=== PATIENT | male | born 1975 | race Caucasian/White ===

== ENCOUNTER 2016-12-28 21:12 | Emergency (ER) | payer MEDICAID ==
[2016-12-28 21:13] VITALS: BMI 25.8
--- NOTE | 2016-12-29 00:30 | C.PDOC ---
History Of Present Illness 41 y/o male presents to ED who states he was unable to stay [facility] the [facility] tonight after having several drinks. Patient denies any medical complaints on arrival. Time Seen by Provider: 12/29/16 00:16 Chief Complaint (Nursing): Substance Abuse History Per: Patient History/Exam Limitations: no limitations Onset/Duration Of Symptoms: Hrs Current Symptoms Are (Timing): Still Present Suicide/Self Injury Attempted (Context): None Modifying Factor(s): Alcohol Associated Symptoms: denies: Suicidal Thoughts, Suicidal Plan Recent travel outside of the [place]: No Past Medical History Reviewed: Historical Data, Nursing Documentation, Vital Signs Vital Signs: Last Vital Signs Temp 97.9 F 12/28/16 21:27 Pulse 87 12/29/16 04:37 Resp 20 12/29/16 04:37 BP 141/70 12/29/16 04:37 Pulse Ox 96 12/29/16 05:42 - Medical History PMH: Asthma, Hepatitis (C) - [facility] Procedures ALCOHOL DETOXIFICATION (04/27/15) CONTINUOUS INVASIVE MECHANICAL VENTILATION =/>96 CONSEC HRS (04/27/15) DETOXIFICATION SERVICES FOR SUBSTANCE ABUSE TREATMENT (04/25/16) GROUP PIPE FITTER SUPERVISOR MAINTENANCE FOR SUBSTANCE ABUSE TREATMENT, PSYCHOEDUCATION (12/23/16) INDIV PSYCHOTHERAPY FOR SUBSTANCE ABUSE TREATMENT, SUPPORT (12/23/16) INSERT ENDOTRACHEAL TUBE (04/27/15) MEDS MGMT FOR SUBSTANCE ABUSE TREATMENT, OTH REPL MED (12/23/16) Family History: States: Unknown Family Hx - Social History Hx Tobacco Use: Yes Hx Alcohol Use: Yes Hx Substance Use: No - Immunization History Hx Tetanus Toxoid Vaccination: No Hx Influenza Vaccination: No Hx Pneumococcal Vaccination: No Review Of Systems Except As Marked, All Systems Reviewed And Found Negative. Constitutional: Negative for: Fever, Chills Cardiovascular: Negative for: Chest Pain, Palpitations Respiratory: Negative for: Cough, Shortness of Breath Gastrointestinal: Negative for: Vomiting, Abdominal Pain Skin: Negative for: Rash Physical Exam - Physical Exam Appears: Non-toxic, No Acute Distress Skin: Warm, Dry Head: Atraumatic, Normacephalic Oral Mucosa: Moist Chest: Symmetrical Cardiovascular: Rhythm Regular, No Murmur Respiratory: No Rales, No Rhonchi, No Wheezing Gastrointestinal/Abdominal: Normal Exam, Soft, No Tenderness, No Guarding, No Rebound Back: Normal Inspection Extremity: Normal ROM, Capillary Refill (< 2 sec) Neurological/Psych: Oriented x3, Normal Speech, Normal Cognition Gait: Steady ED Course And Treatment O2 Sat by Pulse Oximetry: 96 (RA) Pulse Ox Interpretation: Normal Progress Note: 6 AM- Pt is awake, AAOx3 , fully ambulatory in ED. will d/c home Reevaluation Time: 06:03 Reassessment Condition: Improved Disposition - Disposition Disposition: HOME/ ROUTINE Disposition Time: 06:00 Condition: STABLE Instructions: Abuse of Alcohol (ED) - Clinical Impression Clinical Impression: Alcohol abuse - PA / FURNITURE DECALS INSPECTOR / Resident Statement MD/DO has reviewed & agrees with the documentation as recorded. - Scribe Statement The provider has reviewed the documentation as recorded by the Jennifer Singh Provider Scribe Attestation: All medical record entries made by the Bishopibvida were at my direction and personally dictated by me. I have reviewed the chart and agree that the record accurately reflects my personal performance of the history, physical exam, medical decision making, and the department course for this patient. I have also personally directed, reviewed, and agree with the discharge instructions and disposition.
[2016-12-29 04:38] VITALS: RESP 20
[2016-12-29 06:06] VITALS: BP 140/78; PULSE 92; TEMP 97.3; O2SAT 100
== END 2016-12-29 06:06 | disposition home or self-care (01) ==
LOC: C.ER 21:12
DX: F10.10 Alcohol abuse, uncomplicated (principal); Y90.9 Presence of alcohol in blood, level not specified

== ENCOUNTER 2017-01-10 22:24 | Emergency (ER) | payer MEDICAID ==
[2017-01-10 22:24] VITALS: BMI 25.8
[2017-01-10 22:39] VITALS: O2SAT 96
[2017-01-10] MEDS ORDERED: Sodium Chloride 0.9% 1,000 ML IV ONE (23:21)
[2017-01-10 23:53] LABS: BASO # 0.2 K/uL (0.0-0.2); BASO % 2.1 % (0.0-2.0); EOS # 0.1 K/uL (0.0-0.7); EOS % 1.7 % (0.0-4.0); HEMATOCRIT 36.4 % (35.0-51.0); LYMPH # 2.4 K/uL (1.0-4.3); LYMPH % 32.4 % (20.0-40.0); MEAN CELL VOLUME 77.9 fL (80.0-94.0); MEAN CORPUSCULAR HEMOGLOBIN 24.8 pg (27.0-31.0); MEAN CORPUSCULAR HGB CONC 31.8 g/dL (33.0-37.0); MONO # 0.8 K/uL (0.0-0.8); MONO % 10.8 % (0.0-10.0); RED CELL DISTRIBUTION WIDTH 20.6 % (11.5-14.5); WHITE BLOOD COUNT 7.5 K/uL (4.8-10.8)
[2017-01-10 23:58] LABS: CHLORIDE 103 mmol/L (98-107)
[2017-01-10 23:59] LABS: POTASSIUM 3.5 mmol/L (3.6-5.2); SODIUM 149 mmol/L (132-148)
[2017-01-11 00:01] LABS: ALB/GLOB RATIO 1.1 (1.0-2.1); BILIRUBIN,TOTAL 0.7 mg/dL (0.2-1.3); CARBON DIOXIDE 26 mmol/L (22-30); GFR AFRICAN-AMERICAN > 60; TOTAL PROTEIN 7.4 g/dL (6.3-8.3)
[2017-01-11 00:02] LABS: ALKALINE PHOSPHATASE 115 U/L (38-126); ALT/SGPT 97 U/L (21-72); AST/SGOT 253 U/L (17-59); BLOOD UREA NITROGEN 8 mg/dL (9-20); CALCIUM 7.8 mg/dl (8.6-10.4); GLUCOSE,RANDOM 97 mg/dL (75-110)
[2017-01-11] MEDS ORDERED: Albuterol-Ipratrop 3 mg / 0.5 (3 ml) UD IH STA (00:29)
[2017-01-11] MEDS ORDERED: Albuterol-Ipratrop 3 mg / 0.5 (3 ml) UD ONE (00:32)
--- NOTE | 2017-01-11 00:54 | C.PDOC ---
Time Seen by Provider: 01/10/17 23:09 Chief Complaint (Nursing): Abdominal Pain History Per: Patient History/Exam Limitations: intoxication Onset/Duration Of Symptoms: Hrs Current Symptoms Are (Timing): Still Present Context: Other (Alcohol abuse) Severity: Moderate Location Of Pain/Discomfort: Epigastric Associated Symptoms: Nausea Alleviating Factors: None Additional History Per: Prior Records Past Medical History Reviewed: Historical Data, Nursing Documentation, Vital Signs Vital Signs: Last Vital Signs Temp 97.9 F 01/10/17 22:35 Pulse 72 01/10/17 22:35 Resp 20 01/10/17 22:35 BP 130/84 01/10/17 22:35 Pulse Ox 96 01/11/17 00:55 - Medical History PMH: Asthma, Hepatitis (C) Surgical History: No Surg Hx - [facility] Procedures ALCOHOL DETOXIFICATION (04/27/15) CONTINUOUS INVASIVE MECHANICAL VENTILATION =/>96 CONSEC HRS (04/27/15) DETOXIFICATION SERVICES FOR SUBSTANCE ABUSE TREATMENT (04/25/16) GROUP TRAFFIC RATE COMPUTER FOR SUBSTANCE ABUSE TREATMENT, PSYCHOEDUCATION (12/23/16) INDIV PSYCHOTHERAPY FOR SUBSTANCE ABUSE TREATMENT, SUPPORT (12/23/16) INSERT ENDOTRACHEAL TUBE (04/27/15) MEDS MGMT FOR SUBSTANCE ABUSE TREATMENT, OTH REPL MED (12/23/16) Family History: States: Unknown Family Hx - Social History Hx Tobacco Use: Yes Hx Alcohol Use: Yes (daily) Hx Substance Use: No - Immunization History Hx Tetanus Toxoid Vaccination: No Hx Influenza Vaccination: No Hx Pneumococcal Vaccination: No Review Of Systems Except As Marked, All Systems Reviewed And Found Negative. Constitutional: Negative for: Fever Cardiovascular: Negative for: Chest Pain Respiratory: Negative for: Hemoptysis Gastrointestinal: Positive for: Abdominal Pain. Negative for: Vomiting Musculoskeletal: Negative for: Neck Pain Skin: Negative for: Rash Neurological: Negative for: Weakness, Numbness, Seizures Physical Exam - Physical Exam Appears: No Acute Distress, Other (AOB) Skin: Warm, Dry Head: Atraumatic Eye(s): bilateral: PERRL, EOMI Neck: Normal ROM, Supple Cardiovascular: Rhythm Regular Respiratory: Wheezing (scattered, intermittent) Gastrointestinal/Abdominal: Soft, Tenderness (upper abdomen), No Guarding, No Rebound Back: No CVA Tenderness Extremity: Normal ROM Neurological/Psych: Oriented x3, Normal Motor, Normal Sensation ED Course And Treatment - Laboratory Results Result Diagrams: 01/10/17 23:50 01/10/17 23:50 Lab Interpretation: Abnormal Interpretation Of Abnormal: Elevated Lipase. O2 Sat by Pulse Oximetry: 96 Pulse Ox Interpretation: Normal Progress Note: I told pt that I want to admit him because he had pancreatitis and that it is a dangerous and sometimes life threatening condition. Pt then walked out during evaluation. He did not want to wait for any discharge papers or to sign AMA papers. Disposition - Disposition Disposition: ELOPEMENT - ER ONLY Disposition Time: 01:05 Condition: GUARDED - Clinical Impression Clinical Impression: Acute alcoholic pancreatitis, Patient left before treatment completed
[2017-01-11 01:19] VITALS: BP 134/80; PULSE 84; RESP 16; TEMP 98.9
== END 2017-01-11 01:00 | disposition left against medical advice (07) ==
LOC: C.ER 22:24
DX: K85.20 Alcohol induced acute pancreatitis without necrosis or infection (principal)
CPT/HCPCS: 80053; 83690; 85025; 96361; 96374; 96375; 99283; J2765; J7040

== ENCOUNTER 2017-01-30 21:50 | Emergency (ER) | payer MEDICAID ==
[2017-01-30 21:50] VITALS: BMI 25.8
[2017-01-30 22:53] VITALS: BP 141/83; PULSE 76; RESP 18; TEMP 97.7; O2SAT 96
--- NOTE | 2017-01-31 00:16 | C.PDOC ---
History Of Present Illness 41 year old patient is brought to the ED by ambulance for public intoxication. He has a history of alcoholism. Patient was with his girlfriend. Patient requests to be discharged. Patient denies all other complaints at this time. Time Seen by Provider: 01/31/17 00:14 Chief Complaint (Nursing): Substance Abuse History Per: Patient History/Exam Limitations: intoxication Onset/Duration Of Symptoms: Other Current Symptoms Are (Timing): Still Present Suicide/Self Injury Attempted (Context): None Modifying Factor(s): Alcohol Severity: None Pain Scale Rating Of: 0 Associated Symptoms: Other Recent travel outside of the [place]: No Additional History Per: EMS, Girlfriend Past Medical History Reviewed: Historical Data, Nursing Documentation, Vital Signs Vital Signs: Last Vital Signs Temp 97.7 F 01/30/17 22:48 Pulse 76 01/30/17 22:48 Resp 18 01/30/17 22:48 BP 141/83 01/30/17 22:48 Pulse Ox 96 01/31/17 00:16 - Medical History PMH: Asthma, Hepatitis (C) - [facility] Procedures ALCOHOL DETOXIFICATION (04/27/15) CONTINUOUS INVASIVE MECHANICAL VENTILATION =/>96 CONSEC HRS (04/27/15) DETOXIFICATION SERVICES FOR SUBSTANCE ABUSE TREATMENT (04/25/16) GROUP COMMUNITY SUPPORT WORKER FOR SUBSTANCE ABUSE TREATMENT, PSYCHOEDUCATION (12/23/16) INDIV PSYCHOTHERAPY FOR SUBSTANCE ABUSE TREATMENT, SUPPORT (12/23/16) INSERT ENDOTRACHEAL TUBE (04/27/15) MEDS MGMT FOR SUBSTANCE ABUSE TREATMENT, OTH REPL MED (12/23/16) Family History: States: Unknown Family Hx - Social History Hx Tobacco Use: Yes Hx Alcohol Use: Yes (daily) Hx Substance Use: No - Immunization History Hx Tetanus Toxoid Vaccination: Yes Hx Influenza Vaccination: Yes Hx Pneumococcal Vaccination: No Review Of Systems Except As Marked, All Systems Reviewed And Found Negative. Constitutional: Negative for: Fever Gastrointestinal: Negative for: Nausea, Vomiting Psych: Negative for: Suicidal ideation Physical Exam - Physical Exam Appears: Non-toxic, No Acute Distress, Other (intoxicated, easily arousable) Skin: Warm, Dry Head: Atraumatic, Normacephalic Neck: Normal ROM, Supple Chest: Symmetrical Cardiovascular: Rhythm Regular Respiratory: No Accessory Muscle Use Gastrointestinal/Abdominal: Soft, No Tenderness Back: Normal Inspection, No CVA Tenderness Extremity: Normal ROM Neurological/Psych: Oriented x3 Gait: Other (stable) ED Course And Treatment O2 Sat by Pulse Oximetry: 96 (RA) Pulse Ox Interpretation: Normal Medical Decision Making Medical Decision Making: biba for public intox, homeless sitting in waiting room, wide awake, argumentative wants d/c to street Disposition Doctor Will See Patient In The: Office Counseled Patient/Family Regarding: Studies Performed, Diagnosis - Disposition Referrals: Alcoholics Anonymous [Outside] [facility] [Outside] [facility] [Outside] Disposition: HOME/ ROUTINE Disposition Time: 00:15 Condition: GOOD Instructions: Abuse of Alcohol (ED) - Clinical Impression Clinical Impression: Alcohol abuse - Scribe Statement The provider has reviewed the documentation as recorded by the Scribe Loraine Raza Provider Attestation: All medical record entries made by the Scribe were at my direction and personally dictated by me. I have reviewed the chart and agree that the record accurately reflects my personal performance of the history, physical exam, medical decision making, and the department course for this patient. I have also personally directed, reviewed, and agree with the discharge instructions and disposition.
== END 2017-01-31 00:29 | disposition home or self-care (01) ==
LOC: C.ER 21:50
DX: F10.220 Alcohol dependence with intoxication, uncomplicated (principal); Y90.9 Presence of alcohol in blood, level not specified

== ENCOUNTER 2017-02-10 19:35 | Emergency (ER) | payer MEDICAID ==
[2017-02-10 20:15] VITALS: BMI 31.0
[2017-02-10 20:21] VITALS: BP 135/88; RESP 18; TEMP 98.5
--- NOTE | 2017-02-10 20:36 | C.PDOC ---
History Of Present Illness 41 year old patient presents to the ED complaining of pain to right forearm for the past 3 days after tripping and falling. Patient denies loss of consciousness , other injuries, numbness, weakness, or fever. Patient denies any IV drug abuse but admits to alcohol daily. Time Seen by Provider: 02/10/17 20:25 Chief Complaint (Nursing): Abnormal Skin Integrity History Per: Patient History/Exam Limitations: no limitations Onset/Duration Of Symptoms: Days (3) Current Symptoms Are (Timing): Still Present Location Of Injury: Right: Arm Quality Of Symptoms: Painful Severity: Mild Pain Scale Rating Of: 3 Recent travel outside of the [place]: No Additional History Per: Patient Past Medical History Reviewed: Historical Data, Nursing Documentation, Vital Signs Vital Signs: Last Vital Signs Temp 98.5 F 02/10/17 20:16 Pulse 87 02/10/17 21:46 Resp 18 02/10/17 21:46 BP 135/88 02/10/17 20:16 Pulse Ox 99 02/10/17 21:54 - Medical History PMH: Asthma, Hepatitis (C) - [facility] Procedures ALCOHOL DETOXIFICATION (04/27/15) CONTINUOUS INVASIVE MECHANICAL VENTILATION =/>96 CONSEC HRS (04/27/15) DETOXIFICATION SERVICES FOR SUBSTANCE ABUSE TREATMENT (04/25/16) GROUP MANAGER CONCRETE FOR SUBSTANCE ABUSE TREATMENT, PSYCHOEDUCATION (12/23/16) INDIV PSYCHOTHERAPY FOR SUBSTANCE ABUSE TREATMENT, SUPPORT (12/23/16) INSERT ENDOTRACHEAL TUBE (04/27/15) MEDS MGMT FOR SUBSTANCE ABUSE TREATMENT, OTH REPL MED (12/23/16) Family History: States: Unknown Family Hx - Social History Hx Tobacco Use: Yes Hx Alcohol Use: Yes (daily) Hx Substance Use: No - Immunization History Hx Tetanus Toxoid Vaccination: Yes Hx Influenza Vaccination: Yes Hx Pneumococcal Vaccination: No Review Of Systems Except As Marked, All Systems Reviewed And Found Negative. Constitutional: Negative for: Fever Musculoskeletal: Positive for: Arm Pain (right forearm) Skin: Positive for: Bruising Neurological: Negative for: Weakness, Numbness Physical Exam - Physical Exam Appears: Non-toxic, No Acute Distress Skin: Warm, Dry Head: Atraumatic, Normacephalic Eye(s): bilateral: Normal Inspection Oral Mucosa: Moist, Other (alcohol on breath) Neck: Normal ROM, Supple Chest: Symmetrical Cardiovascular: Rhythm Regular Respiratory: Normal Breath Sounds, No Rales, No Rhonchi, No Wheezing Back: Normal Inspection Extremity: Normal ROM, Capillary Refill (<2 seconds), No Deformity, Other ( Right arm: induration to proximal forearm 2x3cm and surrounding swelling and ecchymosis, no tactile warmth. Normal ROM, normal radial pulse. No signs of track adame. tattoos present to bilateral forearms ) Pulses: Left Radial: Normal, Right Radial: Normal Neurological/Psych: Oriented x3, Normal Speech, Normal Sensation Gait: Steady ED Course And Treatment O2 Sat by Pulse Oximetry: 99 (room air) Pulse Ox Interpretation: Normal Medical Decision Making Medical Decision Makin y.o male with right forearm ecchymosis, swelling and induration Prior records reviewed patient has been seen in the past for alcohol intoxication/abuse. No history of IVDA Clinical suspicion for drug use will order UDS. XRay ordered and reviewed by me showing soft tissue swelling, no fracture UDS positive for opiates Will treat with antibiotics and instruct to follow with clinic in 2-3 days for re-evaluation Disposition Counseled Patient/Family Regarding: Diagnosis, Need For Followup - Disposition Referrals: Angella Dave MD [Primary Care Provider] - Disposition: HOME/ ROUTINE Disposition Time: 21:09 Condition: STABLE Additional Instructions: Follow up with your primary medical doctor or clinic in 2-5 days for further evaluation. Take medications as prescribed. Return to the emergency department at any time if symptoms persist or worsen. Prescriptions: Doxycycline Hyclate 100 mg PO BID #14 cap Instructions: Cellulitis (DC) - POA Present On Arrival: None - Clinical Impression Clinical Impression: Right arm cellulitis, Alcohol abuse - PA / CONTINUOUS IMPROVEMENT MANAGER / Resident Statement MD/DO has reviewed & agrees with the documentation as recorded. - Scribe Statement The provider has reviewed the documentation as recorded by the Scribe Loraine Raza All medical record entries made by the Scribe were at my direction and personally dictated by me. I have reviewed the chart and agree that the record accurately reflects my personal performance of the history, physical exam, medical decision making, and the department course for this patient. I have also personally directed, reviewed, and agree with the discharge instructions and disposition.
[2017-02-10 21:49] VITALS: PULSE 87
[2017-02-10 21:52] VITALS: O2SAT 99
--- NOTE | 2017-02-11 08:24 | RAD ---
PROCEDURE: Radiographs of the right forearm. HISTORY: pain and swelling COMPARISON: None available. TECHNIQUE: Frontal and lateral views obtained. FINDINGS: BONES: No acute displaced fracture. JOINT SPACES: No dislocation. OTHER FINDINGS: Diffuse soft tissue swelling with more focal prominence involving the lateral proximal soft tissues of the forearm. No evidence of radiopaque foreign body. IMPRESSION: Diffuse soft tissue swelling with more focal prominence involving the lateral proximal soft tissues of the forearm. No acute displaced fracture, dislocation, or significant joint effusion identified. If symptoms persist, or if there is continued clinical concern, x-ray follow-up in 7-10 days should be considered.
== END 2017-02-10 21:46 | disposition home or self-care (01) ==
LOC: C.ER 19:35 → SUPCPDRO 19:35 → C.ER 21:46
DX: L03.113 Cellulitis of right upper limb (principal); F10.10 Alcohol abuse, uncomplicated; Y90.9 Presence of alcohol in blood, level not specified

== ENCOUNTER 2017-03-18 23:02 | Emergency (ER) | payer SELFPAY ==
[2017-03-18 23:03] VITALS: BMI 31.0
[2017-03-18 23:12] VITALS: BP 121/81
[2017-03-18] MEDS ORDERED: Albuterol-Ipratrop 3 mg / 0.5 (3 ml) UD INH STA (23:18)
[2017-03-18] MEDS ORDERED: Albuterol 0.083% Inhal Sol (2.5 mg/3 mL) UD INH STA (23:18)
--- NOTE | 2017-03-18 23:51 | C.PDOC ---
History Of Present Illness 41 year old male presents to the ED with complaints of shortness of breath and productive cough with green sputum for several days. Patient notes a history of asthma and has run out of inhaler medication. He also notes a history arthritis with current left hip pain. Patient denies any fever, chills, nausea, or vomiting. Time Seen by Provider: 03/18/17 23:09 Chief Complaint (Nursing): Shortness Of Breath History Per: Patient History/Exam Limitations: no limitations Onset/Duration Of Symptoms: Days Current Symptoms Are (Timing): Still Present Associated Symptoms: Productive Cough. denies: Fever, Chills Recent travel outside of the [place]: No Past Medical History Reviewed: Historical Data, Nursing Documentation, Vital Signs Vital Signs: Last Vital Signs Temp Pulse 86 03/18/17 23:06 Resp 15 03/18/17 23:12 BP 121/81 03/18/17 23:06 Pulse Ox 100 03/19/17 00:45 - Medical History PMH: Asthma, Hepatitis (C) - [facility] Procedures ALCOHOL DETOXIFICATION (04/27/15) CONTINUOUS INVASIVE MECHANICAL VENTILATION =/>96 CONSEC HRS (04/27/15) DETOXIFICATION SERVICES FOR SUBSTANCE ABUSE TREATMENT (04/25/16) GROUP CHOCOLATE PACKER FOR SUBSTANCE ABUSE TREATMENT, PSYCHOEDUCATION (12/23/16) INDIV PSYCHOTHERAPY FOR SUBSTANCE ABUSE TREATMENT, SUPPORT (12/23/16) INSERT ENDOTRACHEAL TUBE (04/27/15) MEDS MGMT FOR SUBSTANCE ABUSE TREATMENT, OTH REPL MED (12/23/16) Family History: States: Unknown Family Hx - Social History Hx Tobacco Use: Yes Hx Alcohol Use: Yes (daily) Hx Substance Use: No - Immunization History Hx Tetanus Toxoid Vaccination: No Hx Influenza Vaccination: Yes Hx Pneumococcal Vaccination: No Review Of Systems Constitutional: Negative for: Fever, Chills, Sweats Cardiovascular: Negative for: Chest Pain, Palpitations Respiratory: Positive for: Cough, Shortness of Breath, Sputum (green sputum) Physical Exam - Physical Exam Appears: Non-toxic, No Acute Distress Skin: Warm, Dry Head: Atraumatic Oral Mucosa: Moist Neck: Supple Chest: Symmetrical, No Deformity Cardiovascular: Rhythm Regular Respiratory: No Rales, No Rhonchi, No Stridor, Wheezing (diffuse wheezing in all paredes ) Gastrointestinal/Abdominal: Soft, No Tenderness, No Distention, No Guarding, No Rebound Extremity: Normal ROM, Other (pain with flexion of the left hip ) Neurological/Psych: Oriented x3, Other (speaking in full sentences ) ED Course And Treatment - Laboratory Results Result Diagrams: 03/18/17 11:50 03/18/17 11:50 Lab Interpretation: Abnormal (slightly elevated WBC. Mild anemia with thrombocytopenia. Elevated AST 150, K+ 3.2 corrected with Kdur) ECG: Interpreted By Me ECG Rhythm: Sinus Rhythm ( with right axis deviation), ST/T Changes (T wave inversions III, AVF) ECG Interpretation: Abnormal O2 Sat by Pulse Oximetry: 100 (room air ) - Radiology CXR: Interpreted by Me CXR Interpretation: Yes: No Acute Disease Reevaluation Time: 00:48 Reassessment Condition: Improved (after several albuterol nebulized treatments) Disposition - Disposition Referrals: [facility] [Outside] Disposition: HOME/ ROUTINE Disposition Time: 00:48 Condition: IMPROVED Prescriptions: Albuterol HFA [Ventolin HFA 90 mcg/actuation (8 g)] 1 puff IH Q4H PRN #1 inhaler PRN Reason: Wheezing Amoxicillin/Potassium Clav [Amox-Clav 875-125 mg Tablet] 1 each PO BID #20 tablet Instructions: Acute Bronchitis (ED), Wheezing (ED) - Clinical Impression Clinical Impression: Acute asthmatic bronchitis - Scribe Statement The provider has reviewed the documentation as recorded by the Scribvida Vasquez All medical record entries made by the Scribe were at my direction and personally dictated by me. I have reviewed the chart and agree that the record accurately reflects my personal performance of the history, physical exam, medical decision making, and the department course for this patient. I have also personally directed, reviewed, and agree with the discharge instructions and disposition.
[2017-03-18] MEDS ORDERED: Albuterol 0.083% Inhal Sol (2.5 mg/3 mL) UD ONE (23:59)
[2017-03-19] LABS: MEAN CORPUSCULAR HEMOGLOBIN 25.6 pg (27.0-31.0)
[2017-03-19 00:04] LABS: HEMATOCRIT 32.1 % (35.0-51.0); MEAN CELL VOLUME 80.9 fL (80.0-94.0); MEAN CORPUSCULAR HGB CONC 31.7 g/dL (33.0-37.0); MEAN PLATELET VOLUME 9.9 fL (7.2-11.7); RED CELL DISTRIBUTION WIDTH 18.1 % (11.5-14.5); WHITE BLOOD COUNT 11.3 K/uL (4.8-10.8)
[2017-03-19 00:06] LABS: PLATELET COUNT 80 K/uL (130-400)
[2017-03-19] MEDS ORDERED: Albuterol 0.083% Inhal Sol (2.5 mg/3 mL) UD ONE (00:07)
[2017-03-19 00:17] LABS: CHLORIDE 104 mmol/L (98-107); POTASSIUM 3.2 mmol/L (3.6-5.2); SODIUM 144 mmol/L (132-148)
[2017-03-19 00:19] LABS: GFR AFRICAN-AMERICAN > 60
[2017-03-19 00:20] LABS: ALB/GLOB RATIO 1.1 (1.0-2.1); ALKALINE PHOSPHATASE 112 U/L (38-126); ALT/SGPT 56 U/L (21-72); AST/SGOT 150 U/L (17-59); BILIRUBIN,TOTAL 1.2 mg/dL (0.2-1.3); BLOOD UREA NITROGEN 6 mg/dL (9-20); CARBON DIOXIDE 27 mmol/L (22-30); GLUCOSE,RANDOM 121 mg/dL (75-110); TOTAL PROTEIN 7.1 g/dL (6.3-8.3)
[2017-03-19 00:21] LABS: CALCIUM 7.4 mg/dl (8.6-10.4)
[2017-03-19] MEDS ORDERED: Potassium Chloride 20 mEq ER Tab PO STA (00:34)
[2017-03-19] MEDS ORDERED: Amoxicillin-Clav 500-125 mg Tab PO STA (00:40)
[2017-03-19 00:59] VITALS: PULSE 70; RESP 16; O2SAT 99
[2017-03-19 01:22] LABS: EOSINOPHIL 1 % (0-4); NEUTROPHIL 61 % (50-75); NUCLEATED RED BLOOD CELL 1 % (0-0); REACTIVE LYMPHOCYTES 7 % (0-0); TOTAL CELLS COUNTED 100
--- NOTE | 2017-03-19 09:11 | RAD ---
HISTORY: SOB COMPARISON: Comparison chest 11/11/2016 TECHNIQUE: Chest PA and lateral FINDINGS: LUNGS: Mild elevation right hemidiaphragm with suspected mild right basilar atelectasis. PLEURA: No significant pleural effusion identified. No pneumothorax apparent. CARDIOVASCULAR: Normal. OSSEOUS STRUCTURES: No significant abnormalities. VISUALIZED UPPER ABDOMEN: Normal. OTHER FINDINGS: None. IMPRESSION: Mild elevation right hemidiaphragm with suspected mild right basilar atelectasis
--- NOTE | 2017-03-24 16:58 | CARD ---
APPROVED REPORT EKG Measurement Heart [id number] DC [id number] <Conclusion> Normal sinus rhythm Right axis deviation Nonspecific ST/T changes. Baseline artifact. Abnormal ECG
== END 2017-03-19 00:58 | disposition home or self-care (01) ==
LOC: C.ER 23:02
DX: J45.909 Unspecified asthma, uncomplicated (principal)

== ENCOUNTER 2017-11-29 16:45 | Emergency (ER) | payer MEDICAID ==
[2017-11-29 16:46] VITALS: BMI 31.0
[2017-11-29 17:00] VITALS: RESP 20; O2SAT 98
--- NOTE | 2017-11-29 18:04 | C.PDOC ---
History Of Present Illness 42 y/o male with history of ETOH abuse and Hemorrhoids brought to ED by EMS for etoh intoxication and rectal bleeding for 5 days. Patient reports rectal pain for 1 year and states 5 days ago he noticed blood in toilet. Patient admits to drinking ETOH 2.5 hours ago and is requesting detox. No other complaints at this time. Time Seen by Provider: 11/29/17 17:05 Chief Complaint (Nursing): Substance Abuse History Per: Patient History/Exam Limitations: no limitations Onset/Duration Of Symptoms: Days Current Symptoms Are (Timing): Still Present Suicide/Self Injury Attempted (Context): None Modifying Factor(s): Alcohol Past Medical History Reviewed: Historical Data, Nursing Documentation, Vital Signs Vital Signs: Last Vital Signs Temp 97.6 F 11/29/17 16:56 Pulse 90 11/29/17 16:56 Resp 20 11/29/17 16:56 BP 125/85 11/29/17 16:56 Pulse Ox 98 11/29/17 18:58 - Medical History PMH: Asthma, Hepatitis (C) Surgical History: No Surg Hx - [facility] Procedures ALCOHOL DETOXIFICATION (04/27/15) CONTINUOUS INVASIVE MECHANICAL VENTILATION =/>96 CONSEC HRS (04/27/15) DETOXIFICATION SERVICES FOR SUBSTANCE ABUSE TREATMENT (04/25/16) GROUP ASSAYER FOR SUBSTANCE ABUSE TREATMENT, PSYCHOEDUCATION (12/23/16) INDIV PSYCHOTHERAPY FOR SUBSTANCE ABUSE TREATMENT, SUPPORT (12/23/16) INSERT ENDOTRACHEAL TUBE (04/27/15) MEDS MGMT FOR SUBSTANCE ABUSE TREATMENT, OTH REPL MED (12/23/16) Family History: States: No Known Family Hx - Social History Hx Tobacco Use: Yes Hx Alcohol Use: Yes (daily) Hx Substance Use: No - Immunization History Hx Tetanus Toxoid Vaccination: No Hx Influenza Vaccination: Yes Hx Pneumococcal Vaccination: No Review Of Systems Constitutional: Negative for: Fever, Chills Cardiovascular: Negative for: Chest Pain Respiratory: Negative for: Shortness of Breath Gastrointestinal: Positive for: Abdominal Pain, Hematochezia, Rectal Pain. Negative for: Nausea, Vomiting Skin: Negative for: Rash Psych: Negative for: Suicidal ideation, Withdrawal Physical Exam - Physical Exam Appears: Non-toxic, No Acute Distress, Other (ETOH on breath) Skin: Warm, Dry, No Rash Head: Atraumatic, Normacephalic Oral Mucosa: Moist Neck: Normal ROM, Supple Cardiovascular: Rhythm Regular Respiratory: Normal Breath Sounds, No Rales, No Rhonchi, No Wheezing Gastrointestinal/Abdominal: Soft, No Tenderness, No Guarding, No Rebound Rectal: Hemorrhoids Extremity: Normal ROM, Capillary Refill (<2 seconds) Neurological/Psych: Oriented x3 ED Course And Treatment O2 Sat by Pulse Oximetry: 98 (RA) Pulse Ox Interpretation: Normal Medical Decision Making Medical Decision Making: alcohol abuse external hemrrhoid case s/o to Dr. Randolph pending labs, reevaluation and disposition. Disposition Counseled Patient/Family Regarding: Studies Performed, Diagnosis - Disposition Disposition Time: 19:00 Condition: STABLE Forms: [employer] (Romanian) - Clinical Impression Clinical Impression: Hemorrhoids, Alcohol abuse - Scribe Statement The provider has reviewed the documentation as recorded by the Scribvida Rosado All medical record entries made by the Scribe were at my direction and personally dictated by me. I have reviewed the chart and agree that the record accurately reflects my personal performance of the history, physical exam, medical decision making, and the department course for this patient. I have also personally directed, reviewed, and agree with the discharge instructions and disposition. Physician Patient Turnover Patient Signed Over To: Joni Randolph Handoff Comments: pending labs, reevaluation and disposition.
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
[2017-11-29 18:43] LABS: HEMOGLOBIN 9.3 g/dL (12.0-18.0)
[2017-11-29 18:47] LABS: MEAN CORPUSCULAR HEMOGLOBIN 23.9 pg (27.0-31.0); MEAN CORPUSCULAR HGB CONC 32.3 g/dL (33.0-37.0); MEAN PLATELET VOLUME 9.3 fL (7.2-11.7); RBC 3.87 Mil/uL (4.40-5.90); RED CELL DISTRIBUTION WIDTH 19.8 % (11.5-14.5); WHITE BLOOD COUNT 8.3 K/uL (4.8-10.8)
[2017-11-29 18:50] LABS: INR 1.5; PROTHROMBIN TIME 17.2 SECONDS (9.7-12.2)
[2017-11-29 18:56] LABS: MEAN CELL VOLUME 74.1 fL (80.0-94.0)
[2017-11-29 19:03] LABS: ALB/GLOB RATIO 0.7 (1.0-2.1); ALBUMIN 3.2 g/dL (3.5-5.0); ALT/SGPT 61 U/L (21-72); AST/SGOT 167 U/L (17-59); BLOOD UREA NITROGEN 5 mg/dL (9-20); CALCIUM 7.3 mg/dl (8.6-10.4); GFR AFRICAN-AMERICAN > 60; GFR NON-AFRICAN AMERICAN > 60; LIPASE 650 U/L (23-300)
[2017-11-29 19:27] LABS: EOS # 0.2 K/uL (0.0-0.7); LYMPH # 2.9 K/uL (1.0-4.3); MONO # 0.7 K/uL (0.0-0.8); NEUT # 4.5 K/uL (1.8-7.0)
[2017-11-29 20:21] VITALS: BP 120/80; PULSE 78; TEMP 98
== END 2017-11-29 20:19 | disposition home or self-care (01) ==
LOC: C.ER 16:45
DX: F10.129 Alcohol abuse with intoxication, unspecified (principal); K64.8 Other hemorrhoids; F17.210 Nicotine dependence, cigarettes, uncomplicated

== ENCOUNTER → 2017-12-06 22:59 | Emergency (ER) | payer MEDICAID ==
[2017-12-06 22:59] VITALS: BMI 31.0
== END | disposition left against medical advice (07) ==
LOC: C.ER 22:59
DX: Z02.89 Encounter for other administrative examinations (principal); F19.10 Other psychoactive substance abuse, uncomplicated

== ENCOUNTER 2017-12-07 18:07 | Emergency (ER) | payer MEDICAID ==
[2017-12-07 18:08] VITALS: BMI 31.0
[2017-12-07 18:15] VITALS: BP 134/82; PULSE 116; RESP 20; TEMP 98.3; O2SAT 95
--- NOTE | 2017-12-07 20:44 | C.PDOC ---
History Of Present Illness Patient presents to the ER requesting detox from ETOH, however, no ETOH detox beds are available. Crisis spoke with patient and provided information on outpatient detox facilities as well as how to be placed on a waiting list. Patient declined to be examine and left. Time Seen by Provider: 12/07/17 20:17 Chief Complaint (Nursing): Substance Abuse History Per: Patient History/Exam Limitations: no limitations Onset/Duration Of Symptoms: Days Suicide/Self Injury Attempted (Context): None Modifying Factor(s): Alcohol Severity: None Pain Scale Rating Of: 0 Associated Symptoms: denies: Depression, Suicidal Thoughts Involuntary Hold By: None Recent travel outside of the [place]: No Past Medical History Reviewed: Historical Data, Nursing Documentation, Vital Signs Vital Signs: Last Vital Signs Temp 98.3 F 12/07/17 18:11 Pulse 116 H 12/07/17 18:11 Resp 20 12/07/17 18:11 BP 134/82 12/07/17 18:11 Pulse Ox 95 12/07/17 20:44 - Medical History PMH: Asthma, Hepatitis (C) - [facility] Procedures ALCOHOL DETOXIFICATION (04/27/15) CONTINUOUS INVASIVE MECHANICAL VENTILATION =/>96 CONSEC HRS (04/27/15) DETOXIFICATION SERVICES FOR SUBSTANCE ABUSE TREATMENT (04/25/16) GROUP PROCUREMENT DIRECTOR FOR SUBSTANCE ABUSE TREATMENT, PSYCHOEDUCATION (12/23/16) INDIV PSYCHOTHERAPY FOR SUBSTANCE ABUSE TREATMENT, SUPPORT (12/23/16) INSERT ENDOTRACHEAL TUBE (04/27/15) MEDS MGMT FOR SUBSTANCE ABUSE TREATMENT, OTH REPL MED (12/23/16) Family History: States: No Known Family Hx - Social History Hx Tobacco Use: Yes Hx Alcohol Use: Yes (daily) Hx Substance Use: No - Immunization History Hx Tetanus Toxoid Vaccination: No Hx Influenza Vaccination: Yes Hx Pneumococcal Vaccination: No ED Course And Treatment O2 Sat by Pulse Oximetry: 95 Disposition - Disposition Disposition: ELOPEMENT - ER ONLY Disposition Time: 20:44 Condition: FAIR Instructions: Alcohol Abuse and Alcoholism (DC) Forms: [facility] (Mal[place]ian) - Clinical Impression Clinical Impression: Alcohol abuse - Scribe Statement The provider has reviewed the documentation as recorded by the Scribe Amaury Alford All medical record entries made by the Scribe were at my direction and personally dictated by me. I have reviewed the chart and agree that the record accurately reflects my personal performance of the history, physical exam, medical decision making, and the department course for this patient. I have also personally directed, reviewed, and agree with the discharge instructions and disposition.
== END 2017-12-07 20:44 | disposition left against medical advice (07) ==
LOC: C.ER 18:07
DX: F10.10 Alcohol abuse, uncomplicated (principal); Z72.0 Tobacco use

== ENCOUNTER 2017-12-08 06:43 | Inpatient (IN) | payer MEDICAID ==
[2017-12-08 06:45] VITALS: BMI 31.0
[2017-12-08] MEDS ORDERED: Multivitamin (MVI) 10 ML, Thiamine 100 MG, Folic Acid 1 MG in Sodium Chloride 0.9% 1,00... IV ONE (07:52)
--- NOTE | 2017-12-08 08:00 | C.PDOC ---
History Of Present Illness 42 y/o M c PMHx Hep C, alcohol abuse p/w L sided thoracic pain x 4 days. Patient states was drinking and fell, now has pain of the L sided thorax with any movement, palpation, or deep breaths. Patient also complains of cough productive of clear sputum, blood tinged. Patient states last drink yesterday morning and now feeling tremulous. Denies fever, chills, chest pain, dyspnea, abdominal pain, vomiting, diarrhea. Time Seen by Provider: 12/08/17 07:46 Chief Complaint (Nursing): Shortness Of Breath Past Medical History Vital Signs: Last Vital Signs Temp 99.9 F H 12/08/17 12:05 Pulse 98 H 12/08/17 11:51 Resp 20 12/08/17 11:51 BP 169/93 H 12/08/17 11:51 Pulse Ox 98 12/08/17 11:51 - Medical History PMH: Asthma, Hepatitis (C) Denies: HIV, HTN, Chronic Kidney Disease, Seizures, Sexually Transmitted Disease - [facility] Procedures ALCOHOL DETOXIFICATION (04/27/15) CONTINUOUS INVASIVE MECHANICAL VENTILATION =/>96 CONSEC HRS (04/27/15) DETOXIFICATION SERVICES FOR SUBSTANCE ABUSE TREATMENT (04/25/16) GROUP PRINTED CIRCUIT BOARD ASSEMBLER FOR SUBSTANCE ABUSE TREATMENT, PSYCHOEDUCATION (12/23/16) INDIV PSYCHOTHERAPY FOR SUBSTANCE ABUSE TREATMENT, SUPPORT (12/23/16) INSERT ENDOTRACHEAL TUBE (04/27/15) MEDS MGMT FOR SUBSTANCE ABUSE TREATMENT, OTH REPL MED (12/23/16) Family History: States: No Known Family Hx - Social History Hx Tobacco Use: Yes Hx Alcohol Use: Yes (daily) Hx Substance Use: No - Immunization History Hx Tetanus Toxoid Vaccination: No Hx Influenza Vaccination: Yes Hx Pneumococcal Vaccination: No Review Of Systems Except As Marked, All Systems Reviewed And Found Negative. Constitutional: Negative for: Fever Cardiovascular: Negative for: Chest Pain Physical Exam - Physical Exam Additional Physical Exam Comments: Gen: NAD Head: NC Eyes: PERRL ENT: MMM. Tongue fasciculations Neck: No midline tenderness Chest: L sided thoracic tenderness with overlying ecchymosis CV: Tachycardic Lungs: No accessory muscle use Abd: Distended, no tenderness Back: No midline tenderness Skin: As above Extremities: FROM, no tenderness Neuro: Alert, moves all extremities. Bilateral hand tremor. ED Course And Treatment - Laboratory Results Result Diagrams: 12/08/17 08:03 12/08/17 08:03 O2 Sat by Pulse Oximetry: 87 Medical Decision Making Medical Decision Making: CT - Head PROCEDURE: CT HEAD WITHOUT CONTRAST. HISTORY: fall COMPARISON: None available. TECHNIQUE: Axial computed tomography images were obtained through the head/brain without intravenous contrast. Radiation dose: Total exam DLP = 972.04 mGy-cm. This CT exam was performed using one or more of the following dose reduction techniques: Automated exposure control, adjustment of the mA and/or kV according to patient size, and/or use of iterative reconstruction technique. FINDINGS: HEMORRHAGE: No intracranial hemorrhage. BRAIN: No mass effect or edema. The caputo-white matter differentiation appears intact. Please note that MRI with diffusion imaging is more sensitive in the detection of acute ischemic event. VENTRICLES: No hydrocephalus. CALVARIUM: Unremarkable. PARANASAL SINUSES: Mucosal thickening of the bilateral maxillary sinuses and ethmoid air cells. MASTOID AIR CELLS: Minimal opacification of the right mastoid air cells. The left mastoid air cells appear clear. OTHER FINDINGS: None. IMPRESSION: No acute intracranial pathology identified. Mucosal thickening of the bilateral maxillary sinuses and ethmoid air cells. Minimal opacification of the right mastoid air cells. Correlate clinically for possibility of mastoiditis. CT - Chest/Abd/Pelvis PROCEDURE: CT Chest, Abdomen and Pelvis with intravenous contrast HISTORY: fall, L sided thoracic tenderness COMPARISON: None. TECHNIQUE: IV dose administered: 100 mL Visipaque 320 Radiation dose: Total exam DLP = 1553.95 mGy-cm. This CT exam was performed using one or more of the following dose reduction techniques: Automated exposure control, adjustment of the mA and/or kV according to patient size, and/or use of iterative reconstruction technique. FINDINGS: CT CHEST WITH CONTRAST: LUNGS: Multifocal infiltrate with areas of yudy consolidation in the right upper lobe and right middle lobe. Infiltrate versus atelectasis in the right lower lobe. There is extensive segmental/ subsegmental atelectasis in the left lower lobe, likely compressive atelectasis secondary to small left pleural effusion. Trace right pleural effusion. No pulmonary mass identified. Very small left apical pneumothorax noted. No generalized pneumothorax elsewhere. MEDIASTINUM: Unremarkable. Normal caliber aorta and pulmonary arterial trunk. No aortic dissection. Normal size heart. There is a small rounded fluid collection along the right lateral aspect of what is either the distal esophagus or small hiatal hernia. This measures approximately 2 cm in diameter. Uncertain significance. This is unlikely to reflect a diverticulum. Possible developmental duplication anomaly. LYMPH NODES: Unremarkable. PLEURA: Unremarkable. No pneumothorax. No pleural fluid. BONES: Fracture left 7th through 10th ribs. Two-part fracture of left 10th rib. There is displacement of the 7th 8th and 9th rib fractures. Old healed fracture right 10th rib. OTHER FINDINGS: None. CT ABDOMEN AND PELVIS: LIVER: Nodular contour consistent with hepatic cirrhosis. Hepatomegaly. No mass. No biliary dilatation. GALLBLADDER AND BILE DUCTS: Mild diffuse mural thickening common nonspecific. PANCREAS: Trace fluid around the pancreatic head which may reflect pancreatitis. Please correlate clinically. Mild enlargement of the pancreatic head is noted as well. No pancreatic mass identified. SPLEEN: Mild splenomegaly. The spleen measures approximately 14 cm in greatest dimension. No evidence of splenic laceration/hematoma. ADRENALS: Unremarkable. No mass. KIDNEYS AND URETERS: Unremarkable. No hydronephrosis. No solid mass. VASCULATURE: Unremarkable. No aortic aneurysm. BOWEL: Circumferential mural thickening of the cecum and ascending colon to the level of the hepatic flexure. Nonspecific colitis. The remainder of the colon is unremarkable. There is circumferential mural thickening of the duodenum and multiple loops of jejunum consistent with nonspecific enteritis. No evidence of bowel obstruction. Sigmoid diverticulosis without evidence of diverticulitis. APPENDIX: Unremarkable PERITONEUM: Mild generalized ascites LYMPH NODES: Unremarkable. No enlarged lymph nodes. BLADDER: Unremarkable. REPRODUCTIVE: Unremarkable prostate BONES: No acute fracture. OTHER FINDINGS: None. IMPRESSION: Multiple left rib fractures as described. Multifocal infiltrate in the right upper and middle lobes. Small left pleural effusion. Tiny left apical pneumothorax. Left lower lobe segmental/subsegmental atelectasis. Hepatic cirrhosis. Possible pancreatitis. Please correlate clinically. Nonspecific colitis involving the cecum and ascending colon. Nonspecific enteritis involving duodenum and multiple loops of jejunum. Ascites. Mild splenomegaly. No evidence of splenic laceration/hematoma. Discussed case with [employer] Dr. Smith who recommends continued hydration , antibiotics currently. Hemodynamically stable, vital signs improved since arrival, will admit to Telemetry. Dr. Bernabe accepts to his service. Disposition Discussed With : Brendon Bernabe - Disposition Disposition: HOSPITALIZED Disposition Time: 12:20 Condition: GUARDED - POA Core Measure Indicators: Code Sepsis, Pneumonia - Clinical Impression Clinical Impression: Alcohol withdrawal, Pneumonia, Pneumothorax, Rib fractures, Sepsis
[2017-12-08 08:22] LABS: INR 1.6; PROTHROMBIN TIME 18.4 SECONDS (9.7-12.2)
[2017-12-08 08:23] LABS: MEAN CELL VOLUME 74.6 fL (80.0-94.0); MEAN CORPUSCULAR HEMOGLOBIN 23.7 pg (27.0-31.0); MEAN CORPUSCULAR HGB CONC 31.7 g/dL (33.0-37.0); MEAN PLATELET VOLUME 10.8 fL (7.2-11.7); RBC 3.05 Mil/uL (4.40-5.90); RED CELL DISTRIBUTION WIDTH 19.5 % (11.5-14.5)
[2017-12-08 08:26] LABS: HEMOGLOBIN 7.2 g/dL (12.0-18.0); WHITE BLOOD COUNT 26.9 K/uL (4.8-10.8)
[2017-12-08 08:27] LABS: PLATELET COUNT 53 K/uL (130-400)
[2017-12-08 08:28] LABS: ALB/GLOB RATIO 0.8 (1.0-2.1); ALT/SGPT 58 U/L (21-72); AST/SGOT 180 U/L (17-59); BLOOD UREA NITROGEN 12 mg/dL (9-20); CALCIUM 7.5 mg/dl (8.6-10.4); GFR AFRICAN-AMERICAN > 60; GFR NON-AFRICAN AMERICAN > 60; LIPASE 373 U/L (23-300)
[2017-12-08 08:34] LABS: B-TYPE NATRIURETIC PEPTIDE 80.9 pg/mL (0-450)
[2017-12-08 08:53] LABS: VENOUS BLOOD GAS PCO2 39 mmHg (40-60); VENOUS BLOOD GAS PO2 28 mm/Hg (30-55); VENOUS BLOOD PH 7.45 (7.32-7.43)
[2017-12-08] MEDS ORDERED: Vancomycin 1 gm/NS 200 ml 1 GM/200 ML BAG IVPB STA (08:55)
[2017-12-08] MEDS ORDERED: Piperacill/Tazo 4.5gm in Dex 4.5 GM/100 ML BAG IVPB STA (08:55)
[2017-12-08] MEDS ORDERED: Sodium Chloride 0.9% 1,000 ML IV STA ×3 (08:55→08:56)
[2017-12-08 08:56] LABS: LYMPH # 0.8 K/uL (1.0-4.3); MONO # 0.8 K/uL (0.0-0.8)
[2017-12-08 09:02] LABS: ANISOCYTOSIS SLIGHT; BANDS 24 % (0-2); HYPOCHROMIC MODERATE; LYMPHOCYTE 2 % (20-40); MONOCYTE 1 % (0-10); NEUTROPHIL 73 % (50-75); PLATELET ESTIMATE DECREASED (NORMAL); POLYCHROMIC SLIGHT; TOTAL CELLS COUNTED 100
[2017-12-08 09:03] LABS: MICROCYTOSIS SLIGHT; OVALOCYTES SLIGHT; TARGET CELLS SLIGHT
[2017-12-08 10:05] LABS: URINE BACTERIA RARE (<OCC); URINE BILIRUBIN NEGATIVE (NEGATIVE); URINE BLOOD NEGATIVE (NEGATIVE); URINE CLARITY Clear (Clear); URINE COLOR Amber (YELLOW); URINE GLUCOSE (UA) NORMAL (Normal); URINE LEUKOCYTE ESTERASE NEG Leu/uL (Negative); URINE PROTEIN 1+ mg/dL (NEGATIVE)
[2017-12-08 10:17] LABS: BARBITURATES, UR NEGATIVE (NEGATIVE); BENZODIAZEPINES, UR NEGATIVE (NEGATIVE); OPIATES, UR NEGATIVE (NEGATIVE); PHENCYCLIDINE, UR NEGATIVE (NEGATIVE)
[2017-12-08] MEDS ORDERED: Iodixanol 320 MG/ML 100 ML BOTTLE IV ONE (10:25)
--- NOTE | 2017-12-08 10:35 | CT ---
PROCEDURE: CT HEAD WITHOUT CONTRAST. HISTORY: fall COMPARISON: None available. TECHNIQUE: Axial computed tomography images were obtained through the head/brain without intravenous contrast. Radiation dose: Total exam DLP = 972.04 mGy-cm. This CT exam was performed using one or more of the following dose reduction techniques: Automated exposure control, adjustment of the mA and/or kV according to patient size, and/or use of iterative reconstruction technique. FINDINGS: HEMORRHAGE: No intracranial hemorrhage. BRAIN: No mass effect or edema. The caputo-white matter differentiation appears intact. Please note that MRI with diffusion imaging is more sensitive in the detection of acute ischemic event. VENTRICLES: No hydrocephalus. CALVARIUM: Unremarkable. PARANASAL SINUSES: Mucosal thickening of the bilateral maxillary sinuses and ethmoid air cells. MASTOID AIR CELLS: Minimal opacification of the right mastoid air cells. The left mastoid air cells appear clear. OTHER FINDINGS: None. IMPRESSION: No acute intracranial pathology identified. Mucosal thickening of the bilateral maxillary sinuses and ethmoid air cells. Minimal opacification of the right mastoid air cells. Correlate clinically for possibility of mastoiditis.
--- NOTE | 2017-12-08 11:39 | CT ---
PROCEDURE: CT Chest, Abdomen and Pelvis with intravenous contrast HISTORY: fall, L sided thoracic tenderness COMPARISON: None. TECHNIQUE: IV dose administered: 100 mL Visipaque 320 Radiation dose: Total exam DLP = 1553.95 mGy-cm. This CT exam was performed using one or more of the following dose reduction techniques: Automated exposure control, adjustment of the mA and/or kV according to patient size, and/or use of iterative reconstruction technique. FINDINGS: CT CHEST WITH CONTRAST: LUNGS: Multifocal infiltrate with areas of yudy consolidation in the right upper lobe and right middle lobe. Infiltrate versus atelectasis in the right lower lobe. There is extensive segmental/ subsegmental atelectasis in the left lower lobe, likely compressive atelectasis secondary to small left pleural effusion. Trace right pleural effusion. No pulmonary mass identified. Very small left apical pneumothorax noted. No generalized pneumothorax elsewhere. MEDIASTINUM: Unremarkable. Normal caliber aorta and pulmonary arterial trunk. No aortic dissection. Normal size heart. There is a small rounded fluid collection along the right lateral aspect of what is either the distal esophagus or small hiatal hernia. This measures approximately 2 cm in diameter. Uncertain significance. This is unlikely to reflect a diverticulum. Possible developmental duplication anomaly. LYMPH NODES: Unremarkable. PLEURA: Unremarkable. No pneumothorax. No pleural fluid. BONES: Fracture left 7th through 10th ribs. Two-part fracture of left 10th rib. There is displacement of the 7th 8th and 9th rib fractures. Old healed fracture right 10th rib. OTHER FINDINGS: None. CT ABDOMEN AND PELVIS: LIVER: Nodular contour consistent with hepatic cirrhosis. Hepatomegaly. No mass. No biliary dilatation. GALLBLADDER AND BILE DUCTS: Mild diffuse mural thickening common nonspecific. PANCREAS: Trace fluid around the pancreatic head which may reflect pancreatitis. Please correlate clinically. Mild enlargement of the pancreatic head is noted as well. No pancreatic mass identified. SPLEEN: Mild splenomegaly. The spleen measures approximately 14 cm in greatest dimension. No evidence of splenic laceration/hematoma. ADRENALS: Unremarkable. No mass. KIDNEYS AND URETERS: Unremarkable. No hydronephrosis. No solid mass. VASCULATURE: Unremarkable. No aortic aneurysm. BOWEL: Circumferential mural thickening of the cecum and ascending colon to the level of the hepatic flexure. Nonspecific colitis. The remainder of the colon is unremarkable. There is circumferential mural thickening of the duodenum and multiple loops of jejunum consistent with nonspecific enteritis. No evidence of bowel obstruction. Sigmoid diverticulosis without evidence of diverticulitis. APPENDIX: Unremarkable PERITONEUM: Mild generalized ascites LYMPH NODES: Unremarkable. No enlarged lymph nodes. BLADDER: Unremarkable. REPRODUCTIVE: Unremarkable prostate BONES: No acute fracture. OTHER FINDINGS: None. IMPRESSION: Multiple left rib fractures as described. Multifocal infiltrate in the right upper and middle lobes. Small left pleural effusion. Tiny left apical pneumothorax. Left lower lobe segmental/subsegmental atelectasis. Hepatic cirrhosis. Possible pancreatitis. Please correlate clinically. Nonspecific colitis involving the cecum and ascending colon. Nonspecific enteritis involving duodenum and multiple loops of jejunum. Ascites. Mild splenomegaly. No evidence of splenic laceration/hematoma.
[2017-12-08 12:06] LABS: VENOUS BLOOD GAS BASE EXCESS 1.3 mmol/L (0.0-2.0); VENOUS BLOOD GAS PCO2 36 mmHg (40-60); VENOUS BLOOD GAS PO2 41 mm/Hg (30-55); VENOUS BLOOD PH 7.45 (7.32-7.43)
[2017-12-08] MEDS ORDERED: Thiamine 100 mg/ml Inj IV SCH (12:45)
[2017-12-08] MEDS: Lidocaine 5% Patch TD SCH (13:17)
--- NOTE | 2017-12-08 13:38 | CP.PCM.PN ---
Subjective - Date & Time of Evaluation Date of Evaluation: 12/08/17 Time of Evaluation: 13:36 - Subjective Subjective: CC: "I am withdrawing from alcohol" This is a patient well known to the institution who is coming in stating he is in alcohol withdrawal; the patient has a known history of HepC and EtOH abuse, and has been admitted for EToh detox and withdrawal many times in the past. Most recently the patient states he fell, hit his ribs/stomach, and is now in pain. States it is hard to take a deep breath and "needs something for withdrawal". He states he feels "funny" and off from his normal self. He is denying any fevers/chills, GONG, CP, dysuria/freq/urg or lower extremity pain/ swelling. He admits to abdominal distention/pain, which has been getting progressively bigger over the past few weeks. He was unable to quantify the amount of EtOH he drinks; states "it is as much as I can get my hands on". PMhx: EtOH dependence/abuse, HepC Meds: patient does not take any medications as outpatient FamHx: Patient denies Surgeries: patient denies Social: patient is homeless, independent in ADL, states walks without walker, denies current drug abuse, drinks "as much etoh as i can get my hands on". denies cigarette smoking. Objective - Vital Signs/Intake and Output Vital Signs (last 24 hours): Temp Pulse Resp BP Pulse Ox 99.9 F H 98 H 20 169/93 H 87 L 12/08/17 12:05 12/08/17 11:51 12/08/17 11:51 12/08/17 11:51 12/08/17 13:08 - Medications Medications: Current Medications Acetaminophen (Tylenol 325mg Tab) 650 mg PO Q6 PRN PRN Reason: Fever >100.4 F Multivitamins/Vitamin C 10 ml/Thiamine HCl 100 mg/ Folic Acid 1 mg/ Sodium Chloride 1,011.2 mls @ 100 mls/hr IV .Q10H7M ONE Stop: 12/08/17 17:58 Last Admin: 12/08/17 08:48 Dose: 100 mls/hr Folic Acid 1 mg/ Sodium (Chloride) 100.2 mls @ 60 mls/hr IV DAILY ELIJAH Last Admin: 02/23/18 13:09 Dose: Not Given Piperacillin Sod/Tazobactam (Sod 3.375 gm/ Sodium Chloride) 100 mls @ 200 mls/ hr IVPB Q6H [facility] Ceftriaxone Sodium 1 gm/ (Sodium Chloride) 100 mls @ 100 mls/hr IVPB Q12H [facility] Ketorolac Tromethamine (Toradol) 30 mg IV Q6 PRN PRN Reason: Pain, severe (8-10) Lidocaine (Lidoderm) 1 ea TD DAILY [facility] Last Admin: 12/08/17 13:17 Dose: 1 ea Lorazepam (Ativan) 2 mg IVP Q4H PRN PRN Reason: EtOH withdrawal Lorazepam (Ativan) 0 mg IVP Q4H [facility]AH PRN Reason: Taper Stop: 12/13/17 12:59 Ondansetron HCl (Zofran Inj) 4 mg IVP Q6 PRN PRN Reason: Nausea/Vomiting Pantoprazole Sodium (Protonix Ec Tab) 40 mg PO DAILY [facility] Thiamine HCl (Vitamin B1 Inj) 100 mg IV DAILY [facility] Last Admin: 12/08/17 13:09 Dose: Not Given - Labs Labs: 12/08/17 08:03 12/08/17 08:03 PT 18.4 SECONDS (9.7-12.2) H 12/08/17 08:03 INR 1.6 12/08/17 08:03 APTT 33 SECONDS (21-34) 12/08/17 08:03 - Constitutional Appears: Toxic, Chronically Ill - Head Exam Head Exam: ATRAUMATIC - Eye Exam Eye Exam: EOMI, PERRL, Scleral icterus - ENT Exam ENT Exam: Mucous Membranes Moist - Neck Exam Neck Exam: Full ROM. absent: Lymphadenopathy - Respiratory Exam Respiratory Exam: Rales, Rhonchi, NORMAL BREATHING PATTERN. absent: Clear to Ausculation Bilateral, Wheezes, Respiratory Distress, Stridor (patient has marked tenderness over the left ribs ) - Cardiovascular Exam Cardiovascular Exam: Tachycardia, +S1, +S2. absent: REGULAR RHYTHM - GI/Abdominal Exam GI & Abdominal Exam: Soft, Organomegaly (distended fluid wave abodmen no caput meduase no gynecomastia ) - Extremities Exam Extremities Exam: Full ROM. absent: Calf Tenderness - Back Exam Back Exam: NORMAL INSPECTION. absent: CVA tenderness (L), CVA tenderness (R), paraspinal tenderness - Neurological Exam Neurological Exam: Alert, Awake, Oriented x3 - Skin Skin Exam: Warm Assessment and Plan - Assessment and Plan (Free Text) Assessment: 42yo M admitted for possible SBP, Sepsis, Hepatic Failure, Pancreatitis, and EtOH withdrawal. Possible SBP; patient was code sepsis -f/u fluid analysis from paracentsis -patient received vanco in ER and Zosyn; will continue Zosyn and add ceftriaxone which is better coverage for SBP; patient also likely aspirated when he fell and zosyn will be good coverage for aspiration PNA -lactate was downtrending -IR Consult; was told that there is not enough fluid at this time to drain -patient clinically has SBP; will continue with empiric abx tx Hepatic Failure -Meld Score 13; 6% 3 month mortality -GI on board; appreciate recs; thank you for your help -patient with long standing Hep C -AFP f/u -f/u ammonia; if elevated give lactulose Anemia; chronic most likely 2/2 to EtOH abuse -hgb currently 7.2 -type and screen ordered -if patient drops below 7.0 will transfuse; do not transfuse if below 7.0 -f/u iron studies Possible aspiration PNA 2/2 to fall/intoxication -c/w zosyn -incentive spriometry Rib Fractures -incentive spirometry -lidocaine patch -please avoid narcotics in this patient as they will worsen delirium and withdrawal Pancreatitis; acute on chronic -patient without necrotic pancreas on CT -BUN/Creatinine WNL -patient received 3L in ER -will fluid rehydrate gently 2/2 to ascites/hepatic failure EtOH Abuse/Dependence/Withdrawl -CIWA, Thiamine/Folate daily -Ativan Q4H PRN and ELIJAH for withdrawal -Psychiatry on board; thank you for your help Proph -chemical anticoagulation not recommended with elevated INR -SCD -Protonix -NPO right now -f/u hemoglobin A1C, Lipid, Iron studies Case discussed with Dr. Cyr
[2017-12-08 14:08] LABS: CK-MB 9.38 ng/mL (0.0-3.38); TROPONIN I 0.024 ng/mL (0.00-0.120)
[2017-12-08] MEDS ORDERED: Potassium Chloride 20 mEq ER Tab PO ONE (14:47)
[2017-12-08] MEDS ORDERED: Magnesium Sulfate 1 gm in D5W 1 GM/100 ML BAG IVPB ONE (14:47)
[2017-12-08] MEDS: Magnesium Sulfate 1 gm in D5W 1 GM/100 ML BAG IVPB ONE ×2 (14:56→15:00)
[2017-12-08] MEDS: Potassium Chloride 20 mEq ER Tab PO ONE ×2 (14:57→15:00)
[2017-12-08] MEDS: Piperacillin/Tazobact 3.375 GM in Sodium Chloride 100 ML IVPB SCH ×2 (16:15→23:39)
[2017-12-08] MEDS: Vancomycin 125 MG/5 ML SOLN (ORAL/RECTAL) PO SCH ×2 (20:22→23:10)
[2017-12-08] MEDS ORDERED: Piperacillin/Tazobact 3.375 gm 100 ML IVPB ONE (23:25)
[2017-12-09 01:01] LABS: CK-MB 4.53 ng/mL (0.0-3.38); TROPONIN I 0.018 ng/mL (0.00-0.120)
[2017-12-09] MEDS: Piperacillin/Tazobact 3.375 GM in Sodium Chloride 100 ML IVPB SCH ×4 (06:10→18:55)
[2017-12-09 07:21] LABS: MEAN CELL VOLUME 74.8 fL (80.0-94.0); MEAN CORPUSCULAR HEMOGLOBIN 23.8 pg (27.0-31.0); MEAN CORPUSCULAR HGB CONC 31.8 g/dL (33.0-37.0); MEAN PLATELET VOLUME 9.6 fL (7.2-11.7); RBC 2.71 Mil/uL (4.40-5.90); RED CELL DISTRIBUTION WIDTH 19.8 % (11.5-14.5); WHITE BLOOD COUNT 16.4 K/uL (4.8-10.8)
[2017-12-09 07:23] LABS: HEMOGLOBIN 6.5 g/dL (12.0-18.0); PLATELET COUNT 45 K/uL (130-400)
[2017-12-09 07:28] LABS: IRON 19 ug/dL (49-181)
[2017-12-09 07:29] LABS: ALB/GLOB RATIO 0.7 (1.0-2.1); ALBUMIN 2.6 g/dL (3.5-5.0); ALT/SGPT 50 U/L (21-72); AST/SGOT 140 U/L (17-59); BLOOD UREA NITROGEN 13 mg/dL (9-20); CALCIUM 7.4 mg/dl (8.6-10.4); GFR AFRICAN-AMERICAN > 60; GFR NON-AFRICAN AMERICAN > 60; HDL CHOLESTEROL 24 mg/dL (30-70)
[2017-12-09 07:37] LABS: % IRON SATURATION 7 (20-55); TOTAL IRON BINDING CAPACITY 295 ug/dL (250-450)
[2017-12-09 07:38] LABS: LDL CHOLESTEROL 42 mg/dL (0-129)
[2017-12-09 08:03] LABS: FERRITIN 30.1 ng/mL
[2017-12-09 08:09] LABS: ALPHA FETO PROTEIN 3.5 ng/mL (0.0-7.5)
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
[2017-12-09] MEDS: Thiamine 100 mg/ml Inj IV SCH (11:02)
[2017-12-09] MEDS: Vancomycin 125 MG/5 ML SOLN (ORAL/RECTAL) PO SCH ×3 (11:03→18:55)
[2017-12-09 11:25] LABS: EOS # 0.4 K/uL (0.0-0.7); LYMPH # 0.4 K/uL (1.0-4.3); MONO # 0.6 K/uL (0.0-0.8)
[2017-12-09 11:28] LABS: ANISOCYTOSIS MODERATE; BANDS 6 % (0-2); BASOPHIL 1 % (0-2); LYMPHOCYTE 8 % (20-40); MONOCYTE 4 % (0-10); NEUTROPHIL 81 % (50-75); PLATELET ESTIMATE DECREASED (NORMAL); TOTAL CELLS COUNTED 100
[2017-12-09 11:29] LABS: HYPOCHROMIC MODERATE; POIKILOCYTOSIS SLIGHT; TARGET CELLS MODERATE
[2017-12-09] MEDS ORDERED: Iohexol 240 (50 ml) PO ONE (11:40)
[2017-12-09] MEDS ORDERED: Iohexol 240 (50 ml) ONE (11:41)
[2017-12-09] MEDS: Pantoprazole 40 mg EC Tab PO SCH (11:56)
[2017-12-09] MEDS ORDERED: Pantoprazole 40 mg EC Tab PO ONE (11:57)
[2017-12-09] MEDS ORDERED: Lidocaine 5% Patch TD ONE (14:23)
[2017-12-09] MEDS: Lidocaine 5% Patch TD SCH (14:43)
[2017-12-09] MEDS ORDERED: cefTRIAXone IV 1 gm in Dextros 50 ML IVPB ONE (15:23)
--- NOTE | 2017-12-09 15:31 | CT ---
EXAM: CT Abdomen and Pelvis Without Intravenous Contrast CLINICAL HISTORY: 42 years old, male; Pain; Abdominal pain; Acute; Chest pressure; Patient HX: Unable to follow breathing instructions; Additional info: Abdominal distension, esophageal lesion TECHNIQUE: Axial computed tomography images of the abdomen and pelvis without intravenous contrast. All CT scans at this facility use one or more dose reduction techniques, viz.: automated exposure control; ma/kV adjustment per patient size (including targeted exams where dose is matched to indication; i.e. head); or iterative reconstruction technique. Coronal and sagittal reformatted images were created and reviewed. COMPARISON: CT of chest abdomen and pelvis on 12/08/2017. FINDINGS: Lower thorax: There is a small hiatal hernia. A 1.5 cm rounded area of low density is noted adjacent to the distal esophagus. This could represent fluid or adenopathy. ABDOMEN: Liver: The liver surface is nodular.. Gallbladder and bile ducts: Unremarkable. No calcified stones. No ductal dilation. Pancreas: Pancreatic head appears enlarged. This is unchanged. Spleen: The spleen measures 11.2 cm in craniocaudal span. Adrenals: Unremarkable. No mass. Kidneys and ureters: There is asymmetric stranding of the right perinephric fat. No obstructing stones. No hydronephrosis. Stomach and bowel: There is a mild generalized enlargement of the first, second and third portions of the duodenum. There are scattered colonic diverticula. The bowel is not opacified. No mucosal thickening. Appendix: Not seen as a separate structure.. PELVIS: Bladder: Contrast is noted within the bladder from a previous intravenous contrast injection. . No stones. Reproductive: Unremarkable as visualized. ABDOMEN and PELVIS: Intraperitoneal space: Small ascites in the pelvis. Small amount perihepatic ascites. No free air. Bones/joints: No acute fracture. No dislocation. Soft tissues: Unremarkable. Vasculature: Unremarkable. No abdominal aortic aneurysm. Lymph nodes: See above. IMPRESSION: 1. Small perihepatic and intra-abdominal ascites with evidence of cirrhosis. 2. Asymmetric stranding of the right perinephric fat which extends to the adjacent first, second , and third portions of the duodenum . This is not significantly changed from previous. Enteritis versus pancreatitis with secondary inflammatory changes of the adjacent duodenum might be considered. The appearance of the duodenum does not appear significantly changed and there are no focal abnormalities which might be expected with duodenal hematoma. 3. Scattered sigmoid colonic diverticula. 4. Small hiatal hernia. EXAM: CT Chest Without Intravenous Contrast EXAM DATE/TIME: Exam ordered 12/09/2017 10:20 AM CLINICAL HISTORY: 42 years old, male; Pain; Abdominal pain; Acute; Chest pressure; Patient HX: Unable to follow breathing instructions; Additional info: Abdominal distension, esophageal lesion TECHNIQUE: Axial computed tomography images of the chest without intravenous contrast. All CT scans at this facility use one or more dose reduction techniques, viz.: automated exposure control; ma/kV adjustment per patient size (including targeted exams where dose is matched to indication; i.e. head); or iterative reconstruction technique. Coronal and sagittal reformatted images were created and reviewed. COMPARISON: No relevant prior studies available. FINDINGS: Lungs: Patchy subpleural consolidation is noted in the lingula. Segmental atelectasis is noted in the medial basal posterior basal segment of the right lower lobe.. Patchy areas of consolidation are noted in the right lung with a confluent area of consolidation noted in the anterior segment of the right upper lobe. Consolidation extends into the right middle lobe. Atelectasis/consolidation is noted in the lateral basal segment of the right lower lobe. Pleural space: There is a small left anterior pneumothorax. Small left pleural effusion. Heart: Unremarkable. No cardiomegaly. No significant pericardial effusion. Bones/joints: There are fractures of the left 10th, ninth, eighth and seventh ribs laterally. There is a healed fracture of the right 10th rib Soft tissues: THERE is subcutaneous emphysema noted within the soft tissues of the left lateral and posterior chest wall. Soft tissue stranding is noted along the left lateral chest wall reflecting an contusion/hemorrhage. The edema/soft tissue stranding extends inferiorly along the left lateral chest wall. Vasculature: Unremarkable. No thoracic aortic aneurysm. Lymph nodes: Unremarkable. No enlarged lymph nodes. IMPRESSION: 1. Multiple left-sided rib fractures. 2. Small left pneumothorax. Subcutaneous emphysema and hematoma/contusion and left lateral chest wall. 3. Patchy consolidation noted bilaterally, right side greater than left , with small left pleural effusion.
--- NOTE | 2017-12-09 19:08 | CP.CCUPN ---
CCU Subjective - Physician Review Events Since Last Encounter (Free Text): 12/09/17 19:15 liver cirrhotic going through alcohol withdrawal. CCU Objective - Vital Signs / Intake & Output Vital Signs (Last 4 hours): Vital Signs Temp Pulse Resp BP Pulse Ox 12/09/17 17:38 100.5 F H 113 H 21 132/90 95 12/09/17 17:37 100.5 F H Intake and Output (Last 8hrs): Intake & Output 12/09/17 12/09/17 12/09/17 06:59 14:59 22:59 Intake Total 400 Balance 400 Intake: IV 200 Oral 200 - Physical Exam Head: Positive for: Atraumatic, Normocephalic Pupils: Positive for: PERRL Extroacular Muscles: Positive for: EOMI Conjunctiva: Positive for: Icteric Mouth: Positive for: Moist Mucous Membranes Respiratory/Chest: Positive for: Clear to Auscultation, Good Air Exchange Abdomen: Positive for: Distention. Negative for: Tenderness, Normal Bowel Sounds Psychiatric: Positive for: Alert - Medications Active Medications: Active Medications Generic Name Dose Route Start Last Admin Trade Name Freq PRN Reason Stop Dose Admin Albumin Human 12.5 gm 12/09/17 19:00 Albumin Human 5% (12.5 Gm/250 Ml) IV 12/10/17 05:01 Q10H ELIJAH Piperacillin Sod/Tazobactam 100 mls @ 200 mls/hr 12/08/17 16:00 12/09/17 18: 55 Sod 3.375 gm/ Sodium Chloride IVPB 200 mls/hr Q6H ELIJAH Administration Ceftriaxone Sodium 1 gm/ 100 mls @ 100 mls/hr 12/08/17 14:00 12/09/17 15:38 Sodium Chloride IVPB 100 mls/hr Q12H ELIJAH Administration Folic Acid 1 mg/ Sodium 100.2 mls @ 60 mls/hr 12/09/17 10:00 12/09/17 11:03 Chloride IV 60 mls/hr DAILY ELIJAH Administration Ketorolac Tromethamine 30 mg 12/08/17 13:54 12/09/17 01:36 Toradol IV 30 mg Q6 PRN Administration Pain, severe (8-10) Lactulose 20 gm 12/08/17 15:19 12/08/17 16:54 Enulose PO 20 gm BID PRN Administration elevated ammonia Lidocaine 1 ea 12/08/17 12:45 12/09/17 14:43 Lidoderm TD 1 ea DAILY ELIJAH Administration Lorazepam 2 mg 12/08/17 12:46 12/09/17 06:37 Ativan IVP 2 mg Q4H PRN Administration EtOH withdrawal Lorazepam 2 mg 12/08/17 13:00 12/09/17 18:55 Ativan IVP 12/13/17 12:59 2 mg Q4 ELIJAH Administration Taper Ondansetron HCl 4 mg 12/08/17 12:40 Zofran Inj IVP Q6 PRN Nausea/Vomiting Pantoprazole Sodium 40 mg 12/09/17 10:00 12/09/17 11:56 Protonix Ec Tab PO Not Given DAILY ELIJAH Thiamine HCl 100 mg 12/09/17 10:00 12/09/17 11:02 Vitamin B1 Inj IV 100 mg DAILY ELIJAH Administration Vancomycin HCl 125 mg 12/08/17 18:00 12/09/17 18:55 Vancocin (Oral Or Rectal Use) PO 125 mg QID ELIJAH Administration - Patient Studies Lab Studies: Microbiology Studies 12/08/17 Unknown Urine Culture - Final Urine,Clean Catch No Growth (<1,000 CFU/ML) Lab Studies 12/09/17 12/09/17 12/09/17 Range/Units 16:20 16:20 07:08 WBC (4.8-10.8) K/uL RBC (4.40-5.90) Mil/uL Hgb (12.0-18.0) g/dL Hct (35.0-51.0) % MCV (80.0-94.0) fL MCH (27.0-31.0) pg MCHC (33.0-37.0) g/dL RDW (11.5-14.5) % Plt Count (130-400) K/uL MPV (7.2-11.7) fL Neut % (Auto) (50.0-75.0) % Lymph % (Auto) (20.0-40.0) % Meeker % (Auto) (0.0-10.0) % Eos % (Auto) (0.0-4.0) % Baso % (Auto) (0.0-2.0) % Neut # (Auto) (1.8-7.0) K/uL Lymph # (Auto) (1.0-4.3) K/uL Meeker # (Auto) (0.0-0.8) K/uL Eos # (Auto) (0.0-0.7) K/uL Baso # (Auto) (0.0-0.2) K/uL Neutrophils % (Manual) (50-75) % Band Neutrophils % (0-2) % Lymphocytes % (Manual) (20-40) % Monocytes % (Manual) (0-10) % Basophils % (Manual) (0-2) % Platelet Estimate (NORMAL) Hypochromasia (manual) Poikilocytosis (manual Anisocytosis (manual) Target Cells Sodium (132-148) mmol/L Potassium (3.6-5.2) mmol/L Chloride (98-107) mmol/L Carbon Dioxide (22-30) mmol/L Anion Gap (10-20) BUN (9-20) mg/dL Creatinine (0.8-1.5) mg/dL Est GFR ( Amer) Est GFR (Non-Af Amer) POC Glucose (mg/dL) (65-110) mg/dL Random Glucose (75-110) mg/dL Hemoglobin A1c (4.2-6.5) % Lactic Acid 1.4 (0.7-2.1) mmol/L Calcium (8.6-10.4) mg/dl Phosphorus (2.5-4.5) mg/dL Magnesium (1.6-2.3) mg/dL Iron 19 L (49-181) ug/dL TIBC 295 (250-450) ug/dL % Saturation 7 L (20-55) Ferritin ng/mL Total Bilirubin (0.2-1.3) mg/dL AST (17-59) U/L ALT (21-72) U/L Alkaline Phosphatase (38-126) U/L Ammonia 58 H D (9-33) umol/L Total Creatine Kinase (55-170) U/L CK-MB (Mass) (0.0-3.38) ng/mL Troponin I (0.00-0.120) ng/mL Total Protein (6.3-8.3) g/dL Albumin (3.5-5.0) g/dL Globulin (2.2-3.9) gm/dL Albumin/Globulin Ratio (1.0-2.1) Triglycerides (0-149) mg/dL Cholesterol (0-199) mg/dL LDL Cholesterol Direct (0-129) mg/dL HDL Cholesterol (30-70) mg/dL Alpha Fetoprotein (0.0-7.5) ng/mL TSH 3rd Generation (0.46-4.68) mIU/L Blood Type Antibody Screen 12/09/17 12/09/17 12/09/17 Range/Units 07:08 07:08 07:08 WBC (4.8-10.8) K/uL RBC (4.40-5.90) Mil/uL Hgb (12.0-18.0) g/dL Hct (35.0-51.0) % MCV (80.0-94.0) fL MCH (27.0-31.0) pg MCHC (33.0-37.0) g/dL RDW (11.5-14.5) % Plt Count (130-400) K/uL MPV (7.2-11.7) fL Neut % (Auto) (50.0-75.0) % Lymph % (Auto) (20.0-40.0) % Meeker % (Auto) (0.0-10.0) % Eos % (Auto) (0.0-4.0) % Baso % (Auto) (0.0-2.0) % Neut # (Auto) (1.8-7.0) K/uL Lymph # (Auto) (1.0-4.3) K/uL Meeker # (Auto) (0.0-0.8) K/uL Eos # (Auto) (0.0-0.7) K/uL Baso # (Auto) (0.0-0.2) K/uL Neutrophils % (Manual) (50-75) % Band Neutrophils % (0-2) % Lymphocytes % (Manual) (20-40) % Monocytes % (Manual) (0-10) % Basophils % (Manual) (0-2) % Platelet Estimate (NORMAL) Hypochromasia (manual) Poikilocytosis (manual Anisocytosis (manual) Target Cells Sodium 137 (132-148) mmol/L Potassium 3.4 L (3.6-5.2) mmol/L Chloride 105 (98-107) mmol/L Carbon Dioxide 27 (22-30) mmol/L Anion Gap 9 L (10-20) BUN 13 (9-20) mg/dL Creatinine 0.8 (0.8-1.5) mg/dL Est GFR ( Amer) > 60 Est GFR (Non-Af Amer) > 60 POC Glucose (mg/dL) (65-110) mg/dL Random Glucose 105 (75-110) mg/dL Hemoglobin A1c 5.1 (4.2-6.5) % Lactic Acid (0.7-2.1) mmol/L Calcium 7.4 L (8.6-10.4) mg/dl Phosphorus 2.2 L (2.5-4.5) mg/dL Magnesium 1.6 (1.6-2.3) mg/dL Iron 12 L (49-181) ug/dL TIBC 311 (250-450) ug/dL % Saturation 4 L (20-55) Ferritin 30.1 ng/mL Total Bilirubin 3.2 H (0.2-1.3) mg/dL AST 140 H D (17-59) U/L ALT 50 (21-72) U/L Alkaline Phosphatase 81 (38-126) U/L Ammonia (9-33) umol/L Total Creatine Kinase (55-170) U/L CK-MB (Mass) (0.0-3.38) ng/mL Troponin I (0.00-0.120) ng/mL Total Protein 6.3 (6.3-8.3) g/dL Albumin 2.6 L (3.5-5.0) g/dL Globulin 3.7 (2.2-3.9) gm/dL Albumin/Globulin Ratio 0.7 L (1.0-2.1) Triglycerides 122 (0-149) mg/dL Cholesterol 107 (0-199) mg/dL LDL Cholesterol Direct 42 (0-129) mg/dL HDL Cholesterol 24 L (30-70) mg/dL Alpha Fetoprotein 3.5 (0.0-7.5) ng/mL TSH 3rd Generation 1.45 (0.46-4.68) mIU/L Blood Type Antibody Screen 12/09/17 12/09/17 12/08/17 Range/Units 07:08 00:33 22:39 WBC 16.4 H (4.8-10.8) K/uL RBC 2.71 L (4.40-5.90) Mil/uL Hgb 6.5 L* (12.0-18.0) g/dL Hct 20.3 L (35.0-51.0) % MCV 74.8 L (80.0-94.0) fL MCH 23.8 L (27.0-31.0) pg MCHC 31.8 L (33.0-37.0) g/dL RDW 19.8 H (11.5-14.5) % Plt Count 45 L (130-400) K/uL MPV 9.6 (7.2-11.7) fL Neut % (Auto) 93.0 H (50.0-75.0) % Lymph % (Auto) 4.0 L (20.0-40.0) % Meeker % (Auto) 3.0 (0.0-10.0) % Eos % (Auto) 0.0 (0.0-4.0) % Baso % (Auto) 0.0 (0.0-2.0) % Neut # (Auto) 15.0 H (1.8-7.0) K/uL Lymph # (Auto) 0.4 L (1.0-4.3) K/uL Meeker # (Auto) 0.6 (0.0-0.8) K/uL Eos # (Auto) 0.4 (0.0-0.7) K/uL Baso # (Auto) 0.0 (0.0-0.2) K/uL Neutrophils % (Manual) 81 H (50-75) % Band Neutrophils % 6 H (0-2) % Lymphocytes % (Manual) 8 L (20-40) % Monocytes % (Manual) 4 (0-10) % Basophils % (Manual) 1 (0-2) % Platelet Estimate Decreased L (NORMAL) Hypochromasia (manual) Moderate Poikilocytosis (manual Slight Anisocytosis (manual) Moderate Target Cells Moderate Sodium (132-148) mmol/L Potassium (3.6-5.2) mmol/L Chloride (98-107) mmol/L Carbon Dioxide (22-30) mmol/L Anion Gap (10-20) BUN (9-20) mg/dL Creatinine (0.8-1.5) mg/dL Est GFR ( Amer) Est GFR (Non-Af Amer) POC Glucose (mg/dL) 90 (65-110) mg/dL Random Glucose (75-110) mg/dL Hemoglobin A1c (4.2-6.5) % Lactic Acid (0.7-2.1) mmol/L Calcium (8.6-10.4) mg/dl Phosphorus (2.5-4.5) mg/dL Magnesium (1.6-2.3) mg/dL Iron (49-181) ug/dL TIBC (250-450) ug/dL % Saturation (20-55) Ferritin ng/mL Total Bilirubin (0.2-1.3) mg/dL AST (17-59) U/L ALT (21-72) U/L Alkaline Phosphatase (38-126) U/L Ammonia (9-33) umol/L Total Creatine Kinase 1186 H (55-170) U/L CK-MB (Mass) 4.53 H (0.0-3.38) ng/mL Troponin I 0.0180 (0.00-0.120) ng/mL Total Protein (6.3-8.3) g/dL Albumin (3.5-5.0) g/dL Globulin (2.2-3.9) gm/dL Albumin/Globulin Ratio (1.0-2.1) Triglycerides (0-149) mg/dL Cholesterol (0-199) mg/dL LDL Cholesterol Direct (0-129) mg/dL HDL Cholesterol (30-70) mg/dL Alpha Fetoprotein (0.0-7.5) ng/mL TSH 3rd Generation (0.46-4.68) mIU/L Blood Type Antibody Screen 12/08/17 12/08/17 Range/Units 20:32 11:54 WBC (4.8-10.8) K/uL RBC (4.40-5.90) Mil/uL Hgb (12.0-18.0) g/dL Hct (35.0-51.0) % MCV (80.0-94.0) fL MCH (27.0-31.0) pg MCHC (33.0-37.0) g/dL RDW (11.5-14.5) % Plt Count (130-400) K/uL MPV (7.2-11.7) fL Neut % (Auto) (50.0-75.0) % Lymph % (Auto) (20.0-40.0) % Meeker % (Auto) (0.0-10.0) % Eos % (Auto) (0.0-4.0) % Baso % (Auto) (0.0-2.0) % Neut # (Auto) (1.8-7.0) K/uL Lymph # (Auto) (1.0-4.3) K/uL Meeker # (Auto) (0.0-0.8) K/uL Eos # (Auto) (0.0-0.7) K/uL Baso # (Auto) (0.0-0.2) K/uL Neutrophils % (Manual) (50-75) % Band Neutrophils % (0-2) % Lymphocytes % (Manual) (20-40) % Monocytes % (Manual) (0-10) % Basophils % (Manual) (0-2) % Platelet Estimate (NORMAL) Hypochromasia (manual) Poikilocytosis (manual Anisocytosis (manual) Target Cells Sodium (132-148) mmol/L Potassium (3.6-5.2) mmol/L Chloride (98-107) mmol/L Carbon Dioxide (22-30) mmol/L Anion Gap (10-20) BUN (9-20) mg/dL Creatinine (0.8-1.5) mg/dL Est GFR ( Amer) Est GFR (Non-Af Amer) POC Glucose (mg/dL) 105 (65-110) mg/dL Random Glucose (75-110) mg/dL Hemoglobin A1c (4.2-6.5) % Lactic Acid (0.7-2.1) mmol/L Calcium (8.6-10.4) mg/dl Phosphorus (2.5-4.5) mg/dL Magnesium (1.6-2.3) mg/dL Iron (49-181) ug/dL TIBC (250-450) ug/dL % Saturation (20-55) Ferritin ng/mL Total Bilirubin (0.2-1.3) mg/dL AST (17-59) U/L ALT (21-72) U/L Alkaline Phosphatase (38-126) U/L Ammonia (9-33) umol/L Total Creatine Kinase (55-170) U/L CK-MB (Mass) (0.0-3.38) ng/mL Troponin I (0.00-0.120) ng/mL Total Protein (6.3-8.3) g/dL Albumin (3.5-5.0) g/dL Globulin (2.2-3.9) gm/dL Albumin/Globulin Ratio (1.0-2.1) Triglycerides (0-149) mg/dL Cholesterol (0-199) mg/dL LDL Cholesterol Direct (0-129) mg/dL HDL Cholesterol (30-70) mg/dL Alpha Fetoprotein (0.0-7.5) ng/mL TSH 3rd Generation (0.46-4.68) mIU/L Blood Type O POSITIVE Antibody Screen Negative Laboratory Results - last 24 hr 12/08/17 12/08/17 12/08/17 11:54 20:32 22:39 WBC RBC Hgb Hct MCV MCH MCHC RDW Plt Count MPV Neut % (Auto) Lymph % (Auto) Meeker % (Auto) Eos % (Auto) Baso % (Auto) Neut # (Auto) Lymph # (Auto) Meeker # (Auto) Eos # (Auto) Baso # (Auto) Neutrophils % (Manual) Band Neutrophils % Lymphocytes % (Manual) Monocytes % (Manual) Basophils % (Manual) Platelet Estimate Hypochromasia (manual) Poikilocytosis (manual Anisocytosis (manual) Target Cells Sodium Potassium Chloride Carbon Dioxide Anion Gap BUN Creatinine Est GFR ( Amer) Est GFR (Non-Af Amer) POC Glucose (mg/dL) 105 90 Random Glucose Hemoglobin A1c Lactic Acid Calcium Phosphorus Magnesium Iron TIBC % Saturation Ferritin Total Bilirubin AST ALT Alkaline Phosphatase Ammonia Total Creatine Kinase CK-MB (Mass) Troponin I Total Protein Albumin Globulin Albumin/Globulin Ratio Triglycerides Cholesterol LDL Cholesterol Direct HDL Cholesterol Alpha Fetoprotein TSH 3rd Generation Blood Type O POSITIVE Antibody Screen Negative 12/09/17 12/09/17 12/09/17 00:33 07:08 07:08 WBC 16.4 H RBC 2.71 L Hgb 6.5 L* Hct 20.3 L MCV 74.8 L MCH 23.8 L MCHC 31.8 L RDW 19.8 H Plt Count 45 L MPV 9.6 Neut % (Auto) 93.0 H Lymph % (Auto) 4.0 L Meeker % (Auto) 3.0 Eos % (Auto) 0.0 Baso % (Auto) 0.0 Neut # (Auto) 15.0 H Lymph # (Auto) 0.4 L Meeker # (Auto) 0.6 Eos # (Auto) 0.4 Baso # (Auto) 0.0 Neutrophils % (Manual) 81 H Band Neutrophils % 6 H Lymphocytes % (Manual) 8 L Monocytes % (Manual) 4 Basophils % (Manual) 1 Platelet Estimate Decreased L Hypochromasia (manual) Moderate Poikilocytosis (manual Slight Anisocytosis (manual) Moderate Target Cells Moderate Sodium 137 Potassium 3.4 L Chloride 105 Carbon Dioxide 27 Anion Gap 9 L BUN 13 Creatinine 0.8 Est GFR ( Amer) > 60 Est GFR (Non-Af Amer) > 60 POC Glucose (mg/dL) Random Glucose 105 Hemoglobin A1c Lactic Acid Calcium 7.4 L Phosphorus 2.2 L Magnesium 1.6 Iron TIBC % Saturation Ferritin 30.1 Total Bilirubin 3.2 H AST 140 H D ALT 50 Alkaline Phosphatase 81 Ammonia Total Creatine Kinase 1186 H CK-MB (Mass) 4.53 H Troponin I 0.0180 Total Protein 6.3 Albumin 2.6 L Globulin 3.7 Albumin/Globulin Ratio 0.7 L Triglycerides 122 Cholesterol 107 LDL Cholesterol Direct 42 HDL Cholesterol 24 L Alpha Fetoprotein TSH 3rd Generation 1.45 Blood Type Antibody Screen 12/09/17 12/09/17 12/09/17 07:08 07:08 07:08 WBC RBC Hgb Hct MCV MCH MCHC RDW Plt Count MPV Neut % (Auto) Lymph % (Auto) Meeker % (Auto) Eos % (Auto) Baso % (Auto) Neut # (Auto) Lymph # (Auto) Meeker # (Auto) Eos # (Auto) Baso # (Auto) Neutrophils % (Manual) Band Neutrophils % Lymphocytes % (Manual) Monocytes % (Manual) Basophils % (Manual) Platelet Estimate Hypochromasia (manual) Poikilocytosis (manual Anisocytosis (manual) Target Cells Sodium Potassium Chloride Carbon Dioxide Anion Gap BUN Creatinine Est GFR ( Amer) Est GFR (Non-Af Amer) POC Glucose (mg/dL) Random Glucose Hemoglobin A1c 5.1 Lactic Acid Calcium Phosphorus Magnesium Iron 12 L 19 L TIBC 311 295 % Saturation 4 L 7 L Ferritin Total Bilirubin AST ALT Alkaline Phosphatase Ammonia Total Creatine Kinase CK-MB (Mass) Troponin I Total Protein Albumin Globulin Albumin/Globulin Ratio Triglycerides Cholesterol LDL Cholesterol Direct HDL Cholesterol Alpha Fetoprotein 3.5 TSH 3rd Generation Blood Type Antibody Screen 12/09/17 12/09/17 16:20 16:20 WBC RBC Hgb Hct MCV MCH MCHC RDW Plt Count MPV Neut % (Auto) Lymph % (Auto) Meeker % (Auto) Eos % (Auto) Baso % (Auto) Neut # (Auto) Lymph # (Auto) Meeker # (Auto) Eos # (Auto) Baso # (Auto) Neutrophils % (Manual) Band Neutrophils % Lymphocytes % (Manual) Monocytes % (Manual) Basophils % (Manual) Platelet Estimate Hypochromasia (manual) Poikilocytosis (manual Anisocytosis (manual) Target Cells Sodium Potassium Chloride Carbon Dioxide Anion Gap BUN Creatinine Est GFR ( Amer) Est GFR (Non-Af Amer) POC Glucose (mg/dL) Random Glucose Hemoglobin A1c Lactic Acid 1.4 Calcium Phosphorus Magnesium Iron TIBC % Saturation Ferritin Total Bilirubin AST ALT Alkaline Phosphatase Ammonia 58 H D Total Creatine Kinase CK-MB (Mass) Troponin I Total Protein Albumin Globulin Albumin/Globulin Ratio Triglycerides Cholesterol LDL Cholesterol Direct HDL Cholesterol Alpha Fetoprotein TSH 3rd Generation Blood Type Antibody Screen Fingerstick Blood Sugar Results: 105 Review of Systems - Review of Systems Systems not reviewed;Unavailable: Altered Mental Status Critical Care Progress Note - Nutrition Nutrition: Nutrition Category Date Time Status Heart Healthy Diet [DIET] Diets 12/09/17 Dinner Active Assessment/Plan (1) Alcohol withdrawal Assessment and plan: 42yo M admitted for possible SBP, Sepsis, liver cirrhosis with hepatitis c, Pancreatitis, and EtOH withdrawal. Neuro: CIWA for withdrawal, also contributing to AMS. continue lactulose and rifaximin for hepatic encephalopathy. Pulm: no acute issues, breathing spontaneously on room air. CV: hemodynamically stable. Hem: hemoptysis with coughing, most likely has esophageal varices. will start on propranolol. If worsens must consider EGD, currently stable. Renal: started on albumin drip@25, reduced mortality for SBP. continue NS@50 Endo: no acute issues GI: NPO except for meds. ID: Possible SBP, but no significant ascites, empiric coverage with Zosyn. DVT proph - heparin sq GI proph - protonix Code status - full code Critical Care Time spent 35 minutes Multi-disciplinary rounds were performed with house staff, nursing, speech therapy, respiratory therapy, pharmacy and nutrition with integrated input from the primary team/attending and other consulting services. The documented time is cumulative and includes review of patient data/exams/labs/chart review and examination of the patient on rounds and throughout the day; time is exclusive of any procedures or teaching time. Current Visit: Yes Status: Acute Comment: [facility] protocol
[2017-12-09] MEDS ORDERED: Sodium Chloride 0.9% 1,000 ML IV ONE (19:58)
--- NOTE | 2017-12-09 20:13 | CARD ---
APPROVED REPORT EKG Measurement Heart [id number] <Conclusion> Sinus tachycardia Low voltage QRS Borderline ECG
[2017-12-10] MEDS: Albumin Human 5% (12.5 gm/250 ml) IV SCH ×2 (02:12→07:00)
[2017-12-10] MEDS: Piperacillin/Tazobact 3.375 GM in Sodium Chloride 100 ML IVPB SCH ×4 (04:57→21:29)
[2017-12-10 06:58] LABS: HEMOGLOBIN 6.7 g/dL (12.0-18.0); MEAN CELL VOLUME 75.4 fL (80.0-94.0); MEAN CORPUSCULAR HEMOGLOBIN 23.9 pg (27.0-31.0); MEAN CORPUSCULAR HGB CONC 31.6 g/dL (33.0-37.0); MEAN PLATELET VOLUME 9.8 fL (7.2-11.7); RBC 2.82 Mil/uL (4.40-5.90); RED CELL DISTRIBUTION WIDTH 20.3 % (11.5-14.5); WHITE BLOOD COUNT 17.4 K/uL (4.8-10.8)
[2017-12-10 07:03] LABS: ALB/GLOB RATIO 0.7 (1.0-2.1); ALBUMIN 2.6 g/dL (3.5-5.0); ALT/SGPT 43 U/L (21-72); AST/SGOT 127 U/L (17-59); BLOOD UREA NITROGEN 13 mg/dL (9-20); CALCIUM 7.5 mg/dl (8.6-10.4); GFR AFRICAN-AMERICAN > 60; GFR NON-AFRICAN AMERICAN > 60
[2017-12-10 09:25] LABS: AMYLASE 64 U/L (30-110); LIPASE 664 U/L (23-300)
[2017-12-10] MEDS: Thiamine 100 mg/ml Inj IV SCH (10:18)
[2017-12-10] MEDS: Pantoprazole 40 mg EC Tab PO SCH ×2 (10:19→13:48)
[2017-12-10] MEDS: Lidocaine 5% Patch TD SCH (10:19)
[2017-12-10 10:25] LABS: EOS # 0.5 K/uL (0.0-0.7); MONO # 1.8 K/uL (0.0-0.8); NEUT # 13.1 K/uL (1.8-7.0)
[2017-12-10] MEDS: Vancomycin 125 MG/5 ML SOLN (ORAL/RECTAL) PO SCH ×4 (10:26→21:25)
--- NOTE | 2017-12-10 11:46 | CP.PCM.PN ---
Subjective - Date & Time of Evaluation Date of Evaluation: 12/10/17 Time of Evaluation: 11:42 - Subjective Subjective: Seen in ICU, discussed with Mother via professional electronic sales and service technician + RN at bedside. Remains obtunded. No BMs recorded. Very anemic, PRBC transfusion ordered. CT reviewed with Radiologist- predominant finding: Duodenitis and mildly edematous pancreatic head. Cirrhotic liver, small ascites, rib fractures, no evidence of colitis. probable hematoma in lungs status post rib fractures. Lipase and Amylase mildly elevated, not definitive evidence of pancreatitis. LFTs remain the same. Objective - Vital Signs/Intake and Output Vital Signs (last 24 hours): Temp Pulse Resp BP Pulse Ox 98.6 F 120 H 15 127/86 97 12/10/17 06:00 12/10/17 02:00 12/10/17 02:00 12/10/17 02:00 12/10/17 02:00 Intake and Output: 12/10/17 12/10/17 06:59 18:59 Intake Total 75 Output Total 200 Balance -125 - Medications Medications: Current Medications Piperacillin Sod/Tazobactam (Sod 3.375 gm/ Sodium Chloride) 100 mls @ 200 mls/ hr IVPB Q6H ELIJAH Last Admin: 12/10/17 11:21 Dose: 200 mls/hr Ceftriaxone Sodium 1 gm/ (Sodium Chloride) 100 mls @ 100 mls/hr IVPB Q12H ELIJAH Last Admin: 12/10/17 02:20 Dose: 100 mls/hr Folic Acid 1 mg/ Sodium (Chloride) 100.2 mls @ 60 mls/hr IV DAILY ELIJAH Last Admin: 12/10/17 10:18 Dose: 60 mls/hr Ketorolac Tromethamine (Toradol) 30 mg IV Q6 PRN PRN Reason: Pain, severe (8-10) Last Admin: 12/09/17 01:36 Dose: 30 mg Lactulose (Enulose) 20 gm PO BID PRN PRN Reason: elevated ammonia Last Admin: 12/08/17 16:54 Dose: 20 gm Lidocaine (Lidoderm) 1 ea TD DAILY ELIJAH Last Admin: 12/10/17 10:19 Dose: 1 ea Lorazepam (Ativan) 2 mg IVP Q4H PRN PRN Reason: EtOH withdrawal Last Admin: 12/09/17 06:37 Dose: 2 mg Lorazepam (Ativan) 2 mg IVP Q4 ELIJAH PRN Reason: Taper Stop: 12/13/17 12:59 Last Admin: 12/10/17 08:38 Dose: 2 mg Ondansetron HCl (Zofran Inj) 4 mg IVP Q6 PRN PRN Reason: Nausea/Vomiting Pantoprazole Sodium (Protonix Ec Tab) 40 mg PO DAILY [facility] Last Admin: 12/10/17 10:19 Dose: 40 mg Propranolol HCl (Inderal) 20 mg PO BID [facility] Last Admin: 12/10/17 10:17 Dose: 20 mg Rifaximin (Xifaxan) 200 mg PO Q8 [facility] Stop: 12/11/17 19:06 Last Admin: 12/10/17 05:49 Dose: Not Given Thiamine HCl (Vitamin B1 Inj) 100 mg IV DAILY [facility] Last Admin: 12/10/17 10:18 Dose: 100 mg Vancomycin HCl (Vancocin (Oral Or Rectal Use)) 125 mg PO QID [facility] Last Admin: 12/10/17 10:26 Dose: 125 mg - Labs Labs: 12/10/17 06:49 12/10/17 06:49 PT 18.4 SECONDS (9.7-12.2) H 12/08/17 08:03 INR 1.6 12/08/17 08:03 APTT 33 SECONDS (21-34) 12/08/17 08:03 - Constitutional Appears: Confused, Chronically Ill - Head Exam Head Exam: NORMOCEPHALIC - Eye Exam Eye Exam: Scleral icterus - Respiratory Exam Respiratory Exam: NORMAL BREATHING PATTERN - Cardiovascular Exam Cardiovascular Exam: REGULAR RHYTHM - GI/Abdominal Exam GI & Abdominal Exam: Soft. absent: Guarding, Tenderness, Mass, Rebound - Extremities Exam Extremities Exam: Normal Inspection Assessment and Plan (1) Alcohol withdrawal Assessment & Plan: On Ativan Obtunded Status: Acute (2) Pneumonia Assessment & Plan: Treated by PCP Status: Acute (3) Pneumothorax Status: Acute (4) Rib fractures Status: Acute (5) Alcoholic cirrhosis Assessment & Plan: Stable. Only minimal ascites. Needs to abstain from etoh, discussed with mother who states she has tried many times to get patient to stop drinking alcohol Status: Acute (6) Colitis Assessment & Plan: Insignificant await stool studies Continue Vancomycin PO pending stool tests Status: Acute (7) Iron deficiency anemia Status: Acute
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
[2017-12-10] MEDS ORDERED: Cefepime IV 1 gm in Dextrose 1 GM/50 ML BAG IVPB SCH (16:15)
[2017-12-10] MEDS: Vancomycin 1 gm/NS 200 ml 1 GM/200 ML BAG IVPB SCH (17:26)
[2017-12-11] MEDS: Piperacillin/Tazobact 3.375 GM in Sodium Chloride 100 ML IVPB SCH ×3 (03:11→16:23)
[2017-12-11] MEDS: Sodium Chloride 0.9% 1,000 ML IV SCH ×2 (03:13→21:45)
[2017-12-11] MEDS: Vancomycin 1 gm/NS 200 ml 1 GM/200 ML BAG IVPB SCH ×2 (03:15→15:28)
[2017-12-11 06:34] LABS: BASO # 0.1 K/uL (0.0-0.2); BASO % 0.3 % (0.0-2.0); EOS # 0.1 K/uL (0.0-0.7); EOS % 0.4 % (0.0-4.0); HEMOGLOBIN 8.6 g/dL (12.0-18.0); LYMPH # 2.7 K/uL (1.0-4.3); LYMPH % 16.1 % (20.0-40.0); MEAN CORPUSCULAR HEMOGLOBIN 25.6 pg (27.0-31.0); MEAN CORPUSCULAR HGB CONC 32.3 g/dL (33.0-37.0); MONO # 2.1 K/uL (0.0-0.8); MONO % 12.6 % (0.0-10.0); NEUT # 11.9 K/uL (1.8-7.0); NEUT % 70.6 % (50.0-75.0); NRBC % 0.1 % (0.0-2.0); RBC 3.36 Mil/uL (4.40-5.90); WHITE BLOOD COUNT 16.9 K/uL (4.8-10.8)
[2017-12-11 06:35] LABS: MEAN CELL VOLUME 79.1 fL (80.0-94.0)
[2017-12-11 06:49] LABS: ALB/GLOB RATIO 0.7 (1.0-2.1); ALBUMIN 2.5 g/dL (3.5-5.0); ALT/SGPT 44 U/L (21-72); AST/SGOT 129 U/L (17-59); BLOOD UREA NITROGEN 17 mg/dL (9-20); CALCIUM 7.5 mg/dl (8.6-10.4); GFR AFRICAN-AMERICAN > 60; GFR NON-AFRICAN AMERICAN > 60
[2017-12-11] MEDS: Thiamine 100 mg/ml Inj IV SCH (09:15)
[2017-12-11] MEDS: Lidocaine 5% Patch TD SCH (09:17)
[2017-12-11] MEDS: Vancomycin 125 MG/5 ML SOLN (ORAL/RECTAL) PO SCH ×4 (09:17→21:44)
--- NOTE | 2017-12-11 09:53 | CP.PCM.PN ---
Subjective - Date & Time of Evaluation Date of Evaluation: 12/11/17 Time of Evaluation: 07:50 - Subjective Subjective: PGY2 Medicine Note - Dr. Bernabe Patient seen and examined this am. Patient is heavily sedated and only responds to verbal command by opening his eyes, then closing. Mother was at bedside and we had an extensive discussing regarding his drinking. Currently 12-point ROS unobtainable 2/2 medical condition + medication. Objective - Vital Signs/Intake and Output Vital Signs (last 24 hours): Temp Pulse Resp BP Pulse Ox 98.9 F 80 24 119/71 95 12/11/17 05:57 12/11/17 08:01 12/11/17 02:27 12/11/17 02:27 12/11/17 02:27 Intake and Output: 12/11/17 12/11/17 06:59 18:59 Intake Total 925 0 Balance 925 0 - Medications Medications: Current Medications Piperacillin Sod/Tazobactam (Sod 3.375 gm/ Sodium Chloride) 100 mls @ 200 mls/ hr IVPB Q6H [facility] Last Admin: 12/11/17 09:22 Dose: 200 mls/hr Folic Acid 1 mg/ Sodium (Chloride) 100.2 mls @ 60 mls/hr IV DAILY [facility] Last Admin: 12/10/17 10:18 Dose: 60 mls/hr Vancomycin/Sodium Chloride (Vancomycin 1 Gm/Ns 200 Ml) 1 gm in 200 mls @ 166.6 mls/hr IVPB Q12H [facility] Stop: 12/15/17 16:16 Last Admin: 12/11/17 03:15 Dose: 166.6 mls/hr Cefepime HCl 1 gm/ Dextrose 50 mls @ 100 mls/hr IVPB Q12H [facility] Last Admin: 12/11/17 05:04 Dose: 100 mls/hr Sodium Chloride (Sodium Chloride 0.9%) 1,000 mls @ 75 mls/hr IV .[id number] [facility] Last Admin: 12/11/17 03:13 Dose: 75 mls/hr Lactulose (Enulose) 20 gm PO BID PRN PRN Reason: elevated ammonia Last Admin: 12/08/17 16:54 Dose: 20 gm Lidocaine (Lidoderm) 1 ea TD DAILY [facility] Last Admin: 12/11/17 09:17 Dose: 1 ea Lorazepam (Ativan) 2 mg IVP Q4H PRN PRN Reason: EtOH withdrawal Last Admin: 12/09/17 06:37 Dose: 2 mg Lorazepam (Ativan) 1 mg IVP Q4 [facility] PRN Reason: Taper Stop: 12/13/17 12:59 Last Admin: 12/11/17 08:24 Dose: 1 mg Ondansetron HCl (Zofran Inj) 4 mg IVP Q6 PRN PRN Reason: Nausea/Vomiting Pantoprazole Sodium (Protonix Inj) 40 mg IVP DAILY [facility] Last Admin: 12/11/17 09:15 Dose: 40 mg Propranolol HCl (Inderal) 20 mg PO BID [facility] Last Admin: 12/11/17 09:17 Dose: Not Given Rifaximin (Xifaxan) 200 mg PO Q8 [facility] Stop: 12/11/17 19:06 Last Admin: 12/11/17 05:05 Dose: Not Given Thiamine HCl (Vitamin B1 Inj) 100 mg IV DAILY [facility] Last Admin: 12/11/17 09:15 Dose: 100 mg Vancomycin HCl (Vancocin (Oral Or Rectal Use)) 125 mg PO QID [facility] Last Admin: 12/11/17 09:17 Dose: Not Given - Labs Labs: 12/11/17 06:30 12/11/17 06:31 PT 18.4 SECONDS (9.7-12.2) H 12/08/17 08:03 INR 1.6 12/08/17 08:03 APTT 33 SECONDS (21-34) 12/08/17 08:03 - Additional Findings Additional findings: - Constitutional Appears: Confused, Chronically Ill - Head Exam Head Exam: NORMOCEPHALIC - Eye Exam Eye Exam: PERRL. absent: Scleral icterus - ENT Exam ENT Exam: Mucous Membranes Dry - Neck Exam Neck exam: Negative for: Lymphadenopathy - Respiratory Exam Respiratory Exam: Decreased Breath Sounds note -patient previously had marked tenderness over the left ribs - Cardiovascular Exam Cardiovascular Exam: REGULAR RHYTHM, +S1, +S2 - GI/Abdominal Exam GI & Abdominal Exam: Diminished Bowel Sounds, Distended, Soft, Tenderness. absent: Rebound, Rigid -no caput meduase, no gynecomastia - Rectal Exam Rectal Exam: Deferred - Exam Exam: NORMAL INSPECTION - Extremities Exam Extremities exam: Negative for: pedal edema - Back Exam Back exam: absent: CVA tenderness (L), CVA tenderness (R) - Neurological Exam Neurological exam: Altered - Psychiatric Exam Psychiatric exam: Depressed - Skin Skin Exam: Dry Assessment and Plan - Assessment and Plan (Free Text) Assessment: 42yo M admitted for possible SBP, Sepsis, Hepatic Failure, Pancreatitis, and EtOH withdrawal. Duodenitis 12/10-12/11: CT reviewed - Duodenitis and mildly edematous pancreatic head. Cirrhotic liver, small ascites, rib fractures, no evidence of colitis. probable hematoma in lungs status post rib fractures. not definitive evidence of pancreatitis. see full report. Possible SBP; patient was code sepsis GI Consulted, Dr. Camp, f/u recs. -f/u fluid analysis from [facility] -patient received vanco in ER and Zosyn; will continue Zosyn and add ceftriaxone which is better coverage for SBP; patient also likely aspirated when he fell and zosyn will be good coverage for aspiration PNA -lactate was downtrending -IR Consult; was told that there is not enough fluid at this time to drain -patient clinically has SBP; will continue with empiric abx tx Hepatic Failure 12/11: last ammonia 58 on 12/08; f/u ammonia. Administer Lactulose PRN for ammonia > 30. -Meld Score 13; 6% 3 month mortality -GI on board; appreciate recs; thank you for your help -patient with long standing Hep C -AFP 3.5 -f/u ammonia; if elevated give lactulose Anemia; chronic most likely 2/2 to EtOH abuse 12/11: Hgb 8.6, improving -hgb currently 7.2 -type and screen ordered -if patient drops below 7.0 will transfuse; do not transfuse if below 7.0 -f/u iron studies Possible aspiration PNA 2/2 to fall/intoxication -c/w zosyn -incentive spriometry Rib Fractures -incentive spirometry -lidocaine patch -please avoid narcotics in this patient as they will worsen delirium and withdrawal Pancreatitis; acute on chronic -patient without necrotic pancreas on CT -BUN/Creatinine WNL -patient received 3L in ER -will fluid rehydrate gently 2/2 to ascites/hepatic failure EtOH Abuse/Dependence/Withdrawl hemoptysis with coughing, most likely has esophageal varices. will start on propranolol. If worsens must consider EGD, currently stable. -CIWA, Thiamine/Folate daily -Ativan Q4H PRN and ELIJAH for withdrawal -Psychiatry on board; thank you for your help Proph -chemical anticoagulation not recommended with elevated INR -SCD -Protonix -NPO right now -f/u hemoglobin A1C, Lipid, Iron studies Case discussed with attending. All medical management as per Dr. Kevan Bernabe.
--- NOTE | 2017-12-11 10:03 | PN ---
DATE: The patient admitted for abdominal pain, pneumonia, sepsis, anemia, seen by GI, ___ hemoglobin 6.7, given [address] Smith from ID evaluation. Brendon Bernabe MD
--- NOTE | 2017-12-11 10:05 | HP ---
HISTORY OF PRESENT ILLNESS: Mr. Jeffery admitted to the hospital with a chief complaint of weakness, fatigue, tiredness, shortness of breath and abdominal pain. The patient is found to have pneumonia, pneumothorax, anemia. The patient has liver disease. PHYSICAL EXAMINATION: GENERAL: The patient is awake, alert, and oriented. VITAL SIGNS: Temperature 98 and pulse 90. HEENT: Within normal limits. NECK: Supple. CHEST: Symmetrical. HEART: Regular. ABDOMEN: Soft. EXTREMITIES: No edema. ASSESSMENT AND PLAN: The patient suffers from pneumonia. The patient on bed rest, supportive care, GI consult. Brendon Bernabe MD
--- NOTE | 2017-12-11 11:24 | HP ---
HISTORY OF PRESENT ILLNESS: The patient was admitted to the hospital with complaints of fall, fever, weakness and the patient was found to have pneumonia pneumothorax. The patient has history of alcoholism, multiple admissions before due to alcohol related issues, in detox. PHYSICAL EXAMINATION: GENERAL: The patient is awake, lethargic slightly. VITAL SIGNS: Temperature 98, pulse 90. HEENT: Within normal limits. NECK: Supple. CHEST: Symmetrical. . ABDOMEN: Slightly distended. EXTREMITIES: No edema. ASSESSMENT AND PLAN: The patient suffered from pneumonia, sepsis, pneumothorax, anemia, liver disease. The patient bedrest. IV antibiotics, supportive care. Brendon Bernabe MD
--- NOTE | 2017-12-11 12:04 | CP.PCM.PN ---
Subjective - Date & Time of Evaluation Date of Evaluation: 12/11/17 Time of Evaluation: 07:00 - Subjective Subjective: BLOOD CULTURES NEG THUS FAR Objective - Vital Signs/Intake and Output Vital Signs (last 24 hours): Temp Pulse Resp BP Pulse Ox 98.9 F 80 24 119/71 95 12/11/17 05:57 12/11/17 08:01 12/11/17 02:27 12/11/17 02:27 12/11/17 02:27 Intake and Output: 12/11/17 12/11/17 06:59 18:59 Intake Total 925 0 Balance 925 0 - Medications Medications: Current Medications Piperacillin Sod/Tazobactam (Sod 3.375 gm/ Sodium Chloride) 100 mls @ 200 mls/ hr IVPB Q6H [facility] Last Admin: 12/11/17 09:22 Dose: 200 mls/hr Folic Acid 1 mg/ Sodium (Chloride) 100.2 mls @ 60 mls/hr IV DAILY [facility] Last Admin: 12/11/17 10:02 Dose: 60 mls/hr Vancomycin/Sodium Chloride (Vancomycin 1 Gm/Ns 200 Ml) 1 gm in 200 mls @ 166.6 mls/hr IVPB Q12H [facility] Stop: 12/15/17 16:16 Last Admin: 12/11/17 03:15 Dose: 166.6 mls/hr Cefepime HCl 1 gm/ Dextrose 50 mls @ 100 mls/hr IVPB Q12H [facility] Last Admin: 12/11/17 05:04 Dose: 100 mls/hr Sodium Chloride (Sodium Chloride 0.9%) 1,000 mls @ 75 mls/hr IV .[id number] [facility] Last Admin: 12/11/17 03:13 Dose: 75 mls/hr Lactulose (Enulose) 20 gm PO BID PRN PRN Reason: elevated ammonia Last Admin: 12/08/17 16:54 Dose: 20 gm Lidocaine (Lidoderm) 1 ea TD DAILY [facility] Last Admin: 12/11/17 09:17 Dose: 1 ea Lorazepam (Ativan) 2 mg IVP Q4H PRN PRN Reason: EtOH withdrawal Last Admin: 12/09/17 06:37 Dose: 2 mg Lorazepam (Ativan) 1 mg IVP Q4 [facility] PRN Reason: Taper Stop: 12/13/17 12:59 Last Admin: 12/11/17 08:24 Dose: 1 mg Ondansetron HCl (Zofran Inj) 4 mg IVP Q6 PRN PRN Reason: Nausea/Vomiting Pantoprazole Sodium (Protonix Inj) 40 mg IVP DAILY [facility] Last Admin: 12/11/17 09:15 Dose: 40 mg Propranolol HCl (Inderal) 20 mg PO BID [facility] Last Admin: 12/11/17 09:17 Dose: Not Given Rifaximin (Xifaxan) 200 mg PO Q8 [facility] Stop: 12/11/17 19:06 Last Admin: 12/11/17 05:05 Dose: Not Given Thiamine HCl (Vitamin B1 Inj) 100 mg IV DAILY [facility] Last Admin: 12/11/17 09:15 Dose: 100 mg Vancomycin HCl (Vancocin (Oral Or Rectal Use)) 125 mg PO QID [facility] Last Admin: 12/11/17 09:17 Dose: Not Given - Labs Labs: 12/11/17 06:30 12/11/17 06:31 PT 18.4 SECONDS (9.7-12.2) H 12/08/17 08:03 INR 1.6 12/08/17 08:03 APTT 33 SECONDS (21-34) 12/08/17 08:03 - Constitutional Appears: Confused, Chronically Ill - Head Exam Head Exam: NORMOCEPHALIC - Eye Exam Eye Exam: absent: Scleral icterus - ENT Exam ENT Exam: Mucous Membranes Dry - Neck Exam Neck Exam: absent: Lymphadenopathy - Respiratory Exam Respiratory Exam: Decreased Breath Sounds - Cardiovascular Exam Cardiovascular Exam: REGULAR RHYTHM - GI/Abdominal Exam GI & Abdominal Exam: Distended - Rectal Exam Rectal Exam: Deferred Assessment and Plan (1) Alcohol withdrawal Status: Acute (2) Alcoholic cirrhosis Status: Acute (3) Colitis Status: Acute (4) Iron deficiency anemia Status: Acute (5) Pneumonia Status: Acute (6) Pneumothorax Status: Acute (7) Rib fractures Status: Acute (8) Sepsis Status: Acute
--- NOTE | 2017-12-11 14:38 | CP.PCM.PN ---
Subjective - Date & Time of Evaluation Date of Evaluation: 12/11/17 Time of Evaluation: 14:34 - Subjective Subjective: F/U alcoholic cirrhosis Remains in ICU, obtunded Cultures negative No diarrhea LFTs stable Objective - Vital Signs/Intake and Output Vital Signs (last 24 hours): Temp Pulse Resp BP Pulse Ox 98.9 F 80 24 119/71 95 12/11/17 05:57 12/11/17 08:01 12/11/17 02:27 12/11/17 02:27 12/11/17 02:27 Intake and Output: 12/11/17 12/11/17 06:59 18:59 Intake Total 925 0 Balance 925 0 - Medications Medications: Current Medications Piperacillin Sod/Tazobactam (Sod 3.375 gm/ Sodium Chloride) 100 mls @ 200 mls/ hr IVPB Q6H [facility] Last Admin: 12/11/17 09:22 Dose: 200 mls/hr Folic Acid 1 mg/ Sodium (Chloride) 100.2 mls @ 60 mls/hr IV DAILY [facility] Last Admin: 12/11/17 10:02 Dose: 60 mls/hr Vancomycin/Sodium Chloride (Vancomycin 1 Gm/Ns 200 Ml) 1 gm in 200 mls @ 166.6 mls/hr IVPB Q12H [facility] Stop: 12/15/17 16:16 Last Admin: 12/11/17 03:15 Dose: 166.6 mls/hr Cefepime HCl 1 gm/ Dextrose 50 mls @ 100 mls/hr IVPB Q12H [facility] Last Admin: 12/11/17 05:04 Dose: 100 mls/hr Sodium Chloride (Sodium Chloride 0.9%) 1,000 mls @ 75 mls/hr IV .[id number] [facility] Last Admin: 12/11/17 03:13 Dose: 75 mls/hr Lactulose (Enulose) 20 gm PO BID PRN PRN Reason: elevated ammonia Last Admin: 12/08/17 16:54 Dose: 20 gm Lidocaine (Lidoderm) 1 ea TD DAILY [facility] Last Admin: 12/11/17 09:17 Dose: 1 ea Lorazepam (Ativan) 2 mg IVP Q4H PRN PRN Reason: EtOH withdrawal Last Admin: 12/09/17 06:37 Dose: 2 mg Lorazepam (Ativan) 1 mg IVP Q8 [facility] PRN Reason: Taper Stop: 12/13/17 12:59 Last Admin: 12/11/17 12:04 Dose: 1 mg Ondansetron HCl (Zofran Inj) 4 mg IVP Q6 PRN PRN Reason: Nausea/Vomiting Pantoprazole Sodium (Protonix Inj) 40 mg IVP DAILY [facility] Last Admin: 12/11/17 09:15 Dose: 40 mg Propranolol HCl (Inderal) 20 mg PO BID [facility] Last Admin: 12/11/17 09:17 Dose: Not Given Rifaximin (Xifaxan) 200 mg PO Q8 [facility] Stop: 12/11/17 19:06 Last Admin: 12/11/17 14:00 Dose: Not Given Thiamine HCl (Vitamin B1 Inj) 100 mg IV DAILY [facility] Last Admin: 12/11/17 09:15 Dose: 100 mg Vancomycin HCl (Vancocin (Oral Or Rectal Use)) 125 mg PO QID [facility] Last Admin: 12/11/17 14:00 Dose: Not Given - Labs Labs: 12/11/17 06:30 12/11/17 06:31 PT 18.4 SECONDS (9.7-12.2) H 12/08/17 08:03 INR 1.6 12/08/17 08:03 APTT 33 SECONDS (21-34) 12/08/17 08:03 - Constitutional Appears: Unkempt - Head Exam Head Exam: NORMOCEPHALIC - Eye Exam Eye Exam: Scleral icterus - Respiratory Exam Respiratory Exam: NORMAL BREATHING PATTERN - Cardiovascular Exam Cardiovascular Exam: Tachycardia, REGULAR RHYTHM - GI/Abdominal Exam GI & Abdominal Exam: Soft, Normal Bowel Sounds. absent: Tenderness Assessment and Plan (1) Alcohol withdrawal Assessment & Plan: On Ativan Status: Acute (2) Pneumonia Status: Acute (3) Pneumothorax Status: Acute (4) Rib fractures Status: Acute (5) Alcoholic cirrhosis Assessment & Plan: Stable Status: Acute (6) Colitis Assessment & Plan: Stable No Diarrhea On Vanco empirically Status: Acute (7) Iron deficiency anemia Assessment & Plan: Severe duodenitis on CT, perhaps secondary to local effect of pancreatitis EGD to be considered when patient is stabilized PPI Status: Acute
[2017-12-11] MEDS: Piperacill/Tazo 4.5gm in Dex 4.5 GM/100 ML BAG IVPB SCH (23:59)
[2017-12-12] MEDS: Vancomycin 1 gm/NS 200 ml 1 GM/200 ML BAG IVPB SCH ×2 (04:26→17:22)
[2017-12-12] MEDS: Cefepime 1 GM in Sodium Chloride 0.9% 100 ML IVPB SCH ×2 (04:26→17:21)
[2017-12-12] MEDS: Sodium Chloride 0.9% 1,000 ML IV SCH ×2 (06:16→17:30)
[2017-12-12 06:52] LABS: ALB/GLOB RATIO 0.7 (1.0-2.1); ALBUMIN 2.4 g/dL (3.5-5.0); ALT/SGPT 43 U/L (21-72); AST/SGOT 96 U/L (17-59); BLOOD UREA NITROGEN 15 mg/dL (9-20); CALCIUM 7.7 mg/dl (8.6-10.4); GFR AFRICAN-AMERICAN > 60; GFR NON-AFRICAN AMERICAN > 60
[2017-12-12 07:07] LABS: HEMOGLOBIN 8.2 g/dL (12.0-18.0); MEAN CELL VOLUME 79.5 fL (80.0-94.0); MEAN CORPUSCULAR HGB CONC 32.7 g/dL (33.0-37.0); MEAN PLATELET VOLUME 10.3 fL (7.2-11.7); RBC 3.17 Mil/uL (4.40-5.90); RED CELL DISTRIBUTION WIDTH 21.4 % (11.5-14.5); WHITE BLOOD COUNT 13.8 K/uL (4.8-10.8)
[2017-12-12] MEDS: Piperacill/Tazo 4.5gm in Dex 4.5 GM/100 ML BAG IVPB SCH ×2 (09:23→17:20)
[2017-12-12] MEDS: Thiamine 100 mg/ml Inj IV SCH (09:24)
[2017-12-12] MEDS: Vancomycin 125 MG/5 ML SOLN (ORAL/RECTAL) PO SCH ×5 (09:25→22:15)
[2017-12-12] MEDS: Lidocaine 5% Patch TD SCH (09:26)
[2017-12-12 10:04] LABS: EOS # 1.4 K/uL (0.0-0.7); LYMPH # 0.4 K/uL (1.0-4.3); MONO # 1.4 K/uL (0.0-0.8); NEUT # 10.6 K/uL (1.8-7.0)
--- NOTE | 2017-12-12 10:11 | CP.PCM.PN ---
Subjective - Date & Time of Evaluation Date of Evaluation: 12/12/17 Time of Evaluation: 10:07 - Subjective Subjective: COVERING DR PORTER: More awake, alert and oriented to person and place via radio artist No bowel movements no bleeding noted per staff Hgb no change Objective - Vital Signs/Intake and Output Vital Signs (last 24 hours): Temp Pulse Resp BP Pulse Ox 99.3 F 92 H 22 128/84 95 12/12/17 08:00 12/12/17 08:00 12/12/17 08:00 12/12/17 07:42 12/12/17 08:00 Intake and Output: 12/12/17 12/12/17 06:59 18:59 Intake Total 1300 Output Total 600 Balance 700 - Medications Medications: Current Medications Folic Acid 1 mg/ Sodium (Chloride) 100.2 mls @ 60 mls/hr IV DAILY [facility] Last Admin: 12/12/17 09:25 Dose: 60 mls/hr Vancomycin/Sodium Chloride (Vancomycin 1 Gm/Ns 200 Ml) 1 gm in 200 mls @ 166.6 mls/hr IVPB Q12H [facility] Stop: 12/15/17 16:16 Last Admin: 12/12/17 04:26 Dose: 166.6 mls/hr Sodium Chloride (Sodium Chloride 0.9%) 1,000 mls @ 75 mls/hr IV .[id number] [facility] Last Admin: 12/12/17 06:16 Dose: Not Given Cefepime HCl 1 gm/ Sodium (Chloride) 100 mls @ 100 mls/hr IVPB Q12H [facility] Last Admin: 12/12/17 04:26 Dose: 100 mls/hr Piperacillin Sod/Tazobactam Sod (Zosyn 4.5 Gm Iv Premix) 4.5 gm in 100 mls @ 200 mls/hr IVPB Q8H [facility] Last Admin: 12/12/17 09:23 Dose: 200 mls/hr Lactulose (Enulose) 20 gm PO BID PRN PRN Reason: elevated ammonia Last Admin: 12/08/17 16:54 Dose: 20 gm Lidocaine (Lidoderm) 1 ea TD DAILY [facility] Last Admin: 12/12/17 09:26 Dose: 1 ea Lorazepam (Ativan) 2 mg IVP Q4H PRN PRN Reason: EtOH withdrawal Last Admin: 12/12/17 03:08 Dose: 2 mg Lorazepam (Ativan) 1 mg IVP Q8 [facility] PRN Reason: Taper Stop: 12/13/17 12:59 Last Admin: 12/12/17 06:15 Dose: 1 mg Ondansetron HCl (Zofran Inj) 4 mg IVP Q6 PRN PRN Reason: Nausea/Vomiting Pantoprazole Sodium (Protonix Inj) 40 mg IVP DAILY [facility] Last Admin: 12/12/17 09:24 Dose: 40 mg Propranolol HCl (Inderal) 20 mg PO BID [facility] Last Admin: 12/12/17 09:38 Dose: 20 mg Thiamine HCl (Vitamin B1 Inj) 100 mg IV DAILY [facility] Last Admin: 12/12/17 09:24 Dose: 100 mg Vancomycin HCl (Vancocin (Oral Or Rectal Use)) 125 mg PO QID [facility] Last Admin: 12/12/17 09:25 Dose: 125 mg - Labs Labs: 12/12/17 06:22 12/12/17 06:21 PT 18.4 SECONDS (9.7-12.2) H 12/08/17 08:03 INR 1.6 12/08/17 08:03 APTT 33 SECONDS (21-34) 12/08/17 08:03 - Constitutional Appears: No Acute Distress - Respiratory Exam Respiratory Exam: NORMAL BREATHING PATTERN - Cardiovascular Exam Cardiovascular Exam: REGULAR RHYTHM - GI/Abdominal Exam GI & Abdominal Exam: Distended, Soft, Normal Bowel Sounds, Organomegaly. absent : Tenderness - Neurological Exam Neurological Exam: Alert, Awake Assessment and Plan (1) Alcoholic cirrhosis Assessment & Plan: Patient more alert and awake today. Monitor for bleeding and begin clear liquid diet Status: Acute (2) Iron deficiency anemia Assessment & Plan: No overt bleeding. Anemia may be due to hematoma from rib fracture Observe for GI bleeding. May need EGD to assess duodenal thickening when clinically stable Status: Acute (3) Alcohol dependence with withdrawal Status: Acute
--- NOTE | 2017-12-12 11:36 | CP.PCM.PN ---
Subjective - Date & Time of Evaluation Date of Evaluation: 12/12/17 Time of Evaluation: 07:20 - Subjective Subjective: PGY2 Medicine Note - Dr. Bernabe Patient seen and examined at bedside this am. Patient was more responsive today , however he is very difficult to understand. I explained his current medical status, with mother at bedside. Denies pain, SOB, f/c, or chest pain. Reports lethargy, continued tremors, and pain at the L ribs. No additional acute complaints. Objective - Vital Signs/Intake and Output Vital Signs (last 24 hours): Temp Pulse Resp BP Pulse Ox 99.3 F 92 H 22 128/84 95 12/12/17 08:00 12/12/17 08:00 12/12/17 08:00 12/12/17 07:42 12/12/17 08:00 Intake and Output: 12/12/17 12/12/17 06:59 18:59 Intake Total 1300 Output Total 600 Balance 700 - Medications Medications: Current Medications Folic Acid 1 mg/ Sodium (Chloride) 100.2 mls @ 60 mls/hr IV DAILY [facility] Last Admin: 12/12/17 09:25 Dose: 60 mls/hr Vancomycin/Sodium Chloride (Vancomycin 1 Gm/Ns 200 Ml) 1 gm in 200 mls @ 166.6 mls/hr IVPB Q12H [facility] Stop: 12/15/17 16:16 Last Admin: 12/12/17 04:26 Dose: 166.6 mls/hr Sodium Chloride (Sodium Chloride 0.9%) 1,000 mls @ 75 mls/hr IV .[id number] [facility] Last Admin: 12/12/17 06:16 Dose: Not Given Cefepime HCl 1 gm/ Sodium (Chloride) 100 mls @ 100 mls/hr IVPB Q12H [facility] Last Admin: 12/12/17 04:26 Dose: 100 mls/hr Piperacillin Sod/Tazobactam Sod (Zosyn 4.5 Gm Iv Premix) 4.5 gm in 100 mls @ 200 mls/hr IVPB Q8H [facility] Last Admin: 12/12/17 09:23 Dose: 200 mls/hr Lactulose (Enulose) 20 gm PO BID PRN PRN Reason: elevated ammonia Last Admin: 12/08/17 16:54 Dose: 20 gm Lidocaine (Lidoderm) 1 ea TD DAILY [facility] Last Admin: 12/12/17 09:26 Dose: 1 ea Lorazepam (Ativan) 2 mg IVP Q4H PRN PRN Reason: EtOH withdrawal Last Admin: 12/12/17 03:08 Dose: 2 mg Lorazepam (Ativan) 1 mg IVP Q8 [facility] PRN Reason: Taper Stop: 12/13/17 12:59 Last Admin: 12/12/17 06:15 Dose: 1 mg Ondansetron HCl (Zofran Inj) 4 mg IVP Q6 PRN PRN Reason: Nausea/Vomiting Pantoprazole Sodium (Protonix Inj) 40 mg IVP DAILY [facility] Last Admin: 12/12/17 09:24 Dose: 40 mg Propranolol HCl (Inderal) 20 mg PO BID [facility] Last Admin: 12/12/17 09:38 Dose: 20 mg Thiamine HCl (Vitamin B1 Inj) 100 mg IV DAILY [facility] Last Admin: 12/12/17 09:24 Dose: 100 mg Vancomycin HCl (Vancocin (Oral Or Rectal Use)) 125 mg PO QID [facility] Last Admin: 12/12/17 09:25 Dose: 125 mg - Labs Labs: 12/12/17 06:22 12/12/17 06:21 PT 18.4 SECONDS (9.7-12.2) H 12/08/17 08:03 INR 1.6 12/08/17 08:03 APTT 33 SECONDS (21-34) 12/08/17 08:03 - Additional Findings Additional findings: - Constitutional Appears: Confused, Chronically Ill - Head Exam Head Exam: NORMOCEPHALIC - Eye Exam Eye Exam: PERRL. absent: Scleral icterus - ENT Exam ENT Exam: Mucous Membranes Dry - Neck Exam Neck exam: Negative for: Lymphadenopathy - Respiratory Exam Respiratory Exam: Decreased Breath Sounds note - tenderness over the left ribs - Cardiovascular Exam Cardiovascular Exam: REGULAR RHYTHM, +S1, +S2 - GI/Abdominal Exam GI & Abdominal Exam: Diminished Bowel Sounds, Distended, Soft, Tenderness. absent: Rebound, Rigid -no caput meduase, no gynecomastia - Rectal Exam Rectal Exam: Deferred - Exam Exam: NORMAL INSPECTION - Extremities Exam Extremities exam: Negative for: pedal edema - Back Exam Back exam: absent: CVA tenderness (L), CVA tenderness (R) - Neurological Exam Neurological exam: Alert (improving, however still lethargic and mildly confused ) - continued DT's - Psychiatric Exam Psychiatric exam: Depressed - Skin Skin Exam: Dry Assessment and Plan - Assessment and Plan (Free Text) Assessment: 42yo M admitted for possible SBP, Sepsis, Hepatic Failure, Pancreatitis, and EtOH withdrawal. Alcoholic Cirrhosis 12/12: Monitor for bleeding and begin clear liquid diet 12/10-12/11: CT reviewed - Duodenitis and mildly edematous pancreatic head. Cirrhotic liver, small ascites, rib fractures, no evidence of colitis. probable hematoma in lungs status post rib fractures. not definitive evidence of pancreatitis. see full report. Possible SBP; patient was code sepsis GI Consulted, Dr. Camp, f/u recs. -f/u fluid analysis from [facility] -patient received vanco in ER and Zosyn; will continue Zosyn and add ceftriaxone which is better coverage for SBP; patient also likely aspirated when he fell and zosyn will be good coverage for aspiration PNA -lactate was downtrending -IR Consult; was told that there is not enough fluid at this time to drain -patient clinically has SBP; will continue with empiric abx tx Hepatic Failure 12/12: ammonia 33 WNL, monitor. 12/11: last ammonia 58 on 12/08; f/u ammonia. Administer Lactulose PRN for ammonia > 30. -Meld Score 13; 6% 3 month mortality -GI on board; appreciate recs; thank you for your help -patient with long standing Hep C -AFP 3.5 -f/u ammonia; if elevated give lactulose Iron Deficiency Anemia 12/12: % Sat 7. Also possible anemia due to hematoma from rib fracture? No overt bleeding. Observe for GI bleed. Per GI, may need EGD to assess duodenal thickening when clinically stable 12/11: Hgb 8.6, improving -hgb currently 7.2 -type and screen ordered -if patient drops below 7.0 will transfuse; do not transfuse if below 7.0 -f/u iron studies Possible aspiration PNA 11/17 to fall/intoxication -c/w zosyn -incentive spriometry Rib Fractures -incentive spirometry -lidocaine patch -please avoid narcotics in this patient as they will worsen delirium and withdrawal Pancreatitis; acute on chronic -patient without necrotic pancreas on CT -BUN/Creatinine WNL -patient received 3L in ER -will fluid rehydrate gently 2/2 to ascites/hepatic failure EtOH Abuse/Dependence/Withdrawl hemoptysis with coughing, most likely has esophageal varices. will start on propranolol. If worsens must consider EGD, currently stable. -CIWA, Thiamine/Folate daily -Ativan Q4H PRN and [facility] for withdrawal -Psychiatry on board; thank you for your help Electrolyte Imbalance Hypokalemia, K 3.0 - KCl 20 x4 (q4H) Hypophosphatemia, P 2.2 neutraphos x3 (BID) Proph -chemical anticoagulation not recommended with elevated INR -SCD -Protonix -Diet advanced to [facility] Case discussed with attending. All medical management as per Dr. Kevan Bernabe.
--- NOTE | 2017-12-12 11:44 | CP.PCM.PN ---
Subjective - Date & Time of Evaluation Date of Evaluation: 12/12/17 Time of Evaluation: 09:00 - Subjective Subjective: weak lethargic afebrile Objective - Vital Signs/Intake and Output Vital Signs (last 24 hours): Temp Pulse Resp BP Pulse Ox 99.3 F 94 H 22 128/84 95 12/12/17 08:00 12/12/17 10:00 12/12/17 08:00 12/12/17 07:42 12/12/17 08:00 Intake and Output: 12/12/17 12/12/17 06:59 18:59 Intake Total 1300 Output Total 600 Balance 700 - Medications Medications: Current Medications Folic Acid 1 mg/ Sodium (Chloride) 100.2 mls @ 60 mls/hr IV DAILY [facility] Last Admin: 12/12/17 09:25 Dose: 60 mls/hr Vancomycin/Sodium Chloride (Vancomycin 1 Gm/Ns 200 Ml) 1 gm in 200 mls @ 166.6 mls/hr IVPB Q12H [facility] Stop: 12/15/17 16:16 Last Admin: 12/12/17 04:26 Dose: 166.6 mls/hr Sodium Chloride (Sodium Chloride 0.9%) 1,000 mls @ 75 mls/hr IV .[id number] [facility] Last Admin: 12/12/17 06:16 Dose: Not Given Cefepime HCl 1 gm/ Sodium (Chloride) 100 mls @ 100 mls/hr IVPB Q12H [facility] Last Admin: 12/12/17 04:26 Dose: 100 mls/hr Piperacillin Sod/Tazobactam Sod (Zosyn 4.5 Gm Iv Premix) 4.5 gm in 100 mls @ 200 mls/hr IVPB Q8H [facility] Last Admin: 12/12/17 09:23 Dose: 200 mls/hr Lactulose (Enulose) 20 gm PO BID PRN PRN Reason: elevated ammonia Last Admin: 12/08/17 16:54 Dose: 20 gm Lidocaine (Lidoderm) 1 ea TD DAILY [facility] Last Admin: 12/12/17 09:26 Dose: 1 ea Lorazepam (Ativan) 2 mg IVP Q4H PRN PRN Reason: EtOH withdrawal Last Admin: 12/12/17 03:08 Dose: 2 mg Lorazepam (Ativan) 1 mg IVP Q8 [facility] PRN Reason: Taper Stop: 12/13/17 12:59 Last Admin: 12/12/17 06:15 Dose: 1 mg Ondansetron HCl (Zofran Inj) 4 mg IVP Q6 PRN PRN Reason: Nausea/Vomiting Pantoprazole Sodium (Protonix Inj) 40 mg IVP DAILY [facility] Last Admin: 12/12/17 09:24 Dose: 40 mg Propranolol HCl (Inderal) 20 mg PO BID [facility] Last Admin: 12/12/17 09:38 Dose: 20 mg Thiamine HCl (Vitamin B1 Inj) 100 mg IV DAILY [facility] Last Admin: 12/12/17 09:24 Dose: 100 mg Vancomycin HCl (Vancocin (Oral Or Rectal Use)) 125 mg PO QID [facility] Last Admin: 12/12/17 09:25 Dose: 125 mg - Labs Labs: 12/12/17 06:22 12/12/17 06:21 PT 18.4 SECONDS (9.7-12.2) H 12/08/17 08:03 INR 1.6 12/08/17 08:03 APTT 33 SECONDS (21-34) 12/08/17 08:03 - Constitutional Appears: Non-toxic, Chronically Ill - Head Exam Head Exam: NORMOCEPHALIC - Eye Exam Eye Exam: PERRL - ENT Exam ENT Exam: Mucous Membranes Dry - Neck Exam Neck Exam: absent: Lymphadenopathy - Respiratory Exam Respiratory Exam: Decreased Breath Sounds - Cardiovascular Exam Cardiovascular Exam: REGULAR RHYTHM - GI/Abdominal Exam GI & Abdominal Exam: Distended, Soft - Rectal Exam Rectal Exam: Deferred Assessment and Plan (1) Alcohol withdrawal Status: Acute (2) Alcoholic cirrhosis Status: Acute (3) Colitis Status: Acute (4) Iron deficiency anemia Status: Acute (5) Pneumonia Status: Acute (6) Pneumothorax Status: Acute (7) Rib fractures Status: Acute (8) Sepsis Status: Acute
[2017-12-12] MEDS: Potassium Chloride 20 mEq/15 ml LIQ UD PO SCH ×3 (14:12→22:00)
[2017-12-12 17:10] LABS: TB ANTIGEN MINUS NIL 0.04 IU/mL
[2017-12-12] MEDS ORDERED: Albuterol-Ipratrop 3 mg / 0.5 (3 ml) UD INH PRN (18:32)
[2017-12-12] MEDS: Potassium & Sodium Phosphate PO SCH (18:39)
[2017-12-13] MEDS: Potassium Chloride 20 mEq/15 ml LIQ UD PO SCH (02:00)
[2017-12-13] MEDS: Vancomycin 1 gm/NS 200 ml 1 GM/200 ML BAG IVPB SCH (04:10)
[2017-12-13] MEDS: Cefepime 1 GM in Sodium Chloride 0.9% 100 ML IVPB SCH (05:00)
[2017-12-13 06:58] LABS: ALB/GLOB RATIO 0.7 (1.0-2.1); ALBUMIN 2.4 g/dL (3.5-5.0); ALT/SGPT 46 U/L (21-72); AST/SGOT 80 U/L (17-59); BLOOD UREA NITROGEN 14 mg/dL (9-20); CALCIUM 7.5 mg/dl (8.6-10.4); GFR AFRICAN-AMERICAN > 60; GFR NON-AFRICAN AMERICAN > 60
[2017-12-13 07:31] LABS: BASO # 0.1 K/uL (0.0-0.2); BASO % 0.7 % (0.0-2.0); EOS # 0.1 K/uL (0.0-0.7); HEMOGLOBIN 8.4 g/dL (12.0-18.0); LYMPH # 2.2 K/uL (1.0-4.3); LYMPH % 16.8 % (20.0-40.0); MEAN CELL VOLUME 80.6 fL (80.0-94.0); MEAN CORPUSCULAR HEMOGLOBIN 26.4 pg (27.0-31.0); MEAN CORPUSCULAR HGB CONC 32.7 g/dL (33.0-37.0); MEAN PLATELET VOLUME 10.2 fL (7.2-11.7); MONO # 2.8 K/uL (0.0-0.8); MONO % 21.8 % (0.0-10.0); NEUT # 7.7 K/uL (1.8-7.0); NEUT % 59.7 % (50.0-75.0); NRBC % 0.1 % (0.0-2.0); PLATELET COUNT 131 K/uL (130-400); RBC 3.19 Mil/uL (4.40-5.90); RED CELL DISTRIBUTION WIDTH 21.9 % (11.5-14.5)
[2017-12-13 08:39] LABS: EOSINOPHIL 1 % (0-4); LYMPHOCYTE 15 % (20-40); TOTAL CELLS COUNTED 100
[2017-12-13 08:40] LABS: ANISOCYTOSIS SLIGHT; MONOCYTE 20 % (0-10); NEUTROPHIL 64 % (50-75); PLATELET ESTIMATE NORMAL (NORMAL); POIKILOCYTOSIS SLIGHT
[2017-12-13 08:41] LABS: BURR CELLS SLIGHT; HYPOCHROMIC MODERATE; MICROCYTOSIS SLIGHT; OVALOCYTES SLIGHT; TARGET CELLS MODERATE; TEARDROP CELLS SLIGHT
--- NOTE | 2017-12-13 08:50 | CP.PCM.PN ---
Subjective - Date & Time of Evaluation Date of Evaluation: 12/13/17 Time of Evaluation: 08:47 - Subjective Subjective: CC: alcohol withdrawal In ICU, appears tachypneic and confused. Tremulous Discussed with RN. Not stable to undergo elective EGD ETOH withdrawal Not eating Objective - Vital Signs/Intake and Output Vital Signs (last 24 hours): Temp Pulse Resp BP Pulse Ox 98.5 F 83 33 H 122/77 89 L 12/13/17 06:00 12/13/17 08:01 12/13/17 08:01 12/13/17 08:01 12/13/17 08:01 Intake and Output: 12/13/17 12/13/17 06:59 18:59 Intake Total 520 Output Total 0 Balance 520 - Medications Medications: Current Medications Albuterol/Ipratropium (Duoneb 3 Mg/0.5 Mg (3 Ml) Ud) 3 ml INH RQ6 PRN PRN Reason: Shortness of Breath Folic Acid 1 mg/ Sodium (Chloride) 100.2 mls @ 60 mls/hr IV DAILY [facility] Last Admin: 12/12/17 09:25 Dose: 60 mls/hr Vancomycin/Sodium Chloride (Vancomycin 1 Gm/Ns 200 Ml) 1 gm in 200 mls @ 166.6 mls/hr IVPB Q12H [facility] Stop: 12/15/17 16:16 Last Admin: 12/13/17 04:10 Dose: 166.6 mls/hr Sodium Chloride (Sodium Chloride 0.9%) 1,000 mls @ 75 mls/hr IV .[id number] [facility] Last Admin: 12/12/17 17:30 Dose: 75 mls/hr Cefepime HCl 1 gm/ Sodium (Chloride) 100 mls @ 100 mls/hr IVPB Q12H [facility] Last Admin: 12/13/17 05:00 Dose: 100 mls/hr Piperacillin Sod/Tazobactam Sod (Zosyn 4.5 Gm Iv Premix) 4.5 gm in 100 mls @ 200 mls/hr IVPB Q8H [facility] Last Admin: 12/13/17 00:00 Dose: 200 mls/hr Lactulose (Enulose) 20 gm PO BID PRN PRN Reason: elevated ammonia Last Admin: 12/08/17 16:54 Dose: 20 gm Lidocaine (Lidoderm) 1 ea TD DAILY [facility] Last Admin: 12/12/17 09:26 Dose: 1 ea Lorazepam (Ativan) 2 mg IVP Q4H PRN PRN Reason: EtOH withdrawal Last Admin: 12/12/17 20:35 Dose: 2 mg Lorazepam (Ativan) 1 mg IVP Q24H [facility] PRN Reason: Taper Stop: 12/13/17 12:59 Last Admin: 12/12/17 20:35 Dose: 2 mg Ondansetron HCl (Zofran Inj) 4 mg IVP Q6 PRN PRN Reason: Nausea/Vomiting Pantoprazole Sodium (Protonix Inj) 40 mg IVP DAILY [facility] Last Admin: 12/12/17 09:24 Dose: 40 mg Potassium Phos/Sodium [facility]os ([facility]) [facility] Stop: 12/13/17 17:01 Last Admin: 12/12/17 18:39 Dose: 1 pkt Propranolol HCl (Inderal) 20 mg PO BID [facility] Last Admin: 12/12/17 17:21 Dose: 20 mg Thiamine HCl (Vitamin B1 Inj) 100 mg IV DAILY [facility] Last Admin: 12/12/17 09:24 Dose: 100 mg - Labs Labs: 12/13/17 06:30 12/13/17 06:30 PT 18.4 SECONDS (9.7-12.2) H 12/08/17 08:03 INR 1.6 12/08/17 08:03 APTT 33 SECONDS (21-34) 12/08/17 08:03 - Constitutional Appears: In Acute Distress - Eye Exam Eye Exam: Scleral icterus - Respiratory Exam Respiratory Exam: Accessory Muscle Use, Respiratory Distress - Cardiovascular Exam Cardiovascular Exam: Tachycardia - GI/Abdominal Exam GI & Abdominal Exam: absent: Tenderness Assessment and Plan (1) Alcohol withdrawal Assessment & Plan: Active issue Per medicine team Status: Acute (2) Pneumonia Status: Acute (3) Pneumothorax Status: Acute (4) Rib fractures Status: Acute (5) Alcoholic cirrhosis Assessment & Plan: Active issue Withdrawing Needs counseling Status: Acute (6) Colitis Assessment & Plan: No clinical evidence of colitis Will stop Vancomycin Has not had BMs, on Lactulose Status: Acute (7) Iron deficiency anemia Assessment & Plan: Multifactorial, chronic anemia, exacerbated by rib fractures EGD (to evaluate anemia, assess for varices and duodenitis on CT scan) needs to be deferred due to active alcohol withdrawal, tachypnea. Discussed with RN Status: Acute
[2017-12-13] MEDS: Thiamine 100 mg/ml Inj IV SCH (09:25)
[2017-12-13] MEDS: Piperacill/Tazo 4.5gm in Dex 4.5 GM/100 ML BAG IVPB SCH ×2 (09:26)
[2017-12-13] MEDS: Lidocaine 5% Patch TD SCH (09:26)
[2017-12-13] MEDS: Potassium & Sodium Phosphate PO SCH ×2 (09:26→18:08)
[2017-12-13 10:26] LABS: BASO # 0.1 K/uL (0.0-0.2); EOS # 0.1 K/uL (0.0-0.7); MONO # 2.3 K/uL (0.0-0.8); MONO % 17.7 % (0.0-10.0)
[2017-12-13 10:30] LABS: EOS % 1.1 % (0.0-4.0); HEMOGLOBIN 8.3 g/dL (12.0-18.0); LYMPH # 3.3 K/uL (1.0-4.3); LYMPH % 25.1 % (20.0-40.0); MEAN CELL VOLUME 81.2 fL (80.0-94.0); MEAN CORPUSCULAR HEMOGLOBIN 26.6 pg (27.0-31.0); MEAN CORPUSCULAR HGB CONC 32.7 g/dL (33.0-37.0); NEUT # 7.2 K/uL (1.8-7.0); NEUT % 55.1 % (50.0-75.0); NRBC % 0.1 % (0.0-2.0); RBC 3.11 Mil/uL (4.40-5.90); RED CELL DISTRIBUTION WIDTH 22.7 % (11.5-14.5)
[2017-12-13 10:35] LABS: PROTHROMBIN TIME 23.3 SECONDS (9.7-12.2)
[2017-12-13] MEDS ORDERED: Albumin Human 5% (12.5 gm/250 ml) IV SCH (10:45)
--- NOTE | 2017-12-13 10:45 | RAD ---
HISTORY: SOB COMPARISON: CT chest from 12/09/2017 FINDINGS: LUNGS: Again seen is multifocal consolidation in the right lung. There is diffuse haziness in the left lung and left retrocardiac opacity. PLEURA: Layering left pleural effusion, no pneumothorax apparent. CARDIOVASCULAR: Normal. OSSEOUS STRUCTURES: Again seen are multiple displaced left-sided rib fractures. VISUALIZED UPPER ABDOMEN: Normal. OTHER FINDINGS: None. IMPRESSION: Persistent multifocal consolidation in the right lung, left retrocardiac opacity may represent atelectasis or pneumonia. Also noted is layering left pleural effusion.
[2017-12-13 10:47] LABS: ALB/GLOB RATIO 0.7 (1.0-2.1); ALBUMIN 2.4 g/dL (3.5-5.0); ALT/SGPT 48 U/L (21-72); AST/SGOT 85 U/L (17-59); BLOOD UREA NITROGEN 14 mg/dL (9-20); CALCIUM 7.7 mg/dl (8.6-10.4); GFR AFRICAN-AMERICAN > 60; GFR NON-AFRICAN AMERICAN > 60
[2017-12-13 11:18] LABS: ABG ALLEN TEST POS; ARTERIAL BLOOD GAS HCO3 26.2 mmol/L (21-28); ARTERIAL BLOOD GAS O2 SAT 98.5 % (95-98); ARTERIAL BLOOD GAS PCO2 32 mm/Hg (35-45); ARTERIAL BLOOD GAS PH 7.49 (7.35-7.45); ARTERIAL BLOOD GAS PO2 70 mm/Hg (80-100); ARTERIAL BLOOD GAS TCO2 25.4 mmol/L (22-28)
[2017-12-13 14:37] LABS: BASO # 0.2 K/uL (0.0-0.2); BASO % 1.2 % (0.0-2.0); EOS # 0.1 K/uL (0.0-0.7); EOS % 0.7 % (0.0-4.0); LYMPH # 2.7 K/uL (1.0-4.3); LYMPH % 20.6 % (20.0-40.0); MEAN CELL VOLUME 81.5 fL (80.0-94.0); MEAN CORPUSCULAR HEMOGLOBIN 26.3 pg (27.0-31.0); MEAN CORPUSCULAR HGB CONC 32.3 g/dL (33.0-37.0); MEAN PLATELET VOLUME 9.9 fL (7.2-11.7); MONO # 2.5 K/uL (0.0-0.8); MONO % 19.1 % (0.0-10.0); NEUT # 7.7 K/uL (1.8-7.0); NEUT % 58.4 % (50.0-75.0); NRBC % 0.2 % (0.0-2.0); RBC 3.05 Mil/uL (4.40-5.90); RED CELL DISTRIBUTION WIDTH 22.1 % (11.5-14.5); WHITE BLOOD COUNT 13.1 K/uL (4.8-10.8)
--- NOTE | 2017-12-13 15:27 | PCM.PSYCH ---
Initial Psychiatric Evaluation - Initial Psychiatric Evaluation Type of Admission: Voluntary Legal Status: Capacity Chief Complaint (in patient's own words): okay History of Present Illness and Precipitating Events: This is a 42 y/o HM, with PMHx Hep C, alcohol abuse came to the ED with L sided thoracic pain x 4 days. Patient stated he was drinking and fell. Patient presented to the ED almost 5 days ago. He was drunk and his BAL was 154. Soon he started developing withdrawal symptoms and became delirious. Today patient is still delirious, confused and internally preoccupied. He is not oriented to time place and person. As per the staff, he gets irritable and agitated at times and starts taking out his IVs. However he has soft gloves on his hands. As per the hospital record, patient has a long history of heavy drinking, up to 5 pints of alcohol a day since age 12. He had been to detox 3-4 times and had 1 DT in the past but no seizures. His longest sobriety was 9 years when he was incarcerated and also a little after that. He has no past psychiatric history and has no past history of suicidal ideation or suicide attempt. Current Medications: Active Medications Generic Name Dose Route Start Last Admin Trade Name Freq PRN Reason Stop Dose Admin Albuterol/Ipratropium 3 ml 12/12/17 18:32 Duoneb 3 Mg/0.5 Mg (3 Ml) Ud INH RQ6 PRN Shortness of Breath Famotidine 20 mg 12/13/17 10:30 12/13/17 11:07 Pepcid IVP Not Given Q12 ELIJAH Furosemide 40 mg 12/13/17 22:00 Lasix IVP Q12 [facility]IJAH Folic Acid 1 mg/ Sodium 100.2 mls @ 60 mls/hr 12/09/17 10:00 12/13/17 09:26 Chloride IV 60 mls/hr DAILY ELIJAH Administration Cefepime HCl 1 gm/ Dextrose 50 mls @ 100 mls/hr 12/13/17 17:00 IVPB Q12H ELIJAH Albumin Human 500 mls @ 50 mls/hr 12/13/17 12:30 12/13/17 12:24 Albutein 5% 500 Ml IVPB 12/14/17 18:29 50 mls/hr Q10H ELIJAH Administration Lactulose 20 gm 12/13/17 18:00 Enulose PO BID ELIJAH Lorazepam 2 mg 12/13/17 11:45 12/13/17 12:19 Ativan PO 12/18/17 11:44 2 mg Q4 ELIJAH Administration Taper Potassium Phos/Sodium Phos 1 pkt 12/12/17 17:00 12/13/17 09:26 Neutra-Phos PO 12/13/17 17:01 1 pkt BIDCC ELIJAH Administration Propranolol HCl 20 mg 12/09/17 19:30 12/13/17 09:25 Inderal PO 20 mg BID ELIJAH Administration Rifaximin 200 mg 12/13/17 14:00 Xifaxan PO 12/15/17 10:47 Q8 ELIJAH Spironolactone 50 mg 12/13/17 11:00 12/13/17 12:19 Aldactone PO 50 mg DAILY ELIJAH Administration Thiamine HCl 100 mg 12/09/17 10:00 12/13/17 09:25 Vitamin B1 Inj IV 100 mg DAILY ELIJAH Administration Past Psychiatric History - Past Psychiatric History Previous Treatment History: Inpatient Pertinent Medical Hx (Current Medical&Sleep Prob, Allergies): Allergies Allergy/AdvReac Type Severity Reaction Status Date / Time acetaminophen [From Tylenol] Allergy SHORTNESS Verified 03/18/17 23:12 OF BREATH ibuprofen [From Motrin] AdvReac SHORTNESS Verified 03/18/17 23:12 OF BREATH Hydrocortisone 2.5% (Rectal) [Anusol-HC] 30 applic MT BID #1 tube 11/29/17 Review of Systems - Review of Systems All systems: reviewed and no additional remarkable complaints except - Psychiatric Psychiatric: Anxiety, Irritability Mental Status Examination - Personal Presentation Personal Presentation: Looks stated age - Affect Affect: Other (confused) - Motor Activity Motor Activity: Psychomotor Agitation - Reliability in Providing Information Reliability in Providing Information: Poor, due to alteration in thoughts - Speech Speech: Disorganized - Formal Thought Process Formal Thought Process: Loosening of associations - Obsessions/Compulsions Obsessions: No Compulsions: No - Cognitive Functions Sensorium: Stuporous Attention/Concentration: Easily distracted - Risk Risk: Diminished functioning - Limitations Limitations: Living alone DSM 5 DX - DSM 5 DSM 5 Diagnosis: Alcohol use disorder severe Alcohol induced psychosis, and delirium during withdrawal - Recommended/Plan of Treatment Treatment Recommendations and Plan of Treatment: Alcohol use disorder severe Alcohol induced psychosis, and delirium during withdrawal please continue same treatment patient will be followed up. - Smoking Cessation Smoking Cessation Initiated: No
--- NOTE | 2017-12-13 18:02 | CP.PCM.PN ---
Subjective - Date & Time of Evaluation Date of Evaluation: 12/13/17 Time of Evaluation: 09:00 - Subjective Subjective: remains lethargic/ confused NAD afebrile Objective - Vital Signs/Intake and Output Vital Signs (last 24 hours): Temp Pulse Resp BP Pulse Ox 97.9 F 80 30 H 113/64 92 L 12/13/17 16:00 12/13/17 14:00 12/13/17 14:00 12/13/17 13:47 12/13/17 14:00 Intake and Output: 12/13/17 12/13/17 06:59 18:59 Intake Total 520 450 Output Total 0 Balance 520 450 - Medications Medications: Current Medications Albuterol/Ipratropium (Duoneb 3 Mg/0.5 Mg (3 Ml) Ud) 3 ml INH RQ6 PRN PRN Reason: Shortness of Breath Famotidine (Pepcid) 20 mg IVP Q12 [facility] Last Admin: 12/13/17 11:07 Dose: Not Given Furosemide (Lasix) 40 mg IVP Q12 [facility] Folic Acid 1 mg/ Sodium (Chloride) 100.2 mls @ 60 mls/hr IV DAILY [facility] Last Admin: 12/13/17 09:26 Dose: 60 mls/hr Cefepime HCl 1 gm/ Dextrose 50 mls @ 100 mls/hr IVPB Q12H [facility] Last Admin: 12/13/17 16:48 Dose: 100 mls/hr Albumin Human (Albutein 5% 500 Ml) 500 mls @ 50 mls/hr IVPB Q10H [facility] Stop: 12/14/17 18:29 Last Admin: 12/13/17 12:24 Dose: 50 mls/hr Lactulose (Enulose) 20 gm PO BID [facility] Lorazepam (Ativan) 2 mg PO Q4 ELIJAH PRN Reason: Taper Stop: 12/18/17 11:44 Last Admin: 12/13/17 16:43 Dose: 2 mg Propranolol HCl (Inderal) 20 mg PO BID [facility] Last Admin: 12/13/17 09:25 Dose: 20 mg Rifaximin (Xifaxan) 200 mg PO Q8 [facility] Stop: 12/15/17 10:47 Last Admin: 12/13/17 16:43 Dose: 200 mg Spironolactone (Aldactone) 50 mg PO DAILY [facility] Last Admin: 12/13/17 12:19 Dose: 50 mg Thiamine HCl (Vitamin B1 Inj) 100 mg IV DAILY [facility] Last Admin: 12/13/17 09:25 Dose: 100 mg - Labs Labs: 12/13/17 14:13 12/13/17 10:18 PT 23.3 SECONDS (9.7-12.2) H 12/13/17 10:18 INR 2.0 12/13/17 10:18 APTT 31 SECONDS (21-34) 12/13/17 10:18 - Constitutional Appears: Non-toxic, Chronically Ill - Head Exam Head Exam: NORMOCEPHALIC - Eye Exam Eye Exam: PERRL - ENT Exam ENT Exam: Mucous Membranes Dry - Neck Exam Neck Exam: absent: Lymphadenopathy - Respiratory Exam Respiratory Exam: Decreased Breath Sounds - Cardiovascular Exam Cardiovascular Exam: REGULAR RHYTHM - GI/Abdominal Exam GI & Abdominal Exam: Distended, Soft - Rectal Exam Rectal Exam: Deferred - Exam Exam: NORMAL INSPECTION Assessment and Plan (1) Alcohol withdrawal Status: Acute (2) Alcoholic cirrhosis Status: Acute (3) Colitis Status: Acute (4) Iron deficiency anemia Status: Acute (5) Pneumonia Status: Acute (6) Pneumothorax Status: Acute (7) Rib fractures Status: Acute (8) Sepsis Status: Acute - Assessment and Plan (Free Text) Assessment: cont iv antibiotics
--- NOTE | 2017-12-13 19:10 | CP.CCUPN ---
CCU Subjective - Physician Review Subjective (Free Text): 12/13/17 19:04 Patient seen and examined at bedside Patient was very lethargic, diaphoretic Had a large hematoma on his R. Flank Given history of liver disease and coagulopathy, decision was made to transfer the patient back to ICU CCU Objective - Vital Signs / Intake & Output Vital Signs (Last 4 hours): Vital Signs Temp Pulse Resp BP Pulse Ox 12/13/17 18:00 83 30 H 92 L 12/13/17 17:48 81 26 H 115/85 91 L 12/13/17 16:47 79 31 H 121/82 93 L 12/13/17 16:00 97.9 F 80 15 93 L 12/13/17 15:47 77 24 114/72 91 L Intake and Output (Last 8hrs): Intake & Output 12/13/17 12/13/17 12/13/17 06:59 14:59 22:59 Intake Total 520 300 200 Output Total 0 50 Balance 520 300 150 Weight 213 lb Intake: Intake, IV Amount 520 300 200 Left Antecubital 520 300 200 Output: Urine 50 Urethral ([place]yson) 50 Stool 0 - Physical Exam Head: Positive for: Atraumatic, Normocephalic Pupils: Positive for: PERRL Extroacular Muscles: Positive for: EOMI Conjunctiva: Positive for: Icteric Mouth: Positive for: Moist Mucous Membranes Respiratory/Chest: Positive for: Clear to Auscultation, Good Air Exchange Abdomen: Positive for: Distention. Negative for: Tenderness, Normal Bowel Sounds Psychiatric: Positive for: Alert - Medications Active Medications: Active Medications Generic Name Dose Route Start Last Admin Trade Name Freq PRN Reason Stop Dose Admin Albuterol/Ipratropium 3 ml 12/12/17 18:32 Duoneb 3 Mg/0.5 Mg (3 Ml) Ud INH RQ6 PRN Shortness of Breath Famotidine 20 mg 12/13/17 10:30 12/13/17 11:07 Pepcid IVP Not Given Q12 ELIJAH Furosemide 40 mg 12/13/17 22:00 Lasix IVP Q12 ELIJAH Folic Acid 1 mg/ Sodium 100.2 mls @ 60 mls/hr 12/09/17 10:00 12/13/17 09:26 Chloride IV 60 mls/hr DAILY ELIJAH Administration Cefepime HCl 1 gm/ Dextrose 50 mls @ 100 mls/hr 12/13/17 17:00 12/13/17 16:48 IVPB 100 mls/hr Q12H ELIJAH Administration Albumin Human 500 mls @ 50 mls/hr 12/13/17 12:30 12/13/17 12:24 Albutein 5% 500 Ml IVPB 12/14/17 18:29 50 mls/hr Q10H ELIJAH Administration Clindamycin Phosphate 600 mg in 50 mls @ 102 mls/hr 12/13/17 18:15 Cleocin In Normal Saline IVPB Q8H ELIJAH Lactulose 20 gm 12/13/17 18:00 12/13/17 18:08 Enulose PO 20 gm BID ELJIAH Administration Lorazepam 2 mg 12/13/17 11:45 12/13/17 16:43 Ativan PO 12/18/17 11:44 2 mg Q4 ELIJAH Administration Taper Propranolol HCl 20 mg 12/09/17 19:30 12/13/17 18:08 Inderal PO 20 mg BID ELIJAH Administration Rifaximin 200 mg 12/13/17 14:00 12/13/17 16:43 Xifaxan PO 12/15/17 10:47 200 mg Q8 ELIJAH Administration Spironolactone 50 mg 12/13/17 11:00 12/13/17 12:19 Aldactone PO 50 mg DAILY ELIJAH Administration Thiamine HCl 100 mg 12/09/17 10:00 12/13/17 09:25 Vitamin B1 Inj IV 100 mg DAILY ELIJAH Administration - Patient Studies Lab Studies: Microbiology Studies 12/08/17 08:35 Blood Culture - Preliminary Blood-Venous NO GROWTH AFTER 4 DAYS 12/08/17 08:15 Blood Culture - Preliminary Blood-Venous NO GROWTH AFTER 4 DAYS Lab Studies 12/13/17 12/13/17 12/13/17 Range/Units 16:37 14:13 11:15 WBC 13.1 H (4.8-10.8) K/uL RBC 3.05 L (4.40-5.90) Mil/uL Hgb 8.0 L (12.0-18.0) g/dL Hct 24.8 L (35.0-51.0) % MCV 81.5 (80.0-94.0) fL MCH 26.3 L (27.0-31.0) pg MCHC 32.3 L (33.0-37.0) g/dL RDW 22.1 H (11.5-14.5) % Plt Count 139 (130-400) K/uL MPV 9.9 (7.2-11.7) fL Neut % (Auto) 58.4 (50.0-75.0) % Lymph % (Auto) 20.6 (20.0-40.0) % [place] % (Auto) 19.1 H (0.0-10.0) % Eos % (Auto) 0.7 (0.0-4.0) % Baso % (Auto) 1.2 (0.0-2.0) % Neut # (Auto) 7.7 H (1.8-7.0) K/uL Lymph # (Auto) 2.7 (1.0-4.3) K/uL [place] # (Auto) 2.5 H (0.0-0.8) K/uL Eos # (Auto) 0.1 (0.0-0.7) K/uL Baso # (Auto) 0.2 (0.0-0.2) K/uL Neutrophils % (Manual) (50-75) % Lymphocytes % (Manual) (20-40) % Monocytes % (Manual) (0-10) % Eosinophils % (Manual) (0-4) % Platelet Estimate (NORMAL) Hypochromasia (manual) Poikilocytosis (manual Anisocytosis (manual) Microcytosis (manual) Target Cells Tear Drop Cells Ovalocytes Mary Cells PT (9.7-12.2) SECONDS INR APTT (21-34) SECONDS Puncture Site Rra pCO2 32 L (35-45) mm/Hg pO2 70 L (80-100) mm/Hg HCO3 26.2 (21-28) mmol/L ABG pH 7.49 H (7.35-7.45) ABG Total CO2 25.4 (22-28) mmol/L ABG O2 Saturation 98.5 H (95-98) % ABG Base Excess 1.7 (-2.0-3.0) mmol/L Olegario Test Pos ABG Potassium 3.1 L (3.6-5.2) mmol/L Glucose 99 (75-110) mg/dl Lactate 1.1 (0.7-2.1) mmol/L Liter Flow 4.0 Sodium 149.0 H (132-148) mmol/L Potassium (3.6-5.2) mmol/L Chloride 120.0 H (98-107) mmol/L Carbon Dioxide (22-30) mmol/L Anion Gap (10-20) BUN (9-20) mg/dL Creatinine (0.8-1.5) mg/dL Est GFR ( Amer) Est GFR (Non-Af Amer) POC Glucose (mg/dL) 88 (65-110) mg/dL Random Glucose (75-110) mg/dL Calcium (8.6-10.4) mg/dl Phosphorus (2.5-4.5) mg/dL Magnesium (1.6-2.3) mg/dL Total Bilirubin (0.2-1.3) mg/dL AST (17-59) U/L ALT (21-72) U/L Alkaline Phosphatase (38-126) U/L Ammonia (9-33) umol/L Total Protein (6.3-8.3) g/dL Albumin (3.5-5.0) g/dL Globulin (2.2-3.9) gm/dL Albumin/Globulin Ratio (1.0-2.1) Arterial Blood Potassium 3.1 L (3.6-5.2) mmol/L Blood Type Antibody Screen 12/13/17 12/13/17 12/13/17 Range/Units 11:04 10:29 10:18 WBC (4.8-10.8) K/uL RBC (4.40-5.90) Mil/uL Hgb (12.0-18.0) g/dL Hct (35.0-51.0) % MCV (80.0-94.0) fL MCH (27.0-31.0) pg MCHC (33.0-37.0) g/dL RDW (11.5-14.5) % Plt Count (130-400) K/uL MPV (7.2-11.7) fL Neut % (Auto) (50.0-75.0) % Lymph % (Auto) (20.0-40.0) % [place] % (Auto) (0.0-10.0) % Eos % (Auto) (0.0-4.0) % Baso % (Auto) (0.0-2.0) % Neut # (Auto) (1.8-7.0) K/uL Lymph # (Auto) (1.0-4.3) K/uL [place] # (Auto) (0.0-0.8) K/uL Eos # (Auto) (0.0-0.7) K/uL Baso # (Auto) (0.0-0.2) K/uL Neutrophils % (Manual) (50-75) % Lymphocytes % (Manual) (20-40) % Monocytes % (Manual) (0-10) % Eosinophils % (Manual) (0-4) % Platelet Estimate (NORMAL) Hypochromasia (manual) Poikilocytosis (manual Anisocytosis (manual) Microcytosis (manual) Target Cells Tear Drop Cells Ovalocytes [place] Cells PT (9.7-12.2) SECONDS INR APTT (21-34) SECONDS Puncture Site pCO2 (35-45) mm/Hg pO2 (80-100) mm/Hg HCO3 (21-28) mmol/L ABG pH (7.35-7.45) ABG Total CO2 (22-28) mmol/L ABG O2 Saturation (95-98) % ABG Base Excess (-2.0-3.0) mmol/L Olegario Test ABG Potassium (3.6-5.2) mmol/L Glucose (75-110) mg/dl Lactate (0.7-2.1) mmol/L Liter Flow Sodium 149 H (132-148) mmol/L Potassium 3.5 L (3.6-5.2) mmol/L Chloride 115 H (98-107) mmol/L Carbon Dioxide 26 (22-30) mmol/L Anion Gap 12 (10-20) BUN 14 (9-20) mg/dL Creatinine 0.8 (0.8-1.5) mg/dL Est GFR ( Amer) > 60 Est GFR (Non-Af Amer) > 60 POC Glucose (mg/dL) 102 (65-110) mg/dL Random Glucose 97 (75-110) mg/dL Calcium 7.7 L (8.6-10.4) mg/dl Phosphorus 2.8 (2.5-4.5) mg/dL Magnesium 2.3 (1.6-2.3) mg/dL Total Bilirubin 4.6 H (0.2-1.3) mg/dL AST 85 H (17-59) U/L ALT 48 (21-72) U/L Alkaline Phosphatase 90 (38-126) U/L Ammonia (9-33) umol/L Total Protein 6.0 L (6.3-8.3) g/dL Albumin 2.4 L (3.5-5.0) g/dL Globulin 3.6 (2.2-3.9) gm/dL Albumin/Globulin Ratio 0.7 L (1.0-2.1) Arterial Blood Potassium (3.6-5.2) mmol/L Blood Type O POSITIVE Antibody Screen Negative 12/13/17 12/13/17 12/13/17 Range/Units 10:18 10:18 07:24 WBC 13.0 H (4.8-10.8) K/uL RBC 3.11 L (4.40-5.90) Mil/uL Hgb 8.3 L (12.0-18.0) g/dL Hct 25.3 L (35.0-51.0) % MCV 81.2 (80.0-94.0) fL MCH 26.6 L (27.0-31.0) pg MCHC 32.7 L (33.0-37.0) g/dL RDW 22.7 H (11.5-14.5) % Plt Count 133 (130-400) K/uL MPV 10.0 (7.2-11.7) fL Neut % (Auto) 55.1 (50.0-75.0) % Lymph % (Auto) 25.1 (20.0-40.0) % [place] % (Auto) 17.7 H (0.0-10.0) % Eos % (Auto) 1.1 (0.0-4.0) % Baso % (Auto) 1.0 (0.0-2.0) % Neut # (Auto) 7.2 H (1.8-7.0) K/uL Lymph # (Auto) 3.3 (1.0-4.3) K/uL [place] # (Auto) 2.3 H (0.0-0.8) K/uL Eos # (Auto) 0.1 (0.0-0.7) K/uL Baso # (Auto) 0.1 (0.0-0.2) K/uL Neutrophils % (Manual) (50-75) % Lymphocytes % (Manual) (20-40) % Monocytes % (Manual) (0-10) % Eosinophils % (Manual) (0-4) % Platelet Estimate (NORMAL) Hypochromasia (manual) Poikilocytosis (manual Anisocytosis (manual) Microcytosis (manual) Target Cells Tear Drop Cells Ovalocytes Mary Cells PT 23.3 H (9.7-12.2) SECONDS INR 2.0 APTT 31 (21-34) SECONDS Puncture Site pCO2 (35-45) mm/Hg pO2 (80-100) mm/Hg HCO3 (21-28) mmol/L ABG pH (7.35-7.45) ABG Total CO2 (22-28) mmol/L ABG O2 Saturation (95-98) % ABG Base Excess (-2.0-3.0) mmol/L Olegario Test ABG Potassium (3.6-5.2) mmol/L Glucose (75-110) mg/dl Lactate (0.7-2.1) mmol/L Liter Flow Sodium (132-148) mmol/L Potassium (3.6-5.2) mmol/L Chloride (98-107) mmol/L Carbon Dioxide (22-30) mmol/L Anion Gap (10-20) BUN (9-20) mg/dL Creatinine (0.8-1.5) mg/dL Est GFR ( Amer) Est GFR (Non-Af Amer) POC Glucose (mg/dL) 87 (65-110) mg/dL Random Glucose (75-110) mg/dL Calcium (8.6-10.4) mg/dl Phosphorus (2.5-4.5) mg/dL Magnesium (1.6-2.3) mg/dL Total Bilirubin (0.2-1.3) mg/dL AST (17-59) U/L ALT (21-72) U/L Alkaline Phosphatase (38-126) U/L Ammonia (9-33) umol/L Total Protein (6.3-8.3) g/dL Albumin (3.5-5.0) g/dL Globulin (2.2-3.9) gm/dL Albumin/Globulin Ratio (1.0-2.1) Arterial Blood Potassium (3.6-5.2) mmol/L Blood Type Antibody Screen 12/13/17 12/13/17 12/13/17 Range/Units 06:33 06:30 06:30 WBC 13.0 H (4.8-10.8) K/uL RBC 3.19 L (4.40-5.90) Mil/uL Hgb 8.4 L (12.0-18.0) g/dL Hct 25.7 L (35.0-51.0) % MCV 80.6 (80.0-94.0) fL MCH 26.4 L (27.0-31.0) pg MCHC 32.7 L (33.0-37.0) g/dL RDW 21.9 H (11.5-14.5) % Plt Count 131 (130-400) K/uL MPV 10.2 (7.2-11.7) fL Neut % (Auto) 59.7 (50.0-75.0) % Lymph % (Auto) 16.8 L (20.0-40.0) % [place] % (Auto) 21.8 H (0.0-10.0) % Eos % (Auto) 1.0 (0.0-4.0) % Baso % (Auto) 0.7 (0.0-2.0) % Neut # (Auto) 7.7 H (1.8-7.0) K/uL Lymph # (Auto) 2.2 (1.0-4.3) K/uL [place] # (Auto) 2.8 H (0.0-0.8) K/uL Eos # (Auto) 0.1 (0.0-0.7) K/uL Baso # (Auto) 0.1 (0.0-0.2) K/uL Neutrophils % (Manual) 64 (50-75) % Lymphocytes % (Manual) 15 L (20-40) % Monocytes % (Manual) 20 H (0-10) % Eosinophils % (Manual) 1 (0-4) % Platelet Estimate Normal (NORMAL) Hypochromasia (manual) Moderate Poikilocytosis (manual Slight Anisocytosis (manual) Slight Microcytosis (manual) Slight Target Cells Moderate Tear Drop Cells Slight Ovalocytes Slight Mary Cells Slight PT (9.7-12.2) SECONDS INR APTT (21-34) SECONDS Puncture Site pCO2 (35-45) mm/Hg pO2 (80-100) mm/Hg HCO3 (21-28) mmol/L ABG pH (7.35-7.45) ABG Total CO2 (22-28) mmol/L ABG O2 Saturation (95-98) % ABG Base Excess (-2.0-3.0) mmol/L Olegario Test ABG Potassium (3.6-5.2) mmol/L Glucose (75-110) mg/dl Lactate (0.7-2.1) mmol/L Liter Flow Sodium 148 (132-148) mmol/L Potassium 3.5 L (3.6-5.2) mmol/L Chloride 115 H (98-107) mmol/L Carbon Dioxide 24 (22-30) mmol/L Anion Gap 12 (10-20) BUN 14 (9-20) mg/dL Creatinine 0.7 L (0.8-1.5) mg/dL Est GFR ( Amer) > 60 Est GFR (Non-Af Amer) > 60 POC Glucose (mg/dL) (65-110) mg/dL Random Glucose 87 (75-110) mg/dL Calcium 7.5 L (8.6-10.4) mg/dl Phosphorus 2.7 (2.5-4.5) mg/dL Magnesium 2.4 H (1.6-2.3) mg/dL Total Bilirubin 4.2 H (0.2-1.3) mg/dL AST 80 H (17-59) U/L ALT 46 (21-72) U/L Alkaline Phosphatase 88 (38-126) U/L Ammonia 52 H D (9-33) umol/L Total Protein 5.9 L (6.3-8.3) g/dL Albumin 2.4 L (3.5-5.0) g/dL Globulin 3.5 (2.2-3.9) gm/dL Albumin/Globulin Ratio 0.7 L (1.0-2.1) Arterial Blood Potassium (3.6-5.2) mmol/L Blood Type Antibody Screen 12/13/17 12/12/17 Range/Units 05:13 21:46 WBC (4.8-10.8) K/uL RBC (4.40-5.90) Mil/uL Hgb (12.0-18.0) g/dL Hct (35.0-51.0) % MCV (80.0-94.0) fL MCH (27.0-31.0) pg MCHC (33.0-37.0) g/dL RDW (11.5-14.5) % Plt Count (130-400) K/uL MPV (7.2-11.7) fL Neut % (Auto) (50.0-75.0) % Lymph % (Auto) (20.0-40.0) % [place] % (Auto) (0.0-10.0) % Eos % (Auto) (0.0-4.0) % Baso % (Auto) (0.0-2.0) % Neut # (Auto) (1.8-7.0) K/uL Lymph # (Auto) (1.0-4.3) K/uL [place] # (Auto) (0.0-0.8) K/uL Eos # (Auto) (0.0-0.7) K/uL Baso # (Auto) (0.0-0.2) K/uL Neutrophils % (Manual) (50-75) % Lymphocytes % (Manual) (20-40) % Monocytes % (Manual) (0-10) % Eosinophils % (Manual) (0-4) % Platelet Estimate (NORMAL) Hypochromasia (manual) Poikilocytosis (manual Anisocytosis (manual) Microcytosis (manual) Target Cells Tear Drop Cells Ovalocytes Mary Cells PT (9.7-12.2) SECONDS INR APTT (21-34) SECONDS Puncture Site pCO2 (35-45) mm/Hg pO2 (80-100) mm/Hg HCO3 (21-28) mmol/L ABG pH (7.35-7.45) ABG Total CO2 (22-28) mmol/L ABG O2 Saturation (95-98) % ABG Base Excess (-2.0-3.0) mmol/L Olegario Test ABG Potassium (3.6-5.2) mmol/L Glucose (75-110) mg/dl Lactate (0.7-2.1) mmol/L Liter Flow Sodium (132-148) mmol/L Potassium (3.6-5.2) mmol/L Chloride (98-107) mmol/L Carbon Dioxide (22-30) mmol/L Anion Gap (10-20) BUN (9-20) mg/dL Creatinine (0.8-1.5) mg/dL Est GFR ( Amer) Est GFR (Non-Af Amer) POC Glucose (mg/dL) 152 H 88 (65-110) mg/dL Random Glucose (75-110) mg/dL Calcium (8.6-10.4) mg/dl Phosphorus (2.5-4.5) mg/dL Magnesium (1.6-2.3) mg/dL Total Bilirubin (0.2-1.3) mg/dL AST (17-59) U/L ALT (21-72) U/L Alkaline Phosphatase (38-126) U/L Ammonia (9-33) umol/L Total Protein (6.3-8.3) g/dL Albumin (3.5-5.0) g/dL Globulin (2.2-3.9) gm/dL Albumin/Globulin Ratio (1.0-2.1) Arterial Blood Potassium (3.6-5.2) mmol/L Blood Type Antibody Screen Laboratory Results - last 24 hr 12/12/17 12/13/17 12/13/17 21:46 05:13 06:30 WBC 13.0 H RBC 3.19 L Hgb 8.4 L Hct 25.7 L MCV 80.6 MCH 26.4 L MCHC 32.7 L RDW 21.9 H Plt Count 131 MPV 10.2 Neut % (Auto) 59.7 Lymph % (Auto) 16.8 L [place] % (Auto) 21.8 H Eos % (Auto) 1.0 Baso % (Auto) 0.7 Neut # (Auto) 7.7 H Lymph # (Auto) 2.2 [place] # (Auto) 2.8 H Eos # (Auto) 0.1 Baso # (Auto) 0.1 Neutrophils % (Manual) 64 Lymphocytes % (Manual) 15 L Monocytes % (Manual) 20 H Eosinophils % (Manual) 1 Platelet Estimate Normal Hypochromasia (manual) Moderate Poikilocytosis (manual Slight Anisocytosis (manual) Slight Microcytosis (manual) Slight Target Cells Moderate Tear Drop Cells Slight Ovalocytes Slight Mary Cells Slight PT INR APTT Puncture Site pCO2 pO2 HCO3 ABG pH ABG Total CO2 ABG O2 Saturation ABG Base Excess Olegario Test ABG Potassium Glucose Lactate Liter Flow Sodium Potassium Chloride Carbon Dioxide Anion Gap BUN Creatinine Est GFR ( Amer) Est GFR (Non-Af Amer) POC Glucose (mg/dL) 88 152 H Random Glucose Calcium Phosphorus Magnesium Total Bilirubin AST ALT Alkaline Phosphatase Ammonia Total Protein Albumin Globulin Albumin/Globulin Ratio Arterial Blood Potassium Blood Type Antibody Screen 12/13/17 12/13/17 12/13/17 06:30 06:33 07:24 WBC RBC Hgb Hct MCV MCH MCHC RDW Plt Count MPV Neut % (Auto) Lymph % (Auto) [place] % (Auto) Eos % (Auto) Baso % (Auto) Neut # (Auto) Lymph # (Auto) [place] # (Auto) Eos # (Auto) Baso # (Auto) Neutrophils % (Manual) Lymphocytes % (Manual) Monocytes % (Manual) Eosinophils % (Manual) Platelet Estimate Hypochromasia (manual) Poikilocytosis (manual Anisocytosis (manual) Microcytosis (manual) Target Cells Tear Drop Cells Ovalocytes [place] Cells PT INR APTT Puncture Site pCO2 pO2 HCO3 ABG pH ABG Total CO2 ABG O2 Saturation ABG Base Excess Olegario Test ABG Potassium Glucose Lactate Liter Flow Sodium 148 Potassium 3.5 L Chloride 115 H Carbon Dioxide 24 Anion Gap 12 BUN 14 Creatinine 0.7 L Est GFR ( Amer) > 60 Est GFR (Non-Af Amer) > 60 POC Glucose (mg/dL) 87 Random Glucose 87 Calcium 7.5 L Phosphorus 2.7 Magnesium 2.4 H Total Bilirubin 4.2 H AST 80 H ALT 46 Alkaline Phosphatase 88 Ammonia 52 H D Total Protein 5.9 L Albumin 2.4 L Globulin 3.5 Albumin/Globulin Ratio 0.7 L Arterial Blood Potassium Blood Type Antibody Screen 12/13/17 12/13/17 12/13/17 10:18 10:18 10:18 WBC 13.0 H RBC 3.11 L Hgb 8.3 L Hct 25.3 L MCV 81.2 MCH 26.6 L MCHC 32.7 L RDW 22.7 H Plt Count 133 MPV 10.0 Neut % (Auto) 55.1 Lymph % (Auto) 25.1 [place] % (Auto) 17.7 H Eos % (Auto) 1.1 Baso % (Auto) 1.0 Neut # (Auto) 7.2 H Lymph # (Auto) 3.3 [place] # (Auto) 2.3 H Eos # (Auto) 0.1 Baso # (Auto) 0.1 Neutrophils % (Manual) Lymphocytes % (Manual) Monocytes % (Manual) Eosinophils % (Manual) Platelet Estimate Hypochromasia (manual) Poikilocytosis (manual Anisocytosis (manual) Microcytosis (manual) Target Cells Tear Drop Cells Ovalocytes Mary Cells PT 23.3 H INR 2.0 APTT 31 Puncture Site pCO2 pO2 HCO3 ABG pH ABG Total CO2 ABG O2 Saturation ABG Base Excess Olegario Test ABG Potassium Glucose Lactate Liter Flow Sodium 149 H Potassium 3.5 L Chloride 115 H Carbon Dioxide 26 Anion Gap 12 BUN 14 Creatinine 0.8 Est GFR ( Amer) > 60 Est GFR (Non-Af Amer) > 60 POC Glucose (mg/dL) Random Glucose 97 Calcium 7.7 L Phosphorus 2.8 Magnesium 2.3 Total Bilirubin 4.6 H AST 85 H ALT 48 Alkaline Phosphatase 90 Ammonia Total Protein 6.0 L Albumin 2.4 L Globulin 3.6 Albumin/Globulin Ratio 0.7 L Arterial Blood Potassium Blood Type Antibody Screen 12/13/17 12/13/17 12/13/17 10:29 11:04 11:15 WBC RBC Hgb Hct MCV MCH MCHC RDW Plt Count MPV Neut % (Auto) Lymph % (Auto) [place] % (Auto) Eos % (Auto) Baso % (Auto) Neut # (Auto) Lymph # (Auto) [place] # (Auto) Eos # (Auto) Baso # (Auto) Neutrophils % (Manual) Lymphocytes % (Manual) Monocytes % (Manual) Eosinophils % (Manual) Platelet Estimate Hypochromasia (manual) Poikilocytosis (manual Anisocytosis (manual) Microcytosis (manual) Target Cells Tear Drop Cells Ovalocytes Mary Cells PT INR APTT Puncture Site Rra pCO2 32 L pO2 70 L HCO3 26.2 ABG pH 7.49 H ABG Total CO2 25.4 ABG O2 Saturation 98.5 H ABG Base Excess 1.7 Olegario Test Pos ABG Potassium 3.1 L Glucose 99 Lactate 1.1 Liter Flow 4.0 Sodium 149.0 H Potassium Chloride 120.0 H Carbon Dioxide Anion Gap BUN Creatinine Est GFR ( Amer) Est GFR (Non-Af Amer) POC Glucose (mg/dL) 102 Random Glucose Calcium Phosphorus Magnesium Total Bilirubin AST ALT Alkaline Phosphatase Ammonia Total Protein Albumin Globulin Albumin/Globulin Ratio Arterial Blood Potassium 3.1 L Blood Type O POSITIVE Antibody Screen Negative 12/13/17 12/13/17 14:13 16:37 WBC 13.1 H RBC 3.05 L Hgb 8.0 L Hct 24.8 L MCV 81.5 MCH 26.3 L MCHC 32.3 L RDW 22.1 H Plt Count 139 MPV 9.9 Neut % (Auto) 58.4 Lymph % (Auto) 20.6 [place] % (Auto) 19.1 H Eos % (Auto) 0.7 Baso % (Auto) 1.2 Neut # (Auto) 7.7 H Lymph # (Auto) 2.7 [place] # (Auto) 2.5 H Eos # (Auto) 0.1 Baso # (Auto) 0.2 Neutrophils % (Manual) Lymphocytes % (Manual) Monocytes % (Manual) Eosinophils % (Manual) Platelet Estimate Hypochromasia (manual) Poikilocytosis (manual Anisocytosis (manual) Microcytosis (manual) Target Cells Tear Drop Cells Ovalocytes Mary Cells PT INR APTT Puncture Site pCO2 pO2 HCO3 ABG pH ABG Total CO2 ABG O2 Saturation ABG Base Excess Olegario Test ABG Potassium Glucose Lactate Liter Flow Sodium Potassium Chloride Carbon Dioxide Anion Gap BUN Creatinine Est GFR ( Amer) Est GFR (Non-Af Amer) POC Glucose (mg/dL) 88 Random Glucose Calcium Phosphorus Magnesium Total Bilirubin AST ALT Alkaline Phosphatase Ammonia Total Protein Albumin Globulin Albumin/Globulin Ratio Arterial Blood Potassium Blood Type Antibody Screen Fingerstick Blood Sugar Results: 88 Critical Care Progress Note - Nutrition Nutrition: Nutrition Category Date Time Status NPO Diet [DIET] Diets 12/13/17 Lunch Active Assessment/Plan - Assessment and Plan (Free Text) Assessment: 42M Alcoholic cirrhosis, likely DTs Plan: Neuro: Ativan Taper, CIWA protocol, likely DTs Cards: No acute issues Pulm: Fluid overload, gave lasix GI: Patient has alcoholic cirrhosis and large hematoma on R. Flank, Initally thought he would be severely coagulopathic but his H/H was stable and INR was 2. Repeat H/H was normal. Given aldosterone, rifamixin, lactulose Renal: no acute issues PPX: lovenox, pepcid
[2017-12-13] MEDS: Clindamycin 600mg/50ml NS 600 MG/50 ML BAG IVPB SCH (19:32)
[2017-12-14] MEDS: Clindamycin 600mg/50ml NS 600 MG/50 ML BAG IVPB SCH ×3 (02:30→17:25)
[2017-12-14 06:54] LABS: BASO # 0.1 K/uL (0.0-0.2); BASO % 0.5 % (0.0-2.0); EOS # 0.1 K/uL (0.0-0.7); HEMOGLOBIN 7.8 g/dL (12.0-18.0); LYMPH # 2.4 K/uL (1.0-4.3); NRBC % 0.1 % (0.0-2.0)
[2017-12-14 07:15] LABS: LYMPH % 16.6 % (20.0-40.0); MEAN CELL VOLUME 82.2 fL (80.0-94.0); MEAN CORPUSCULAR HEMOGLOBIN 26.4 pg (27.0-31.0); MEAN CORPUSCULAR HGB CONC 32.1 g/dL (33.0-37.0); MONO # 2.8 K/uL (0.0-0.8); MONO % 19.5 % (0.0-10.0); NEUT # 8.9 K/uL (1.8-7.0); NEUT % 62.4 % (50.0-75.0); RBC 2.96 Mil/uL (4.40-5.90); RED CELL DISTRIBUTION WIDTH 22.8 % (11.5-14.5); WHITE BLOOD COUNT 14.3 K/uL (4.8-10.8)
[2017-12-14 08:22] LABS: BLOOD UREA NITROGEN 15 mg/dL (9-20); GFR AFRICAN-AMERICAN > 60; GFR NON-AFRICAN AMERICAN > 60
[2017-12-14 08:23] LABS: ALB/GLOB RATIO 0.8 (1.0-2.1); ALBUMIN 2.7 g/dL (3.5-5.0)
[2017-12-14 08:24] LABS: ALT/SGPT 43 U/L (21-72); AST/SGOT 130 U/L (17-59)
[2017-12-14] MEDS: Thiamine 100 mg/ml Inj IV SCH (10:59)
--- NOTE | 2017-12-14 11:32 | CP.PCM.PN ---
Subjective - Date & Time of Evaluation Date of Evaluation: 12/14/17 Time of Evaluation: 11:29 - Subjective Subjective: F/U anemia In ICU. Family is present Confused No report of RB, melena, abdom pain, hematuria, hemoptysis, SZ Objective - Vital Signs/Intake and Output Vital Signs (last 24 hours): Temp Pulse Resp BP Pulse Ox 100.3 F H 84 14 130/72 92 L 12/14/17 08:00 12/14/17 08:21 12/14/17 08:21 12/14/17 10:59 12/14/17 08:21 Intake and Output: 12/14/17 12/14/17 06:59 18:59 Intake Total 1052 300 Output Total 1265 180 Balance -213 120 - Medications Medications: Current Medications Albuterol/Ipratropium (Duoneb 3 Mg/0.5 Mg (3 Ml) Ud) 3 ml INH RQ6 PRN PRN Reason: Shortness of Breath Famotidine (Pepcid) 20 mg IVP Q12 [facility] Last Admin: 12/14/17 10:59 Dose: 20 mg Furosemide (Lasix) 40 mg IVP Q12 [facility] Last Admin: 12/14/17 10:59 Dose: 40 mg Folic Acid 1 mg/ Sodium (Chloride) 100.2 mls @ 60 mls/hr IV DAILY [facility] Last Admin: 12/14/17 10:58 Dose: 60 mls/hr Cefepime HCl 1 gm/ Dextrose 50 mls @ 100 mls/hr IVPB Q12H [facility] Last Admin: 12/14/17 04:38 Dose: 100 mls/hr Albumin Human (Albutein 5% 500 Ml) 500 mls @ 50 mls/hr IVPB Q10H [facility] Stop: 12/14/17 18:29 Last Admin: 12/14/17 08:23 Dose: 50 mls/hr Clindamycin Phosphate (Cleocin In Normal Saline) 600 mg in 50 mls @ 102 mls/hr IVPB Q8H [facility] Last Admin: 12/14/17 10:58 Dose: 102 mls/hr Lactulose (Enulose) 20 gm PO BID [facility] Last Admin: 12/13/17 18:08 Dose: 20 gm Lorazepam (Ativan) 2 mg PO Q4 [facility] PRN Reason: Taper Stop: 12/18/17 11:44 Last Admin: 12/14/17 08:46 Dose: Not Given Propranolol HCl (Inderal) 20 mg PO BID [facility] Last Admin: 12/13/17 18:08 Dose: 20 mg Rifaximin (Xifaxan) 200 mg PO Q8 [facility] Stop: 12/15/17 10:47 Last Admin: 12/14/17 06:55 Dose: 200 mg Spironolactone (Aldactone) 50 mg PO DAILY [facility] Last Admin: 12/13/17 12:19 Dose: 50 mg Thiamine HCl (Vitamin B1 Inj) 100 mg IV DAILY [facility] Last Admin: 12/14/17 10:59 Dose: 100 mg - Labs Labs: 12/14/17 06:48 12/14/17 06:48 PT 23.3 SECONDS (9.7-12.2) H 12/13/17 10:18 INR 2.0 12/13/17 10:18 APTT 31 SECONDS (21-34) 12/13/17 10:18 - Constitutional Appears: Confused - Respiratory Exam Respiratory Exam: Clear to Ausculation Bilateral - Cardiovascular Exam Cardiovascular Exam: RRR - GI/Abdominal Exam GI & Abdominal Exam: Soft, Normal Bowel Sounds. absent: Guarding, Tenderness, Rebound - Neurological Exam Neurological Exam: absent: Oriented x3 Additional comments: responds Assessment and Plan (1) Alcoholic cirrhosis Status: Acute (2) Colitis Assessment & Plan: No clinical colitis Status: Acute (3) Iron deficiency anemia Assessment & Plan: No overt bleeding. Not stable for EGD. Status: Acute (4) Pneumonia Status: Acute (5) Pneumothorax Status: Acute (6) Rib fractures Status: Acute (7) Alcohol abuse Status: Acute (8) Fever Status: Acute
--- NOTE | 2017-12-14 13:32 | CP.CCUPN ---
<Ray Trevino - Last Filed: 12/14/17 13:21> CCU Subjective - Physician Review Subjective (Free Text): 12/13/17 19:04 Patient seen and examined at bedside Patient was very lethargic, diaphoretic Had a large hematoma on his R. Flank Given history of liver disease and coagulopathy, decision was made to transfer the patient back to ICU 12/14/17 13:21 Patient seen and examined at bedside patient sedated will back off sedation to evaluate mental status CCU Objective - Vital Signs / Intake & Output Vital Signs (Last 4 hours): Vital Signs Pulse Resp BP Pulse Ox 12/14/17 12:21 82 25 H 108/70 94 L 12/14/17 12:00 83 18 94 L 12/14/17 11:22 85 26 H 135/79 91 L 12/14/17 10:59 130/72 12/14/17 10:21 82 28 H 130/78 91 L Intake and Output (Last 8hrs): Intake & Output 12/13/17 12/14/17 12/14/17 22:59 06:59 14:59 Intake Total 852 400 500 Output Total 290 1025 1030 Balance 562 -625 -530 Weight 215 lb Intake: Intake, IV Amount 852 400 500 Left Antecubital 852 400 50 Right Upper arm 300 Right upper arm 2 150 Output: Urine 290 1025 1030 Urethral (Ydson) 290 1025 1030 - Physical Exam Head: Positive for: Atraumatic, Normocephalic Pupils: Positive for: PERRL Extroacular Muscles: Positive for: EOMI Conjunctiva: Positive for: Icteric Mouth: Positive for: Moist Mucous Membranes Respiratory/Chest: Positive for: Clear to Auscultation, Good Air Exchange Abdomen: Positive for: Distention. Negative for: Tenderness, Normal Bowel Sounds Psychiatric: Positive for: Alert - Medications Active Medications: Active Medications Generic Name Dose Route Start Last Admin Trade Name Freq PRN Reason Stop Dose Admin Albuterol/Ipratropium 3 ml 12/12/17 18:32 Duoneb 3 Mg/0.5 Mg (3 Ml) Ud INH RQ6 PRN Shortness of Breath Famotidine 20 mg 12/13/17 10:30 12/14/17 10:59 Pepcid IVP 20 mg Q12 ELIJAH Administration Furosemide 40 mg 12/13/17 22:00 12/14/17 10:59 Lasix IVP 40 mg Q12 ELIJAH Administration Folic Acid 1 mg/ Sodium 100.2 mls @ 60 mls/hr 12/09/17 10:00 12/14/17 10:58 Chloride IV 60 mls/hr DAILY ELIJAH Administration Cefepime HCl 1 gm/ Dextrose 50 mls @ 100 mls/hr 12/13/17 17:00 12/14/17 04:38 IVPB 100 mls/hr Q12H ELIJAH Administration Albumin Human 500 mls @ 50 mls/hr 12/13/17 12:30 12/14/17 08:23 Albutein 5% 500 Ml IVPB 12/14/17 18:29 50 mls/hr Q10H ELIJAH Administration Clindamycin Phosphate 600 mg in 50 mls @ 102 mls/hr 12/13/17 18:15 12/14/17 10:58 Cleocin In Normal Saline IVPB 102 mls/hr Q8H ELIJAH Administration Lactulose 20 gm 12/13/17 18:00 12/14/17 11:39 Enulose PO Not Given BID ELIJAH Lorazepam 2 mg 12/13/17 11:45 12/14/17 08:46 Ativan PO 12/18/17 11:44 Not Given Q4 ELIJAH Taper Propranolol HCl 20 mg 12/09/17 19:30 12/14/17 11:39 Inderal PO Not Given BID ELIJAH Rifaximin 200 mg 12/13/17 14:00 12/14/17 06:55 Xifaxan PO 12/15/17 10:47 200 mg Q8 ELIJAH Administration Spironolactone 50 mg 12/13/17 11:00 12/13/17 12:19 Aldactone PO 50 mg DAILY ELIJAH Administration Thiamine HCl 100 mg 12/09/17 10:00 12/14/17 10:59 Vitamin B1 Inj IV 100 mg DAILY ELIJAH Administration - Patient Studies Lab Studies: Microbiology Studies 12/08/17 08:35 Blood Culture - Final Blood-Venous NO GROWTH AFTER 5 DAYS Gram Stain - Final TEST NOT PERFORMED 12/08/17 08:15 Blood Culture - Final Blood-Venous NO GROWTH AFTER 5 DAYS Gram Stain - Final TEST NOT PERFORMED Lab Studies 12/14/17 12/14/17 12/14/17 Range/Units 11:23 07:19 06:48 WBC (4.8-10.8) K/uL RBC (4.40-5.90) Mil/uL Hgb (12.0-18.0) g/dL Hct (35.0-51.0) % MCV (80.0-94.0) fL MCH (27.0-31.0) pg MCHC (33.0-37.0) g/dL RDW (11.5-14.5) % Plt Count (130-400) K/uL MPV (7.2-11.7) fL Neut % (Auto) (50.0-75.0) % Lymph % (Auto) (20.0-40.0) % Harnett % (Auto) (0.0-10.0) % Eos % (Auto) (0.0-4.0) % Baso % (Auto) (0.0-2.0) % Neut # (Auto) (1.8-7.0) K/uL Lymph # (Auto) (1.0-4.3) K/uL [place]ett # (Auto) (0.0-0.8) K/uL Eos # (Auto) (0.0-0.7) K/uL Baso # (Auto) (0.0-0.2) K/uL Sodium (132-148) mmol/L Potassium (3.6-5.2) mmol/L Chloride (98-107) mmol/L Carbon Dioxide (22-30) mmol/L Anion Gap (10-20) BUN (9-20) mg/dL Creatinine (0.8-1.5) mg/dL Est GFR ( Amer) Est GFR (Non-Af Amer) POC Glucose (mg/dL) 96 105 (65-110) mg/dL Random Glucose (75-110) mg/dL Calcium (8.6-10.4) mg/dl Phosphorus (2.5-4.5) mg/dL Magnesium (1.6-2.3) mg/dL Total Bilirubin (0.2-1.3) mg/dL AST (17-59) U/L ALT (21-72) U/L Alkaline Phosphatase (38-126) U/L Ammonia 29 D (9-33) umol/L Total Protein (6.3-8.3) g/dL Albumin (3.5-5.0) g/dL Globulin (2.2-3.9) gm/dL Albumin/Globulin Ratio (1.0-2.1) 12/14/17 12/14/17 12/13/17 Range/Units 06:48 06:48 21:01 WBC 14.3 H (4.8-10.8) K/uL RBC 2.96 L (4.40-5.90) Mil/uL Hgb 7.8 L (12.0-18.0) g/dL Hct 24.3 L (35.0-51.0) % MCV 82.2 (80.0-94.0) fL MCH 26.4 L (27.0-31.0) pg MCHC 32.1 L (33.0-37.0) g/dL RDW 22.8 H (11.5-14.5) % Plt Count 152 (130-400) K/uL MPV 10.0 (7.2-11.7) fL Neut % (Auto) 62.4 (50.0-75.0) % Lymph % (Auto) 16.6 L (20.0-40.0) % Harnett % (Auto) 19.5 H (0.0-10.0) % Eos % (Auto) 1.0 (0.0-4.0) % Baso % (Auto) 0.5 (0.0-2.0) % Neut # (Auto) 8.9 H (1.8-7.0) K/uL Lymph # (Auto) 2.4 (1.0-4.3) K/uL Harnett # (Auto) 2.8 H (0.0-0.8) K/uL Eos # (Auto) 0.1 (0.0-0.7) K/uL Baso # (Auto) 0.1 (0.0-0.2) K/uL Sodium 151 H (132-148) mmol/L Potassium 3.7 (3.6-5.2) mmol/L Chloride 115 H (98-107) mmol/L Carbon Dioxide 27 (22-30) mmol/L Anion Gap 13 (10-20) BUN 15 (9-20) mg/dL Creatinine 0.8 (0.8-1.5) mg/dL Est GFR ( Amer) > 60 Est GFR (Non-Af Amer) > 60 POC Glucose (mg/dL) 101 (65-110) mg/dL Random Glucose 92 (75-110) mg/dL Calcium 8.0 L (8.6-10.4) mg/dl Phosphorus 3.4 (2.5-4.5) mg/dL Magnesium 2.4 H (1.6-2.3) mg/dL Total Bilirubin 4.6 H (0.2-1.3) mg/dL AST 130 H D (17-59) U/L ALT 43 (21-72) U/L Alkaline Phosphatase 89 (38-126) U/L Ammonia (9-33) umol/L Total Protein 6.1 L (6.3-8.3) g/dL Albumin 2.7 L (3.5-5.0) g/dL Globulin 3.4 (2.2-3.9) gm/dL Albumin/Globulin Ratio 0.8 L (1.0-2.1) 12/13/17 12/13/17 Range/Units 16:37 14:13 WBC 13.1 H (4.8-10.8) K/uL RBC 3.05 L (4.40-5.90) Mil/uL Hgb 8.0 L (12.0-18.0) g/dL Hct 24.8 L (35.0-51.0) % MCV 81.5 (80.0-94.0) fL MCH 26.3 L (27.0-31.0) pg MCHC 32.3 L (33.0-37.0) g/dL RDW 22.1 H (11.5-14.5) % Plt Count 139 (130-400) K/uL MPV 9.9 (7.2-11.7) fL Neut % (Auto) 58.4 (50.0-75.0) % Lymph % (Auto) 20.6 (20.0-40.0) % Harnett % (Auto) 19.1 H (0.0-10.0) % Eos % (Auto) 0.7 (0.0-4.0) % Baso % (Auto) 1.2 (0.0-2.0) % Neut # (Auto) 7.7 H (1.8-7.0) K/uL Lymph # (Auto) 2.7 (1.0-4.3) K/uL Harnett # (Auto) 2.5 H (0.0-0.8) K/uL Eos # (Auto) 0.1 (0.0-0.7) K/uL Baso # (Auto) 0.2 (0.0-0.2) K/uL Sodium (132-148) mmol/L Potassium (3.6-5.2) mmol/L Chloride (98-107) mmol/L Carbon Dioxide (22-30) mmol/L Anion Gap (10-20) BUN (9-20) mg/dL Creatinine (0.8-1.5) mg/dL Est GFR ( Amer) Est GFR (Non-Af Amer) POC Glucose (mg/dL) 88 (65-110) mg/dL Random Glucose (75-110) mg/dL Calcium (8.6-10.4) mg/dl Phosphorus (2.5-4.5) mg/dL Magnesium (1.6-2.3) mg/dL Total Bilirubin (0.2-1.3) mg/dL AST (17-59) U/L ALT (21-72) U/L Alkaline Phosphatase (38-126) U/L Ammonia (9-33) umol/L Total Protein (6.3-8.3) g/dL Albumin (3.5-5.0) g/dL Globulin (2.2-3.9) gm/dL Albumin/Globulin Ratio (1.0-2.1) Laboratory Results - last 24 hr 12/13/17 12/13/17 12/13/17 14:13 16:37 21:01 WBC 13.1 H RBC 3.05 L Hgb 8.0 L Hct 24.8 L MCV 81.5 MCH 26.3 L MCHC 32.3 L RDW 22.1 H Plt Count 139 MPV 9.9 Neut % (Auto) 58.4 Lymph % (Auto) 20.6 Harnett % (Auto) 19.1 H Eos % (Auto) 0.7 Baso % (Auto) 1.2 Neut # (Auto) 7.7 H Lymph # (Auto) 2.7 Harnett # (Auto) 2.5 H Eos # (Auto) 0.1 Baso # (Auto) 0.2 Sodium Potassium Chloride Carbon Dioxide Anion Gap BUN Creatinine Est GFR ( Amer) Est GFR (Non-Af Amer) POC Glucose (mg/dL) 88 101 Random Glucose Calcium Phosphorus Magnesium Total Bilirubin AST ALT Alkaline Phosphatase Ammonia Total Protein Albumin Globulin Albumin/Globulin Ratio 12/14/17 12/14/17 12/14/17 06:48 06:48 06:48 WBC 14.3 H RBC 2.96 L Hgb 7.8 L Hct 24.3 L MCV 82.2 MCH 26.4 L MCHC 32.1 L RDW 22.8 H Plt Count 152 MPV 10.0 Neut % (Auto) 62.4 Lymph % (Auto) 16.6 L Harnett % (Auto) 19.5 H Eos % (Auto) 1.0 Baso % (Auto) 0.5 Neut # (Auto) 8.9 H Lymph # (Auto) 2.4 Harnett # (Auto) 2.8 H Eos # (Auto) 0.1 Baso # (Auto) 0.1 Sodium 151 H Potassium 3.7 Chloride 115 H Carbon Dioxide 27 Anion Gap 13 BUN 15 Creatinine 0.8 Est GFR ( Amer) > 60 Est GFR (Non-Af Amer) > 60 POC Glucose (mg/dL) Random Glucose 92 Calcium 8.0 L Phosphorus 3.4 Magnesium 2.4 H Total Bilirubin 4.6 H AST 130 H D ALT 43 Alkaline Phosphatase 89 Ammonia 29 D Total Protein 6.1 L Albumin 2.7 L Globulin 3.4 Albumin/Globulin Ratio 0.8 L 12/14/17 12/14/17 07:19 11:23 WBC RBC Hgb Hct MCV MCH MCHC RDW Plt Count MPV Neut % (Auto) Lymph % (Auto) Harnett % (Auto) Eos % (Auto) Baso % (Auto) Neut # (Auto) Lymph # (Auto) Harnett # (Auto) Eos # (Auto) Baso # (Auto) Sodium Potassium Chloride Carbon Dioxide Anion Gap BUN Creatinine Est GFR ( Amer) Est GFR (Non-Af Amer) POC Glucose (mg/dL) 105 96 Random Glucose Calcium Phosphorus Magnesium Total Bilirubin AST ALT Alkaline Phosphatase Ammonia Total Protein Albumin Globulin Albumin/Globulin Ratio Fingerstick Blood Sugar Results: 105 Critical Care Progress Note - Nutrition Nutrition: Nutrition Category Date Time Status NPO Diet [DIET] Diets 12/13/17 Lunch Active Assessment/Plan - Assessment and Plan (Free Text) Assessment: 42M Alcoholic cirrhosis, likely DTs Plan: Neuro: Ativan Taper, CIWA protocol, likely DTs Cards: No acute issues Pulm: Fluid overload, gave lasix pneumonia, Maxipime/clinda/vanco GI: NPO. Patient has alcoholic cirrhosis and large hematoma on R. Flank, Initially thought he would be severely coagulopathic but his H/H was stable and INR was 2. Repeat H/H was normal. Given aldosterone, rifamixin, lactulose colace daily Renal: no acute issues Heme: Folic Acid PPX: lovenox, pepcid <Clemente Raza M - Last Filed: 12/15/17 17:12> CCU Objective - Vital Signs / Intake & Output Intake and Output (Last 8hrs): Intake & Output 12/15/17 12/15/17 12/15/17 06:59 14:59 22:59 Intake Total 256.8 Output Total 1200 Balance -943.2 Weight 214 lb 2 oz Intake: Intake, IV Amount 256.8 Right Upper arm 200 Right upper arm 2 56.8 Output: Urine 1200 Urethral (Dyson) 1200 - Medications Active Medications: Active Medications Generic Name Dose Route Start Last Admin Trade Name Freq PRN Reason Stop Dose Admin Albuterol/Ipratropium 3 ml 12/15/17 14:00 Duoneb 3 Mg/0.5 Mg (3 Ml) Ud INH RQ6 ELIJAH Ascorbic Acid 250 mg 12/14/17 14:00 12/14/17 17:42 Vitamin C 250 Mg Tab PO Not Given DAILY ELIJAH Famotidine 20 mg 12/13/17 10:30 12/15/17 10:55 Pepcid IVP 20 mg Q12 ELIJAH Administration Furosemide 40 mg 12/13/17 22:00 12/14/17 22:22 Lasix IVP 40 mg Q12 ELIJAH Administration Folic Acid 1 mg/ Sodium 100.2 mls @ 60 mls/hr 12/09/17 10:00 12/15/17 10:55 Chloride IV 60 mls/hr DAILY ELIJAH Administration Cefepime HCl 1 gm/ Dextrose 50 mls @ 100 mls/hr 12/13/17 17:00 12/15/17 04:00 IVPB 100 mls/hr Q12H ELIJAH Administration Clindamycin Phosphate 600 mg in 50 mls @ 102 mls/hr 12/13/17 18:15 12/15/17 10:55 Cleocin In Normal Saline IVPB 102 mls/hr Q8H ELIJAH Administration Lactulose 20 gm 12/13/17 18:00 12/14/17 17:41 Enulose PO Not Given BID ELIJAH Multivitamins/Vitamin C 5 ml 12/14/17 14:00 12/14/17 17:42 Multi-Delyn Liquid PO Not Given DAILY ELIJAH Phytonadione 10 mg 12/15/17 10:00 Vitamin K Tab PO 12/17/17 10:00 DAILY ELIJAH Propranolol HCl 20 mg 12/09/17 19:30 12/14/17 17:42 Inderal PO Not Given BID ELIJAH Spironolactone 50 mg 12/13/17 11:00 12/14/17 15:17 Aldactone PO Not Given DAILY ELIJAH Thiamine HCl 100 mg 12/09/17 10:00 12/15/17 10:55 Vitamin B1 Inj IV 100 mg DAILY ELIJAH Administration Zinc Sulfate 220 mg 12/14/17 13:30 12/14/17 17:42 Zinc Sulfate 220 Mg Cap PO Not Given DAILY ELIJAH - Patient Studies Lab Studies: Lab Studies 12/15/17 12/15/17 12/15/17 Range/Units 16:49 15:48 11:51 WBC (4.8-10.8) K/uL RBC (4.40-5.90) Mil/uL Hgb (12.0-18.0) g/dL Hct (35.0-51.0) % MCV (80.0-94.0) fL MCH (27.0-31.0) pg MCHC (33.0-37.0) g/dL RDW (11.5-14.5) % Plt Count (130-400) K/uL MPV (7.2-11.7) fL Neut % (Auto) (50.0-75.0) % Lymph % (Auto) (20.0-40.0) % Harnett % (Auto) (0.0-10.0) % Eos % (Auto) (0.0-4.0) % Baso % (Auto) (0.0-2.0) % Neut # (Auto) (1.8-7.0) K/uL Lymph # (Auto) (1.0-4.3) K/uL H[place]ett # (Auto) (0.0-0.8) K/uL Eos # (Auto) (0.0-0.7) K/uL Baso # (Auto) (0.0-0.2) K/uL PT 24.0 H (9.7-12.2) SECONDS INR 2.1 APTT 34 (21-34) SECONDS Puncture Site pCO2 (35-45) mm/Hg pO2 (80-100) mm/Hg HCO3 (21-28) mmol/L ABG pH (7.35-7.45) ABG Total CO2 (22-28) mmol/L ABG O2 Saturation (95-98) % ABG Base Excess (-2.0-3.0) mmol/L Olegario Test ABG Potassium (3.6-5.2) mmol/L Sodium (132-148) mmol/l Chloride (98-107) mmol/L Glucose (75-110) mg/dl Lactate (0.7-2.1) mmol/L Liter Flow Potassium (3.6-5.2) mmol/L Carbon Dioxide (22-30) mmol/L Anion Gap (10-20) BUN (9-20) mg/dL Creatinine (0.8-1.5) mg/dL Est GFR ( Amer) Est GFR (Non-Af Amer) POC Glucose (mg/dL) 97 90 (65-110) mg/dL Random Glucose (75-110) mg/dL Calcium (8.6-10.4) mg/dl Phosphorus (2.5-4.5) mg/dL Magnesium (1.6-2.3) mg/dL Total Bilirubin (0.2-1.3) mg/dL AST (17-59) U/L ALT (21-72) U/L Alkaline Phosphatase (38-126) U/L Ammonia (9-33) umol/L Total Protein (6.3-8.3) g/dL Albumin (3.5-5.0) g/dL Globulin (2.2-3.9) gm/dL Albumin/Globulin Ratio (1.0-2.1) Arterial Blood Potassium (3.6-5.2) mmol/L 0312/15/17 12/15/17 Range/Units 07:42 06:24 06:24 WBC (4.8-10.8) K/uL RBC (4.40-5.90) Mil/uL Hgb (12.0-18.0) g/dL Hct (35.0-51.0) % MCV (80.0-94.0) fL MCH (27.0-31.0) pg MCHC (33.0-37.0) g/dL RDW (11.5-14.5) % Plt Count (130-400) K/uL MPV (7.2-11.7) fL Neut % (Auto) (50.0-75.0) % Lymph % (Auto) (20.0-40.0) % [place]ett % (Auto) (0.0-10.0) % Eos % (Auto) (0.0-4.0) % Baso % (Auto) (0.0-2.0) % Neut # (Auto) (1.8-7.0) K/uL Lymph # (Auto) (1.0-4.3) K/uL H[place]ett # (Auto) (0.0-0.8) K/uL Eos # (Auto) (0.0-0.7) K/uL Baso # (Auto) (0.0-0.2) K/uL PT (9.7-12.2) SECONDS INR APTT (21-34) SECONDS Puncture Site pCO2 (35-45) mm/Hg pO2 (80-100) mm/Hg HCO3 (21-28) mmol/L ABG pH (7.35-7.45) ABG Total CO2 (22-28) mmol/L ABG O2 Saturation (95-98) % ABG Base Excess (-2.0-3.0) mmol/L Olegario Test ABG Potassium (3.6-5.2) mmol/L Sodium 154 H (132-148) mmol/l Chloride 116 H (98-107) mmol/L Glucose (75-110) mg/dl Lactate (0.7-2.1) mmol/L Liter Flow Potassium 3.7 (3.6-5.2) mmol/L Carbon Dioxide 28 (22-30) mmol/L Anion Gap 13 (10-20) BUN 18 (9-20) mg/dL Creatinine 1.0 (0.8-1.5) mg/dL Est GFR ( Amer) > 60 Est GFR (Non-Af Amer) > 60 POC Glucose (mg/dL) 111 H (65-110) mg/dL Random Glucose 99 (75-110) mg/dL Calcium 7.9 L (8.6-10.4) mg/dl Phosphorus (2.5-4.5) mg/dL Magnesium (1.6-2.3) mg/dL Total Bilirubin 3.5 H (0.2-1.3) mg/dL AST 74 H D (17-59) U/L ALT 46 (21-72) U/L Alkaline Phosphatase 76 (38-126) U/L Ammonia 31 (9-33) umol/L Total Protein 6.0 L (6.3-8.3) g/dL Albumin 2.6 L (3.5-5.0) g/dL Globulin 3.5 (2.2-3.9) gm/dL Albumin/Globulin Ratio 0.7 L (1.0-2.1) Arterial Blood Potassium (3.6-5.2) mmol/L 12/15/17 12/15/17 12/15/17 Range/Units 06:24 06:24 06:06 WBC 14.4 H (4.8-10.8) K/uL RBC 2.90 L (4.40-5.90) Mil/uL Hgb 7.7 L (12.0-18.0) g/dL Hct 24.0 L (35.0-51.0) % MCV 82.7 (80.0-94.0) fL MCH 26.6 L (27.0-31.0) pg MCHC 32.1 L (33.0-37.0) g/dL RDW 24.0 H (11.5-14.5) % Plt Count 164 (130-400) K/uL MPV 10.1 (7.2-11.7) fL Neut % (Auto) 67.6 (50.0-75.0) % Lymph % (Auto) 17.7 L (20.0-40.0) % [place] % (Auto) 13.2 H (0.0-10.0) % Eos % (Auto) 0.9 (0.0-4.0) % Baso % (Auto) 0.6 (0.0-2.0) % Neut # (Auto) 9.8 H (1.8-7.0) K/uL Lymph # (Auto) 2.6 (1.0-4.3) K/uL H[place]ett # (Auto) 1.9 H (0.0-0.8) K/uL Eos # (Auto) 0.1 (0.0-0.7) K/uL Baso # (Auto) 0.1 (0.0-0.2) K/uL PT (9.7-12.2) SECONDS INR APTT (21-34) SECONDS Puncture Site pCO2 (35-45) mm/Hg pO2 (80-100) mm/Hg HCO3 (21-28) mmol/L ABG pH (7.35-7.45) ABG Total CO2 (22-28) mmol/L ABG O2 Saturation (95-98) % ABG Base Excess (-2.0-3.0) mmol/L Olegario Test ABG Potassium (3.6-5.2) mmol/L Sodium (132-148) mmol/l Chloride (98-107) mmol/L Glucose (75-110) mg/dl Lactate (0.7-2.1) mmol/L Liter Flow Potassium (3.6-5.2) mmol/L Carbon Dioxide (22-30) mmol/L Anion Gap (10-20) BUN (9-20) mg/dL Creatinine (0.8-1.5) mg/dL Est GFR ( Amer) Est GFR (Non-Af Amer) POC Glucose (mg/dL) 112 H (65-110) mg/dL Random Glucose (75-110) mg/dL Calcium (8.6-10.4) mg/dl Phosphorus 3.7 (2.5-4.5) mg/dL Magnesium 2.2 (1.6-2.3) mg/dL Total Bilirubin (0.2-1.3) mg/dL AST (17-59) U/L ALT (21-72) U/L Alkaline Phosphatase (38-126) U/L Ammonia (9-33) umol/L Total Protein (6.3-8.3) g/dL Albumin (3.5-5.0) g/dL Globulin (2.2-3.9) gm/dL Albumin/Globulin Ratio (1.0-2.1) Arterial Blood Potassium (3.6-5.2) mmol/L 12/15/17 12/14/17 Range/Units 05:10 21:05 WBC (4.8-10.8) K/uL RBC (4.40-5.90) Mil/uL Hgb (12.0-18.0) g/dL Hct (35.0-51.0) % MCV (80.0-94.0) fL MCH (27.0-31.0) pg MCHC (33.0-37.0) g/dL RDW (11.5-14.5) % Plt Count (130-400) K/uL MPV (7.2-11.7) fL Neut % (Auto) (50.0-75.0) % Lymph % (Auto) (20.0-40.0) % [place] % (Auto) (0.0-10.0) % Eos % (Auto) (0.0-4.0) % Baso % (Auto) (0.0-2.0) % Neut # (Auto) (1.8-7.0) K/uL Lymph # (Auto) (1.0-4.3) K/uL [place]ett # (Auto) (0.0-0.8) K/uL Eos # (Auto) (0.0-0.7) K/uL Baso # (Auto) (0.0-0.2) K/uL PT (9.7-12.2) SECONDS INR APTT (21-34) SECONDS Puncture Site Rr pCO2 29 L (35-45) mm/Hg pO2 114 H (80-100) mm/Hg HCO3 26.8 (21-28) mmol/L ABG pH 7.53 H (7.35-7.45) ABG Total CO2 25.1 (22-28) mmol/L ABG O2 Saturation 99.0 H (95-98) % ABG Base Excess 2.4 (-2.0-3.0) mmol/L Olegario Test Pos ABG Potassium 3.6 (3.6-5.2) mmol/L Sodium 152.0 H (132-148) mmol/l Chloride 121.0 H (98-107) mmol/L Glucose 87 (75-110) mg/dl Lactate 1.3 (0.7-2.1) mmol/L Liter Flow 6.0 Potassium (3.6-5.2) mmol/L Carbon Dioxide (22-30) mmol/L Anion Gap (10-20) BUN (9-20) mg/dL Creatinine (0.8-1.5) mg/dL Est GFR ( Amer) Est GFR (Non-Af Amer) POC Glucose (mg/dL) 93 (65-110) mg/dL Random Glucose (75-110) mg/dL Calcium (8.6-10.4) mg/dl Phosphorus (2.5-4.5) mg/dL Magnesium (1.6-2.3) mg/dL Total Bilirubin (0.2-1.3) mg/dL AST (17-59) U/L ALT (21-72) U/L Alkaline Phosphatase (38-126) U/L Ammonia (9-33) umol/L Total Protein (6.3-8.3) g/dL Albumin (3.5-5.0) g/dL Globulin (2.2-3.9) gm/dL Albumin/Globulin Ratio (1.0-2.1) Arterial Blood Potassium 3.6 (3.6-5.2) mmol/L Laboratory Results - last 24 hr 12/14/17 12/15/17 12/15/17 21:05 05:10 06:06 WBC RBC Hgb Hct MCV MCH MCHC RDW Plt Count MPV Neut % (Auto) Lymph % (Auto) Harnett % (Auto) Eos % (Auto) Baso % (Auto) Neut # (Auto) Lymph # (Auto) Harnett # (Auto) Eos # (Auto) Baso # (Auto) PT INR APTT Puncture Site Rr pCO2 29 L pO2 114 H HCO3 26.8 ABG pH 7.53 H ABG Total CO2 25.1 ABG O2 Saturation 99.0 H ABG Base Excess 2.4 Olegario Test Pos ABG Potassium 3.6 Sodium 152.0 H Chloride 121.0 H Glucose 87 Lactate 1.3 Liter Flow 6.0 Potassium Carbon Dioxide Anion Gap BUN Creatinine Est GFR ( Amer) Est GFR (Non-Af Amer) POC Glucose (mg/dL) 93 112 H Random Glucose Calcium Phosphorus Magnesium Total Bilirubin AST ALT Alkaline Phosphatase Ammonia Total Protein Albumin Globulin Albumin/Globulin Ratio Arterial Blood Potassium 3.6 12/15/17 12/15/17 12/15/17 06:24 06:24 06:24 WBC 14.4 H RBC 2.90 L Hgb 7.7 L Hct 24.0 L MCV 82.7 MCH 26.6 L MCHC 32.1 L RDW 24.0 H Plt Count 164 MPV 10.1 Neut % (Auto) 67.6 Lymph % (Auto) 17.7 L Harnett % (Auto) 13.2 H Eos % (Auto) 0.9 Baso % (Auto) 0.6 Neut # (Auto) 9.8 H Lymph # (Auto) 2.6 Harnett # (Auto) 1.9 H Eos # (Auto) 0.1 Baso # (Auto) 0.1 PT INR APTT Puncture Site pCO2 pO2 HCO3 ABG pH ABG Total CO2 ABG O2 Saturation ABG Base Excess Olegario Test ABG Potassium Sodium 154 H Chloride 116 H Glucose Lactate Liter Flow Potassium 3.7 Carbon Dioxide 28 Anion Gap 13 BUN 18 Creatinine 1.0 Est GFR ( Amer) > 60 Est GFR (Non-Af Amer) > 60 POC Glucose (mg/dL) Random Glucose 99 Calcium 7.9 L Phosphorus 3.7 Magnesium 2.2 Total Bilirubin 3.5 H AST 74 H D ALT 46 Alkaline Phosphatase 76 Ammonia Total Protein 6.0 L Albumin 2.6 L Globulin 3.5 Albumin/Globulin Ratio 0.7 L Arterial Blood Potassium 12/15/17 12/15/17 12/15/17 06:24 07:42 11:51 WBC RBC Hgb Hct MCV MCH MCHC RDW Plt Count MPV Neut % (Auto) Lymph % (Auto) Harnett % (Auto) Eos % (Auto) Baso % (Auto) Neut # (Auto) Lymph # (Auto) H[place]ett # (Auto) Eos # (Auto) Baso # (Auto) PT INR APTT Puncture Site pCO2 pO2 HCO3 ABG pH ABG Total CO2 ABG O2 Saturation ABG Base Excess Olegario Test ABG Potassium Sodium Chloride Glucose Lactate Liter Flow Potassium Carbon Dioxide Anion Gap BUN Creatinine Est GFR ( Amer) Est GFR (Non-Af Amer) POC Glucose (mg/dL) 111 H 90 Random Glucose Calcium Phosphorus Magnesium Total Bilirubin AST ALT Alkaline Phosphatase Ammonia 31 Total Protein Albumin Globulin Albumin/Globulin Ratio Arterial Blood Potassium 12/15/17 12/15/17 15:48 16:49 WBC RBC Hgb Hct MCV MCH MCHC RDW Plt Count MPV Neut % (Auto) Lymph % (Auto) Harnett % (Auto) Eos % (Auto) Baso % (Auto) Neut # (Auto) Lymph # (Auto) Harnett # (Auto) Eos # (Auto) Baso # (Auto) PT 24.0 H INR 2.1 APTT 34 Puncture Site pCO2 pO2 HCO3 ABG pH ABG Total CO2 ABG O2 Saturation ABG Base Excess Olegario Test ABG Potassium Sodium Chloride Glucose Lactate Liter Flow Potassium Carbon Dioxide Anion Gap BUN Creatinine Est GFR ( Amer) Est GFR (Non-Af Amer) POC Glucose (mg/dL) 97 Random Glucose Calcium Phosphorus Magnesium Total Bilirubin AST ALT Alkaline Phosphatase Ammonia Total Protein Albumin Globulin Albumin/Globulin Ratio Arterial Blood Potassium Critical Care Progress Note - Nutrition Nutrition: Nutrition Category Date Time Status NPO Diet [DIET] Diets 12/13/17 Lunch Active Assessment/Plan - Assessment and Plan (Free Text) Plan: Patient seen and examined at bedside with above resident and ICU team. -DTs: continue precedex -left rib fracture with left sided thoracic wall hematoma -repeat cxr -avoid sedation (ativan) -avoid fluids (avoid albumin) lasix as CXR reveals congestion -aspiration precautions -continue to monitor - Date & Time Date: 12/14/17 Time: 17:00
[2017-12-14] MEDS ORDERED: Dexmedetomidine Hydrochloride 200 MCG in Sodium Chloride 0.9% 48 ML IV PRN (15:29)
[2017-12-14] MEDS ORDERED: Sodium Chloride 0.9% 1,000 ML IV ONE (17:00)
[2017-12-14] MEDS: Multiple Vitamins Oral Solution PO SCH (17:42)
[2017-12-15] MEDS: Clindamycin 600mg/50ml NS 600 MG/50 ML BAG IVPB SCH ×3 (01:15→17:14)
[2017-12-15 06:19] LABS: ABG ALLEN TEST POS; ARTERIAL BLOOD GAS HCO3 26.8 mmol/L (21-28); ARTERIAL BLOOD GAS PCO2 29 mm/Hg (35-45); ARTERIAL BLOOD GAS PH 7.53 (7.35-7.45); ARTERIAL BLOOD GAS PO2 114 mm/Hg (80-100); ARTERIAL BLOOD GAS TCO2 25.1 mmol/L (22-28)
[2017-12-15 06:28] LABS: BASO # 0.1 K/uL (0.0-0.2); BASO % 0.6 % (0.0-2.0); EOS # 0.1 K/uL (0.0-0.7); EOS % 0.9 % (0.0-4.0); HEMOGLOBIN 7.7 g/dL (12.0-18.0); LYMPH # 2.6 K/uL (1.0-4.3); LYMPH % 17.7 % (20.0-40.0); MEAN CELL VOLUME 82.7 fL (80.0-94.0); MEAN CORPUSCULAR HEMOGLOBIN 26.6 pg (27.0-31.0); MEAN CORPUSCULAR HGB CONC 32.1 g/dL (33.0-37.0); MEAN PLATELET VOLUME 10.1 fL (7.2-11.7); MONO # 1.9 K/uL (0.0-0.8); MONO % 13.2 % (0.0-10.0); NEUT # 9.8 K/uL (1.8-7.0); NEUT % 67.6 % (50.0-75.0); NRBC % 0.3 % (0.0-2.0); RBC 2.9 Mil/uL (4.40-5.90); WHITE BLOOD COUNT 14.4 K/uL (4.8-10.8)
[2017-12-15 06:46] LABS: ALB/GLOB RATIO 0.7 (1.0-2.1); ALBUMIN 2.6 g/dL (3.5-5.0); ALT/SGPT 46 U/L (21-72); AST/SGOT 74 U/L (17-59); BLOOD UREA NITROGEN 18 mg/dL (9-20); CALCIUM 7.9 mg/dl (8.6-10.4); GFR AFRICAN-AMERICAN > 60; GFR NON-AFRICAN AMERICAN > 60
--- NOTE | 2017-12-15 09:49 | RAD ---
HISTORY: PNA COMPARISON: Chest x-ray performed 12/13/17 TECHNIQUE: Chest, one view. FINDINGS: Examination limited by habitus. LUNGS: Diffuse opacification throughout the left asa thorax appears consistent with layering pleural effusion and consolidation. Multifocal infiltrate noted within the right asa thorax. No definite pneumothorax identified. CARDIOVASCULAR: Obscured. OSSEOUS STRUCTURES: No acute osseous abnormality identified. VISUALIZED UPPER ABDOMEN: Unremarkable. OTHER FINDINGS: None. IMPRESSION: Interval development of diffuse opacification throughout the left asa thorax which appears consistent with layering pleural effusion and consolidation. Multifocal infiltrate noted within the right asa thorax.
[2017-12-15] MEDS: Thiamine 100 mg/ml Inj IV SCH (10:55)
--- NOTE | 2017-12-15 13:39 | CT ---
PROCEDURE: CT scan brain dated 12/15/2017. HISTORY: AMS COMPARISON: Comparison made with prior study 12/08/2017. TECHNIQUE: Axial computed tomography images were obtained through the head/brain without intravenous contrast. Radiation dose: Total exam DLP = 972.04 mGy-cm. This CT exam was performed using one or more of the following dose reduction techniques: Automated exposure control, adjustment of the mA and/or kV according to patient size, and/or use of iterative reconstruction technique. FINDINGS: HEMORRHAGE: No acute parenchymal, subarachnoid or extra-axial hemorrhage. BRAIN: Mild moderate diffuse/ confluent chronic white matter ischemic changes seen extending peripherally into the deep and subcortical white matter both cerebral hemispheres. No obvious parenchymal nor extra-axial mass or collection seen on this noncontrast study. Moderate generalized volume loss. VENTRICLES: No obstructive hydrocephalus. CALVARIUM: Unre there are no acute calvarial fracture seen. PARANASAL SINUSES: Minor mucosal thickening seen within both maxillary antra, sphenoid sinus and multiple ethmoid air cells. MASTOID AIR CELLS: Mastoid air complexes well-developed the currently well-aerated. OTHER FINDINGS: None. IMPRESSION: No acute intracranial hemorrhage. Mild moderate chronic white matter ischemic changes.
--- NOTE | 2017-12-15 15:06 | CT ---
PROCEDURE: CT Chest without contrast HISTORY: ?blood COMPARISON: 12/09/2017 TECHNIQUE: Contiguous axial images were obtained through the chest without intravenous contrast enhancement. Sagittal and coronal reconstructions were performed. Radiation dose (DLP): 777.22 mGy-cm. This CT exam was performed using one or more of the following dose reduction techniques: Automated exposure control, adjustment of the mA and/or kV according to patient size, and/or use of iterative reconstruction technique. FINDINGS: LUNGS: Extensive right upper lobe infiltrate. Minimal right middle lobe infiltrate. Almost complete atelectasis of left lung in association with large pleural effusion. There is some residual aeration of the left upper lobe. MEDIASTINUM: Unremarkable thoracic aorta. No aneurysm. Normal sized heart. Main pulmonary artery unremarkable. No vascular congestion. No lymphadenopathy. There is shift of the heart mediastinum towards the right side as a result of a large left pleural effusion. There is no right-sided atelectasis. PLEURA: Very large left pleural effusion. No right pleural effusion. Shift of the heart mediastinum towards the right side. There is a small amount of high attenuation dependent material within the left pleural fluid collection. There is a large left chest wall collection measuring approximately 4.0 x 13.2 by 9.6 cm. It is heterogeneous in attenuation, with some high attenuation areas suggestive of fresh blood. It is not clear whether this communicates with the pleural space. BONES: There are multiple left rib fractures. As noted previously, this involves the left 7th through 10th ribs. Two-part fracture of the left 10th rib. Displaced fractures of the 7th through 9th ribs. UPPER ABDOMEN: Ascites. Hepatic cirrhosis. OTHER FINDINGS: None. IMPRESSION: Very large left pleural effusion with almost complete atelectasis of left lung and shift of the heart and mediastinum towards the right. Extensive right upper lobe infiltrate and mild right middle lobe infiltrate. Left chest wall collection including some acute or subacute blood. This collection measures 13.2 cm in greatest dimension. Communication with the pleural space is not clearly demonstrated. Multiple displaced left rib fractures.
[2017-12-15 16:07] LABS: INR 2.1
[2017-12-15] MEDS ORDERED: HYDROmorphone 1 mg/ml ISec IVP STA (16:24)
--- NOTE | 2017-12-15 17:33 | CP.PCM.PN ---
Subjective - Date & Time of Evaluation Date of Evaluation: 12/15/17 Time of Evaluation: 09:00 - Subjective Subjective: remains confused but follows simple commands \ family at bedside s/p chest tube insertion no fever Objective - Vital Signs/Intake and Output Vital Signs (last 24 hours): Temp Pulse Resp BP Pulse Ox 98.5 F 77 21 95/52 L 94 L 12/15/17 04:00 12/15/17 06:21 12/15/17 06:21 12/15/17 06:21 12/15/17 06:21 Intake and Output: 12/15/17 12/15/17 06:59 18:59 Intake Total 485.2 Output Total 1650 Balance -1164.8 - Medications Medications: Current Medications Albuterol/Ipratropium (Duoneb 3 Mg/0.5 Mg (3 Ml) Ud) 3 ml INH RQ6 [facility] Ascorbic Acid (Vitamin C 250 Mg Tab) 250 mg PO DAILY [facility] Last Admin: 12/14/17 17:42 Dose: Not Given Famotidine (Pepcid) 20 mg IVP Q12 [facility] Last Admin: 12/15/17 10:55 Dose: 20 mg Furosemide (Lasix) 40 mg IVP Q12 [facility] Last Admin: 12/14/17 22:22 Dose: 40 mg Folic Acid 1 mg/ Sodium (Chloride) 100.2 mls @ 60 mls/hr IV DAILY [facility] Last Admin: 12/15/17 10:55 Dose: 60 mls/hr Cefepime HCl 1 gm/ Dextrose 50 mls @ 100 mls/hr IVPB Q12H [facility] Last Admin: 12/15/17 17:14 Dose: 100 mls/hr Clindamycin Phosphate (Cleocin In Normal Saline) 600 mg in 50 mls @ 102 mls/hr IVPB Q8H [facility] Last Admin: 12/15/17 17:14 Dose: 102 mls/hr Lactulose (Enulose) 20 gm PO BID [facility] Last Admin: 12/14/17 17:41 Dose: Not Given Multivitamins/Vitamin C (Multi-Delyn Liquid) 5 ml PO DAILY [facility] Last Admin: 12/14/17 17:42 Dose: Not Given Phytonadione (Vitamin K Tab) 10 mg PO DAILY [facility] Stop: 12/17/17 10:00 Propranolol HCl (Inderal) 20 mg PO BID [facility] Last Admin: 12/14/17 17:42 Dose: Not Given Spironolactone (Aldactone) 50 mg PO DAILY [facility] Last Admin: 12/14/17 15:17 Dose: Not Given Thiamine HCl (Vitamin B1 Inj) 100 mg IV DAILY [facility] Last Admin: 12/15/17 10:55 Dose: 100 mg Zinc Sulfate (Zinc Sulfate 220 Mg Cap) 220 mg PO DAILY [facility] Last Admin: 12/14/17 17:42 Dose: Not Given - Labs Labs: 12/15/17 06:24 12/15/17 06:24 PT 24.0 SECONDS (9.7-12.2) H 12/15/17 15:48 INR 2.1 12/15/17 15:48 APTT 34 SECONDS (21-34) 12/15/17 15:48 - Constitutional Appears: Confused, Chronically Ill - Head Exam Head Exam: NORMOCEPHALIC - Eye Exam Eye Exam: Scleral icterus - ENT Exam ENT Exam: Mucous Membranes Dry, Normal External Ear Exam - Neck Exam Neck Exam: absent: Lymphadenopathy - Respiratory Exam Respiratory Exam: Decreased Breath Sounds, Prolonged Expiratory Phase, Rales, Rhonchi - Cardiovascular Exam Cardiovascular Exam: REGULAR RHYTHM, +S1, +S2 - GI/Abdominal Exam GI & Abdominal Exam: Distended, Soft. absent: Tenderness - Rectal Exam Rectal Exam: Deferred - Exam Exam: NORMAL INSPECTION - Extremities Exam Extremities Exam: Pedal Edema - Back Exam Back Exam: absent: CVA tenderness (L), CVA tenderness (R) - Neurological Exam Neurological Exam: Altered, CN II-XII Intact Neuro motor strength exam: Left Upper Extremity: 3, Right Upper Extremity: 3, Left Lower Extremity: 3, Right Lower Extremity: 3 - Psychiatric Exam Psychiatric exam: Depressed - Skin Skin Exam: Dry Assessment and Plan (1) Alcohol withdrawal Status: Acute (2) Alcoholic cirrhosis Status: Acute (3) Colitis Status: Acute (4) Iron deficiency anemia Status: Acute (5) Pneumonia Status: Acute (6) Pneumothorax Status: Acute (7) Rib fractures Status: Acute (8) Sepsis Status: Acute - Assessment and Plan (Free Text) Assessment: so far cultures neg on appropriate IV rx s/p chest tube await cultures prognosis poor
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
--- NOTE | 2017-12-15 18:30 | RAD ---
HISTORY: s/p left thoracostomy tube COMPARISON: Portable chest 12/15/2017 FINDINGS: Left chest tube now placed terminating the left apex. LUNGS: Obscure improved aeration is appreciated bilaterally with residual underlying atelectasis or infiltrate not excluded at the left base. Trace patchy density seen the right perihilar/infrahilar space. PLEURA: Mild residual left pleural effusion with trace left pneumothorax not excluded. No right pleural effusion or pneumothorax. CARDIOVASCULAR: Prominent cardiac silhouette noted. Borderline pulmonary venous congestion. OSSEOUS STRUCTURES: Left rib fractures again evident at the inferior left hemithorax VISUALIZED UPPER ABDOMEN: Normal. OTHER FINDINGS: None. IMPRESSION: Status post left chest tube placement with marked reduction of left pleural effusion and mild residual noted at the left base. Trace left pneumothorax not excluded. Left rib fractures again evident. Underlying atelectasis or infiltrate at the left base not excluded. Trace right perihilar patchy density questioned.
[2017-12-15] MEDS: Cefepime IV 1 gm in Dextrose 1 GM/50 ML BAG IVPB SCH (19:32)
[2017-12-15] MEDS: Multiple Vitamins Oral Solution PO SCH (19:32)
[2017-12-16] MEDS: Cefepime IV 1 gm in Dextrose 1 GM/50 ML BAG IVPB SCH ×3 (01:23→17:34)
[2017-12-16] MEDS: Clindamycin 600mg/50ml NS 600 MG/50 ML BAG IVPB SCH ×3 (01:23→17:34)
[2017-12-16] MEDS: Albuterol-Ipratrop 3 mg / 0.5 (3 ml) UD INH SCH ×4 (02:29→21:00)
[2017-12-16 06:17] LABS: BASO # 0.1 K/uL (0.0-0.2); BASO % 0.5 % (0.0-2.0); EOS # 0.1 K/uL (0.0-0.7); EOS % 0.6 % (0.0-4.0); HEMOGLOBIN 7.8 g/dL (12.0-18.0); LYMPH # 2.4 K/uL (1.0-4.3); LYMPH % 12.3 % (20.0-40.0); MEAN CELL VOLUME 84.9 fL (80.0-94.0); MEAN CORPUSCULAR HGB CONC 31.8 g/dL (33.0-37.0); MEAN PLATELET VOLUME 10.9 fL (7.2-11.7); MONO # 2.3 K/uL (0.0-0.8); MONO % 11.7 % (0.0-10.0); NEUT # 14.6 K/uL (1.8-7.0); NEUT % 74.9 % (50.0-75.0); NRBC % 0.1 % (0.0-2.0); RBC 2.89 Mil/uL (4.40-5.90); RED CELL DISTRIBUTION WIDTH 24.9 % (11.5-14.5); WHITE BLOOD COUNT 19.4 K/uL (4.8-10.8)
[2017-12-16 06:36] LABS: ALB/GLOB RATIO 0.7 (1.0-2.1); ALBUMIN 2.5 g/dL (3.5-5.0); ALT/SGPT 44 U/L (21-72); AST/SGOT 78 U/L (17-59); BLOOD UREA NITROGEN 27 mg/dL (9-20); GFR AFRICAN-AMERICAN > 60; GFR NON-AFRICAN AMERICAN > 60
--- NOTE | 2017-12-16 08:45 | RAD ---
HISTORY: chest tube COMPARISON: Chest radiograph dated 12/15/2017. AllNo prior. FINDINGS: LUNGS: Similar aeration with grossly stable bilateral patchy infiltrates. PLEURA: Trace left apical pneumothorax. Loculated pleural fluid along the left lateral convexity versus pleural thickening. CARDIOVASCULAR: Normal. OSSEOUS STRUCTURES: Displaced left-sided rib fractures redemonstrated. VISUALIZED UPPER ABDOMEN: Normal. OTHER FINDINGS: Left-sided large-bore chest tube, unchanged. IMPRESSION: No significant interval change.
--- NOTE | 2017-12-16 08:50 | CP.PCM.PN ---
Subjective - Date & Time of Evaluation Date of Evaluation: 12/15/17 Time of Evaluation: 09:00 - Subjective Subjective: Patient's breathing labored, CXR reveals left pleural fluid Objective - Vital Signs/Intake and Output Vital Signs (last 24 hours): Temp Pulse Resp BP Pulse Ox 98.6 F 90 18 110/78 98 12/16/17 04:00 12/16/17 07:40 12/16/17 07:40 12/16/17 07:40 12/16/17 07:40 Intake and Output: 12/16/17 12/16/17 06:59 18:59 Intake Total 475 50 Output Total 1335 90 Balance -860 -40 - Medications Medications: Current Medications Albuterol/Ipratropium (Duoneb 3 Mg/0.5 Mg (3 Ml) Ud) 3 ml INH RQ6 [facility] Last Admin: 12/16/17 02:29 Dose: Not Given Ascorbic Acid (Vitamin C 250 Mg Tab) 250 mg PO DAILY [facility] Last Admin: 12/15/17 19:32 Dose: Not Given Famotidine (Pepcid) 20 mg IVP Q12 [facility] Last Admin: 12/15/17 21:12 Dose: 20 mg Folic Acid 1 mg/ Sodium (Chloride) 100.2 mls @ 60 mls/hr IV DAILY [facility] Last Admin: 12/15/17 10:55 Dose: 60 mls/hr Clindamycin Phosphate (Cleocin In Normal Saline) 600 mg in 50 mls @ 102 mls/hr IVPB Q8H [facility] Last Admin: 12/16/17 01:23 Dose: 102 mls/hr Cefepime HCl (Maxipime Iv 1 Gm Premix) 1 gm in 50 mls @ 100 mls/hr IVPB Q8H [facility] Last Admin: 12/16/17 01:23 Dose: 100 mls/hr Lactulose (Enulose) 20 gm PO BID [facility] Last Admin: 12/15/17 19:31 Dose: Not Given Multivitamins/Vitamin C (Multi-Delyn Liquid) 5 ml PO DAILY [facility] Last Admin: 12/15/17 19:32 Dose: Not Given Phytonadione (Vitamin K Tab) 10 mg PO DAILY [facility] Stop: 12/17/17 10:00 Last Admin: 12/15/17 19:33 Dose: Not Given Potassium Chloride (Potassium Chloride Oral Soln) 40 meq PO Q6H [facility] Stop: 12/16/17 14:46 Propranolol HCl (Inderal) 20 mg PO BID [facility] Last Admin: 12/15/17 19:32 Dose: Not Given Spironolactone (Aldactone) 50 mg PO DAILY [facility] Last Admin: 12/15/17 19:29 Dose: Not Given Thiamine HCl (Vitamin B1 Inj) 100 mg IV DAILY [facility] Last Admin: 12/15/17 10:55 Dose: 100 mg Zinc Sulfate (Zinc Sulfate 220 Mg Cap) 220 mg PO DAILY [facility] Last Admin: 12/15/17 19:33 Dose: Not Given - Labs Labs: 12/16/17 06:08 12/16/17 06:07 PT 24.0 SECONDS (9.7-12.2) H 12/15/17 15:48 INR 2.1 12/15/17 15:48 APTT 34 SECONDS (21-34) 12/15/17 15:48 - Head Exam Head Exam: ATRAUMATIC, NORMAL INSPECTION - ENT Exam ENT Exam: Mucous Membranes Dry - Respiratory Exam Respiratory Exam: Decreased Breath Sounds, Respiratory Distress - Cardiovascular Exam Cardiovascular Exam: REGULAR RHYTHM, +S1, +S2 - GI/Abdominal Exam GI & Abdominal Exam: Normal Bowel Sounds Assessment and Plan - Assessment and Plan (Free Text) Assessment: 42M Alcoholic cirrhosis with left sided fall and left rib fracture -left sided plerual effusion: obtain throacic eval for chest tube placement -Neuro: Ativan Taper, CIWA protocol, likely DTs--use precedex -Cards: No acute issues, at times tachy 2nd respiratory failure Pulm: Fluid overload, gave lasix pneumonia, Maxipime/clinda/vanco as per ID (Mangia) GI: NPO except meds for procedure -hepatic encaphelopathy: continue lactulose to keep 3 BMs/day -left flank ecchymosis: continue to monitor -coagulopathy: ffp x1 and vitamin K 10 mg Renal: no acute issues Heme: Folic Acid PPX: INR >= 2.0 pepcid/SCDs
--- NOTE | 2017-12-16 09:02 | CP.PCM.PN ---
Subjective - Date & Time of Evaluation Date of Evaluation: 12/16/17 Time of Evaluation: 08:59 - Subjective Subjective: Ct Surgery: Dr Lyn Pt S&E. RILEY. CT drained another 200cc serosanguinous since original insertion. No respiratory distress. Pt is not oriented, in restraints. Objective - Vital Signs/Intake and Output Vital Signs (last 24 hours): Temp Pulse Resp BP Pulse Ox 98.6 F 90 18 110/78 98 12/16/17 04:00 12/16/17 07:40 12/16/17 07:40 12/16/17 07:40 12/16/17 07:40 Intake and Output: 12/16/17 12/16/17 06:59 18:59 Intake Total 475 50 Output Total 1335 90 Balance -860 -40 - Medications Medications: Current Medications Albuterol/Ipratropium (Duoneb 3 Mg/0.5 Mg (3 Ml) Ud) 3 ml INH RQ6 [facility] Last Admin: 12/16/17 02:29 Dose: Not Given Ascorbic Acid (Vitamin C 250 Mg Tab) 250 mg PO DAILY [facility] Last Admin: 12/15/17 19:32 Dose: Not Given Famotidine (Pepcid) 20 mg IVP Q12 [facility] Last Admin: 12/15/17 21:12 Dose: 20 mg Folic Acid 1 mg/ Sodium (Chloride) 100.2 mls @ 60 mls/hr IV DAILY [facility] Last Admin: 12/15/17 10:55 Dose: 60 mls/hr Clindamycin Phosphate (Cleocin In Normal Saline) 600 mg in 50 mls @ 102 mls/hr IVPB Q8H [facility] Last Admin: 12/16/17 01:23 Dose: 102 mls/hr Cefepime HCl (Maxipime Iv 1 Gm Premix) 1 gm in 50 mls @ 100 mls/hr IVPB Q8H [facility] Last Admin: 12/16/17 01:23 Dose: 100 mls/hr Lactulose (Enulose) 20 gm PO BID [facility] Last Admin: 12/15/17 19:31 Dose: Not Given Multivitamins/Vitamin C (Multi-Delyn Liquid) 5 ml PO DAILY [facility] Last Admin: 12/15/17 19:32 Dose: Not Given Phytonadione (Vitamin K Tab) 10 mg PO DAILY [facility] Stop: 12/17/17 10:00 Last Admin: 12/15/17 19:33 Dose: Not Given Potassium Chloride (Potassium Chloride Oral Soln) 40 meq PO Q6H [facility] Stop: 12/16/17 14:46 Propranolol HCl (Inderal) 20 mg PO BID [facility] Last Admin: 12/15/17 19:32 Dose: Not Given Spironolactone (Aldactone) 50 mg PO DAILY [facility] Last Admin: 12/15/17 19:29 Dose: Not Given Thiamine HCl (Vitamin B1 Inj) 100 mg IV DAILY [facility] Last Admin: 12/15/17 10:55 Dose: 100 mg Zinc Sulfate (Zinc Sulfate 220 Mg Cap) 220 mg PO DAILY [facility] Last Admin: 12/15/17 19:33 Dose: Not Given - Labs Labs: 12/16/17 06:08 12/16/17 06:07 PT 24.0 SECONDS (9.7-12.2) H 12/15/17 15:48 INR 2.1 12/15/17 15:48 APTT 34 SECONDS (21-34) 12/15/17 15:48 - Constitutional Appears: Non-toxic, No Acute Distress - ENT Exam ENT Exam: Mucous Membranes Dry - Respiratory Exam Respiratory Exam: absent: Accessory Muscle Use, Respiratory Distress Additional comments: CT dressing mild saturation but dry and intact - Cardiovascular Exam Cardiovascular Exam: Tachycardia - Neurological Exam Neurological Exam: Alert, Awake - Psychiatric Exam Psychiatric exam: Agitated - Skin Skin Exam: Normal Color Assessment and Plan - Assessment and Plan (Free Text) Assessment: 42M with left hemothorax s/p left thoracostomy tube Plan: CXR today shows full lung expansion with minimal hemothorax retention in costophrenic angle cont CT to suction Incentive spirometer pain control for rib fx will d/w Dr Eboni Gillespie, PGY3
--- NOTE | 2017-12-16 09:04 | CP.PCM.PN ---
Subjective - Date & Time of Evaluation Date of Evaluation: 12/16/17 Time of Evaluation: 08:59 - Subjective Subjective: Patient tolerated Nasal canula, more awake, no tremors Objective - Vital Signs/Intake and Output Vital Signs (last 24 hours): Temp Pulse Resp BP Pulse Ox 98.6 F 90 18 110/78 98 12/16/17 04:00 12/16/17 07:40 12/16/17 07:40 12/16/17 07:40 12/16/17 07:40 Intake and Output: 12/16/17 12/16/17 06:59 18:59 Intake Total 475 50 Output Total 1335 90 Balance -860 -40 - Medications Medications: Current Medications Albuterol/Ipratropium (Duoneb 3 Mg/0.5 Mg (3 Ml) Ud) 3 ml INH RQ6 [facility] Last Admin: 12/16/17 02:29 Dose: Not Given Ascorbic Acid (Vitamin C 250 Mg Tab) 250 mg PO DAILY [facility] Last Admin: 12/15/17 19:32 Dose: Not Given Famotidine (Pepcid) 20 mg IVP Q12 [facility] Last Admin: 12/15/17 21:12 Dose: 20 mg Folic Acid 1 mg/ Sodium (Chloride) 100.2 mls @ 60 mls/hr IV DAILY [facility] Last Admin: 12/15/17 10:55 Dose: 60 mls/hr Clindamycin Phosphate (Cleocin In Normal Saline) 600 mg in 50 mls @ 102 mls/hr IVPB Q8H [facility] Last Admin: 12/16/17 01:23 Dose: 102 mls/hr Cefepime HCl (Maxipime Iv 1 Gm Premix) 1 gm in 50 mls @ 100 mls/hr IVPB Q8H [facility] Last Admin: 12/16/17 01:23 Dose: 100 mls/hr Lactulose (Enulose) 20 gm PO BID [facility] Last Admin: 12/15/17 19:31 Dose: Not Given Multivitamins/Vitamin C (Multi-Delyn Liquid) 5 ml PO DAILY [facility] Last Admin: 12/15/17 19:32 Dose: Not Given Phytonadione (Vitamin K Tab) 10 mg PO DAILY [facility] Stop: 12/17/17 10:00 Last Admin: 12/15/17 19:33 Dose: Not Given Potassium Chloride (Potassium Chloride Oral Soln) 40 meq PO Q6H [facility] Stop: 12/16/17 14:46 Propranolol HCl (Inderal) 20 mg PO BID [facility] Last Admin: 12/15/17 19:32 Dose: Not Given Spironolactone (Aldactone) 50 mg PO DAILY [facility] Last Admin: 12/15/17 19:29 Dose: Not Given Thiamine HCl (Vitamin B1 Inj) 100 mg IV DAILY [facility] Last Admin: 12/15/17 10:55 Dose: 100 mg Zinc Sulfate (Zinc Sulfate 220 Mg Cap) 220 mg PO DAILY [facility] Last Admin: 12/15/17 19:33 Dose: Not Given - Labs Labs: 12/16/17 06:08 12/16/17 06:07 PT 24.0 SECONDS (9.7-12.2) H 12/15/17 15:48 INR 2.1 12/15/17 15:48 APTT 34 SECONDS (21-34) 12/15/17 15:48 - Constitutional Appears: No Acute Distress - Head Exam Head Exam: ATRAUMATIC, NORMAL INSPECTION - ENT Exam ENT Exam: Mucous Membranes Moist - Respiratory Exam Respiratory Exam: Clear to Ausculation Bilateral, NORMAL BREATHING PATTERN - Cardiovascular Exam Cardiovascular Exam: REGULAR RHYTHM, +S1, +S2 - GI/Abdominal Exam GI & Abdominal Exam: Normal Bowel Sounds - Extremities Exam Extremities Exam: Pedal Edema - Neurological Exam Neurological Exam: Alert, Awake, CN II-XII Intact, Oriented x3 - Skin Skin Exam: Intact Assessment and Plan - Assessment and Plan (Free Text) Assessment: 42 y/o male with alcoholic liver failure, coagulopathy and left sided pleural effusion -Left sided pleural effusion:continue chest tube monitoring -coagulopathy: chronic, vitamin K, FFP PRN, check pt/inr -liver cirrohosis: will benefit from propanolol and lacutlose to keep 3 BMs/day -continue DVt ppx scds -PUd ppx: pepcid -ETOH: continue MVI/folate/thiamine/vitamin C and zinc sulfate -Patient has no signs of DTs -start oral diet with free water. -continue to monitor d/w ICu nurse
[2017-12-16 09:11] LABS: INR 2.1; PROTHROMBIN TIME 24.1 SECONDS (9.7-12.2)
[2017-12-16] MEDS: Potassium Chloride 20 mEq/15 ml LIQ UD PO SCH ×2 (09:42→14:03)
[2017-12-16] MEDS: Thiamine 100 mg/ml Inj IV SCH (09:46)
[2017-12-16] MEDS: Multiple Vitamins Oral Solution PO SCH (09:54)
--- NOTE | 2017-12-16 10:14 | CP.PCM.PN ---
Subjective - Date & Time of Evaluation Date of Evaluation: 12/16/17 Time of Evaluation: 10:00 - Subjective Subjective: F/U anemia , cirrhosis Confused No RB, melena, fever, SZ, hematuria, hemoptysis. Eating breakfast. Objective - Vital Signs/Intake and Output Vital Signs (last 24 hours): Temp Pulse Resp BP Pulse Ox 98.6 F 90 18 110/78 98 12/16/17 04:00 12/16/17 07:40 12/16/17 07:40 12/16/17 07:40 12/16/17 07:40 Intake and Output: 12/16/17 12/16/17 06:59 18:59 Intake Total 475 50 Output Total 1335 90 Balance -860 -40 - Medications Medications: Current Medications Albuterol/Ipratropium (Duoneb 3 Mg/0.5 Mg (3 Ml) Ud) 3 ml INH RQ6 [facility] Last Admin: 12/16/17 09:05 Dose: 3 ml Ascorbic Acid (Vitamin C 250 Mg Tab) 250 mg PO DAILY [facility] Last Admin: 12/16/17 09:56 Dose: 250 mg Famotidine (Pepcid) 20 mg IVP Q12 [facility] Last Admin: 12/16/17 09:59 Dose: 20 mg Folic Acid 1 mg/ Sodium (Chloride) 100.2 mls @ 60 mls/hr IV DAILY [facility] Last Admin: 12/16/17 09:44 Dose: 60 mls/hr Clindamycin Phosphate (Cleocin In Normal Saline) 600 mg in 50 mls @ 102 mls/hr IVPB Q8H [facility] Last Admin: 12/16/17 01:23 Dose: 102 mls/hr Cefepime HCl (Maxipime Iv 1 Gm Premix) 1 gm in 50 mls @ 100 mls/hr IVPB Q8H [facility] Last Admin: 12/16/17 01:23 Dose: 100 mls/hr Lactulose (Enulose) 20 gm PO BID [facility] Last Admin: 12/16/17 09:44 Dose: 20 gm Multivitamins/Vitamin C (Multi-Delyn Liquid) 5 ml PO DAILY [facility] Last Admin: 12/16/17 09:54 Dose: 5 ml Phytonadione (Vitamin K Tab) 10 mg PO DAILY [facility] Stop: 12/17/17 10:00 Last Admin: 03/03/18 09:55 Dose: 10 mg Potassium Chloride (Potassium Chloride Oral Soln) 40 meq PO Q6H [facility] Stop: 12/16/17 14:46 Last Admin: 12/16/17 09:42 Dose: 40 meq Propranolol HCl (Inderal) 20 mg PO BID [facility] Last Admin: 12/16/17 09:56 Dose: 20 mg Spironolactone (Aldactone) 50 mg PO DAILY [facility] Last Admin: 12/16/17 09:56 Dose: 50 mg Thiamine HCl (Vitamin B1 Inj) 100 mg IV DAILY [facility] Last Admin: 12/16/17 09:46 Dose: 100 mg Zinc Sulfate (Zinc Sulfate 220 Mg Cap) 220 mg PO DAILY [facility] Last Admin: 12/16/17 09:59 Dose: 220 mg - Labs Labs: 12/16/17 06:08 12/16/17 06:07 PT 24.1 SECONDS (9.7-12.2) H 12/16/17 09:01 INR 2.1 12/16/17 09:01 APTT 33 SECONDS (21-34) 12/16/17 09:01 - Constitutional Appears: Confused - Respiratory Exam Respiratory Exam: Rhonchi - Cardiovascular Exam Cardiovascular Exam: RRR - GI/Abdominal Exam GI & Abdominal Exam: Distended, Normal Bowel Sounds. absent: Tenderness, Mass, Rebound - Extremities Exam Extremities Exam: Pedal Edema - Neurological Exam Neurological Exam: Alert, Awake. absent: Oriented x3 Assessment and Plan (1) Alcoholic cirrhosis Status: Acute (2) Colitis Assessment & Plan: Doubt significant colitis. Status: Acute (3) Iron deficiency anemia Assessment & Plan: Hematomas. Rib fractures. No GI bleeding. Continue protonix Status: Acute (4) Pneumonia Status: Acute (5) Pneumothorax Status: Acute (6) Rib fractures Status: Acute (7) Alcohol abuse Status: Acute (8) Fever Status: Acute (9) Ascites Assessment & Plan: Consider sono. Check weights Status: Acute
[2017-12-17] MEDS: Albuterol-Ipratrop 3 mg / 0.5 (3 ml) UD INH SCH ×4 (01:39→19:58)
[2017-12-17] MEDS: Cefepime IV 1 gm in Dextrose 1 GM/50 ML BAG IVPB SCH ×3 (02:03→18:04)
--- NOTE | 2017-12-17 02:35 | CP.PCM.PN ---
Subjective - Date & Time of Evaluation Date of Evaluation: 12/17/17 Time of Evaluation: 02:32 - Subjective Subjective: CT Surgery: Dr Lyn Pt S&E in ICU. Progressively improving over past 24 hours. Has been more alert though still confused and disoriented. Sits up in bed and eating now. CT continues with minimal serosanguinous drainage ~200cc/24 hours. Pt has pain at CT insertion site. INR still 2.1. Objective - Vital Signs/Intake and Output Vital Signs (last 24 hours): Temp Pulse Resp BP Pulse Ox 100.4 F H 77 10 L 115/69 99 12/16/17 20:00 12/16/17 21:02 12/16/17 21:02 12/16/17 21:02 12/16/17 21:02 Intake and Output: 12/16/17 12/17/17 18:59 06:59 Intake Total 1730 100 Output Total 800 60 Balance 930 40 - Medications Medications: Current Medications Albuterol/Ipratropium (Duoneb 3 Mg/0.5 Mg (3 Ml) Ud) 3 ml INH RQ6 [facility] Last Admin: 12/17/17 01:39 Dose: Not Given Ascorbic Acid (Vitamin C 250 Mg Tab) 250 mg PO DAILY [facility] Last Admin: 12/16/17 09:56 Dose: 250 mg Famotidine (Pepcid) 20 mg IVP Q12 [facility] Last Admin: 12/16/17 21:15 Dose: 20 mg Folic Acid 1 mg/ Sodium (Chloride) 100.2 mls @ 60 mls/hr IV DAILY [facility] Last Admin: 12/16/17 09:44 Dose: 60 mls/hr Clindamycin Phosphate (Cleocin In Normal Saline) 600 mg in 50 mls @ 102 mls/hr IVPB Q8H [facility] Last Admin: 12/16/17 17:34 Dose: 102 mls/hr Cefepime HCl (Maxipime Iv 1 Gm Premix) 1 gm in 50 mls @ 100 mls/hr IVPB Q8H [facility] Last Admin: 12/17/17 02:03 Dose: 100 mls/hr Lactulose (Enulose) 20 gm PO BID [facility] Last Admin: 12/16/17 17:36 Dose: Not Given Multivitamins/Vitamin C (Multi-Delyn Liquid) 5 ml PO DAILY [facility] Last Admin: 12/16/17 09:54 Dose: 5 ml Phytonadione (Vitamin K Tab) 10 mg PO DAILY [facility] Stop: 12/17/17 10:00 Last Admin: 12/16/17 09:55 Dose: 10 mg Propranolol HCl (Inderal) 20 mg PO BID [facility] Last Admin: 12/16/17 17:33 Dose: 20 mg Spironolactone (Aldactone) 50 mg PO DAILY [facility] Last Admin: 12/16/17 09:56 Dose: 50 mg Thiamine HCl (Vitamin B1 Inj) 100 mg IV DAILY [facility] Last Admin: 12/16/17 09:46 Dose: 100 mg Zinc Sulfate (Zinc Sulfate 220 Mg Cap) 220 mg PO DAILY [facility] Last Admin: 12/16/17 09:59 Dose: 220 mg - Labs Labs: 12/16/17 06:08 12/16/17 06:07 PT 24.1 SECONDS (9.7-12.2) H 12/16/17 09:01 INR 2.1 12/16/17 09:01 APTT 33 SECONDS (21-34) 12/16/17 09:01 - Constitutional Appears: Non-toxic, No Acute Distress - ENT Exam ENT Exam: Normal Exam - Respiratory Exam Respiratory Exam: absent: Respiratory Distress - Cardiovascular Exam Cardiovascular Exam: REGULAR RHYTHM. absent: Tachycardia Additional comments: large area of ecchymosis along left flank no air leak noted in chest tube - Neurological Exam Neurological Exam: Alert, Awake. absent: Oriented x3 - Psychiatric Exam Psychiatric exam: Normal Affect Assessment and Plan - Assessment and Plan (Free Text) Assessment: 42M with left thoracostomy tube placed for HEMOTHORAX Plan: pt INR needs to be corrected will continue CT to suction daily CXRs chest PT will cont to follow d/w Dr Eboni Gillespie, PGY3
[2017-12-17] MEDS: Clindamycin 600mg/50ml NS 600 MG/50 ML BAG IVPB SCH ×2 (02:50→09:00)
[2017-12-17 06:16] LABS: BASO # 0.1 K/uL (0.0-0.2); BASO % 0.6 % (0.0-2.0); EOS # 0.2 K/uL (0.0-0.7); EOS % 0.9 % (0.0-4.0); HEMOGLOBIN 7.5 g/dL (12.0-18.0); LYMPH # 2.7 K/uL (1.0-4.3); LYMPH % 14.3 % (20.0-40.0); MEAN CELL VOLUME 85.6 fL (80.0-94.0); MEAN CORPUSCULAR HEMOGLOBIN 27.2 pg (27.0-31.0); MEAN CORPUSCULAR HGB CONC 31.8 g/dL (33.0-37.0); MEAN PLATELET VOLUME 10.9 fL (7.2-11.7); MONO # 1.7 K/uL (0.0-0.8); MONO % 9.3 % (0.0-10.0); NEUT # 14.1 K/uL (1.8-7.0); NEUT % 74.9 % (50.0-75.0); NRBC % 0.1 % (0.0-2.0); RBC 2.75 Mil/uL (4.40-5.90); RED CELL DISTRIBUTION WIDTH 26.1 % (11.5-14.5); WHITE BLOOD COUNT 18.8 K/uL (4.8-10.8)
[2017-12-17 06:44] LABS: ALB/GLOB RATIO 0.6 (1.0-2.1); ALBUMIN 2.3 g/dL (3.5-5.0); ALT/SGPT 50 U/L (21-72); AST/SGOT 106 U/L (17-59); BLOOD UREA NITROGEN 25 mg/dL (9-20); GFR AFRICAN-AMERICAN > 60; GFR NON-AFRICAN AMERICAN > 60
--- NOTE | 2017-12-17 07:53 | CP.PCM.PN ---
Subjective - Date & Time of Evaluation Date of Evaluation: 12/17/17 Time of Evaluation: 07:40 - Subjective Subjective: F/u anemia No report of abd pain, SZ, cough, hemoptysis, chills. GONG Objective - Vital Signs/Intake and Output Vital Signs (last 24 hours): Temp Pulse Resp BP Pulse Ox 98.8 F 75 14 110/64 93 L 12/17/17 04:00 12/17/17 06:02 12/17/17 06:02 12/17/17 06:02 12/17/17 06:02 Intake and Output: 12/17/17 12/17/17 06:59 18:59 Intake Total 400 Output Total 272 Balance 128 - Medications Medications: Current Medications Albuterol/Ipratropium (Duoneb 3 Mg/0.5 Mg (3 Ml) Ud) 3 ml INH RQ6 [facility] [place] Last Admin: 12/17/17 07:24 Dose: Not Given Ascorbic Acid (Vitamin C 250 Mg Tab) 250 mg PO DAILY [facility] [place] Last Admin: 12/16/17 09:56 Dose: 250 mg Famotidine (Pepcid) 20 mg IVP Q12 [facility] Last Admin: 12/16/17 21:15 Dose: 20 mg Folic Acid 1 mg/ Sodium (Chloride) 100.2 mls @ 60 mls/hr IV DAILY [facility] Last Admin: 12/16/17 09:44 Dose: 60 mls/hr Clindamycin Phosphate (Cleocin In Normal Saline) 600 mg in 50 mls @ 102 mls/hr IVPB Q8H [facility] Last Admin: 12/17/17 02:50 Dose: 102 mls/hr Cefepime HCl (Maxipime Iv 1 Gm Premix) 1 gm in 50 mls @ 100 mls/hr IVPB Q8H [facility] Last Admin: 12/17/17 02:03 Dose: 100 mls/hr Dextrose (Dextrose 5% In Water 1000 Ml) 1,000 mls @ 75 mls/hr IV .[id number] [facility] [place] Lactulose (Enulose) 20 gm PO BID [facility] Last Admin: 12/16/17 17:36 Dose: Not Given Multivitamins/Vitamin C (Multi-Delyn Liquid) 5 ml PO DAILY [facility] [place] Last Admin: 12/16/17 09:54 Dose: 5 ml Phytonadione (Vitamin K Tab) 10 mg PO DAILY [facility] [place] Stop: 12/17/17 10:00 Last Admin: 12/16/17 09:55 Dose: 10 mg Propranolol HCl (Inderal) 20 mg PO BID [facility] [place] Last Admin: 12/16/17 17:33 Dose: 20 mg Spironolactone (Aldactone) 50 mg PO DAILY [facility] Last Admin: 12/16/17 09:56 Dose: 50 mg Thiamine HCl (Vitamin B1 Inj) 100 mg IV DAILY [facility] Last Admin: 12/16/17 09:46 Dose: 100 mg Zinc Sulfate (Zinc Sulfate 220 Mg Cap) 220 mg PO DAILY [facility] Last Admin: 12/16/17 09:59 Dose: 220 mg - Labs Labs: 12/17/17 06:11 12/17/17 06:08 PT 24.1 SECONDS (9.7-12.2) H 12/16/17 09:01 INR 2.1 12/16/17 09:01 APTT 33 SECONDS (21-34) 12/16/17 09:01 - Constitutional Appears: Confused - Respiratory Exam Respiratory Exam: Rhonchi - Cardiovascular Exam Cardiovascular Exam: RRR - GI/Abdominal Exam GI & Abdominal Exam: Distended, Normal Bowel Sounds. absent: Guarding, Rigid, Mass, Rebound - Neurological Exam Neurological Exam: Alert, Awake. absent: Oriented x3 Assessment and Plan (1) Alcoholic cirrhosis Assessment & Plan: Pt is on BB and aldactone. Check weights. Sono abdomen in future. Status: Acute (2) Iron deficiency anemia Assessment & Plan: No signs of GI bleeding. COntinue pepcid/PPI. Check Hbs. Status: Acute (3) Pneumonia Status: Acute (4) Pneumothorax Status: Acute (5) Rib fractures Status: Acute (6) Alcohol abuse Status: Acute (7) Fever Status: Acute (8) Ascites Status: Acute
--- NOTE | 2017-12-17 09:36 | RAD ---
HISTORY: chest tube COMPARISON: Chest radiograph dated 12/16/2017. FINDINGS: LUNGS: Similar aeration with grossly stable bilateral patchy infiltrates. PLEURA: Loculated pleural fluid along the left lateral convexity. No appreciable pneumothorax. CARDIOVASCULAR: Normal. OSSEOUS STRUCTURES: Displaced left-sided rib fractures redemonstrated. VISUALIZED UPPER ABDOMEN: Normal. OTHER FINDINGS: Left-sided large-bore chest tube, unchanged. IMPRESSION: No significant interval change.
[2017-12-17] MEDS: Thiamine 100 mg/ml Inj IV SCH (10:02)
[2017-12-17] MEDS: Multiple Vitamins Oral Solution PO SCH (10:02)
--- NOTE | 2017-12-17 15:07 | CP.CCUPN ---
CCU Subjective - Physician Review Events Since Last Encounter (Free Text): 12/17/17 15:05 patient is more alert today. follows commands, periods of agitation and disorientation. CCU Objective - Vital Signs / Intake & Output Vital Signs (Last 4 hours): Vital Signs Temp Pulse Resp BP Pulse Ox 12/17/17 13:06 73 18 108/53 L 12/17/17 12:59 72 18 109/65 100 12/17/17 12:00 98.5 F 76 20 97 12/17/17 11:06 76 19 106/65 98 Intake and Output (Last 8hrs): Intake & Output 12/17/17 12/17/17 12/17/17 06:59 14:59 22:59 Intake Total 300 740 Output Total 212 Balance 88 740 Weight 178 lb 9.6 oz Intake: Intake, IV Amount 100 Right upper arm 2 100 Oral 200 740 Output: Chest Tube Drainage 160 Left Mid-Axillary Chest 160 Urine 50 Urine, Voided 50 Urine/Stool Mix 2 Other: # Voids Urine, Voided 1 1 # Bowel Movements 1 - Physical Exam Head: Positive for: Atraumatic, Normocephalic Pupils: Positive for: PERRL Extroacular Muscles: Positive for: EOMI Conjunctiva: Positive for: Icteric Mouth: Positive for: Moist Mucous Membranes Respiratory/Chest: Positive for: Clear to Auscultation, Good Air Exchange Abdomen: Positive for: Distention. Negative for: Tenderness, Normal Bowel Sounds Psychiatric: Positive for: Alert - Medications Active Medications: Active Medications Generic Name Dose Route Start Last Admin Trade Name Freq PRN Reason Stop Dose Admin Albuterol/Ipratropium 3 ml 12/15/17 14:00 12/17/17 13:12 Duoneb 3 Mg/0.5 Mg (3 Ml) Ud INH Not Given RQ6 [facility] Ascorbic Acid 250 mg 12/14/17 14:00 12/17/17 10:02 Vitamin C 250 Mg Tab PO 250 mg DAILY [facility] Administration Famotidine 20 mg 12/13/17 10:30 12/17/17 10:02 Pepcid IVP 20 mg Q12 [facility] Administration Folic Acid 1 mg/ Sodium 100.2 mls @ 60 mls/hr 12/09/17 10:00 12/17/17 10:16 Chloride IV 60 mls/hr DAILY [facility] Administration Clindamycin Phosphate 600 mg in 50 mls @ 102 mls/hr 12/13/17 18:15 12/17/17 09:00 Cleocin In Normal Saline IVPB 102 mls/hr Q8H [facility] Administration Cefepime HCl 1 gm in 50 mls @ 100 mls/hr 12/15/17 18:00 12/17/17 09:38 Maxipime Iv 1 Gm Premix IVPB 100 mls/hr Q8H [facility] Administration Dextrose 1,000 mls @ 75 mls/hr 12/17/17 07:15 Dextrose 5% In Water 1000 Ml IV .[id number] [facility] Lactulose 20 gm 12/13/17 18:00 12/17/17 10:01 Enulose PO 20 gm BID [facility] Administration Multivitamins/Vitamin C 5 ml 12/14/17 14:00 12/17/17 10:02 Multi-Delyn Liquid PO 5 ml DAILY [facility] Administration Propranolol HCl 20 mg 12/09/17 19:30 12/17/17 10:07 Inderal PO 20 mg BID [facility] Administration Spironolactone 50 mg 12/13/17 11:00 12/17/17 10:02 Aldactone PO 50 mg DAILY [facility] Administration Thiamine HCl 100 mg 12/09/17 10:00 12/17/17 10:02 Vitamin B1 Inj IV 100 mg DAILY [facility] Administration Zinc Sulfate 220 mg 12/14/17 13:30 12/17/17 10:02 Zinc Sulfate 220 Mg Cap PO 220 mg DAILY [facility] Administration - Patient Studies Lab Studies: Lab Studies 12/17/17 12/17/17 12/17/17 Range/Units 11:43 07:53 06:11 WBC 18.8 H (4.8-10.8) K/uL RBC 2.75 L (4.40-5.90) Mil/uL Hgb 7.5 L (12.0-18.0) g/dL Hct 23.5 L (35.0-51.0) % MCV 85.6 (80.0-94.0) fL MCH 27.2 (27.0-31.0) pg MCHC 31.8 L (33.0-37.0) g/dL RDW 26.1 H (11.5-14.5) % Plt Count 166 (130-400) K/uL MPV 10.9 (7.2-11.7) fL Neut % (Auto) 74.9 (50.0-75.0) % Lymph % (Auto) 14.3 L (20.0-40.0) % Graves % (Auto) 9.3 (0.0-10.0) % Eos % (Auto) 0.9 (0.0-4.0) % Baso % (Auto) 0.6 (0.0-2.0) % Neut # (Auto) 14.1 H (1.8-7.0) K/uL Lymph # (Auto) 2.7 (1.0-4.3) K/uL Graves # (Auto) 1.7 H (0.0-0.8) K/uL Eos # (Auto) 0.2 (0.0-0.7) K/uL Baso # (Auto) 0.1 (0.0-0.2) K/uL Sodium (132-148) mmol/L Potassium (3.6-5.2) mmol/L Chloride (98-107) mmol/L Carbon Dioxide (22-30) mmol/L Anion Gap (10-20) BUN (9-20) mg/dL Creatinine (0.8-1.5) mg/dL Est GFR ( Amer) Est GFR (Non-Af Amer) POC Glucose (mg/dL) 130 H 99 (65-110) mg/dL Random Glucose (75-110) mg/dL Calcium (8.6-10.4) mg/dl Total Bilirubin (0.2-1.3) mg/dL AST (17-59) U/L ALT (21-72) U/L Alkaline Phosphatase (38-126) U/L Ammonia (9-33) umol/L Total Protein (6.3-8.3) g/dL Albumin (3.5-5.0) g/dL Globulin (2.2-3.9) gm/dL Albumin/Globulin Ratio (1.0-2.1) C. difficile Ag & Toxin (NEGATIVE) 12/17/17 12/17/17 12/16/17 Range/Units 06:08 06:08 21:12 WBC (4.8-10.8) K/uL RBC (4.40-5.90) Mil/uL Hgb (12.0-18.0) g/dL Hct (35.0-51.0) % MCV (80.0-94.0) fL MCH (27.0-31.0) pg MCHC (33.0-37.0) g/dL RDW (11.5-14.5) % Plt Count (130-400) K/uL MPV (7.2-11.7) fL Neut % (Auto) (50.0-75.0) % Lymph % (Auto) (20.0-40.0) % Graves % (Auto) (0.0-10.0) % Eos % (Auto) (0.0-4.0) % Baso % (Auto) (0.0-2.0) % Neut # (Auto) (1.8-7.0) K/uL Lymph # (Auto) (1.0-4.3) K/uL Graves # (Auto) (0.0-0.8) K/uL Eos # (Auto) (0.0-0.7) K/uL Baso # (Auto) (0.0-0.2) K/uL Sodium 157 H (132-148) mmol/L Potassium 3.9 (3.6-5.2) mmol/L Chloride 120 H (98-107) mmol/L Carbon Dioxide 27 (22-30) mmol/L Anion Gap 13 (10-20) BUN 25 H (9-20) mg/dL Creatinine 1.0 (0.8-1.5) mg/dL Est GFR ( Amer) > 60 Est GFR (Non-Af Amer) > 60 POC Glucose (mg/dL) 111 H (65-110) mg/dL Random Glucose 103 (75-110) mg/dL Calcium 8.0 L (8.6-10.4) mg/dl Total Bilirubin 3.0 H (0.2-1.3) mg/dL AST 106 H D (17-59) U/L ALT 50 (21-72) U/L Alkaline Phosphatase 98 (38-126) U/L Ammonia 33 (9-33) umol/L Total Protein 6.0 L (6.3-8.3) g/dL Albumin 2.3 L (3.5-5.0) g/dL Globulin 3.7 (2.2-3.9) gm/dL Albumin/Globulin Ratio 0.6 L (1.0-2.1) C. difficile Ag & Toxin (NEGATIVE) 12/16/17 12/16/17 Range/Units 16:23 16:00 WBC (4.8-10.8) K/uL RBC (4.40-5.90) Mil/uL Hgb (12.0-18.0) g/dL Hct (35.0-51.0) % MCV (80.0-94.0) fL MCH (27.0-31.0) pg MCHC (33.0-37.0) g/dL RDW (11.5-14.5) % Plt Count (130-400) K/uL MPV (7.2-11.7) fL Neut % (Auto) (50.0-75.0) % Lymph % (Auto) (20.0-40.0) % Graves % (Auto) (0.0-10.0) % Eos % (Auto) (0.0-4.0) % Baso % (Auto) (0.0-2.0) % Neut # (Auto) (1.8-7.0) K/uL Lymph # (Auto) (1.0-4.3) K/uL Graves # (Auto) (0.0-0.8) K/uL Eos # (Auto) (0.0-0.7) K/uL Baso # (Auto) (0.0-0.2) K/uL Sodium (132-148) mmol/L Potassium (3.6-5.2) mmol/L Chloride (98-107) mmol/L Carbon Dioxide (22-30) mmol/L Anion Gap (10-20) BUN (9-20) mg/dL Creatinine (0.8-1.5) mg/dL Est GFR ( Amer) Est GFR (Non-Af Amer) POC Glucose (mg/dL) 120 H (65-110) mg/dL Random Glucose (75-110) mg/dL Calcium (8.6-10.4) mg/dl Total Bilirubin (0.2-1.3) mg/dL AST (17-59) U/L ALT (21-72) U/L Alkaline Phosphatase (38-126) U/L Ammonia (9-33) umol/L Total Protein (6.3-8.3) g/dL Albumin (3.5-5.0) g/dL Globulin (2.2-3.9) gm/dL Albumin/Globulin Ratio (1.0-2.1) C. difficile Ag & Toxin Negative (NEGATIVE) Laboratory Results - last 24 hr 12/16/17 12/16/17 12/16/17 16:00 16:23 21:12 WBC RBC Hgb Hct MCV MCH MCHC RDW Plt Count MPV Neut % (Auto) Lymph % (Auto) Graves % (Auto) Eos % (Auto) Baso % (Auto) Neut # (Auto) Lymph # (Auto) Graves # (Auto) Eos # (Auto) Baso # (Auto) Sodium Potassium Chloride Carbon Dioxide Anion Gap BUN Creatinine Est GFR ( Amer) Est GFR (Non-Af Amer) POC Glucose (mg/dL) 120 H 111 H Random Glucose Calcium Total Bilirubin AST ALT Alkaline Phosphatase Ammonia Total Protein Albumin Globulin Albumin/Globulin Ratio C. difficile Ag & Toxin Negative 12/17/17 12/17/17 12/17/17 06:08 06:08 06:11 WBC 18.8 H RBC 2.75 L Hgb 7.5 L Hct 23.5 L MCV 85.6 MCH 27.2 MCHC 31.8 L RDW 26.1 H Plt Count 166 MPV 10.9 Neut % (Auto) 74.9 Lymph % (Auto) 14.3 L Graves % (Auto) 9.3 Eos % (Auto) 0.9 Baso % (Auto) 0.6 Neut # (Auto) 14.1 H Lymph # (Auto) 2.7 Graves # (Auto) 1.7 H Eos # (Auto) 0.2 Baso # (Auto) 0.1 Sodium 157 H Potassium 3.9 Chloride 120 H Carbon Dioxide 27 Anion Gap 13 BUN 25 H Creatinine 1.0 Est GFR ( Amer) > 60 Est GFR (Non-Af Amer) > 60 POC Glucose (mg/dL) Random Glucose 103 Calcium 8.0 L Total Bilirubin 3.0 H AST 106 H D ALT 50 Alkaline Phosphatase 98 Ammonia 33 Total Protein 6.0 L Albumin 2.3 L Globulin 3.7 Albumin/Globulin Ratio 0.6 L C. difficile Ag & Toxin 12/17/17 12/17/17 07:53 11:43 WBC RBC Hgb Hct MCV MCH MCHC RDW Plt Count MPV Neut % (Auto) Lymph % (Auto) Graves % (Auto) Eos % (Auto) Baso % (Auto) Neut # (Auto) Lymph # (Auto) Graves # (Auto) Eos # (Auto) Baso # (Auto) Sodium Potassium Chloride Carbon Dioxide Anion Gap BUN Creatinine Est GFR ( Amer) Est GFR (Non-Af Amer) POC Glucose (mg/dL) 99 130 H Random Glucose Calcium Total Bilirubin AST ALT Alkaline Phosphatase Ammonia Total Protein Albumin Globulin Albumin/Globulin Ratio C. difficile Ag & Toxin Fingerstick Blood Sugar Results: 111 Review of Systems - Review of Systems All systems: reviewed and no additional remarkable complaints except (no complaints) Critical Care Progress Note - Nutrition Nutrition: Nutrition Category Date Time Status Altered GI/Hepatic Diet [DIET] Diets 12/16/17 Breakfast Active Assessment/Plan (1) Alcohol withdrawal Assessment and plan: 42yo M admitted for possible SBP, Sepsis, liver cirrhosis with hepatitis c, Pancreatitis, and EtOH withdrawal. Neuro: rifaximin for hepatic encephalopathy. more alert today. Pulm: hemothorax improving radiographically. chest tube output 340 ml/24h, serosanguinous. CV: hemodynamically stable. Hem: hemoptysis resolved. will start on propranolol for portal hypertension with suspected esophageal varices. Renal: hypernatremia, on D5W@75, stopping lactulose. Endo: no acute issues GI: NPO except for meds. Rifaximin for hepatic encephalopathy prophylaxis, equivalent to lactulose, and stopping lactulose for increasing sodium. ID: elevated wbc, uncertain if any source of sepsis, sent off blood cultures, continue clinadmycin and cefepime. ID - Dr. Smith DVT proph - heparin sq GI proph - protonix Code status - full code Critical Care Time spent 35 minutes Multi-disciplinary rounds were performed with house staff, nursing, speech therapy, respiratory therapy, pharmacy and nutrition with integrated input from the primary team/attending and other consulting services. The documented time is cumulative and includes review of patient data/exams/labs/chart review and examination of the patient on rounds and throughout the day; time is exclusive of any procedures or teaching time. Current Visit: Yes Status: Acute Comment: [facility] protocol
--- NOTE | 2017-12-17 15:07 | CP.PCM.PN ---
Subjective - Date & Time of Evaluation Date of Evaluation: 12/17/17 Time of Evaluation: 09:00 - Subjective Subjective: awake alert remains confused and tremulous no fever Objective - Vital Signs/Intake and Output Vital Signs (last 24 hours): Temp Pulse Resp BP Pulse Ox 98.5 F 73 18 108/53 L 100 12/17/17 12:00 12/17/17 13:06 12/17/17 13:06 12/17/17 13:06 12/17/17 12:59 Intake and Output: 12/17/17 12/17/17 06:59 18:59 Intake Total 400 740 Output Total 272 Balance 128 740 - Medications Medications: Current Medications Albuterol/Ipratropium (Duoneb 3 Mg/0.5 Mg (3 Ml) Ud) 3 ml INH RQ6 [facility] Last Admin: 12/17/17 13:12 Dose: Not Given Ascorbic Acid (Vitamin C 250 Mg Tab) 250 mg PO DAILY [facility] Last Admin: 12/17/17 10:02 Dose: 250 mg Famotidine (Pepcid) 20 mg IVP Q12 [facility] Last Admin: 12/17/17 10:02 Dose: 20 mg Folic Acid 1 mg/ Sodium (Chloride) 100.2 mls @ 60 mls/hr IV DAILY [facility] Last Admin: 12/17/17 10:16 Dose: 60 mls/hr Clindamycin Phosphate (Cleocin In Normal Saline) 600 mg in 50 mls @ 102 mls/hr IVPB Q8H [facility] Last Admin: 12/17/17 09:00 Dose: 102 mls/hr Cefepime HCl (Maxipime Iv 1 Gm Premix) 1 gm in 50 mls @ 100 mls/hr IVPB Q8H [facility] Last Admin: 12/17/17 09:38 Dose: 100 mls/hr Dextrose (Dextrose 5% In Water 1000 Ml) 1,000 mls @ 75 mls/hr IV .[id number] [facility] Lactulose (Enulose) 20 gm PO BID [facility] Last Admin: 12/17/17 10:01 Dose: 20 gm Multivitamins/Vitamin C (Multi-Delyn Liquid) 5 ml PO DAILY [facility] Last Admin: 12/17/17 10:02 Dose: 5 ml Propranolol HCl (Inderal) 20 mg PO BID [facility] Last Admin: 12/17/17 10:07 Dose: 20 mg Spironolactone (Aldactone) 50 mg PO DAILY [facility] Last Admin: 12/17/17 10:02 Dose: 50 mg Thiamine HCl (Vitamin B1 Inj) 100 mg IV DAILY [facility] Last Admin: 12/17/17 10:02 Dose: 100 mg Zinc Sulfate (Zinc Sulfate 220 Mg Cap) 220 mg PO DAILY [facility] Last Admin: 12/17/17 10:02 Dose: 220 mg - Labs Labs: 12/17/17 06:11 12/17/17 06:08 PT 24.1 SECONDS (9.7-12.2) H 12/16/17 09:01 INR 2.1 12/16/17 09:01 APTT 33 SECONDS (21-34) 12/16/17 09:01 - Constitutional Appears: Confused, Chronically Ill - Head Exam Head Exam: NORMOCEPHALIC - Eye Exam Eye Exam: Scleral icterus - ENT Exam ENT Exam: Mucous Membranes Dry - Neck Exam Neck Exam: absent: Lymphadenopathy - Respiratory Exam Respiratory Exam: Decreased Breath Sounds - Cardiovascular Exam Cardiovascular Exam: REGULAR RHYTHM - GI/Abdominal Exam GI & Abdominal Exam: Distended, Soft, Diminished Bowel Sounds. absent: Tenderness - Rectal Exam Rectal Exam: Deferred - Exam Exam: NORMAL INSPECTION - Extremities Exam Extremities Exam: absent: Full ROM, Pedal Edema - Back Exam Back Exam: absent: CVA tenderness (L), CVA tenderness (R) - Neurological Exam Neurological Exam: Altered Neuro motor strength exam: Left Upper Extremity: 5, Right Upper Extremity: 5, Left Lower Extremity: 5, Right Lower Extremity: 5 - Psychiatric Exam Psychiatric exam: Depressed - Skin Skin Exam: Dry Assessment and Plan (1) Alcohol withdrawal Status: Acute (2) Alcoholic cirrhosis Status: Acute (3) Colitis Status: Acute (4) Iron deficiency anemia Status: Acute (5) Pneumonia Status: Acute (6) Pneumothorax Status: Acute (7) Rib fractures Status: Acute (8) Sepsis Status: Acute - Assessment and Plan (Free Text) Assessment: no new positive cultures wbc persistently high iv rx reordered pt has been recultures
[2017-12-17] MEDS: Vancomycin 1 gm/NS 200 ml 1 GM/200 ML BAG IVPB SCH (16:37)
[2017-12-18] MEDS: Cefepime IV 1 gm in Dextrose 1 GM/50 ML BAG IVPB SCH ×3 (01:44→18:46)
[2017-12-18] MEDS: Albuterol-Ipratrop 3 mg / 0.5 (3 ml) UD INH SCH ×4 (02:55→20:01)
[2017-12-18] MEDS: Vancomycin 1 gm/NS 200 ml 1 GM/200 ML BAG IVPB SCH ×2 (03:43→16:13)
[2017-12-18 06:09] LABS: BASO # 0.1 K/uL (0.0-0.2); BASO % 0.8 % (0.0-2.0); EOS # 0.2 K/uL (0.0-0.7); HEMOGLOBIN 7.7 g/dL (12.0-18.0); LYMPH # 2.6 K/uL (1.0-4.3); LYMPH % 14.2 % (20.0-40.0); MEAN CELL VOLUME 85.3 fL (80.0-94.0); MEAN CORPUSCULAR HEMOGLOBIN 27.1 pg (27.0-31.0); MEAN CORPUSCULAR HGB CONC 31.8 g/dL (33.0-37.0); MEAN PLATELET VOLUME 11.2 fL (7.2-11.7); MONO # 1.8 K/uL (0.0-0.8); MONO % 10.1 % (0.0-10.0); NEUT # 13.4 K/uL (1.8-7.0); NEUT % 73.9 % (50.0-75.0); NRBC % 0.1 % (0.0-2.0); RBC 2.84 Mil/uL (4.40-5.90); WHITE BLOOD COUNT 18.1 K/uL (4.8-10.8)
[2017-12-18 06:25] LABS: ALB/GLOB RATIO 0.6 (1.0-2.1); ALBUMIN 2.2 g/dL (3.5-5.0); ALT/SGPT 47 U/L (21-72); AST/SGOT 115 U/L (17-59); BLOOD UREA NITROGEN 18 mg/dL (9-20); CALCIUM 7.4 mg/dl (8.6-10.4); GFR AFRICAN-AMERICAN > 60; GFR NON-AFRICAN AMERICAN > 60
--- NOTE | 2017-12-18 07:45 | PN ---
DATE: The patient is in ICU, slightly more alert today. Hemoglobin 7.6. Monitor hemoglobin, supportive care. Brendon Bernabe MD
--- NOTE | 2017-12-18 07:56 | PN ---
DATE: 12/15/2017 The patient is still in ICU, lethargic, supportive care. Continue treatment. Brendon Bernabe MD
--- NOTE | 2017-12-18 08:30 | RAD ---
HISTORY: chest tube COMPARISON: 12/17/2017 FINDINGS: LUNGS: Patchy bilateral opacities common nonspecific. Slightly improved compared to prior. PLEURA: Small left pleural effusion. No evidence of right pleural effusion. No pneumothorax. Left apical chest tube unchanged. CARDIOVASCULAR: Normal. OSSEOUS STRUCTURES: Displaced left rib fractures again noted. VISUALIZED UPPER ABDOMEN: Normal. OTHER FINDINGS: None. IMPRESSION: Small left pleural effusion. Left apical chest tube. No pneumothorax. Multiple displaced left rib fractures.
[2017-12-18] MEDS: Thiamine 100 mg/ml Inj IV SCH (09:31)
[2017-12-18] MEDS: Phytonadione 2.5 MG/0.5 TAB TAB PO SCH (09:31)
[2017-12-18] MEDS: Multiple Vitamins Oral Solution PO SCH (09:31)
--- NOTE | 2017-12-18 10:13 | CP.PCM.PN ---
Subjective - Date & Time of Evaluation Date of Evaluation: 12/18/17 Time of Evaluation: 07:00 - Subjective Subjective: PGY2 Medicine Note - Dr. Bernabe Patient seen and examined at bedside this am. Patient is more responsive today. L chest tube is in place. He does not report discomfort at insertion site. Reports continued lethargy and continues to be tremulous. Denies f/c, overt chest chest pain, SOB, n/v, d/c, or any additional acute complaints. Objective - Vital Signs/Intake and Output Vital Signs (last 24 hours): Temp Pulse Resp BP Pulse Ox 98.5 F 78 15 96/60 L 100 12/18/17 08:00 12/18/17 10:00 12/18/17 10:00 12/18/17 09:06 12/18/17 10:00 Intake and Output: 12/18/17 12/18/17 06:59 18:59 Intake Total 1850 300 Output Total 530 Balance 1320 300 - Medications Medications: Current Medications Albuterol/Ipratropium (Duoneb 3 Mg/0.5 Mg (3 Ml) Ud) 3 ml INH RQ6 [facility] Last Admin: 12/18/17 08:15 Dose: 3 ml Ascorbic Acid (Vitamin C 250 Mg Tab) 250 mg PO DAILY [facility] Last Admin: 12/18/17 09:31 Dose: 250 mg Famotidine (Pepcid) 20 mg IVP Q12 [facility] Last Admin: 12/18/17 09:31 Dose: 20 mg Folic Acid 1 mg/ Sodium (Chloride) 100.2 mls @ 60 mls/hr IV DAILY [facility] Last Admin: 12/17/17 10:16 Dose: 60 mls/hr Cefepime HCl (Maxipime Iv 1 Gm Premix) 1 gm in 50 mls @ 100 mls/hr IVPB Q8H [facility] Last Admin: 12/18/17 01:44 Dose: 100 mls/hr Dextrose (Dextrose 5% In Water 1000 Ml) 1,000 mls @ 75 mls/hr IV .[id number] [facility] Last Admin: 12/17/17 19:41 Dose: 75 mls/hr Vancomycin/Sodium Chloride (Vancomycin 1 Gm/Ns 200 Ml) 1 gm in 200 mls @ 166.6 mls/hr IVPB Q12H [facility] Stop: 12/22/17 16:01 Last Admin: 12/18/17 03:43 Dose: 166.6 mls/hr Potassium Chloride (Potassium Chloride 20 Meq/100 Ml) 20 meq in 100 mls @ 50 mls/hr IVPB Q2H [facility] Stop: 12/18/17 14:14 Last Admin: 12/18/17 08:07 Dose: 50 mls/hr Multivitamins/Vitamin C (Multi-Delyn Liquid) 5 ml PO DAILY [facility] Last Admin: 12/18/17 09:31 Dose: 5 ml Phytonadione (Vitamin K Tab) 5 mg PO DAILY [facility] Stop: 12/22/17 10:01 Potassium Chloride (Potassium Chloride Oral Soln) 20 meq PO Q4H [facility] Stop: 12/18/17 14:16 Propranolol HCl (Inderal) 20 mg PO BID [facility] Last Admin: 12/18/17 09:31 Dose: 20 mg Rifaximin (Xifaxan) 550 mg PO BID [facility] Last Admin: 12/18/17 09:31 Dose: 550 mg Thiamine HCl (Vitamin B1 Inj) 100 mg IV DAILY [facility] Last Admin: 12/18/17 09:31 Dose: 100 mg Zinc Sulfate (Zinc Sulfate 220 Mg Cap) 220 mg PO DAILY [facility] Last Admin: 12/18/17 09:31 Dose: 220 mg - Labs Labs: 12/18/17 06:02 12/18/17 06:02 PT 24.1 SECONDS (9.7-12.2) H 12/16/17 09:01 INR 2.1 12/16/17 09:01 APTT 33 SECONDS (21-34) 12/16/17 09:01 - Additional Findings Additional findings: - Constitutional Appears: Confused, Chronically Ill - Head Exam Head Exam: NORMOCEPHALIC - Eye Exam Eye Exam: PERRL. absent: Scleral icterus - ENT Exam ENT Exam: Mucous Membranes Dry - Neck Exam Neck exam: Negative for: Lymphadenopathy - Respiratory Exam Respiratory Exam: Decreased Breath Sounds note - L chest tube in place - 1900cc serisanguineous output - Cardiovascular Exam Cardiovascular Exam: REGULAR RHYTHM, +S1, +S2 - GI/Abdominal Exam GI & Abdominal Exam: Diminished Bowel Sounds, Distended, Soft, Tenderness. absent: Rebound, Rigid -no caput meduase, no gynecomastia - Rectal Exam Rectal Exam: Deferred - Exam Exam: NORMAL INSPECTION - Extremities Exam Extremities exam: Negative for: pedal edema - Back Exam Back exam: absent: CVA tenderness (L), CVA tenderness (R) - Neurological Exam Neurological exam: Alert (improving, however still lethargic) -Note: tremors with arms outstretched - Psychiatric Exam Psychiatric exam: Depressed - Skin Skin Exam: Dry Assessment and Plan - Assessment and Plan (Free Text) Assessment: 42yo M admitted for possible SBP, Sepsis, Hepatic Failure, Pancreatitis, and EtOH withdrawal. Alcoholic Cirrhosis 12/18: NPO diet per GI. Abd US when stable. 12/12: Monitor for bleeding and begin clear liquid diet 12/10-12/11: CT reviewed - Duodenitis and mildly edematous pancreatic head. Cirrhotic liver, small ascites, rib fractures, no evidence of colitis. probable hematoma in lungs status post rib fractures. not definitive evidence of pancreatitis. see full report. Possible SBP; patient was code sepsis GI Consulted, Dr. Camp, f/u recs. -f/u fluid analysis from [facility] -patient received vanco in ER and Zosyn; will continue Zosyn and add ceftriaxone which is better coverage for SBP; patient also likely aspirated when he fell and zosyn will be good coverage for aspiration PNA -lactate was downtrending -IR Consult; was told that there is not enough fluid at this time to drain -patient clinically has SBP; will continue with empiric abx tx Hepatic Failure 12/18: Amonia WNL for several days. 12/12: ammonia 33 WNL, monitor. 12/11: last ammonia 58 on 12/08; f/u ammonia. Administer Lactulose PRN for ammonia > 30. -Meld Score 13; 6% 3 month mortality -GI on board; appreciate recs; thank you for your help -patient with long standing Hep C -AFP 3.5 -f/u ammonia; if elevated give lactulose Rib Fractures 12/18: L chest tube in place 2/ hematoma. 1900cc serisanguineous output Surgery on case, Dr. Lyn, f/u recs. -incentive spirometry -lidocaine patch -please avoid narcotics in this patient as they will worsen delirium and withdrawal Possible aspiration PNA / to fall/intoxication 12/18: WBC 18.1 - persistently elevated. CXR - small L pleural effusion, L chest tube in place, multiple rib fractures WBC persistently elevated ID Dr. Smith on case, help appreciated, f/u recs -c/w zosyn -incentive spriometry Iron Deficiency Anemia 12/18: Hgb 7.7, stable, will monitor. 12/12: % Sat 7. Also possible anemia due to hematoma from rib fracture? No overt bleeding. Observe for GI bleed. Per GI, may need EGD to assess duodenal thickening when clinically stable 12/11: Hgb 8.6, improving -hgb currently 7.2 -type and screen ordered -if patient drops below 7.0 will transfuse; do not transfuse if below 7.0 -f/u iron studies Pancreatitis; acute on chronic -patient without necrotic pancreas on CT -BUN/Creatinine WNL -patient received 3L in ER -will fluid rehydrate gently 11/17 to ascites/hepatic failure EtOH Abuse/Dependence/Withdrawl hemoptysis with coughing, most likely has esophageal varices. will start on propranolol. If worsens must consider EGD, currently stable. -CIWA, Thiamine/Folate daily -Ativan Q4H PRN and ELIJAH for withdrawal -Psychiatry on board; thank you for your help Electrolyte Imbalance 12/18: monitor and replete Hypokalemia, K 3.0 - KCl 20 x4 (q4H) Hypophosphatemia, P 2.2 neutraphos x3 (BID) Proph -chemical anticoagulation not recommended with elevated INR -SCD -Protonix -Diet advanced to [facility] Case discussed with attending. All medical management as per Dr. Kevan Bernabe.
[2017-12-18] MEDS: Potassium Chloride 20 mEq/15 ml LIQ UD PO SCH ×2 (11:00→16:13)
--- NOTE | 2017-12-18 15:03 | CP.PCM.PN ---
Subjective - Date & Time of Evaluation Date of Evaluation: 12/18/17 Time of Evaluation: 15:00 - Subjective Subjective: CT Surgery: Dr Lyn Pt S&E. NAEChante. Oriented only to self. CT w/ 340/24hours serosanguinous. Dressing c/d/i Objective - Vital Signs/Intake and Output Vital Signs (last 24 hours): Temp Pulse Resp BP Pulse Ox 98.7 F 71 19 95/59 L 100 12/18/17 12:00 12/18/17 13:06 12/18/17 13:06 12/18/17 13:06 12/18/17 13:06 Intake and Output: 12/18/17 12/18/17 06:59 18:59 Intake Total 1850 300 Output Total 530 Balance 1320 300 - Medications Medications: Current Medications Albuterol/Ipratropium (Duoneb 3 Mg/0.5 Mg (3 Ml) Ud) 3 ml INH RQ6 [facility] Last Admin: 12/18/17 14:05 Dose: 3 ml Ascorbic Acid (Vitamin C 250 Mg Tab) 250 mg PO DAILY [facility] Last Admin: 12/18/17 09:31 Dose: 250 mg Famotidine (Pepcid) 20 mg IVP Q12 [facility] Last Admin: 12/18/17 09:31 Dose: 20 mg Folic Acid 1 mg/ Sodium (Chloride) 100.2 mls @ 60 mls/hr IV DAILY [facility] Last Admin: 12/18/17 10:30 Dose: 60 mls/hr Cefepime HCl (Maxipime Iv 1 Gm Premix) 1 gm in 50 mls @ 100 mls/hr IVPB Q8H [facility] Last Admin: 12/18/17 10:35 Dose: 100 mls/hr Dextrose (Dextrose 5% In Water 1000 Ml) 1,000 mls @ 75 mls/hr IV .[id number] [facility] Last Admin: 12/17/17 19:41 Dose: 75 mls/hr Vancomycin/Sodium Chloride (Vancomycin 1 Gm/Ns 200 Ml) 1 gm in 200 mls @ 166.6 mls/hr IVPB Q12H [facility] Stop: 12/22/17 16:01 Last Admin: 12/18/17 03:43 Dose: 166.6 mls/hr Potassium Chloride 20 meq/ (Sodium Chloride) 110 mls @ 50 mls/hr IV ONCE ONE Stop: 12/18/17 16:11 Last Admin: 12/18/17 14:16 Dose: 50 mls/hr Multivitamins/Vitamin C (Multi-Delyn Liquid) 5 ml PO DAILY [facility] Last Admin: 12/18/17 09:31 Dose: 5 ml Phytonadione (Vitamin K Tab) 5 mg PO DAILY [facility] Stop: 12/22/17 10:01 Potassium Chloride (Potassium Chloride Oral Soln) 20 meq PO Q4H [facility] Stop: 12/18/17 15:01 Last Admin: 12/18/17 11:00 Dose: Not Given Propranolol HCl (Inderal) 20 mg PO BID [facility] Last Admin: 12/18/17 09:31 Dose: 20 mg Rifaximin (Xifaxan) 550 mg PO BID [facility] Last Admin: 12/18/17 09:31 Dose: 550 mg Thiamine HCl (Vitamin B1 Inj) 100 mg IV DAILY [facility] Last Admin: 12/18/17 09:31 Dose: 100 mg Zinc Sulfate (Zinc Sulfate 220 Mg Cap) 220 mg PO DAILY [facility] Last Admin: 12/18/17 09:31 Dose: 220 mg - Labs Labs: 12/18/17 06:02 12/18/17 06:02 PT 24.1 SECONDS (9.7-12.2) H 12/16/17 09:01 INR 2.1 12/16/17 09:01 APTT 33 SECONDS (21-34) 12/16/17 09:01 - Constitutional Appears: Non-toxic, No Acute Distress - ENT Exam ENT Exam: Mucous Membranes Moist - Respiratory Exam Respiratory Exam: absent: Accessory Muscle Use, Respiratory Distress - Cardiovascular Exam Cardiovascular Exam: REGULAR RHYTHM. absent: Tachycardia - GI/Abdominal Exam GI & Abdominal Exam: Soft. absent: Distended, Tenderness - Neurological Exam Neurological Exam: Alert, Awake, Oriented x3 - Psychiatric Exam Psychiatric exam: Normal Affect, Normal Mood - Skin Skin Exam: Normal Color, Warm Assessment and Plan - Assessment and Plan (Free Text) Assessment: 42M with left hemothorax Plan: cont CT to suction until output < 200 correct INR to < 1.4 will cont to follow d/w Dr Eboni Gillespie, PGY3
[2017-12-19] MEDS: Albuterol-Ipratrop 3 mg / 0.5 (3 ml) UD INH SCH ×4 (01:09→19:48)
[2017-12-19] MEDS: Cefepime IV 1 gm in Dextrose 1 GM/50 ML BAG IVPB SCH ×3 (01:21→19:41)
[2017-12-19] MEDS: Vancomycin 1 gm/NS 200 ml 1 GM/200 ML BAG IVPB SCH ×2 (03:57→17:00)
[2017-12-19 06:45] LABS: BASO # 0.1 K/uL (0.0-0.2); BASO % 0.7 % (0.0-2.0); EOS # 0.2 K/uL (0.0-0.7); HEMOGLOBIN 7.5 g/dL (12.0-18.0); LYMPH # 2.1 K/uL (1.0-4.3); LYMPH % 13.6 % (20.0-40.0); MEAN CORPUSCULAR HEMOGLOBIN 27.4 pg (27.0-31.0); MEAN CORPUSCULAR HGB CONC 32.2 g/dL (33.0-37.0); MONO # 1.9 K/uL (0.0-0.8); MONO % 12.2 % (0.0-10.0); NEUT # 11.4 K/uL (1.8-7.0); NEUT % 72.5 % (50.0-75.0); NRBC % 0.1 % (0.0-2.0); RBC 2.75 Mil/uL (4.40-5.90); RED CELL DISTRIBUTION WIDTH 25.9 % (11.5-14.5); WHITE BLOOD COUNT 15.7 K/uL (4.8-10.8)
[2017-12-19 06:54] LABS: ALB/GLOB RATIO 0.5 (1.0-2.1); ALT/SGPT 51 U/L (21-72); AST/SGOT 123 U/L (17-59); BLOOD UREA NITROGEN 16 mg/dL (9-20); CALCIUM 7.5 mg/dl (8.6-10.4); GFR AFRICAN-AMERICAN > 60; GFR NON-AFRICAN AMERICAN > 60
[2017-12-19 08:24] LABS: INR 2.1; PROTHROMBIN TIME 23.8 SECONDS (9.7-12.2)
[2017-12-19] MEDS ORDERED: Bisacodyl 5mg EC Tab PO ONE (08:34)
[2017-12-19] MEDS ORDERED: Potassium Chloride 20 mEq/15 ml LIQ UD PO ONE (09:15)
[2017-12-19] MEDS: Thiamine 100 mg/ml Inj IV SCH (09:40)
[2017-12-19] MEDS: Multiple Vitamins Oral Solution PO SCH (09:41)
[2017-12-19] MEDS: Phytonadione 2.5 MG/0.5 TAB TAB PO SCH (09:47)
--- NOTE | 2017-12-19 09:50 | CP.PCM.PN ---
Subjective - Date & Time of Evaluation Date of Evaluation: 12/19/17 Time of Evaluation: 09:47 - Subjective Subjective: Surgery: Dr. Lyn Pt seen and examined. No acute overnight events. Pt continues to have sanguinous output from CT about 400cc/24hrs. He is more awake and alert and responding to questions appropriately. Denies F/C. Objective - Vital Signs/Intake and Output Vital Signs (last 24 hours): Temp Pulse Resp BP Pulse Ox 98.0 F 69 18 100/57 L 88 L 12/19/17 08:00 12/19/17 08:11 12/19/17 08:11 12/19/17 08:11 12/19/17 08:11 Intake and Output: 12/19/17 12/19/17 06:59 18:59 Intake Total 1465 Output Total 208 Balance 1257 - Medications Medications: Current Medications Albuterol/Ipratropium (Duoneb 3 Mg/0.5 Mg (3 Ml) Ud) 3 ml INH RQ6 [facility] Last Admin: 12/19/17 08:04 Dose: 3 ml Ascorbic Acid (Vitamin C 250 Mg Tab) 250 mg PO DAILY [facility] Last Admin: 12/19/17 09:40 Dose: 250 mg Famotidine (Pepcid) 20 mg IVP Q12 [facility] Last Admin: 12/19/17 09:40 Dose: 20 mg Folic Acid 1 mg/ Sodium (Chloride) 100.2 mls @ 60 mls/hr IV DAILY [facility] Last Admin: 12/19/17 09:42 Dose: 60 mls/hr Cefepime HCl (Maxipime Iv 1 Gm Premix) 1 gm in 50 mls @ 100 mls/hr IVPB Q8H [facility] Last Admin: 12/19/17 09:41 Dose: 100 mls/hr Vancomycin/Sodium Chloride (Vancomycin 1 Gm/Ns 200 Ml) 1 gm in 200 mls @ 166.6 mls/hr IVPB Q12H [facility] Stop: 12/22/17 16:01 Last Admin: 12/19/17 03:57 Dose: 166.6 mls/hr Multivitamins/Vitamin C (Multi-Delyn Liquid) 5 ml PO DAILY [facility] Last Admin: 12/19/17 09:41 Dose: 5 ml Phytonadione (Vitamin K Tab) 5 mg PO DAILY [facility] Stop: 12/22/17 10:01 Last Admin: 12/18/17 09:31 Dose: Not Given Propranolol HCl (Inderal) 20 mg PO BID [facility] Last Admin: 12/19/17 09:40 Dose: 20 mg Rifaximin (Xifaxan) 550 mg PO BID [facility] Last Admin: 12/19/17 09:40 Dose: 550 mg Thiamine HCl (Vitamin B1 Inj) 100 mg IV DAILY [facility] Last Admin: 12/19/17 09:40 Dose: 100 mg Zinc Sulfate (Zinc Sulfate 220 Mg Cap) 220 mg PO DAILY [facility] Last Admin: 12/19/17 09:40 Dose: 220 mg - Labs Labs: 12/19/17 06:34 12/19/17 06:34 PT 23.8 SECONDS (9.7-12.2) H 12/19/17 08:09 INR 2.1 12/19/17 08:09 APTT 33 SECONDS (21-34) 12/19/17 08:09 - Constitutional Appears: No Acute Distress - Head Exam Head Exam: ATRAUMATIC, NORMOCEPHALIC - Eye Exam Eye Exam: Normal appearance - ENT Exam ENT Exam: Mucous Membranes Moist - Respiratory Exam Respiratory Exam: NORMAL BREATHING PATTERN Additional comments: L CT in place on suction, no air leak. dressing changed - Cardiovascular Exam Cardiovascular Exam: RRR - GI/Abdominal Exam GI & Abdominal Exam: Distended, Soft - Neurological Exam Neurological Exam: Alert, Awake - Skin Skin Exam: Dry, Warm Assessment and Plan - Assessment and Plan (Free Text) Assessment: 42M with multiple L sided rib fractures & hemothorax s/p CT insertion; POD#4 Plan: - cont chest tube on suction - monitor output - INR still 2.1; rec FFP & Vit K to correct coagulopathy - change dressing PRN - encourage IS - encourage ambulation - d/w Dr. Eboni Edwards, PGY-3 Surgery
--- NOTE | 2017-12-19 12:27 | CP.PCM.PN ---
Subjective - Date & Time of Evaluation Date of Evaluation: 12/19/17 Time of Evaluation: 07:00 - Subjective Subjective: seen on rounds in ICU Objective - Vital Signs/Intake and Output Vital Signs (last 24 hours): Temp Pulse Resp BP Pulse Ox 98.0 F 73 18 120/70 98 12/19/17 08:00 12/19/17 10:00 12/19/17 10:00 12/19/17 12:21 12/19/17 10:00 Intake and Output: 12/19/17 12/19/17 06:59 18:59 Intake Total 1465 400 Output Total 208 100 Balance 1257 300 - Medications Medications: Current Medications Albuterol/Ipratropium (Duoneb 3 Mg/0.5 Mg (3 Ml) Ud) 3 ml INH RQ6 [facility] Last Admin: 12/19/17 08:04 Dose: 3 ml Ascorbic Acid (Vitamin C 250 Mg Tab) 250 mg PO DAILY [facility] Last Admin: 12/19/17 09:40 Dose: 250 mg Famotidine (Pepcid) 20 mg IVP Q12 [facility] Last Admin: 12/19/17 09:40 Dose: 20 mg Folic Acid 1 mg/ Sodium (Chloride) 100.2 mls @ 60 mls/hr IV DAILY [facility] Last Admin: 12/19/17 09:42 Dose: 60 mls/hr Cefepime HCl (Maxipime Iv 1 Gm Premix) 1 gm in 50 mls @ 100 mls/hr IVPB Q8H [facility] Last Admin: 12/19/17 09:41 Dose: 100 mls/hr Vancomycin/Sodium Chloride (Vancomycin 1 Gm/Ns 200 Ml) 1 gm in 200 mls @ 166.6 mls/hr IVPB Q12H [facility] Stop: 12/22/17 16:01 Last Admin: 12/19/17 03:57 Dose: 166.6 mls/hr Multivitamins/Vitamin C (Multi-Delyn Liquid) 5 ml PO DAILY [facility] Last Admin: 12/19/17 09:41 Dose: 5 ml Phytonadione (Vitamin K Tab) 5 mg PO DAILY [facility] Stop: 12/22/17 10:01 Last Admin: 12/19/17 09:47 Dose: 5 mg Propranolol HCl (Inderal) 20 mg PO BID [facility] Last Admin: 12/19/17 09:40 Dose: 20 mg Rifaximin (Xifaxan) 550 mg PO BID [facility] Last Admin: 12/19/17 09:40 Dose: 550 mg Thiamine HCl (Vitamin B1 Inj) 100 mg IV DAILY [facility] Last Admin: 12/19/17 09:40 Dose: 100 mg Zinc Sulfate (Zinc Sulfate 220 Mg Cap) 220 mg PO DAILY [facility] Last Admin: 12/19/17 09:40 Dose: 220 mg - Labs Labs: 12/19/17 06:34 12/19/17 06:34 PT 23.8 SECONDS (9.7-12.2) H 12/19/17 08:09 INR 2.1 12/19/17 08:09 APTT 33 SECONDS (21-34) 12/19/17 08:09 - Constitutional Appears: Non-toxic, Confused, Chronically Ill - Head Exam Head Exam: NORMOCEPHALIC - Eye Exam Eye Exam: PERRL, Scleral icterus Pupil Exam: NORMAL ACCOMODATION - ENT Exam ENT Exam: Mucous Membranes Dry - Neck Exam Neck Exam: absent: Lymphadenopathy, Thyromegaly - Respiratory Exam Respiratory Exam: Decreased Breath Sounds, Rhonchi - Cardiovascular Exam Cardiovascular Exam: REGULAR RHYTHM, +S1, +S2 - GI/Abdominal Exam GI & Abdominal Exam: Distended, Soft - Rectal Exam Rectal Exam: Deferred - Exam Exam: NORMAL INSPECTION. absent: Testicular Tenderness - Extremities Exam Extremities Exam: Pedal Edema - Back Exam Back Exam: absent: CVA tenderness (L), CVA tenderness (R) - Neurological Exam Neurological Exam: Alert, Altered, Awake Assessment and Plan (1) Alcohol withdrawal Status: Acute (2) Alcoholic cirrhosis Status: Acute (3) Colitis Status: Acute (4) Iron deficiency anemia Status: Acute (5) Pneumonia Status: Acute (6) Pneumothorax Status: Acute (7) Rib fractures Status: Acute (8) Sepsis Status: Acute - Assessment and Plan (Free Text) Assessment: orders signed
--- NOTE | 2017-12-19 13:13 | CP.CCUPN ---
<Ray Trevino - Last Filed: 12/19/17 16:16> CCU Subjective - Physician Review Subjective (Free Text): 12/13/17 19:04 Patient seen and examined at bedside Patient was very lethargic, diaphoretic Had a large hematoma on his R. Flank Given history of liver disease and coagulopathy, decision was made to transfer the patient back to ICU 12/14/17 13:21 Patient seen and examined at bedside patient sedated will back off sedation to evaluate mental status 12/19/17 13:11 Patient had 400 output overnight from chest tube Gave 3 FFP and vitamin K. Patient more awake and tolerating diet 12/19/17 16:16 paracentesis 2.5L out CCU Objective - Vital Signs / Intake & Output Vital Signs (Last 4 hours): Vital Signs Temp Pulse Resp BP Pulse Ox 12/19/17 12:32 73 20 120/65 93 L 12/19/17 12:21 120/70 12/19/17 12:17 73 19 120/70 92 L 12/19/17 12:04 74 17 115/63 90 L 12/19/17 12:00 98.0 F 75 19 90 L 12/19/17 11:47 71 20 124/67 90 L 12/19/17 11:32 69 17 119/71 92 L 12/19/17 11:17 69 16 121/70 92 L 12/19/17 11:02 68 17 124/73 97 12/19/17 10:47 69 10 L 122/67 98 12/19/17 10:32 71 20 122/73 12/19/17 10:13 74 18 112/70 90 L 12/19/17 10:00 73 18 98 Intake and Output (Last 8hrs): Intake & Output 12/18/17 12/19/17 12/19/17 22:59 06:59 14:59 Intake Total 75 1390 700 Output Total 208 100 Balance 75 1182 600 Weight 195 lb Intake: Intake, IV Amount 75 1150 Left Antecubital 1150 Right Upper arm 75 Oral 240 700 Output: Chest Tube Drainage 206 Left Mid-Axillary Chest 206 Urine 100 Urine, Voided 100 Urine/Stool Mix 2 Other: # Bowel Movements 1 - Physical Exam Head: Positive for: Atraumatic, Normocephalic Pupils: Positive for: PERRL Extroacular Muscles: Positive for: EOMI Conjunctiva: Positive for: Icteric Mouth: Positive for: Moist Mucous Membranes Respiratory/Chest: Positive for: Clear to Auscultation, Good Air Exchange Abdomen: Positive for: Distention. Negative for: Tenderness, Normal Bowel Sounds Psychiatric: Positive for: Alert - Medications Active Medications: Active Medications Generic Name Dose Route Start Last Admin Trade Name Freq PRN Reason Stop Dose Admin Albuterol/Ipratropium 3 ml 12/15/17 14:00 12/19/17 08:04 Duoneb 3 Mg/0.5 Mg (3 Ml) Ud INH 3 ml RQ6 ELIJAH Administration Ascorbic Acid 250 mg 12/14/17 14:00 12/19/17 09:40 Vitamin C 250 Mg Tab PO 250 mg DAILY ELIJAH Administration Famotidine 20 mg 12/13/17 10:30 12/19/17 09:40 Pepcid IVP 20 mg Q12 ELIJAH Administration Folic Acid 1 mg/ Sodium 100.2 mls @ 60 mls/hr 12/09/17 10:00 12/19/17 09:42 Chloride IV 60 mls/hr DAILY ELIJAH Administration Cefepime HCl 1 gm in 50 mls @ 100 mls/hr 12/15/17 18:00 12/19/17 09:41 Maxipime Iv 1 Gm Premix IVPB 100 mls/hr Q8H ELIJAH Administration Vancomycin/Sodium Chloride 1 gm in 200 mls @ 166.6 mls/hr 12/17/17 16:00 04/02 03:57 Vancomycin 1 Gm/Ns 200 Ml IVPB 12/22/17 16:01 166.6 mls/hr Q12H ELIJAH Administration Multivitamins/Vitamin C 5 ml 12/14/17 14:00 12/19/17 09:41 Multi-Delyn Liquid PO 5 ml DAILY ELIJAH Administration Phytonadione 5 mg 12/18/17 10:00 12/19/17 09:47 Vitamin K Tab PO 12/22/17 10:01 5 mg DAILY ELIJAH Administration Propranolol HCl 20 mg 12/09/17 19:30 12/19/17 09:40 Inderal PO 20 mg BID ELIJAH Administration Rifaximin 550 mg 12/17/17 18:00 12/19/17 09:40 Xifaxan PO 550 mg BID ELIJAH Administration Thiamine HCl 100 mg 12/09/17 10:00 12/19/17 09:40 Vitamin B1 Inj IV 100 mg DAILY ELIJAH Administration Zinc Sulfate 220 mg 12/14/17 13:30 12/19/17 09:40 Zinc Sulfate 220 Mg Cap PO 220 mg DAILY ELIJAH Administration - Patient Studies Lab Studies: Microbiology Studies 12/16/17 18:00 Stool Culture - Final Stool NO SALMONELLA, SHIGELLA OR CAMPYLOBACTER ISOLATED. 12/17/17 Unknown Blood Culture - Preliminary Blood-Venous NO GROWTH AFTER 24 HOURS 12/17/17 Unknown Blood Culture - Preliminary Blood-Venous NO GROWTH AFTER 24 HOURS 12/15/17 16:00 Ova and Parasite Concentrate Exam - Final Stool Lab Studies 12/19/17 12/19/17 12/19/17 Range/Units 11:49 08:09 08:09 WBC (4.8-10.8) K/uL RBC (4.40-5.90) Mil/uL Hgb (12.0-18.0) g/dL Hct (35.0-51.0) % MCV (80.0-94.0) fL MCH (27.0-31.0) pg MCHC (33.0-37.0) g/dL RDW (11.5-14.5) % Plt Count (130-400) K/uL MPV (7.2-11.7) fL Neut % (Auto) (50.0-75.0) % Lymph % (Auto) (20.0-40.0) % [place] % (Auto) (0.0-10.0) % Eos % (Auto) (0.0-4.0) % Baso % (Auto) (0.0-2.0) % Neut # (Auto) (1.8-7.0) K/uL Lymph # (Auto) (1.0-4.3) K/uL [place] # (Auto) (0.0-0.8) K/uL Eos # (Auto) (0.0-0.7) K/uL Baso # (Auto) (0.0-0.2) K/uL PT 23.8 H (9.7-12.2) SECONDS INR 2.1 APTT 33 (21-34) SECONDS Sodium (132-148) mmol/L Potassium (3.6-5.2) mmol/L Chloride (98-107) mmol/L Carbon Dioxide (22-30) mmol/L Anion Gap (10-20) BUN (9-20) mg/dL Creatinine (0.8-1.5) mg/dL Est GFR ( Amer) Est GFR (Non-Af Amer) POC Glucose (mg/dL) 111 H (65-110) mg/dL Random Glucose (75-110) mg/dL Calcium (8.6-10.4) mg/dl Phosphorus (2.5-4.5) mg/dL Magnesium (1.6-2.3) mg/dL Total Bilirubin (0.2-1.3) mg/dL AST (17-59) U/L ALT (21-72) U/L Alkaline Phosphatase (38-126) U/L Total Protein (6.3-8.3) g/dL Albumin (3.5-5.0) g/dL Globulin (2.2-3.9) gm/dL Albumin/Globulin Ratio (1.0-2.1) Vancomycin Trough (5.0-10.0) ug/mL Blood Type O POSITIVE Antibody Screen Negative 12/19/17 12/19/17 12/19/17 Range/Units 07:28 06:34 06:34 WBC 15.7 H (4.8-10.8) K/uL RBC 2.75 L (4.40-5.90) Mil/uL Hgb 7.5 L (12.0-18.0) g/dL Hct 23.4 L (35.0-51.0) % MCV 85.0 (80.0-94.0) fL MCH 27.4 (27.0-31.0) pg MCHC 32.2 L (33.0-37.0) g/dL RDW 25.9 H (11.5-14.5) % Plt Count 173 (130-400) K/uL MPV 12.0 H (7.2-11.7) fL Neut % (Auto) 72.5 (50.0-75.0) % Lymph % (Auto) 13.6 L (20.0-40.0) % [place] % (Auto) 12.2 H (0.0-10.0) % Eos % (Auto) 1.0 (0.0-4.0) % Baso % (Auto) 0.7 (0.0-2.0) % Neut # (Auto) 11.4 H (1.8-7.0) K/uL Lymph # (Auto) 2.1 (1.0-4.3) K/uL [place] # (Auto) 1.9 H (0.0-0.8) K/uL Eos # (Auto) 0.2 (0.0-0.7) K/uL Baso # (Auto) 0.1 (0.0-0.2) K/uL PT (9.7-12.2) SECONDS INR APTT (21-34) SECONDS Sodium 143 (132-148) mmol/L Potassium 3.5 L (3.6-5.2) mmol/L Chloride 110 H (98-107) mmol/L Carbon Dioxide 25 (22-30) mmol/L Anion Gap 11 (10-20) BUN 16 (9-20) mg/dL Creatinine 0.9 (0.8-1.5) mg/dL Est GFR ( Amer) > 60 Est GFR (Non-Af Amer) > 60 POC Glucose (mg/dL) 106 (65-110) mg/dL Random Glucose 91 (75-110) mg/dL Calcium 7.5 L (8.6-10.4) mg/dl Phosphorus 2.7 (2.5-4.5) mg/dL Magnesium 2.0 (1.6-2.3) mg/dL Total Bilirubin 3.0 H (0.2-1.3) mg/dL AST 123 H (17-59) U/L ALT 51 (21-72) U/L Alkaline Phosphatase 111 (38-126) U/L Total Protein 5.8 L (6.3-8.3) g/dL Albumin 2.0 L (3.5-5.0) g/dL Globulin 3.8 (2.2-3.9) gm/dL Albumin/Globulin Ratio 0.5 L (1.0-2.1) Vancomycin Trough (5.0-10.0) ug/mL Blood Type Antibody Screen 12/19/17 12/18/17 12/18/17 Range/Units 06:34 21:35 16:04 WBC (4.8-10.8) K/uL RBC (4.40-5.90) Mil/uL Hgb (12.0-18.0) g/dL Hct (35.0-51.0) % MCV (80.0-94.0) fL MCH (27.0-31.0) pg MCHC (33.0-37.0) g/dL RDW (11.5-14.5) % Plt Count (130-400) K/uL MPV (7.2-11.7) fL Neut % (Auto) (50.0-75.0) % Lymph % (Auto) (20.0-40.0) % [place] % (Auto) (0.0-10.0) % Eos % (Auto) (0.0-4.0) % Baso % (Auto) (0.0-2.0) % Neut # (Auto) (1.8-7.0) K/uL Lymph # (Auto) (1.0-4.3) K/uL [place] # (Auto) (0.0-0.8) K/uL Eos # (Auto) (0.0-0.7) K/uL Baso # (Auto) (0.0-0.2) K/uL PT (9.7-12.2) SECONDS INR APTT (21-34) SECONDS Sodium (132-148) mmol/L Potassium (3.6-5.2) mmol/L Chloride (98-107) mmol/L Carbon Dioxide (22-30) mmol/L Anion Gap (10-20) BUN (9-20) mg/dL Creatinine (0.8-1.5) mg/dL Est GFR ( Amer) Est GFR (Non-Af Amer) POC Glucose (mg/dL) 120 H 132 H (65-110) mg/dL Random Glucose (75-110) mg/dL Calcium (8.6-10.4) mg/dl Phosphorus (2.5-4.5) mg/dL Magnesium (1.6-2.3) mg/dL Total Bilirubin (0.2-1.3) mg/dL AST (17-59) U/L ALT (21-72) U/L Alkaline Phosphatase (38-126) U/L Total Protein (6.3-8.3) g/dL Albumin (3.5-5.0) g/dL Globulin (2.2-3.9) gm/dL Albumin/Globulin Ratio (1.0-2.1) Vancomycin Trough 18.0 H (5.0-10.0) ug/mL Blood Type Antibody Screen Laboratory Results - last 24 hr 12/18/17 12/18/17 12/19/17 16:04 21:35 06:34 WBC RBC Hgb Hct MCV MCH MCHC RDW Plt Count MPV Neut % (Auto) Lymph % (Auto) [place] % (Auto) Eos % (Auto) Baso % (Auto) Neut # (Auto) Lymph # (Auto) [place] # (Auto) Eos # (Auto) Baso # (Auto) PT INR APTT Sodium Potassium Chloride Carbon Dioxide Anion Gap BUN Creatinine Est GFR ( Amer) Est GFR (Non-Af Amer) POC Glucose (mg/dL) 132 H 120 H Random Glucose Calcium Phosphorus Magnesium Total Bilirubin AST ALT Alkaline Phosphatase Total Protein Albumin Globulin Albumin/Globulin Ratio Vancomycin Trough 18.0 H Blood Type Antibody Screen 12/19/17 12/19/17 12/19/17 06:34 06:34 07:28 WBC 15.7 H RBC 2.75 L Hgb 7.5 L Hct 23.4 L MCV 85.0 MCH 27.4 MCHC 32.2 L RDW 25.9 H Plt Count 173 MPV 12.0 H Neut % (Auto) 72.5 Lymph % (Auto) 13.6 L [place] % (Auto) 12.2 H Eos % (Auto) 1.0 Baso % (Auto) 0.7 Neut # (Auto) 11.4 H Lymph # (Auto) 2.1 [place] # (Auto) 1.9 H Eos # (Auto) 0.2 Baso # (Auto) 0.1 PT INR APTT Sodium 143 Potassium 3.5 L Chloride 110 H Carbon Dioxide 25 Anion Gap 11 BUN 16 Creatinine 0.9 Est GFR ( Amer) > 60 Est GFR (Non-Af Amer) > 60 POC Glucose (mg/dL) 106 Random Glucose 91 Calcium 7.5 L Phosphorus 2.7 Magnesium 2.0 Total Bilirubin 3.0 H AST 123 H ALT 51 Alkaline Phosphatase 111 Total Protein 5.8 L Albumin 2.0 L Globulin 3.8 Albumin/Globulin Ratio 0.5 L Vancomycin Trough Blood Type Antibody Screen 12/19/17 12/19/17 12/19/17 08:09 08:09 11:49 WBC RBC Hgb Hct MCV MCH MCHC RDW Plt Count MPV Neut % (Auto) Lymph % (Auto) [place] % (Auto) Eos % (Auto) Baso % (Auto) Neut # (Auto) Lymph # (Auto) [place] # (Auto) Eos # (Auto) Baso # (Auto) PT 23.8 H INR 2.1 APTT 33 Sodium Potassium Chloride Carbon Dioxide Anion Gap BUN Creatinine Est GFR ( Amer) Est GFR (Non-Af Amer) POC Glucose (mg/dL) 111 H Random Glucose Calcium Phosphorus Magnesium Total Bilirubin AST ALT Alkaline Phosphatase Total Protein Albumin Globulin Albumin/Globulin Ratio Vancomycin Trough Blood Type O POSITIVE Antibody Screen Negative Fingerstick Blood Sugar Results: 120 Critical Care Progress Note - Nutrition Nutrition: Nutrition Category Date Time Status Altered GI/Hepatic Diet [DIET] Diets 12/16/17 Breakfast Active Assessment/Plan - Assessment and Plan (Free Text) Assessment: 42yo M admitted for possible SBP, Sepsis, liver cirrhosis with hepatitis c, Pancreatitis, and EtOH withdrawal. Neuro: rifaximin for hepatic encephalopathy. more alert today. Pulm: hemothorax improving radiographically. chest tube output 400 overnight, serosanguinous. Need to improve INR before taking chest tube out. Giving FFP and vit k CV: hemodynamically stable. Hem: hemoptysis resolved. will start on propranolol for portal hypertension with suspected esophageal varices. Renal: hypernatremia, on D5W@75, stopping lactulose. Endo: no acute issues GI: NPO except for meds. Rifaximin for hepatic encephalopathy prophylaxis, equivalent to lactulose, and stopping lactulose for increasing sodium. ID: elevated wbc, uncertain if any source of sepsis, sent off blood cultures, continue clinadmycin and cefepime. ID - Dr. Smith DVT proph - heparin sq GI proph - protonix Code status - full code <Clemente Raza M - Last Filed: 12/21/17 17:41> CCU Objective - Vital Signs / Intake & Output Vital Signs (Last 4 hours): Vital Signs Temp Pulse Resp BP Pulse Ox 12/21/17 17:00 66 12 95 12/21/17 16:45 67 9 L 93/58 L 98 12/21/17 16:00 98.7 F 59 L 17 95 03/08/18 15:44 59 L 12 100/59 L 96 12/21/17 15:00 62 17 98 12/21/17 14:58 62 11 L 108/72 97 12/21/17 14:00 63 13 96 12/21/17 13:45 64 16 94/61 L Intake and Output (Last 8hrs): Intake & Output 12/21/17 12/21/17 12/21/17 06:59 14:59 22:59 Intake Total 730 Output Total 130 Balance 600 Weight 198 lb Intake: Intake, IV Amount 250 Right upper arm 2 250 Oral 480 Output: Chest Tube Drainage 130 Left Mid-Axillary Chest 130 - Medications Active Medications: Active Medications Generic Name Dose Route Start Last Admin Trade Name Freq PRN Reason Stop Dose Admin Albuterol/Ipratropium 3 ml 12/15/17 14:00 12/21/17 13:52 Duoneb 3 Mg/0.5 Mg (3 Ml) Ud INH 3 ml RQ6 ELIJAH Administration Ascorbic Acid 250 mg 12/14/17 14:00 12/21/17 09:28 Vitamin C 250 Mg Tab PO 250 mg DAILY ELIJAH Administration Famotidine 20 mg 12/21/17 18:00 Pepcid PO BID ELIJAH Hydromorphone HCl 0.5 mg 12/21/17 12:03 12/21/17 12:35 Dilaudid IVP 0.5 mg Q6H PRN Administration Pain, severe (8-10) Folic Acid 1 mg/ Sodium 100.2 mls @ 60 mls/hr 12/09/17 10:00 12/21/17 10:43 Chloride IV 60 mls/hr DAILY ELIJAH Administration Cefepime HCl 1 gm in 50 mls @ 100 mls/hr 12/15/17 18:00 12/21/17 09:59 Maxipime Iv 1 Gm Premix IVPB 100 mls/hr Q8H ELIJAH Administration Vancomycin/Sodium Chloride 1 gm in 200 mls @ 166.6 mls/hr 12/17/17 16:00 06/02 16:39 Vancomycin 1 Gm/Ns 200 Ml IVPB 12/22/17 16:01 166.6 mls/hr Q12H ELIJAH Administration Multivitamins/Vitamin C 5 ml 12/14/17 14:00 12/21/17 09:28 Multi-Delyn Liquid PO 5 ml DAILY ELIJAH Administration Phytonadione 5 mg 12/22/17 10:00 Vitamin K Tab PO 12/22/17 10:01 DAILY ELIJAH Propranolol HCl 20 mg 12/09/17 19:30 12/21/17 09:28 Inderal PO 20 mg BID ELIJAH Administration Rifaximin 550 mg 12/17/17 18:00 12/21/17 09:30 Xifaxan PO 550 mg BID ELIJAH Administration Spironolactone 50 mg 12/20/17 11:15 12/21/17 09:59 Aldactone PO 50 mg DAILY ELIJAH Administration Thiamine HCl 100 mg 12/09/17 10:00 12/21/17 09:30 Vitamin B1 Inj IV 100 mg DAILY ELIJAH Administration Zinc Sulfate 220 mg 12/14/17 13:30 12/21/17 09:31 Zinc Sulfate 220 Mg Cap PO 220 mg DAILY ELIJAH Administration - Patient Studies Lab Studies: Microbiology Studies 12/17/17 Unknown Blood Culture - Preliminary Blood-Venous NO GROWTH AFTER 4 DAYS 12/17/17 Unknown Blood Culture - Preliminary Blood-Venous NO GROWTH AFTER 4 DAYS Lab Studies 12/21/17 12/21/17 12/21/17 Range/Units 16:10 11:37 07:26 WBC (4.8-10.8) K/uL RBC (4.40-5.90) Mil/uL Hgb (12.0-18.0) g/dL Hct (35.0-51.0) % MCV (80.0-94.0) fL MCH (27.0-31.0) pg MCHC (33.0-37.0) g/dL RDW (11.5-14.5) % Plt Count (130-400) K/uL MPV (7.2-11.7) fL Neut % (Auto) (50.0-75.0) % Lymph % (Auto) (20.0-40.0) % [place] % (Auto) (0.0-10.0) % Eos % (Auto) (0.0-4.0) % Baso % (Auto) (0.0-2.0) % Neut # (Auto) (1.8-7.0) K/uL Lymph # (Auto) (1.0-4.3) K/uL [place] # (Auto) (0.0-0.8) K/uL Eos # (Auto) (0.0-0.7) K/uL Baso # (Auto) (0.0-0.2) K/uL PT (9.7-12.2) SECONDS INR APTT (21-34) SECONDS Puncture Site pCO2 (35-45) mm/Hg pO2 (80-100) mm/Hg HCO3 (21-28) mmol/L ABG pH (7.35-7.45) ABG Total CO2 (22-28) mmol/L ABG O2 Saturation (95-98) % ABG Base Excess (-2.0-3.0) mmol/L Olegario Test ABG Potassium (3.6-5.2) mmol/L A-a O2 Difference mm/Hg Respiratory Index Sodium (132-148) mmol/l Chloride (98-107) mmol/L Glucose (75-110) mg/dl Lactate (0.7-2.1) mmol/L Liter Flow FiO2 % Potassium (3.6-5.2) mmol/L Carbon Dioxide (22-30) mmol/L Anion Gap (10-20) BUN (9-20) mg/dL Creatinine (0.8-1.5) mg/dL Est GFR ( Amer) Est GFR (Non-Af Amer) POC Glucose (mg/dL) 86 161 H 111 H (65-110) mg/dL Random Glucose (75-110) mg/dL Calcium (8.6-10.4) mg/dl Phosphorus (2.5-4.5) mg/dL Magnesium (1.6-2.3) mg/dL Total Bilirubin (0.2-1.3) mg/dL AST (17-59) U/L ALT (21-72) U/L Alkaline Phosphatase (38-126) U/L Ammonia (9-33) umol/L Total Protein (6.3-8.3) g/dL Albumin (3.5-5.0) g/dL Globulin (2.2-3.9) gm/dL Albumin/Globulin Ratio (1.0-2.1) Arterial Blood Potassium (3.6-5.2) mmol/L Ur L.pneumophila Ag (NEGATIVE) Mycoplasma pneumon IgM (NEGATIVE) 12/21/17 12/21/17 12/21/17 Range/Units 06:32 06:28 06:26 WBC 14.5 H (4.8-10.8) K/uL RBC 3.10 L (4.40-5.90) Mil/uL Hgb 9.0 L (12.0-18.0) g/dL Hct 27.1 L (35.0-51.0) % MCV 87.2 (80.0-94.0) fL MCH 28.9 (27.0-31.0) pg MCHC 33.2 (33.0-37.0) g/dL RDW 24.7 H (11.5-14.5) % Plt Count 150 (130-400) K/uL MPV 12.0 H (7.2-11.7) fL Neut % (Auto) 70.6 (50.0-75.0) % Lymph % (Auto) 12.4 L (20.0-40.0) % [place] % (Auto) 14.9 H (0.0-10.0) % Eos % (Auto) 1.3 (0.0-4.0) % Baso % (Auto) 0.8 (0.0-2.0) % Neut # (Auto) 10.2 H (1.8-7.0) K/uL Lymph # (Auto) 1.8 (1.0-4.3) K/uL [place] # (Auto) 2.2 H (0.0-0.8) K/uL Eos # (Auto) 0.2 (0.0-0.7) K/uL Baso # (Auto) 0.1 (0.0-0.2) K/uL PT 22.9 H (9.7-12.2) SECONDS INR 2.0 APTT 38 H (21-34) SECONDS Puncture Site pCO2 (35-45) mm/Hg pO2 (80-100) mm/Hg HCO3 (21-28) mmol/L ABG pH (7.35-7.45) ABG Total CO2 (22-28) mmol/L ABG O2 Saturation (95-98) % ABG Base Excess (-2.0-3.0) mmol/L Olegario Test ABG Potassium (3.6-5.2) mmol/L A-a O2 Difference mm/Hg Respiratory Index Sodium 139 (132-148) mmol/l Chloride 108 H (98-107) mmol/L Glucose (75-110) mg/dl Lactate (0.7-2.1) mmol/L Liter Flow FiO2 % Potassium 3.8 (3.6-5.2) mmol/L Carbon Dioxide 24 (22-30) mmol/L Anion Gap 11 (10-20) BUN 13 (9-20) mg/dL Creatinine 0.8 (0.8-1.5) mg/dL Est GFR ( Amer) > 60 Est GFR (Non-Af Amer) > 60 POC Glucose (mg/dL) (65-110) mg/dL Random Glucose 96 (75-110) mg/dL Calcium 7.5 L (8.6-10.4) mg/dl Phosphorus 2.6 (2.5-4.5) mg/dL Magnesium 2.1 (1.6-2.3) mg/dL Total Bilirubin 3.5 H (0.2-1.3) mg/dL AST 116 H (17-59) U/L ALT 50 (21-72) U/L Alkaline Phosphatase 138 H (38-126) U/L Ammonia (9-33) umol/L Total Protein 6.3 (6.3-8.3) g/dL Albumin 2.2 L (3.5-5.0) g/dL Globulin 4.1 H (2.2-3.9) gm/dL Albumin/Globulin Ratio 0.5 L (1.0-2.1) Arterial Blood Potassium (3.6-5.2) mmol/L Ur L.pneumophila Ag (NEGATIVE) Mycoplasma pneumon IgM (NEGATIVE) 12/21/17 12/21/17 12/20/17 Range/Units 06:26 04:35 21:14 WBC (4.8-10.8) K/uL RBC (4.40-5.90) Mil/uL Hgb (12.0-18.0) g/dL Hct (35.0-51.0) % MCV (80.0-94.0) fL MCH (27.0-31.0) pg MCHC (33.0-37.0) g/dL RDW (11.5-14.5) % Plt Count (130-400) K/uL MPV (7.2-11.7) fL Neut % (Auto) (50.0-75.0) % Lymph % (Auto) (20.0-40.0) % [place] % (Auto) (0.0-10.0) % Eos % (Auto) (0.0-4.0) % Baso % (Auto) (0.0-2.0) % Neut # (Auto) (1.8-7.0) K/uL Lymph # (Auto) (1.0-4.3) K/uL [place] # (Auto) (0.0-0.8) K/uL Eos # (Auto) (0.0-0.7) K/uL Baso # (Auto) (0.0-0.2) K/uL PT (9.7-12.2) SECONDS INR APTT (21-34) SECONDS Puncture Site Rr pCO2 35 (35-45) mm/Hg pO2 94 (80-100) mm/Hg HCO3 26.0 (21-28) mmol/L ABG pH 7.46 H (7.35-7.45) ABG Total CO2 26.0 (22-28) mmol/L ABG O2 Saturation 99.5 H (95-98) % ABG Base Excess 1.4 (-2.0-3.0) mmol/L Olegario Test Pos ABG Potassium 3.6 (3.6-5.2) mmol/L A-a O2 Difference 90.0 mm/Hg Respiratory Index 1.0 Sodium 139.0 (132-148) mmol/l Chloride 110.0 H (98-107) mmol/L Glucose 108 (75-110) mg/dl Lactate 1.1 (0.7-2.1) mmol/L Liter Flow 3.0 FiO2 32.0 % Potassium (3.6-5.2) mmol/L Carbon Dioxide (22-30) mmol/L Anion Gap (10-20) BUN (9-20) mg/dL Creatinine (0.8-1.5) mg/dL Est GFR ( Amer) Est GFR (Non-Af Amer) POC Glucose (mg/dL) 108 (65-110) mg/dL Random Glucose (75-110) mg/dL Calcium (8.6-10.4) mg/dl Phosphorus (2.5-4.5) mg/dL Magnesium (1.6-2.3) mg/dL Total Bilirubin (0.2-1.3) mg/dL AST (17-59) U/L ALT (21-72) U/L Alkaline Phosphatase (38-126) U/L Ammonia 76 H D (9-33) umol/L Total Protein (6.3-8.3) g/dL Albumin (3.5-5.0) g/dL Globulin (2.2-3.9) gm/dL Albumin/Globulin Ratio (1.0-2.1) Arterial Blood Potassium 3.6 (3.6-5.2) mmol/L Ur L.pneumophila Ag (NEGATIVE) Mycoplasma pneumon IgM (NEGATIVE) 12/18/17 Range/Units 08:30 WBC (4.8-10.8) K/uL RBC (4.40-5.90) Mil/uL Hgb (12.0-18.0) g/dL Hct (35.0-51.0) % MCV (80.0-94.0) fL MCH (27.0-31.0) pg MCHC (33.0-37.0) g/dL RDW (11.5-14.5) % Plt Count (130-400) K/uL MPV (7.2-11.7) fL Neut % (Auto) (50.0-75.0) % Lymph % (Auto) (20.0-40.0) % [place] % (Auto) (0.0-10.0) % Eos % (Auto) (0.0-4.0) % Baso % (Auto) (0.0-2.0) % Neut # (Auto) (1.8-7.0) K/uL Lymph # (Auto) (1.0-4.3) K/uL [place] # (Auto) (0.0-0.8) K/uL Eos # (Auto) (0.0-0.7) K/uL Baso # (Auto) (0.0-0.2) K/uL PT (9.7-12.2) SECONDS INR APTT (21-34) SECONDS Puncture Site pCO2 (35-45) mm/Hg pO2 (80-100) mm/Hg HCO3 (21-28) mmol/L ABG pH (7.35-7.45) ABG Total CO2 (22-28) mmol/L ABG O2 Saturation (95-98) % ABG Base Excess (-2.0-3.0) mmol/L Olegario Test ABG Potassium (3.6-5.2) mmol/L A-a O2 Difference mm/Hg Respiratory Index Sodium (132-148) mmol/l Chloride (98-107) mmol/L Glucose (75-110) mg/dl Lactate (0.7-2.1) mmol/L Liter Flow FiO2 % Potassium (3.6-5.2) mmol/L Carbon Dioxide (22-30) mmol/L Anion Gap (10-20) BUN (9-20) mg/dL Creatinine (0.8-1.5) mg/dL Est GFR ( Amer) Est GFR (Non-Af Amer) POC Glucose (mg/dL) (65-110) mg/dL Random Glucose (75-110) mg/dL Calcium (8.6-10.4) mg/dl Phosphorus (2.5-4.5) mg/dL Magnesium (1.6-2.3) mg/dL Total Bilirubin (0.2-1.3) mg/dL AST (17-59) U/L ALT (21-72) U/L Alkaline Phosphatase (38-126) U/L Ammonia (9-33) umol/L Total Protein (6.3-8.3) g/dL Albumin (3.5-5.0) g/dL Globulin (2.2-3.9) gm/dL Albumin/Globulin Ratio (1.0-2.1) Arterial Blood Potassium (3.6-5.2) mmol/L Ur L.pneumophila Ag Negative (NEGATIVE) Mycoplasma pneumon IgM Negative (NEGATIVE) Laboratory Results - last 24 hr 12/18/17 12/20/17 12/21/17 08:30 21:14 04:35 WBC RBC Hgb Hct MCV MCH MCHC RDW Plt Count MPV Neut % (Auto) Lymph % (Auto) [place] % (Auto) Eos % (Auto) Baso % (Auto) Neut # (Auto) Lymph # (Auto) [place] # (Auto) Eos # (Auto) Baso # (Auto) PT INR APTT Puncture Site Rr pCO2 35 pO2 94 HCO3 26.0 ABG pH 7.46 H ABG Total CO2 26.0 ABG O2 Saturation 99.5 H ABG Base Excess 1.4 Olegario Test Pos ABG Potassium 3.6 A-a O2 Difference 90.0 Respiratory Index 1.0 Sodium 139.0 Chloride 110.0 H Glucose 108 Lactate 1.1 Liter Flow 3.0 FiO2 32.0 Potassium Carbon Dioxide Anion Gap BUN Creatinine Est GFR ( Amer) Est GFR (Non-Af Amer) POC Glucose (mg/dL) 108 Random Glucose Calcium Phosphorus Magnesium Total Bilirubin AST ALT Alkaline Phosphatase Ammonia Total Protein Albumin Globulin Albumin/Globulin Ratio Arterial Blood Potassium 3.6 Ur L.pneumophila Ag Negative Mycoplasma pneumon IgM Negative 12/21/17 12/21/17 12/21/17 06:26 06:26 06:28 WBC 14.5 H RBC 3.10 L Hgb 9.0 L Hct 27.1 L MCV 87.2 MCH 28.9 MCHC 33.2 RDW 24.7 H Plt Count 150 MPV 12.0 H Neut % (Auto) 70.6 Lymph % (Auto) 12.4 L [place] % (Auto) 14.9 H Eos % (Auto) 1.3 Baso % (Auto) 0.8 Neut # (Auto) 10.2 H Lymph # (Auto) 1.8 [place] # (Auto) 2.2 H Eos # (Auto) 0.2 Baso # (Auto) 0.1 PT INR APTT Puncture Site pCO2 pO2 HCO3 ABG pH ABG Total CO2 ABG O2 Saturation ABG Base Excess Olegario Test ABG Potassium A-a O2 Difference Respiratory Index Sodium 139 Chloride 108 H Glucose Lactate Liter Flow FiO2 Potassium 3.8 Carbon Dioxide 24 Anion Gap 11 BUN 13 Creatinine 0.8 Est GFR ( Amer) > 60 Est GFR (Non-Af Amer) > 60 POC Glucose (mg/dL) Random Glucose 96 Calcium 7.5 L Phosphorus 2.6 Magnesium 2.1 Total Bilirubin 3.5 H AST 116 H ALT 50 Alkaline Phosphatase 138 H Ammonia 76 H D Total Protein 6.3 Albumin 2.2 L Globulin 4.1 H Albumin/Globulin Ratio 0.5 L Arterial Blood Potassium Ur L.pneumophila Ag Mycoplasma pneumon IgM 12/21/17 12/21/17 12/21/17 06:32 07:26 11:37 WBC RBC Hgb Hct MCV MCH MCHC RDW Plt Count MPV Neut % (Auto) Lymph % (Auto) [place] % (Auto) Eos % (Auto) Baso % (Auto) Neut # (Auto) Lymph # (Auto) [place] # (Auto) Eos # (Auto) Baso # (Auto) PT 22.9 H INR 2.0 APTT 38 H Puncture Site pCO2 pO2 HCO3 ABG pH ABG Total CO2 ABG O2 Saturation ABG Base Excess Olegario Test ABG Potassium A-a O2 Difference Respiratory Index Sodium Chloride Glucose Lactate Liter Flow FiO2 Potassium Carbon Dioxide Anion Gap BUN Creatinine Est GFR ( Amer) Est GFR (Non-Af Amer) POC Glucose (mg/dL) 111 H 161 H Random Glucose Calcium Phosphorus Magnesium Total Bilirubin AST ALT Alkaline Phosphatase Ammonia Total Protein Albumin Globulin Albumin/Globulin Ratio Arterial Blood Potassium Ur L.pneumophila Ag Mycoplasma pneumon IgM 12/21/17 16:10 WBC RBC Hgb Hct MCV MCH MCHC RDW Plt Count MPV Neut % (Auto) Lymph % (Auto) [place] % (Auto) Eos % (Auto) Baso % (Auto) Neut # (Auto) Lymph # (Auto) [place] # (Auto) Eos # (Auto) Baso # (Auto) PT INR APTT Puncture Site pCO2 pO2 HCO3 ABG pH ABG Total CO2 ABG O2 Saturation ABG Base Excess Olegario Test ABG Potassium A-a O2 Difference Respiratory Index Sodium Chloride Glucose Lactate Liter Flow FiO2 Potassium Carbon Dioxide Anion Gap BUN Creatinine Est GFR ( Amer) Est GFR (Non-Af Amer) POC Glucose (mg/dL) 86 Random Glucose Calcium Phosphorus Magnesium Total Bilirubin AST ALT Alkaline Phosphatase Ammonia Total Protein Albumin Globulin Albumin/Globulin Ratio Arterial Blood Potassium Ur L.pneumophila Ag Mycoplasma pneumon IgM Critical Care Progress Note - Nutrition Nutrition: Nutrition Category Date Time Status Altered GI/Hepatic Diet [DIET] Diets 12/16/17 Breakfast Active Assessment/Plan - Assessment and Plan (Free Text) Plan: Above resident note reviewed and verified. -Patient tolerating chest tube -replace clotting factors when procedure anticipated. -Chronic liver failure -Sepsis -Pleural effusion -Patient remains hemodynamically stable. - Date & Time Date: 12/19/17 Time: 14:00
[2017-12-19] MEDS ORDERED: DiphenhydrAMINE 50 mg/ml Inj IM PRN (14:07)
--- NOTE | 2017-12-19 14:11 | PCM.PYCHPN ---
Psychiatric Progress Note - Psychiatric Progress Note Patient seen today, length of contact: 15 min Patient Chief Complaint: okay Problems Identified/Issues Discussed: Patient seen and evaluated, chart reviewed and discussed with the nurse. Patient remained disorganized and internally preoccupied. Patient still appears paranoid, delirious and delusional. He still has soft gloves on his hands and remained disoriented to time, place and person. Patient is compliant with medications. Medication Change: Yes (start haldol, start benadryl) Medical Record Reviewed: Yes Mental Status Examination - Cognitive Function Memory: Impaired Attention: Poor Concentration: Poor Association: Loose Fund of Knowledge: Poor - Mood Mood: Anxious - Affect Affect: Broad, Other (confused) - Formal Thought Process Formal Thought Process: Delusions, Paranoia, Loosening of associations - Suicidal Ideation Suicidal Ideation: No - Homicidal Ideation Homicidal Ideation: No Goal/Treatment Plan - Goal/Treatment Plan Need for Continued Stay: Discharge may exacerbated symptoms, Severe functional impairment Progress Toward Problem(s) and Goals/Treatment Plan: Alcohol use disorder severe Alcohol induced psychosis, and delirium during withdrawal Haldol 5 mg IM q6hr prn agitation Benadryl 25 mg IM Q6 hr prn Haldol 5 mg PO BID Benadryl 25 mg PO BID - Smoking Cessation Smoking Cessation Initiated: No
[2017-12-19] MEDS ORDERED: Albumin Human 25% (12.5 gm/50 ml) IV ONE (15:32)
--- NOTE | 2017-12-19 16:11 | PCM.PROC ---
Procedures Attestation:: I certify that I have explained the specified Operation(s) or Procedure(s), risks, benefits and reasonable alternatives to the Patient and/or other person responsible. The opportunity was given to ask questions and all questions answered - Paracentesis Consent Obtained: verbal consent, written consent Time Out Performed: Yes Indication: Ascites Procedure: therapeutic paracentesis Location: RLQ Local Anesthetic Used: lidocaine 1%
[2017-12-19 16:32] LABS: BODY FLUID TYPE PERITONEAL
[2017-12-19 17:39] LABS: BF GROSS APPEARANCE CLEAR (CLEAR)
[2017-12-19 18:06] LABS: BASO # 0.1 K/uL (0.0-0.2); BASO % 0.7 % (0.0-2.0); EOS # 0.1 K/uL (0.0-0.7); EOS % 0.7 % (0.0-4.0); HEMOGLOBIN 7.5 g/dL (12.0-18.0); LYMPH % 12.8 % (20.0-40.0); MEAN CELL VOLUME 84.7 fL (80.0-94.0); MEAN CORPUSCULAR HEMOGLOBIN 27.2 pg (27.0-31.0); MEAN CORPUSCULAR HGB CONC 32.1 g/dL (33.0-37.0); MONO # 1.6 K/uL (0.0-0.8); MONO % 10.4 % (0.0-10.0); NEUT # 11.8 K/uL (1.8-7.0); NEUT % 75.4 % (50.0-75.0); RBC 2.77 Mil/uL (4.40-5.90); RED CELL DISTRIBUTION WIDTH 26.6 % (11.5-14.5); WHITE BLOOD COUNT 15.7 K/uL (4.8-10.8)
[2017-12-19 18:13] LABS: INR 1.8; PROTHROMBIN TIME 20.5 SECONDS (9.7-12.2)
[2017-12-19 19:14] LABS: BODY FLUID MONO/MACROPHAGE 6 % (0-0)
[2017-12-20] MEDS: Albuterol-Ipratrop 3 mg / 0.5 (3 ml) UD INH SCH ×4 (01:05→19:47)
[2017-12-20] MEDS: Cefepime IV 1 gm in Dextrose 1 GM/50 ML BAG IVPB SCH ×3 (01:12→17:42)
[2017-12-20] MEDS: Vancomycin 1 gm/NS 200 ml 1 GM/200 ML BAG IVPB SCH ×2 (03:16→17:35)
[2017-12-20 06:25] LABS: BASO # 0.1 K/uL (0.0-0.2); BASO % 0.7 % (0.0-2.0); EOS # 0.1 K/uL (0.0-0.7); EOS % 0.9 % (0.0-4.0); HEMOGLOBIN 7.3 g/dL (12.0-18.0); LYMPH % 13.5 % (20.0-40.0); MEAN CELL VOLUME 85.3 fL (80.0-94.0); MEAN CORPUSCULAR HEMOGLOBIN 27.6 pg (27.0-31.0); MEAN CORPUSCULAR HGB CONC 32.4 g/dL (33.0-37.0); MEAN PLATELET VOLUME 11.3 fL (7.2-11.7); MONO % 13.5 % (0.0-10.0); NEUT # 10.5 K/uL (1.8-7.0); NEUT % 71.4 % (50.0-75.0); NRBC % 0.1 % (0.0-2.0); RBC 2.63 Mil/uL (4.40-5.90); RED CELL DISTRIBUTION WIDTH 27.2 % (11.5-14.5); WHITE BLOOD COUNT 14.7 K/uL (4.8-10.8)
--- NOTE | 2017-12-20 06:26 | PN ---
DATE: 12/19/2017. SUBJECTIVE: Patient back in ICU care, chest tube in place, large amount of serosanguineous fluid is draining. Continue treatment, supportive care. Brendon Bernabe MD
[2017-12-20 06:35] LABS: ALB/GLOB RATIO 0.6 (1.0-2.1); ALBUMIN 2.2 g/dL (3.5-5.0); ALT/SGPT 50 U/L (21-72); AST/SGOT 112 U/L (17-59); BLOOD UREA NITROGEN 14 mg/dL (9-20); CALCIUM 7.3 mg/dl (8.6-10.4); GFR AFRICAN-AMERICAN > 60; GFR NON-AFRICAN AMERICAN > 60
[2017-12-20 06:36] LABS: INR 1.9; PROTHROMBIN TIME 22.2 SECONDS (9.7-12.2)
[2017-12-20] MEDS: Multiple Vitamins Oral Solution PO SCH (09:37)
[2017-12-20] MEDS: Thiamine 100 mg/ml Inj IV SCH (09:38)
[2017-12-20] MEDS: Phytonadione 2.5 MG/0.5 TAB TAB PO SCH (10:02)
--- NOTE | 2017-12-20 11:02 | CP.CCUPN ---
<Ray Trevino - Last Filed: 12/20/17 10:56> CCU Subjective - Physician Review Subjective (Free Text): 12/13/17 19:04 Patient seen and examined at bedside Patient was very lethargic, diaphoretic Had a large hematoma on his R. Flank Given history of liver disease and coagulopathy, decision was made to transfer the patient back to ICU 12/14/17 13:21 Patient seen and examined at bedside patient sedated will back off sedation to evaluate mental status 12/19/17 13:11 Patient had 400 output overnight from chest tube Gave 3 FFP and vitamin K. Patient more awake and tolerating diet 12/19/17 16:16 paracentesis 2.5L out 12/20/17 10:56 INR decreased to 1.9 yesterday with 3u FFP 90 out overnight of chest tube, serosang Transfuse 2 units PRBC today patient more lethargic today, will check abg and ammonia lvl CCU Objective - Vital Signs / Intake & Output Vital Signs (Last 4 hours): Vital Signs Temp Pulse Resp BP Pulse Ox 12/20/17 10:11 61 14 94/53 L 100 12/20/17 10:00 61 12 100 12/20/17 09:53 98.9 F 61 15 88/53 L 12/20/17 09:41 62 12 88/53 L 99 12/20/17 09:38 98.7 F 70 16 88/51 L 12/20/17 09:26 64 17 82/51 L 100 12/20/17 09:23 98.8 F 63 16 90/56 L 12/20/17 09:00 72 19 97 12/20/17 08:55 65 12 90/56 L 12/20/17 08:47 60 14 90/60 L 100 12/20/17 08:00 98.6 F 61 14 99 12/20/17 07:47 62 15 98/60 L 100 12/20/17 07:00 59 L 18 99 Intake and Output (Last 8hrs): Intake & Output 12/19/17 12/20/17 12/20/17 22:59 06:59 14:59 Intake Total 100 490 300 Output Total 91 Balance 100 399 300 Weight 197 lb Intake: Intake, IV Amount 250 Right upper arm 2 250 Oral 100 240 300 Blood Product 0 Apheresis Rbc Cp2d As3 Lr 0 1st Unit [id number] Output: Chest Tube Drainage 90 Left Mid-Axillary Chest 90 Urine/Stool Mix 1 - Physical Exam Head: Positive for: Atraumatic, Normocephalic Pupils: Positive for: PERRL Extroacular Muscles: Positive for: EOMI Conjunctiva: Positive for: Icteric Mouth: Positive for: Moist Mucous Membranes Respiratory/Chest: Positive for: Clear to Auscultation, Good Air Exchange Abdomen: Positive for: Distention. Negative for: Tenderness, Normal Bowel Sounds Psychiatric: Positive for: Alert - Medications Active Medications: Active Medications Generic Name Dose Route Start Last Admin Trade Name Freq PRN Reason Stop Dose Admin Albuterol/Ipratropium 3 ml 12/15/17 14:00 12/20/17 07:50 Duoneb 3 Mg/0.5 Mg (3 Ml) Ud INH 3 ml RQ6 ELIJAH Administration Ascorbic Acid 250 mg 12/14/17 14:00 12/20/17 09:36 Vitamin C 250 Mg Tab PO 250 mg DAILY ELIJAH Administration Diphenhydramine HCl 25 mg 12/19/17 14:07 Benadryl IM Q6 PRN Severe agitation Diphenhydramine HCl 25 mg 12/19/17 14:15 12/20/17 09:35 Benadryl PO Not Given BID ELIJAH Famotidine 20 mg 12/13/17 10:30 12/20/17 09:37 Pepcid IVP 20 mg Q12 ELIJAH Administration Haloperidol 5 mg 12/19/17 14:15 12/20/17 09:36 Haldol PO Not Given BID ELIJAH Haloperidol Lactate 5 mg 12/19/17 14:07 Haldol IM Q6 PRN Agitation Folic Acid 1 mg/ Sodium 100.2 mls @ 60 mls/hr 12/09/17 10:00 12/20/17 10:46 Chloride IV 60 mls/hr DAILY ELIJAH Administration Cefepime HCl 1 gm in 50 mls @ 100 mls/hr 12/15/17 18:00 12/20/17 01:12 Maxipime Iv 1 Gm Premix IVPB 100 mls/hr Q8H ELIJAH Administration Vancomycin/Sodium Chloride 1 gm in 200 mls @ 166.6 mls/hr 12/17/17 16:00 05/02 03:16 Vancomycin 1 Gm/Ns 200 Ml IVPB 12/22/17 16:01 166.6 mls/hr Q12H ELIJAH Administration Multivitamins/Vitamin C 5 ml 12/14/17 14:00 12/20/17 09:37 Multi-Delyn Liquid PO 5 ml DAILY ELIJAH Administration Phytonadione 5 mg 12/18/17 10:00 12/20/17 10:02 Vitamin K Tab PO 12/22/17 10:01 5 mg DAILY ELIJAH Administration Propranolol HCl 20 mg 12/09/17 19:30 12/20/17 09:37 Inderal PO Not Given BID ELIJAH Rifaximin 550 mg 12/17/17 18:00 12/20/17 09:36 Xifaxan PO 550 mg BID ELIJAH Administration Thiamine HCl 100 mg 12/09/17 10:00 12/20/17 09:38 Vitamin B1 Inj IV 100 mg DAILY ELIJAH Administration Zinc Sulfate 220 mg 12/14/17 13:30 12/20/17 09:37 Zinc Sulfate 220 Mg Cap PO 220 mg DAILY ELIJAH Administration - Patient Studies Lab Studies: Microbiology Studies 12/17/17 Unknown Blood Culture - Preliminary Blood-Venous NO GROWTH AFTER 48 HOURS 12/17/17 Unknown Blood Culture - Preliminary Blood-Venous NO GROWTH AFTER 48 HOURS 12/16/17 18:00 Stool Culture - Final Stool NO SALMONELLA, SHIGELLA OR CAMPYLOBACTER ISOLATED. Lab Studies 12/20/17 12/20/17 12/20/17 Range/Units 08:26 06:19 06:19 WBC 14.7 H (4.8-10.8) K/uL RBC 2.63 L (4.40-5.90) Mil/uL Hgb 7.3 L (12.0-18.0) g/dL Hct 22.4 L (35.0-51.0) % MCV 85.3 (80.0-94.0) fL MCH 27.6 (27.0-31.0) pg MCHC 32.4 L (33.0-37.0) g/dL RDW 27.2 H (11.5-14.5) % Plt Count 162 (130-400) K/uL MPV 11.3 (7.2-11.7) fL Neut % (Auto) 71.4 (50.0-75.0) % Lymph % (Auto) 13.5 L (20.0-40.0) % [place] % (Auto) 13.5 H (0.0-10.0) % Eos % (Auto) 0.9 (0.0-4.0) % Baso % (Auto) 0.7 (0.0-2.0) % Neut # (Auto) 10.5 H (1.8-7.0) K/uL Lymph # (Auto) 2.0 (1.0-4.3) K/uL [place] # (Auto) 2.0 H (0.0-0.8) K/uL Eos # (Auto) 0.1 (0.0-0.7) K/uL Baso # (Auto) 0.1 (0.0-0.2) K/uL PT 22.2 H (9.7-12.2) SECONDS INR 1.9 APTT 36 H (21-34) SECONDS Sodium (132-148) mmol/L Potassium (3.6-5.2) mmol/L Chloride (98-107) mmol/L Carbon Dioxide (22-30) mmol/L Anion Gap (10-20) BUN (9-20) mg/dL Creatinine (0.8-1.5) mg/dL Est GFR ( Amer) Est GFR (Non-Af Amer) POC Glucose (mg/dL) 104 (65-110) mg/dL Random Glucose (75-110) mg/dL Calcium (8.6-10.4) mg/dl Phosphorus (2.5-4.5) mg/dL Magnesium (1.6-2.3) mg/dL Total Bilirubin (0.2-1.3) mg/dL AST (17-59) U/L ALT (21-72) U/L Alkaline Phosphatase (38-126) U/L Total Protein (6.3-8.3) g/dL Albumin (3.5-5.0) g/dL Globulin (2.2-3.9) gm/dL Albumin/Globulin Ratio (1.0-2.1) Fluid Source Fluid Appearance (CLEAR) Fluid WBC (0.0-300.0) /mm3 Fluid RBC (0.0-0.0) /mm3 Fluid Tot Cell Count Fluid Neutrophils (0-0) % Fluid Lymphocytes (0-0) % Fld Monocyte/Macrophag (0-0) % Fluid Comment Blood Type Antibody Screen 12/20/17 12/19/17 12/19/17 Range/Units 06:17 21:18 18:01 WBC (4.8-10.8) K/uL RBC (4.40-5.90) Mil/uL Hgb (12.0-18.0) g/dL Hct (35.0-51.0) % MCV (80.0-94.0) fL MCH (27.0-31.0) pg MCHC (33.0-37.0) g/dL RDW (11.5-14.5) % Plt Count (130-400) K/uL MPV (7.2-11.7) fL Neut % (Auto) (50.0-75.0) % Lymph % (Auto) (20.0-40.0) % [place] % (Auto) (0.0-10.0) % Eos % (Auto) (0.0-4.0) % Baso % (Auto) (0.0-2.0) % Neut # (Auto) (1.8-7.0) K/uL Lymph # (Auto) (1.0-4.3) K/uL [place] # (Auto) (0.0-0.8) K/uL Eos # (Auto) (0.0-0.7) K/uL Baso # (Auto) (0.0-0.2) K/uL PT 20.5 H (9.7-12.2) SECONDS INR 1.8 APTT 33 (21-34) SECONDS Sodium 142 (132-148) mmol/L Potassium 3.7 (3.6-5.2) mmol/L Chloride 109 H (98-107) mmol/L Carbon Dioxide 26 (22-30) mmol/L Anion Gap 10 (10-20) BUN 14 (9-20) mg/dL Creatinine 0.9 (0.8-1.5) mg/dL Est GFR ( Amer) > 60 Est GFR (Non-Af Amer) > 60 POC Glucose (mg/dL) 101 (65-110) mg/dL Random Glucose 86 (75-110) mg/dL Calcium 7.3 L (8.6-10.4) mg/dl Phosphorus 2.8 (2.5-4.5) mg/dL Magnesium 2.0 (1.6-2.3) mg/dL Total Bilirubin 3.5 H (0.2-1.3) mg/dL AST 112 H (17-59) U/L ALT 50 (21-72) U/L Alkaline Phosphatase 124 (38-126) U/L Total Protein 6.0 L (6.3-8.3) g/dL Albumin 2.2 L (3.5-5.0) g/dL Globulin 3.8 (2.2-3.9) gm/dL Albumin/Globulin Ratio 0.6 L (1.0-2.1) Fluid Source Fluid Appearance (CLEAR) Fluid WBC (0.0-300.0) /mm3 Fluid RBC (0.0-0.0) /mm3 Fluid Tot Cell Count Fluid Neutrophils (0-0) % Fluid Lymphocytes (0-0) % Fld Monocyte/Macrophag (0-0) % Fluid Comment Blood Type Antibody Screen 12/19/17 12/19/17 12/19/17 Range/Units 18:01 16:30 16:08 WBC 15.7 H (4.8-10.8) K/uL RBC 2.77 L (4.40-5.90) Mil/uL Hgb 7.5 L (12.0-18.0) g/dL Hct 23.5 L (35.0-51.0) % MCV 84.7 (80.0-94.0) fL MCH 27.2 (27.0-31.0) pg MCHC 32.1 L (33.0-37.0) g/dL RDW 26.6 H (11.5-14.5) % Plt Count 185 (130-400) K/uL MPV 11.0 (7.2-11.7) fL Neut % (Auto) 75.4 H (50.0-75.0) % Lymph % (Auto) 12.8 L (20.0-40.0) % [place] % (Auto) 10.4 H (0.0-10.0) % Eos % (Auto) 0.7 (0.0-4.0) % Baso % (Auto) 0.7 (0.0-2.0) % Neut # (Auto) 11.8 H (1.8-7.0) K/uL Lymph # (Auto) 2.0 (1.0-4.3) K/uL [place] # (Auto) 1.6 H (0.0-0.8) K/uL Eos # (Auto) 0.1 (0.0-0.7) K/uL Baso # (Auto) 0.1 (0.0-0.2) K/uL PT (9.7-12.2) SECONDS INR APTT (21-34) SECONDS Sodium (132-148) mmol/L Potassium (3.6-5.2) mmol/L Chloride (98-107) mmol/L Carbon Dioxide (22-30) mmol/L Anion Gap (10-20) BUN (9-20) mg/dL Creatinine (0.8-1.5) mg/dL Est GFR ( Amer) Est GFR (Non-Af Amer) POC Glucose (mg/dL) 126 H (65-110) mg/dL Random Glucose (75-110) mg/dL Calcium (8.6-10.4) mg/dl Phosphorus (2.5-4.5) mg/dL Magnesium (1.6-2.3) mg/dL Total Bilirubin (0.2-1.3) mg/dL AST (17-59) U/L ALT (21-72) U/L Alkaline Phosphatase (38-126) U/L Total Protein (6.3-8.3) g/dL Albumin (3.5-5.0) g/dL Globulin (2.2-3.9) gm/dL Albumin/Globulin Ratio (1.0-2.1) Fluid Source Peritoneal Fluid Appearance Clear (CLEAR) Fluid WBC 42.0 (0.0-300.0) /mm3 Fluid RBC 75.0 H (0.0-0.0) /mm3 Fluid Tot Cell Count TEST NOT PERFORMED Fluid Neutrophils 87.0 H (0-0) % Fluid Lymphocytes 9.0 H (0-0) % Fld Monocyte/Macrophag 6 H (0-0) % Fluid Comment Blood Type Antibody Screen 12/19/17 12/19/17 Range/Units 11:49 08:09 WBC (4.8-10.8) K/uL RBC (4.40-5.90) Mil/uL Hgb (12.0-18.0) g/dL Hct (35.0-51.0) % MCV (80.0-94.0) fL MCH (27.0-31.0) pg MCHC (33.0-37.0) g/dL RDW (11.5-14.5) % Plt Count (130-400) K/uL MPV (7.2-11.7) fL Neut % (Auto) (50.0-75.0) % Lymph % (Auto) (20.0-40.0) % [place] % (Auto) (0.0-10.0) % Eos % (Auto) (0.0-4.0) % Baso % (Auto) (0.0-2.0) % Neut # (Auto) (1.8-7.0) K/uL Lymph # (Auto) (1.0-4.3) K/uL [place] # (Auto) (0.0-0.8) K/uL Eos # (Auto) (0.0-0.7) K/uL Baso # (Auto) (0.0-0.2) K/uL PT (9.7-12.2) SECONDS INR APTT (21-34) SECONDS Sodium (132-148) mmol/L Potassium (3.6-5.2) mmol/L Chloride (98-107) mmol/L Carbon Dioxide (22-30) mmol/L Anion Gap (10-20) BUN (9-20) mg/dL Creatinine (0.8-1.5) mg/dL Est GFR ( Amer) Est GFR (Non-Af Amer) POC Glucose (mg/dL) 111 H (65-110) mg/dL Random Glucose (75-110) mg/dL Calcium (8.6-10.4) mg/dl Phosphorus (2.5-4.5) mg/dL Magnesium (1.6-2.3) mg/dL Total Bilirubin (0.2-1.3) mg/dL AST (17-59) U/L ALT (21-72) U/L Alkaline Phosphatase (38-126) U/L Total Protein (6.3-8.3) g/dL Albumin (3.5-5.0) g/dL Globulin (2.2-3.9) gm/dL Albumin/Globulin Ratio (1.0-2.1) Fluid Source Fluid Appearance (CLEAR) Fluid WBC (0.0-300.0) /mm3 Fluid RBC (0.0-0.0) /mm3 Fluid Tot Cell Count Fluid Neutrophils (0-0) % Fluid Lymphocytes (0-0) % Fld Monocyte/Macrophag (0-0) % Fluid Comment Blood Type O POSITIVE Antibody Screen Negative Laboratory Results - last 24 hr 12/19/17 12/19/17 12/19/17 08:09 11:49 16:08 WBC RBC Hgb Hct MCV MCH MCHC RDW Plt Count MPV Neut % (Auto) Lymph % (Auto) [place] % (Auto) Eos % (Auto) Baso % (Auto) Neut # (Auto) Lymph # (Auto) [place] # (Auto) Eos # (Auto) Baso # (Auto) PT INR APTT Sodium Potassium Chloride Carbon Dioxide Anion Gap BUN Creatinine Est GFR ( Amer) Est GFR (Non-Af Amer) POC Glucose (mg/dL) 111 H 126 H Random Glucose Calcium Phosphorus Magnesium Total Bilirubin AST ALT Alkaline Phosphatase Total Protein Albumin Globulin Albumin/Globulin Ratio Fluid Source Fluid Appearance Fluid WBC Fluid RBC Fluid Tot Cell Count Fluid Neutrophils Fluid Lymphocytes Fld Monocyte/Macrophag Fluid Comment Blood Type O POSITIVE Antibody Screen Negative 12/19/17 12/19/17 12/19/17 16:30 18:01 18:01 WBC 15.7 H RBC 2.77 L Hgb 7.5 L Hct 23.5 L MCV 84.7 MCH 27.2 MCHC 32.1 L RDW 26.6 H Plt Count 185 MPV 11.0 Neut % (Auto) 75.4 H Lymph % (Auto) 12.8 L [place] % (Auto) 10.4 H Eos % (Auto) 0.7 Baso % (Auto) 0.7 Neut # (Auto) 11.8 H Lymph # (Auto) 2.0 [place] # (Auto) 1.6 H Eos # (Auto) 0.1 Baso # (Auto) 0.1 PT 20.5 H INR 1.8 APTT 33 Sodium Potassium Chloride Carbon Dioxide Anion Gap BUN Creatinine Est GFR ( Amer) Est GFR (Non-Af Amer) POC Glucose (mg/dL) Random Glucose Calcium Phosphorus Magnesium Total Bilirubin AST ALT Alkaline Phosphatase Total Protein Albumin Globulin Albumin/Globulin Ratio Fluid Source Peritoneal Fluid Appearance Clear Fluid WBC 42.0 Fluid RBC 75.0 H Fluid Tot Cell Count TEST NOT PERFORMED Fluid Neutrophils 87.0 H Fluid Lymphocytes 9.0 H Fld Monocyte/Macrophag 6 H Fluid Comment Blood Type Antibody Screen 12/19/17 12/20/17 12/20/17 21:18 06:17 06:19 WBC 14.7 H RBC 2.63 L Hgb 7.3 L Hct 22.4 L MCV 85.3 MCH 27.6 MCHC 32.4 L RDW 27.2 H Plt Count 162 MPV 11.3 Neut % (Auto) 71.4 Lymph % (Auto) 13.5 L [place] % (Auto) 13.5 H Eos % (Auto) 0.9 Baso % (Auto) 0.7 Neut # (Auto) 10.5 H Lymph # (Auto) 2.0 [place] # (Auto) 2.0 H Eos # (Auto) 0.1 Baso # (Auto) 0.1 PT INR APTT Sodium 142 Potassium 3.7 Chloride 109 H Carbon Dioxide 26 Anion Gap 10 BUN 14 Creatinine 0.9 Est GFR ( Amer) > 60 Est GFR (Non-Af Amer) > 60 POC Glucose (mg/dL) 101 Random Glucose 86 Calcium 7.3 L Phosphorus 2.8 Magnesium 2.0 Total Bilirubin 3.5 H AST 112 H ALT 50 Alkaline Phosphatase 124 Total Protein 6.0 L Albumin 2.2 L Globulin 3.8 Albumin/Globulin Ratio 0.6 L Fluid Source Fluid Appearance Fluid WBC Fluid RBC Fluid Tot Cell Count Fluid Neutrophils Fluid Lymphocytes Fld Monocyte/Macrophag Fluid Comment Blood Type Antibody Screen 12/20/17 12/20/17 06:19 08:26 WBC RBC Hgb Hct MCV MCH MCHC RDW Plt Count MPV Neut % (Auto) Lymph % (Auto) [place] % (Auto) Eos % (Auto) Baso % (Auto) Neut # (Auto) Lymph # (Auto) [place] # (Auto) Eos # (Auto) Baso # (Auto) PT 22.2 H INR 1.9 APTT 36 H Sodium Potassium Chloride Carbon Dioxide Anion Gap BUN Creatinine Est GFR ( Amer) Est GFR (Non-Af Amer) POC Glucose (mg/dL) 104 Random Glucose Calcium Phosphorus Magnesium Total Bilirubin AST ALT Alkaline Phosphatase Total Protein Albumin Globulin Albumin/Globulin Ratio Fluid Source Fluid Appearance Fluid WBC Fluid RBC Fluid Tot Cell Count Fluid Neutrophils Fluid Lymphocytes Fld Monocyte/Macrophag Fluid Comment Blood Type Antibody Screen Fingerstick Blood Sugar Results: 101 Critical Care Progress Note - Nutrition Nutrition: Nutrition Category Date Time Status Altered GI/Hepatic Diet [DIET] Diets 12/16/17 Breakfast Active Assessment/Plan - Assessment and Plan (Free Text) Assessment: 42M EtOH, hemothorax, Liver cirrhosis Plan: Neuro: more lethargic today, will recheck ammonia and ABG Cardio: No acute issues Pulm: L. Hemothorax 2/2 to rib fracture. Chest tube has drained over 2000 total serosang. 90 over 12 hrs. Surgery (Eloise). Continue to monitor output. Will remove tube when patient ready to transfer out per surgery. Transfuse as needed. 2 Units PRBC today. Intermittent SOB * Duonebs Q6 * f/u repeat ABG GI: Liver disease 2/2 alcohol use. GI (Zoë). Hepatic diet. Paracentesis yesterday drained 250ml yellow Ascitic fluid. F/U studies. No SBP. HCV +. Psych (Jonathan) for EtOH use * f/u Repeat Ammonia * Vitamin C * multivitamin * thiamine * zinc * Propanolol 20 PO BID * Rifaximin 550 PO BID * aldactone 50 PO QD Renal: no acute issues Endo: no acute issues Heme: History of microcytic anemia, INR up 2/2 to liver disease * Folic acid 1mg * vitamin K ID: WBC elevated. Low grade fever yesterday. Unknown source of sepsis. Will cover for SBP until completes fluid studies have resulted. ID (Mangia) * Maxipime 1g Q8 * Vanco 1g Q12 * f/u Procal PPX: SCD, CI for chemical ppx due to hemothorax and elevated INR. Pepcid Q12 <Emmett Velazquez S - Last Filed: 12/20/17 16:26> CCU Objective - Vital Signs / Intake & Output Vital Signs (Last 4 hours): Vital Signs Temp Pulse Resp BP Pulse Ox 12/20/17 15:52 98 F 73 15 103/62 12/20/17 14:43 66 19 98/57 L 12/20/17 14:13 64 17 96/57 L 12/20/17 14:00 62 15 96 12/20/17 13:35 97.8 F 64 16 99/51 L 12/20/17 13:34 65 14 99/51 L 95 12/20/17 13:18 62 13 95/60 L 100 12/20/17 13:05 98 F 70 15 97/59 L 12/20/17 13:03 67 13 97/59 L 99 12/20/17 13:00 70 13 99 12/20/17 12:50 98.2 F 65 16 99/59 L 12/20/17 12:48 65 13 99/59 L 99 12/20/17 12:35 98 F 70 16 99/57 L 12/20/17 12:33 66 12 97/66 L 97 Intake and Output (Last 8hrs): Intake & Output 12/20/17 12/20/17 12/20/17 06:59 14:59 22:59 Intake Total 490 1027 329 Output Total 91 Balance 399 1027 329 Weight 197 lb Intake: Intake, IV Amount 250 150 Right upper arm 2 250 150 Oral 240 550 Blood Product 277 279 Apheresis Rbc Cp2d As3 Lr 277 1st Unit [id number] Apheresis Rbc Cp2d As3 Lr 0 279 1st Unit [id number] Other 50 50 Apheresis Rbc Cp2d As3 Lr 50 1st Unit [id number] Apheresis Rbc Cp2d As3 Lr 50 1st Unit [id number] Output: Chest Tube Drainage 90 Left Mid-Axillary Chest 90 Urine/Stool Mix 1 - Medications Active Medications: Active Medications Generic Name Dose Route Start Last Admin Trade Name Freq PRN Reason Stop Dose Admin Albuterol/Ipratropium 3 ml 12/15/17 14:00 12/20/17 13:15 Duoneb 3 Mg/0.5 Mg (3 Ml) Ud INH 3 ml RQ6 ELIJAH Administration Ascorbic Acid 250 mg 12/14/17 14:00 12/20/17 09:36 Vitamin C 250 Mg Tab PO 250 mg DAILY ELIJAH Administration Famotidine 20 mg 12/13/17 10:30 12/20/17 09:37 Pepcid IVP 20 mg Q12 ELIJAH Administration Folic Acid 1 mg/ Sodium 100.2 mls @ 60 mls/hr 12/09/17 10:00 12/20/17 10:46 Chloride IV 60 mls/hr DAILY ELIJAH Administration Cefepime HCl 1 gm in 50 mls @ 100 mls/hr 12/15/17 18:00 12/20/17 11:54 Maxipime Iv 1 Gm Premix IVPB 100 mls/hr Q8H ELIJAH Administration Vancomycin/Sodium Chloride 1 gm in 200 mls @ 166.6 mls/hr 12/17/17 16:00 05/02 03:16 Vancomycin 1 Gm/Ns 200 Ml IVPB 12/22/17 16:01 166.6 mls/hr Q12H ELIJAH Administration Multivitamins/Vitamin C 5 ml 12/14/17 14:00 12/20/17 09:37 Multi-Delyn Liquid PO 5 ml DAILY ELIJAH Administration Phytonadione 5 mg 12/18/17 10:00 12/20/17 10:02 Vitamin K Tab PO 12/22/17 10:01 5 mg DAILY ELIJAH Administration Propranolol HCl 20 mg 12/09/17 19:30 12/20/17 09:37 Inderal PO Not Given BID ELIJAH Rifaximin 550 mg 12/17/17 18:00 12/20/17 09:36 Xifaxan PO 550 mg BID ELIJAH Administration Spironolactone 50 mg 12/20/17 11:15 12/20/17 12:07 Aldactone PO 50 mg DAILY ELIJAH Administration Thiamine HCl 100 mg 12/09/17 10:00 12/20/17 09:38 Vitamin B1 Inj IV 100 mg DAILY ELIJAH Administration Zinc Sulfate 220 mg 12/14/17 13:30 12/20/17 09:37 Zinc Sulfate 220 Mg Cap PO 220 mg DAILY ELIJAH Administration - Patient Studies Lab Studies: Microbiology Studies 12/17/17 Unknown Blood Culture - Preliminary Blood-Venous NO GROWTH AFTER 3 DAYS 12/17/17 Unknown Blood Culture - Preliminary Blood-Venous NO GROWTH AFTER 3 DAYS Lab Studies 12/20/17 12/20/17 12/20/17 Range/Units 11:32 08:26 06:19 WBC (4.8-10.8) K/uL RBC (4.40-5.90) Mil/uL Hgb (12.0-18.0) g/dL Hct (35.0-51.0) % MCV (80.0-94.0) fL MCH (27.0-31.0) pg MCHC (33.0-37.0) g/dL RDW (11.5-14.5) % Plt Count (130-400) K/uL MPV (7.2-11.7) fL Neut % (Auto) (50.0-75.0) % Lymph % (Auto) (20.0-40.0) % [place] % (Auto) (0.0-10.0) % Eos % (Auto) (0.0-4.0) % Baso % (Auto) (0.0-2.0) % Neut # (Auto) (1.8-7.0) K/uL Lymph # (Auto) (1.0-4.3) K/uL [place] # (Auto) (0.0-0.8) K/uL Eos # (Auto) (0.0-0.7) K/uL Baso # (Auto) (0.0-0.2) K/uL PT 22.2 H (9.7-12.2) SECONDS INR 1.9 APTT 36 H (21-34) SECONDS Sodium (132-148) mmol/L Potassium (3.6-5.2) mmol/L Chloride (98-107) mmol/L Carbon Dioxide (22-30) mmol/L Anion Gap (10-20) BUN (9-20) mg/dL Creatinine (0.8-1.5) mg/dL Est GFR ( Amer) Est GFR (Non-Af Amer) POC Glucose (mg/dL) 107 104 (65-110) mg/dL Random Glucose (75-110) mg/dL Calcium (8.6-10.4) mg/dl Phosphorus (2.5-4.5) mg/dL Magnesium (1.6-2.3) mg/dL Total Bilirubin (0.2-1.3) mg/dL AST (17-59) U/L ALT (21-72) U/L Alkaline Phosphatase (38-126) U/L Total Protein (6.3-8.3) g/dL Albumin (3.5-5.0) g/dL Globulin (2.2-3.9) gm/dL Albumin/Globulin Ratio (1.0-2.1) Fluid Source Fluid Appearance (CLEAR) Fluid WBC (0.0-300.0) /mm3 Fluid RBC (0.0-0.0) /mm3 Fluid Tot Cell Count Fluid Neutrophils (0-0) % Fluid Lymphocytes (0-0) % Fld Monocyte/Macrophag (0-0) % Fluid Comment Blood Type Antibody Screen 12/20/17 12/20/17 12/19/17 Range/Units 06:19 06:17 21:18 WBC 14.7 H (4.8-10.8) K/uL RBC 2.63 L (4.40-5.90) Mil/uL Hgb 7.3 L (12.0-18.0) g/dL Hct 22.4 L (35.0-51.0) % MCV 85.3 (80.0-94.0) fL MCH 27.6 (27.0-31.0) pg MCHC 32.4 L (33.0-37.0) g/dL RDW 27.2 H (11.5-14.5) % Plt Count 162 (130-400) K/uL MPV 11.3 (7.2-11.7) fL Neut % (Auto) 71.4 (50.0-75.0) % Lymph % (Auto) 13.5 L (20.0-40.0) % [place] % (Auto) 13.5 H (0.0-10.0) % Eos % (Auto) 0.9 (0.0-4.0) % Baso % (Auto) 0.7 (0.0-2.0) % Neut # (Auto) 10.5 H (1.8-7.0) K/uL Lymph # (Auto) 2.0 (1.0-4.3) K/uL [place] # (Auto) 2.0 H (0.0-0.8) K/uL Eos # (Auto) 0.1 (0.0-0.7) K/uL Baso # (Auto) 0.1 (0.0-0.2) K/uL PT (9.7-12.2) SECONDS INR APTT (21-34) SECONDS Sodium 142 (132-148) mmol/L Potassium 3.7 (3.6-5.2) mmol/L Chloride 109 H (98-107) mmol/L Carbon Dioxide 26 (22-30) mmol/L Anion Gap 10 (10-20) BUN 14 (9-20) mg/dL Creatinine 0.9 (0.8-1.5) mg/dL Est GFR ( Amer) > 60 Est GFR (Non-Af Amer) > 60 POC Glucose (mg/dL) 101 (65-110) mg/dL Random Glucose 86 (75-110) mg/dL Calcium 7.3 L (8.6-10.4) mg/dl Phosphorus 2.8 (2.5-4.5) mg/dL Magnesium 2.0 (1.6-2.3) mg/dL Total Bilirubin 3.5 H (0.2-1.3) mg/dL AST 112 H (17-59) U/L ALT 50 (21-72) U/L Alkaline Phosphatase 124 (38-126) U/L Total Protein 6.0 L (6.3-8.3) g/dL Albumin 2.2 L (3.5-5.0) g/dL Globulin 3.8 (2.2-3.9) gm/dL Albumin/Globulin Ratio 0.6 L (1.0-2.1) Fluid Source Fluid Appearance (CLEAR) Fluid WBC (0.0-300.0) /mm3 Fluid RBC (0.0-0.0) /mm3 Fluid Tot Cell Count Fluid Neutrophils (0-0) % Fluid Lymphocytes (0-0) % Fld Monocyte/Macrophag (0-0) % Fluid Comment Blood Type Antibody Screen 12/19/17 12/19/17 12/19/17 Range/Units 18:01 18:01 16:30 WBC 15.7 H (4.8-10.8) K/uL RBC 2.77 L (4.40-5.90) Mil/uL Hgb 7.5 L (12.0-18.0) g/dL Hct 23.5 L (35.0-51.0) % MCV 84.7 (80.0-94.0) fL MCH 27.2 (27.0-31.0) pg MCHC 32.1 L (33.0-37.0) g/dL RDW 26.6 H (11.5-14.5) % Plt Count 185 (130-400) K/uL MPV 11.0 (7.2-11.7) fL Neut % (Auto) 75.4 H (50.0-75.0) % Lymph % (Auto) 12.8 L (20.0-40.0) % [place] % (Auto) 10.4 H (0.0-10.0) % Eos % (Auto) 0.7 (0.0-4.0) % Baso % (Auto) 0.7 (0.0-2.0) % Neut # (Auto) 11.8 H (1.8-7.0) K/uL Lymph # (Auto) 2.0 (1.0-4.3) K/uL [place] # (Auto) 1.6 H (0.0-0.8) K/uL Eos # (Auto) 0.1 (0.0-0.7) K/uL Baso # (Auto) 0.1 (0.0-0.2) K/uL PT 20.5 H (9.7-12.2) SECONDS INR 1.8 APTT 33 (21-34) SECONDS Sodium (132-148) mmol/L Potassium (3.6-5.2) mmol/L Chloride (98-107) mmol/L Carbon Dioxide (22-30) mmol/L Anion Gap (10-20) BUN (9-20) mg/dL Creatinine (0.8-1.5) mg/dL Est GFR ( Amer) Est GFR (Non-Af Amer) POC Glucose (mg/dL) (65-110) mg/dL Random Glucose (75-110) mg/dL Calcium (8.6-10.4) mg/dl Phosphorus (2.5-4.5) mg/dL Magnesium (1.6-2.3) mg/dL Total Bilirubin (0.2-1.3) mg/dL AST (17-59) U/L ALT (21-72) U/L Alkaline Phosphatase (38-126) U/L Total Protein (6.3-8.3) g/dL Albumin (3.5-5.0) g/dL Globulin (2.2-3.9) gm/dL Albumin/Globulin Ratio (1.0-2.1) Fluid Source Peritoneal Fluid Appearance Clear (CLEAR) Fluid WBC 42.0 (0.0-300.0) /mm3 Fluid RBC 75.0 H (0.0-0.0) /mm3 Fluid Tot Cell Count TEST NOT PERFORMED Fluid Neutrophils 87.0 H (0-0) % Fluid Lymphocytes 9.0 H (0-0) % Fld Monocyte/Macrophag 6 H (0-0) % Fluid Comment Blood Type Antibody Screen 12/19/17 Range/Units 08:09 WBC (4.8-10.8) K/uL RBC (4.40-5.90) Mil/uL Hgb (12.0-18.0) g/dL Hct (35.0-51.0) % MCV (80.0-94.0) fL MCH (27.0-31.0) pg MCHC (33.0-37.0) g/dL RDW (11.5-14.5) % Plt Count (130-400) K/uL MPV (7.2-11.7) fL Neut % (Auto) (50.0-75.0) % Lymph % (Auto) (20.0-40.0) % [place] % (Auto) (0.0-10.0) % Eos % (Auto) (0.0-4.0) % Baso % (Auto) (0.0-2.0) % Neut # (Auto) (1.8-7.0) K/uL Lymph # (Auto) (1.0-4.3) K/uL [place] # (Auto) (0.0-0.8) K/uL Eos # (Auto) (0.0-0.7) K/uL Baso # (Auto) (0.0-0.2) K/uL PT (9.7-12.2) SECONDS INR APTT (21-34) SECONDS Sodium (132-148) mmol/L Potassium (3.6-5.2) mmol/L Chloride (98-107) mmol/L Carbon Dioxide (22-30) mmol/L Anion Gap (10-20) BUN (9-20) mg/dL Creatinine (0.8-1.5) mg/dL Est GFR ( Amer) Est GFR (Non-Af Amer) POC Glucose (mg/dL) (65-110) mg/dL Random Glucose (75-110) mg/dL Calcium (8.6-10.4) mg/dl Phosphorus (2.5-4.5) mg/dL Magnesium (1.6-2.3) mg/dL Total Bilirubin (0.2-1.3) mg/dL AST (17-59) U/L ALT (21-72) U/L Alkaline Phosphatase (38-126) U/L Total Protein (6.3-8.3) g/dL Albumin (3.5-5.0) g/dL Globulin (2.2-3.9) gm/dL Albumin/Globulin Ratio (1.0-2.1) Fluid Source Fluid Appearance (CLEAR) Fluid WBC (0.0-300.0) /mm3 Fluid RBC (0.0-0.0) /mm3 Fluid Tot Cell Count Fluid Neutrophils (0-0) % Fluid Lymphocytes (0-0) % Fld Monocyte/Macrophag (0-0) % Fluid Comment Blood Type O POSITIVE Antibody Screen Negative Laboratory Results - last 24 hr 12/19/17 12/19/17 12/19/17 08:09 16:30 18:01 WBC 15.7 H RBC 2.77 L Hgb 7.5 L Hct 23.5 L MCV 84.7 MCH 27.2 MCHC 32.1 L RDW 26.6 H Plt Count 185 MPV 11.0 Neut % (Auto) 75.4 H Lymph % (Auto) 12.8 L [place] % (Auto) 10.4 H Eos % (Auto) 0.7 Baso % (Auto) 0.7 Neut # (Auto) 11.8 H Lymph # (Auto) 2.0 [place] # (Auto) 1.6 H Eos # (Auto) 0.1 Baso # (Auto) 0.1 PT INR APTT Sodium Potassium Chloride Carbon Dioxide Anion Gap BUN Creatinine Est GFR ( Amer) Est GFR (Non-Af Amer) POC Glucose (mg/dL) Random Glucose Calcium Phosphorus Magnesium Total Bilirubin AST ALT Alkaline Phosphatase Total Protein Albumin Globulin Albumin/Globulin Ratio Fluid Source Peritoneal Fluid Appearance Clear Fluid WBC 42.0 Fluid RBC 75.0 H Fluid Tot Cell Count TEST NOT PERFORMED Fluid Neutrophils 87.0 H Fluid Lymphocytes 9.0 H Fld Monocyte/Macrophag 6 H Fluid Comment Blood Type O POSITIVE Antibody Screen Negative 12/19/17 12/19/17 12/20/17 18:01 21:18 06:17 WBC RBC Hgb Hct MCV MCH MCHC RDW Plt Count MPV Neut % (Auto) Lymph % (Auto) [place] % (Auto) Eos % (Auto) Baso % (Auto) Neut # (Auto) Lymph # (Auto) [place] # (Auto) Eos # (Auto) Baso # (Auto) PT 20.5 H INR 1.8 APTT 33 Sodium 142 Potassium 3.7 Chloride 109 H Carbon Dioxide 26 Anion Gap 10 BUN 14 Creatinine 0.9 Est GFR ( Amer) > 60 Est GFR (Non-Af Amer) > 60 POC Glucose (mg/dL) 101 Random Glucose 86 Calcium 7.3 L Phosphorus 2.8 Magnesium 2.0 Total Bilirubin 3.5 H AST 112 H ALT 50 Alkaline Phosphatase 124 Total Protein 6.0 L Albumin 2.2 L Globulin 3.8 Albumin/Globulin Ratio 0.6 L Fluid Source Fluid Appearance Fluid WBC Fluid RBC Fluid Tot Cell Count Fluid Neutrophils Fluid Lymphocytes Fld Monocyte/Macrophag Fluid Comment Blood Type Antibody Screen 12/20/17 12/20/17 12/20/17 06:19 06:19 08:26 WBC 14.7 H RBC 2.63 L Hgb 7.3 L Hct 22.4 L MCV 85.3 MCH 27.6 MCHC 32.4 L RDW 27.2 H Plt Count 162 MPV 11.3 Neut % (Auto) 71.4 Lymph % (Auto) 13.5 L [place] % (Auto) 13.5 H Eos % (Auto) 0.9 Baso % (Auto) 0.7 Neut # (Auto) 10.5 H Lymph # (Auto) 2.0 [place] # (Auto) 2.0 H Eos # (Auto) 0.1 Baso # (Auto) 0.1 PT 22.2 H INR 1.9 APTT 36 H Sodium Potassium Chloride Carbon Dioxide Anion Gap BUN Creatinine Est GFR ( Amer) Est GFR (Non-Af Amer) POC Glucose (mg/dL) 104 Random Glucose Calcium Phosphorus Magnesium Total Bilirubin AST ALT Alkaline Phosphatase Total Protein Albumin Globulin Albumin/Globulin Ratio Fluid Source Fluid Appearance Fluid WBC Fluid RBC Fluid Tot Cell Count Fluid Neutrophils Fluid Lymphocytes Fld Monocyte/Macrophag Fluid Comment Blood Type Antibody Screen 12/20/17 11:32 WBC RBC Hgb Hct MCV MCH MCHC RDW Plt Count MPV Neut % (Auto) Lymph % (Auto) [place] % (Auto) Eos % (Auto) Baso % (Auto) Neut # (Auto) Lymph # (Auto) [place] # (Auto) Eos # (Auto) Baso # (Auto) PT INR APTT Sodium Potassium Chloride Carbon Dioxide Anion Gap BUN Creatinine Est GFR ( Amer) Est GFR (Non-Af Amer) POC Glucose (mg/dL) 107 Random Glucose Calcium Phosphorus Magnesium Total Bilirubin AST ALT Alkaline Phosphatase Total Protein Albumin Globulin Albumin/Globulin Ratio Fluid Source Fluid Appearance Fluid WBC Fluid RBC Fluid Tot Cell Count Fluid Neutrophils Fluid Lymphocytes Fld Monocyte/Macrophag Fluid Comment Blood Type Antibody Screen Critical Care Progress Note - Nutrition Nutrition: Nutrition Category Date Time Status Altered GI/Hepatic Diet [DIET] Diets 12/16/17 Breakfast Active Attending/Attestation - Attestation I have personally seen and examined this patient.: Yes I have fully participated in the care of the patient.: Yes I have reviewed all pertinent clinical information: Yes Notes (Text): 12/20/17 16:24 Patient seen and examinedin the intensive care unit. Status post paracentesis yesterday left Hemothorax 2/2 to rib fracture. Chest tube has drained over 2000 total serosang. Transfuse as needed. 2 Units PRBC today.
--- NOTE | 2017-12-20 15:46 | CP.PCM.PN ---
Subjective - Date & Time of Evaluation Date of Evaluation: 12/20/17 Time of Evaluation: 07:00 - Subjective Subjective: Surgery Progress note. Dr. Lyn Pt seen and examined at bedside. No acute events overnight. Left sided chest tube in place, 425cc of serosang output in the past 24hrs. No n/v/d. Does have a slight resting tremor. No new complaints. Objective - Vital Signs/Intake and Output Vital Signs (last 24 hours): Temp Pulse Resp BP Pulse Ox 97.8 F 66 19 98/57 L 96 12/20/17 13:35 12/20/17 14:43 12/20/17 14:43 12/20/17 14:43 12/20/17 14:00 Intake and Output: 12/20/17 12/20/17 06:59 18:59 Intake Total 590 1027 Output Total 91 Balance 499 1027 - Medications Medications: Current Medications Albuterol/Ipratropium (Duoneb 3 Mg/0.5 Mg (3 Ml) Ud) 3 ml INH RQ6 [facility] Last Admin: 12/20/17 13:15 Dose: 3 ml Ascorbic Acid (Vitamin C 250 Mg Tab) 250 mg PO DAILY [facility] Last Admin: 12/20/17 09:36 Dose: 250 mg Famotidine (Pepcid) 20 mg IVP Q12 [facility] Last Admin: 12/20/17 09:37 Dose: 20 mg Folic Acid 1 mg/ Sodium (Chloride) 100.2 mls @ 60 mls/hr IV DAILY [facility] Last Admin: 12/20/17 10:46 Dose: 60 mls/hr Cefepime HCl (Maxipime Iv 1 Gm Premix) 1 gm in 50 mls @ 100 mls/hr IVPB Q8H [facility] Last Admin: 12/20/17 11:54 Dose: 100 mls/hr Vancomycin/Sodium Chloride (Vancomycin 1 Gm/Ns 200 Ml) 1 gm in 200 mls @ 166.6 mls/hr IVPB Q12H [facility] Stop: 12/22/17 16:01 Last Admin: 12/20/17 03:16 Dose: 166.6 mls/hr Multivitamins/Vitamin C (Multi-Delyn Liquid) 5 ml PO DAILY [facility] Last Admin: 12/20/17 09:37 Dose: 5 ml Phytonadione (Vitamin K Tab) 5 mg PO DAILY [facility] Stop: 12/22/17 10:01 Last Admin: 12/20/17 10:02 Dose: 5 mg Propranolol HCl (Inderal) 20 mg PO BID [facility] Last Admin: 12/20/17 09:37 Dose: Not Given Rifaximin (Xifaxan) 550 mg PO BID [facility] Last Admin: 12/20/17 09:36 Dose: 550 mg Spironolactone (Aldactone) 50 mg PO DAILY [facility] Last Admin: 12/20/17 12:07 Dose: 50 mg Thiamine HCl (Vitamin B1 Inj) 100 mg IV DAILY [facility] Last Admin: 12/20/17 09:38 Dose: 100 mg Zinc Sulfate (Zinc Sulfate 220 Mg Cap) 220 mg PO DAILY [facility] Last Admin: 12/20/17 09:37 Dose: 220 mg - Labs Labs: 12/20/17 06:19 12/20/17 06:17 PT 22.2 SECONDS (9.7-12.2) H 12/20/17 06:19 INR 1.9 12/20/17 06:19 APTT 36 SECONDS (21-34) H 12/20/17 06:19 - Constitutional Appears: Non-toxic, No Acute Distress - Head Exam Head Exam: ATRAUMATIC, NORMAL INSPECTION, NORMOCEPHALIC - Eye Exam Eye Exam: EOMI, Normal appearance - ENT Exam ENT Exam: Mucous Membranes Moist - Respiratory Exam Respiratory Exam: NORMAL BREATHING PATTERN. absent: Accessory Muscle Use, Respiratory Distress Additional comments: left sided chest tube in place. Dressing clean dry and intact. 425cc of serosang output in past 24hrs. - Cardiovascular Exam Cardiovascular Exam: absent: JVD - GI/Abdominal Exam GI & Abdominal Exam: Distended. absent: Guarding, Soft, Tenderness, Rebound - Extremities Exam Extremities Exam: Normal Inspection. absent: Calf Tenderness - Neurological Exam Neurological Exam: Alert, Awake - Skin Skin Exam: Dry, Intact, Normal Color, Warm Assessment and Plan - Assessment and Plan (Free Text) Assessment: 42yo M with multiple L sided rib fractures & hemothorax s/p CT insertion; POD#5 Plan: - cont chest tube on suction - monitor output - INR improving. Correct coagulopathy - monitor for ETOH withdrawal - change dressing PRN - encourage IS - encourage ambulation Further recs as per Dr. Eboni Rachel PGY1 Surgery
[2017-12-20 16:30] LABS: BASO # 0.1 K/uL (0.0-0.2); BASO % 0.7 % (0.0-2.0); EOS # 0.2 K/uL (0.0-0.7); EOS % 1.1 % (0.0-4.0); HEMOGLOBIN 9.4 g/dL (12.0-18.0); LYMPH # 1.7 K/uL (1.0-4.3); LYMPH % 10.7 % (20.0-40.0); MEAN CELL VOLUME 86.3 fL (80.0-94.0); MEAN CORPUSCULAR HGB CONC 32.5 g/dL (33.0-37.0); MEAN PLATELET VOLUME 11.2 fL (7.2-11.7); MONO # 1.9 K/uL (0.0-0.8); MONO % 11.9 % (0.0-10.0); NEUT # 12.4 K/uL (1.8-7.0); NEUT % 75.6 % (50.0-75.0); RBC 3.36 Mil/uL (4.40-5.90); RED CELL DISTRIBUTION WIDTH 24.4 % (11.5-14.5); WHITE BLOOD COUNT 16.3 K/uL (4.8-10.8)
[2017-12-21] MEDS: Albuterol-Ipratrop 3 mg / 0.5 (3 ml) UD INH SCH ×4 (01:06→20:01)
[2017-12-21] MEDS: Cefepime IV 1 gm in Dextrose 1 GM/50 ML BAG IVPB SCH ×3 (01:06→17:41)
[2017-12-21] MEDS: Vancomycin 1 gm/NS 200 ml 1 GM/200 ML BAG IVPB SCH ×2 (03:01→16:39)
[2017-12-21 04:43] LABS: ABG ALLEN TEST POS; ARTERIAL BLOOD GAS O2 SAT 99.5 % (95-98); ARTERIAL BLOOD GAS PCO2 35 mm/Hg (35-45); ARTERIAL BLOOD GAS PH 7.46 (7.35-7.45); ARTERIAL BLOOD GAS PO2 94 mm/Hg (80-100)
[2017-12-21 06:36] LABS: BASO # 0.1 K/uL (0.0-0.2); BASO % 0.8 % (0.0-2.0); EOS # 0.2 K/uL (0.0-0.7); EOS % 1.3 % (0.0-4.0); LYMPH # 1.8 K/uL (1.0-4.3); LYMPH % 12.4 % (20.0-40.0); MEAN CELL VOLUME 87.2 fL (80.0-94.0); MEAN CORPUSCULAR HEMOGLOBIN 28.9 pg (27.0-31.0); MEAN CORPUSCULAR HGB CONC 33.2 g/dL (33.0-37.0); MONO # 2.2 K/uL (0.0-0.8); MONO % 14.9 % (0.0-10.0); NEUT # 10.2 K/uL (1.8-7.0); NEUT % 70.6 % (50.0-75.0); RBC 3.1 Mil/uL (4.40-5.90); RED CELL DISTRIBUTION WIDTH 24.7 % (11.5-14.5); WHITE BLOOD COUNT 14.5 K/uL (4.8-10.8)
[2017-12-21 06:43] LABS: ALB/GLOB RATIO 0.5 (1.0-2.1); ALBUMIN 2.2 g/dL (3.5-5.0); ALT/SGPT 50 U/L (21-72); AST/SGOT 116 U/L (17-59); BLOOD UREA NITROGEN 13 mg/dL (9-20); CALCIUM 7.5 mg/dl (8.6-10.4); GFR AFRICAN-AMERICAN > 60; GFR NON-AFRICAN AMERICAN > 60
[2017-12-21 06:52] LABS: PROTHROMBIN TIME 22.9 SECONDS (9.7-12.2)
--- NOTE | 2017-12-21 08:16 | RAD ---
Chest x-ray single frontal view History: Pneumothorax. Chest tube. Comparison: 12/18/2017 Findings: Multiple displaced left rib fractures. Left-sided chest tube. Moderate left pleural effusion. Venous congestion. Patchy increased markings in the right hilar region and left lung base. Stable heart size. Impression: Multiple displaced left rib fractures. Left-sided chest tube. Moderate left pleural effusion. Venous congestion. Patchy increased markings in the right hilar region and left lung base.
--- NOTE | 2017-12-21 08:44 | CP.PCM.PN ---
Subjective - Date & Time of Evaluation Date of Evaluation: 12/21/17 Time of Evaluation: 07:00 - Subjective Subjective: Surgery: Dr. Lyn Pt seen and examined. No acute events overnight. Pt doing well this morning and is more awake and alert and responding to commands. Admits to pain around chest tube insertion site. Denies other complaints. Afebrile overnight. Objective - Vital Signs/Intake and Output Vital Signs (last 24 hours): Temp Pulse Resp BP Pulse Ox 98.5 F 62 14 104/59 L 98 12/21/17 03:58 12/21/17 07:00 12/21/17 07:00 12/21/17 06:44 12/21/17 07:00 Intake and Output: 12/21/17 12/21/17 06:59 18:59 Intake Total 730 Output Total 130 Balance 600 - Medications Medications: Current Medications Albuterol/Ipratropium (Duoneb 3 Mg/0.5 Mg (3 Ml) Ud) 3 ml INH RQ6 [facility] Last Admin: 12/21/17 07:39 Dose: 3 ml Ascorbic Acid (Vitamin C 250 Mg Tab) 250 mg PO DAILY [facility] Last Admin: 12/20/17 09:36 Dose: 250 mg Famotidine (Pepcid) 20 mg IVP Q12 [facility] Last Admin: 12/20/17 21:18 Dose: 20 mg Folic Acid 1 mg/ Sodium (Chloride) 100.2 mls @ 60 mls/hr IV DAILY [facility] Last Admin: 12/20/17 10:46 Dose: 60 mls/hr Cefepime HCl (Maxipime Iv 1 Gm Premix) 1 gm in 50 mls @ 100 mls/hr IVPB Q8H [facility] Last Admin: 12/21/17 01:06 Dose: 100 mls/hr Vancomycin/Sodium Chloride (Vancomycin 1 Gm/Ns 200 Ml) 1 gm in 200 mls @ 166.6 mls/hr IVPB Q12H [facility] Stop: 12/22/17 16:01 Last Admin: 12/21/17 03:01 Dose: 166.6 mls/hr Multivitamins/Vitamin C (Multi-Delyn Liquid) 5 ml PO DAILY [facility] Last Admin: 12/20/17 09:37 Dose: 5 ml Phytonadione (Vitamin K Tab) 5 mg PO DAILY [facility] Stop: 12/22/17 10:01 Last Admin: 12/20/17 10:02 Dose: 5 mg Propranolol HCl (Inderal) 20 mg PO BID [facility] Last Admin: 12/20/17 17:39 Dose: 20 mg Rifaximin (Xifaxan) 550 mg PO BID [facility] Last Admin: 12/20/17 17:39 Dose: 550 mg Spironolactone (Aldactone) 50 mg PO DAILY [facility] Last Admin: 12/20/17 12:07 Dose: 50 mg Thiamine HCl (Vitamin B1 Inj) 100 mg IV DAILY [facility] Last Admin: 12/20/17 09:38 Dose: 100 mg Zinc Sulfate (Zinc Sulfate 220 Mg Cap) 220 mg PO DAILY [facility] Last Admin: 12/20/17 09:37 Dose: 220 mg - Labs Labs: 12/21/17 06:28 12/21/17 06:26 PT 22.9 SECONDS (9.7-12.2) H 12/21/17 06:32 INR 2.0 12/21/17 06:32 APTT 38 SECONDS (21-34) H 12/21/17 06:32 - Constitutional Appears: Well, No Acute Distress - Head Exam Head Exam: ATRAUMATIC, NORMOCEPHALIC - ENT Exam ENT Exam: Mucous Membranes Moist - Respiratory Exam Respiratory Exam: NORMAL BREATHING PATTERN Additional comments: L CT in place on suction; 420cc/24 hrs of serosang output, no air leak. - Cardiovascular Exam Cardiovascular Exam: RRR - GI/Abdominal Exam GI & Abdominal Exam: Soft. absent: Tenderness - Neurological Exam Neurological Exam: Alert, Awake - Skin Skin Exam: Dry Assessment and Plan - Assessment and Plan (Free Text) Assessment: 42M with multiple L rib fx and hemothorax s/p CT insertion; POD 6 Plan: - continue chest tube on suction; still having considerable output - cont to monitor output - d/w Dr. Eboni Edwards, PGY-3
[2017-12-21 09:16] LABS: LEGIONELLA AG URINE NEGATIVE (NEGATIVE)
[2017-12-21] MEDS: Multiple Vitamins Oral Solution PO SCH (09:28)
[2017-12-21] MEDS: Thiamine 100 mg/ml Inj IV SCH (09:30)
[2017-12-21] MEDS: Phytonadione 2.5 MG/0.5 TAB TAB PO SCH (09:30)
--- NOTE | 2017-12-21 12:22 | CP.CCUPN ---
<Ray Trevino - Last Filed: 12/21/17 12:14> CCU Subjective - Physician Review Subjective (Free Text): 12/13/17 19:04 Patient seen and examined at bedside Patient was very lethargic, diaphoretic Had a large hematoma on his R. Flank Given history of liver disease and coagulopathy, decision was made to transfer the patient back to ICU 12/14/17 13:21 Patient seen and examined at bedside patient sedated will back off sedation to evaluate mental status 12/19/17 13:11 Patient had 400 output overnight from chest tube Gave 3 FFP and vitamin K. Patient more awake and tolerating diet 12/19/17 16:16 paracentesis 2.5L out 12/20/17 10:56 INR decreased to 1.9 yesterday with 3u FFP 90 out overnight of chest tube, serosang Transfuse 2 units PRBC today patient more lethargic today, will check abg and ammonia lvl 12/21/17 12:14 Patient seen and examined at bedside Chest tube clamped PT/OT today had patient OOB to chair much less lethargic CCU Objective - Vital Signs / Intake & Output Vital Signs (Last 4 hours): Vital Signs Pulse Resp BP Pulse Ox 12/21/17 11:00 67 18 100 12/21/17 10:46 62 20 93/62 L 95 12/21/17 10:00 61 16 98 12/21/17 09:44 62 14 97/66 L 99 12/21/17 09:33 60 14 97/66 L 12/21/17 09:31 97/66 L 12/21/17 09:00 58 L 12 Intake and Output (Last 8hrs): Intake & Output 12/20/17 12/21/17 12/21/17 22:59 06:59 14:59 Intake Total 879 730 Output Total 461 130 Balance 418 600 Weight 198 lb Intake: Intake, IV Amount 250 250 Right upper arm 2 250 250 Oral 300 480 Blood Product 279 Apheresis Rbc Cp2d As3 Lr 279 1st Unit [id number] Other 50 Apheresis Rbc Cp2d As3 Lr 50 1st Unit [id number] Output: Chest Tube Drainage 310 130 Left Mid-Axillary Chest 310 130 Urine 150 Urine, Voided 150 Urine/Stool Mix 1 - Physical Exam Head: Positive for: Atraumatic, Normocephalic Pupils: Positive for: PERRL Extroacular Muscles: Positive for: EOMI Conjunctiva: Positive for: Icteric Mouth: Positive for: Moist Mucous Membranes Respiratory/Chest: Positive for: Clear to Auscultation, Good Air Exchange Abdomen: Positive for: Distention. Negative for: Tenderness, Normal Bowel Sounds Psychiatric: Positive for: Alert - Medications Active Medications: Active Medications Generic Name Dose Route Start Last Admin Trade Name Freq PRN Reason Stop Dose Admin Albuterol/Ipratropium 3 ml 12/15/17 14:00 12/21/17 07:39 Duoneb 3 Mg/0.5 Mg (3 Ml) Ud INH 3 ml RQ6 ELIJAH Administration Ascorbic Acid 250 mg 12/14/17 14:00 12/21/17 09:28 Vitamin C 250 Mg Tab PO 250 mg DAILY ELIJAH Administration Famotidine 20 mg 12/13/17 10:30 12/21/17 09:28 Pepcid IVP 20 mg Q12 ELIJAH Administration Hydromorphone HCl 0.5 mg 12/21/17 12:03 Dilaudid IVP Q6H PRN Pain, severe (8-10) Folic Acid 1 mg/ Sodium 100.2 mls @ 60 mls/hr 12/09/17 10:00 12/21/17 10:43 Chloride IV 60 mls/hr DAILY ELIJAH Administration Cefepime HCl 1 gm in 50 mls @ 100 mls/hr 12/15/17 18:00 12/21/17 09:59 Maxipime Iv 1 Gm Premix IVPB 100 mls/hr Q8H ELIJAH Administration Vancomycin/Sodium Chloride 1 gm in 200 mls @ 166.6 mls/hr 12/17/17 16:00 06/02 03:01 Vancomycin 1 Gm/Ns 200 Ml IVPB 12/22/17 16:01 166.6 mls/hr Q12H ELIJAH Administration Multivitamins/Vitamin C 5 ml 12/14/17 14:00 12/21/17 09:28 Multi-Delyn Liquid PO 5 ml DAILY ELIJAH Administration Phytonadione 5 mg 12/22/17 10:00 Vitamin K Tab PO 12/22/17 10:01 DAILY ELIJAH Propranolol HCl 20 mg 12/09/17 19:30 12/21/17 09:28 Inderal PO 20 mg BID ELIJAH Administration Rifaximin 550 mg 12/17/17 18:00 12/21/17 09:30 Xifaxan PO 550 mg BID ELIJAH Administration Spironolactone 50 mg 12/20/17 11:15 12/21/17 09:59 Aldactone PO 50 mg DAILY ELIJAH Administration Thiamine HCl 100 mg 12/09/17 10:00 12/21/17 09:30 Vitamin B1 Inj IV 100 mg DAILY ELIJAH Administration Zinc Sulfate 220 mg 12/14/17 13:30 12/21/17 09:31 Zinc Sulfate 220 Mg Cap PO 220 mg DAILY ELIJAH Administration - Patient Studies Lab Studies: Microbiology Studies 12/17/17 Unknown Blood Culture - Preliminary Blood-Venous NO GROWTH AFTER 3 DAYS 12/17/17 Unknown Blood Culture - Preliminary Blood-Venous NO GROWTH AFTER 3 DAYS Lab Studies 12/21/17 12/21/17 12/21/17 Range/Units 11:37 07:26 06:32 WBC (4.8-10.8) K/uL RBC (4.40-5.90) Mil/uL Hgb (12.0-18.0) g/dL Hct (35.0-51.0) % MCV (80.0-94.0) fL MCH (27.0-31.0) pg MCHC (33.0-37.0) g/dL RDW (11.5-14.5) % Plt Count (130-400) K/uL MPV (7.2-11.7) fL Neut % (Auto) (50.0-75.0) % Lymph % (Auto) (20.0-40.0) % [place] % (Auto) (0.0-10.0) % Eos % (Auto) (0.0-4.0) % Baso % (Auto) (0.0-2.0) % Neut # (Auto) (1.8-7.0) K/uL Lymph # (Auto) (1.0-4.3) K/uL [place] # (Auto) (0.0-0.8) K/uL Eos # (Auto) (0.0-0.7) K/uL Baso # (Auto) (0.0-0.2) K/uL PT 22.9 H (9.7-12.2) SECONDS INR 2.0 APTT 38 H (21-34) SECONDS Puncture Site pCO2 (35-45) mm/Hg pO2 (80-100) mm/Hg HCO3 (21-28) mmol/L ABG pH (7.35-7.45) ABG Total CO2 (22-28) mmol/L ABG O2 Saturation (95-98) % ABG Base Excess (-2.0-3.0) mmol/L Olegario Test ABG Potassium (3.6-5.2) mmol/L A-a O2 Difference mm/Hg Respiratory Index Sodium (132-148) mmol/l Chloride (98-107) mmol/L Glucose (75-110) mg/dl Lactate (0.7-2.1) mmol/L Liter Flow FiO2 % Potassium (3.6-5.2) mmol/L Carbon Dioxide (22-30) mmol/L Anion Gap (10-20) BUN (9-20) mg/dL Creatinine (0.8-1.5) mg/dL Est GFR ( Amer) Est GFR (Non-Af Amer) POC Glucose (mg/dL) 161 H 111 H (65-110) mg/dL Random Glucose (75-110) mg/dL Calcium (8.6-10.4) mg/dl Phosphorus (2.5-4.5) mg/dL Magnesium (1.6-2.3) mg/dL Total Bilirubin (0.2-1.3) mg/dL AST (17-59) U/L ALT (21-72) U/L Alkaline Phosphatase (38-126) U/L Ammonia (9-33) umol/L Total Protein (6.3-8.3) g/dL Albumin (3.5-5.0) g/dL Globulin (2.2-3.9) gm/dL Albumin/Globulin Ratio (1.0-2.1) Procalcitonin (0.19-0.49) NG/ML Arterial Blood Potassium (3.6-5.2) mmol/L Ur L.pneumophila Ag (NEGATIVE) Blood Type Antibody Screen 12/21/17 12/21/17 12/21/17 Range/Units 06:28 06:26 06:26 WBC 14.5 H (4.8-10.8) K/uL RBC 3.10 L (4.40-5.90) Mil/uL Hgb 9.0 L (12.0-18.0) g/dL Hct 27.1 L (35.0-51.0) % MCV 87.2 (80.0-94.0) fL MCH 28.9 (27.0-31.0) pg MCHC 33.2 (33.0-37.0) g/dL RDW 24.7 H (11.5-14.5) % Plt Count 150 (130-400) K/uL MPV 12.0 H (7.2-11.7) fL Neut % (Auto) 70.6 (50.0-75.0) % Lymph % (Auto) 12.4 L (20.0-40.0) % [place] % (Auto) 14.9 H (0.0-10.0) % Eos % (Auto) 1.3 (0.0-4.0) % Baso % (Auto) 0.8 (0.0-2.0) % Neut # (Auto) 10.2 H (1.8-7.0) K/uL Lymph # (Auto) 1.8 (1.0-4.3) K/uL [place] # (Auto) 2.2 H (0.0-0.8) K/uL Eos # (Auto) 0.2 (0.0-0.7) K/uL Baso # (Auto) 0.1 (0.0-0.2) K/uL PT (9.7-12.2) SECONDS INR APTT (21-34) SECONDS Puncture Site pCO2 (35-45) mm/Hg pO2 (80-100) mm/Hg HCO3 (21-28) mmol/L ABG pH (7.35-7.45) ABG Total CO2 (22-28) mmol/L ABG O2 Saturation (95-98) % ABG Base Excess (-2.0-3.0) mmol/L Olegario Test ABG Potassium (3.6-5.2) mmol/L A-a O2 Difference mm/Hg Respiratory Index Sodium 139 (132-148) mmol/l Chloride 108 H (98-107) mmol/L Glucose (75-110) mg/dl Lactate (0.7-2.1) mmol/L Liter Flow FiO2 % Potassium 3.8 (3.6-5.2) mmol/L Carbon Dioxide 24 (22-30) mmol/L Anion Gap 11 (10-20) BUN 13 (9-20) mg/dL Creatinine 0.8 (0.8-1.5) mg/dL Est GFR ( Amer) > 60 Est GFR (Non-Af Amer) > 60 POC Glucose (mg/dL) (65-110) mg/dL Random Glucose 96 (75-110) mg/dL Calcium 7.5 L (8.6-10.4) mg/dl Phosphorus 2.6 (2.5-4.5) mg/dL Magnesium 2.1 (1.6-2.3) mg/dL Total Bilirubin 3.5 H (0.2-1.3) mg/dL AST 116 H (17-59) U/L ALT 50 (21-72) U/L Alkaline Phosphatase 138 H (38-126) U/L Ammonia 76 H D (9-33) umol/L Total Protein 6.3 (6.3-8.3) g/dL Albumin 2.2 L (3.5-5.0) g/dL Globulin 4.1 H (2.2-3.9) gm/dL Albumin/Globulin Ratio 0.5 L (1.0-2.1) Procalcitonin (0.19-0.49) NG/ML Arterial Blood Potassium (3.6-5.2) mmol/L Ur L.pneumophila Ag (NEGATIVE) Blood Type Antibody Screen 12/21/17 12/20/17 12/20/17 Range/Units 04:35 21:14 16:26 WBC (4.8-10.8) K/uL RBC (4.40-5.90) Mil/uL Hgb (12.0-18.0) g/dL Hct (35.0-51.0) % MCV (80.0-94.0) fL MCH (27.0-31.0) pg MCHC (33.0-37.0) g/dL RDW (11.5-14.5) % Plt Count (130-400) K/uL MPV (7.2-11.7) fL Neut % (Auto) (50.0-75.0) % Lymph % (Auto) (20.0-40.0) % [place] % (Auto) (0.0-10.0) % Eos % (Auto) (0.0-4.0) % Baso % (Auto) (0.0-2.0) % Neut # (Auto) (1.8-7.0) K/uL Lymph # (Auto) (1.0-4.3) K/uL [place] # (Auto) (0.0-0.8) K/uL Eos # (Auto) (0.0-0.7) K/uL Baso # (Auto) (0.0-0.2) K/uL PT (9.7-12.2) SECONDS INR APTT (21-34) SECONDS Puncture Site Rr pCO2 35 (35-45) mm/Hg pO2 94 (80-100) mm/Hg HCO3 26.0 (21-28) mmol/L ABG pH 7.46 H (7.35-7.45) ABG Total CO2 26.0 (22-28) mmol/L ABG O2 Saturation 99.5 H (95-98) % ABG Base Excess 1.4 (-2.0-3.0) mmol/L Olegario Test Pos ABG Potassium 3.6 (3.6-5.2) mmol/L A-a O2 Difference 90.0 mm/Hg Respiratory Index 1.0 Sodium 139.0 (132-148) mmol/l Chloride 110.0 H (98-107) mmol/L Glucose 108 (75-110) mg/dl Lactate 1.1 (0.7-2.1) mmol/L Liter Flow 3.0 FiO2 32.0 % Potassium (3.6-5.2) mmol/L Carbon Dioxide (22-30) mmol/L Anion Gap (10-20) BUN (9-20) mg/dL Creatinine (0.8-1.5) mg/dL Est GFR ( Amer) Est GFR (Non-Af Amer) POC Glucose (mg/dL) 108 (65-110) mg/dL Random Glucose (75-110) mg/dL Calcium (8.6-10.4) mg/dl Phosphorus (2.5-4.5) mg/dL Magnesium (1.6-2.3) mg/dL Total Bilirubin (0.2-1.3) mg/dL AST (17-59) U/L ALT (21-72) U/L Alkaline Phosphatase (38-126) U/L Ammonia 26 (9-33) umol/L Total Protein (6.3-8.3) g/dL Albumin (3.5-5.0) g/dL Globulin (2.2-3.9) gm/dL Albumin/Globulin Ratio (1.0-2.1) Procalcitonin (0.19-0.49) NG/ML Arterial Blood Potassium 3.6 (3.6-5.2) mmol/L Ur L.pneumophila Ag (NEGATIVE) Blood Type Antibody Screen 12/20/17 12/20/17 12/20/17 Range/Units 16:26 16:26 16:22 WBC 16.3 H (4.8-10.8) K/uL RBC 3.36 L (4.40-5.90) Mil/uL Hgb 9.4 L D (12.0-18.0) g/dL Hct 29.0 L (35.0-51.0) % MCV 86.3 (80.0-94.0) fL MCH 28.0 (27.0-31.0) pg MCHC 32.5 L (33.0-37.0) g/dL RDW 24.4 H (11.5-14.5) % Plt Count 182 (130-400) K/uL MPV 11.2 (7.2-11.7) fL Neut % (Auto) 75.6 H (50.0-75.0) % Lymph % (Auto) 10.7 L (20.0-40.0) % [place] % (Auto) 11.9 H (0.0-10.0) % Eos % (Auto) 1.1 (0.0-4.0) % Baso % (Auto) 0.7 (0.0-2.0) % Neut # (Auto) 12.4 H (1.8-7.0) K/uL Lymph # (Auto) 1.7 (1.0-4.3) K/uL [place] # (Auto) 1.9 H (0.0-0.8) K/uL Eos # (Auto) 0.2 (0.0-0.7) K/uL Baso # (Auto) 0.1 (0.0-0.2) K/uL PT (9.7-12.2) SECONDS INR APTT (21-34) SECONDS Puncture Site pCO2 (35-45) mm/Hg pO2 (80-100) mm/Hg HCO3 (21-28) mmol/L ABG pH (7.35-7.45) ABG Total CO2 (22-28) mmol/L ABG O2 Saturation (95-98) % ABG Base Excess (-2.0-3.0) mmol/L Olegario Test ABG Potassium (3.6-5.2) mmol/L A-a O2 Difference mm/Hg Respiratory Index Sodium (132-148) mmol/l Chloride (98-107) mmol/L Glucose (75-110) mg/dl Lactate (0.7-2.1) mmol/L Liter Flow FiO2 % Potassium (3.6-5.2) mmol/L Carbon Dioxide (22-30) mmol/L Anion Gap (10-20) BUN (9-20) mg/dL Creatinine (0.8-1.5) mg/dL Est GFR ( Amer) Est GFR (Non-Af Amer) POC Glucose (mg/dL) 118 H (65-110) mg/dL Random Glucose (75-110) mg/dL Calcium (8.6-10.4) mg/dl Phosphorus (2.5-4.5) mg/dL Magnesium (1.6-2.3) mg/dL Total Bilirubin (0.2-1.3) mg/dL AST (17-59) U/L ALT (21-72) U/L Alkaline Phosphatase (38-126) U/L Ammonia (9-33) umol/L Total Protein (6.3-8.3) g/dL Albumin (3.5-5.0) g/dL Globulin (2.2-3.9) gm/dL Albumin/Globulin Ratio (1.0-2.1) Procalcitonin 0.31 (0.19-0.49) NG/ML Arterial Blood Potassium (3.6-5.2) mmol/L Ur L.pneumophila Ag (NEGATIVE) Blood Type Antibody Screen 12/19/17 12/18/17 Range/Units 08:09 08:30 WBC (4.8-10.8) K/uL RBC (4.40-5.90) Mil/uL Hgb (12.0-18.0) g/dL Hct (35.0-51.0) % MCV (80.0-94.0) fL MCH (27.0-31.0) pg MCHC (33.0-37.0) g/dL RDW (11.5-14.5) % Plt Count (130-400) K/uL MPV (7.2-11.7) fL Neut % (Auto) (50.0-75.0) % Lymph % (Auto) (20.0-40.0) % [place] % (Auto) (0.0-10.0) % Eos % (Auto) (0.0-4.0) % Baso % (Auto) (0.0-2.0) % Neut # (Auto) (1.8-7.0) K/uL Lymph # (Auto) (1.0-4.3) K/uL [place] # (Auto) (0.0-0.8) K/uL Eos # (Auto) (0.0-0.7) K/uL Baso # (Auto) (0.0-0.2) K/uL PT (9.7-12.2) SECONDS INR APTT (21-34) SECONDS Puncture Site pCO2 (35-45) mm/Hg pO2 (80-100) mm/Hg HCO3 (21-28) mmol/L ABG pH (7.35-7.45) ABG Total CO2 (22-28) mmol/L ABG O2 Saturation (95-98) % ABG Base Excess (-2.0-3.0) mmol/L Olegario Test ABG Potassium (3.6-5.2) mmol/L A-a O2 Difference mm/Hg Respiratory Index Sodium (132-148) mmol/l Chloride (98-107) mmol/L Glucose (75-110) mg/dl Lactate (0.7-2.1) mmol/L Liter Flow FiO2 % Potassium (3.6-5.2) mmol/L Carbon Dioxide (22-30) mmol/L Anion Gap (10-20) BUN (9-20) mg/dL Creatinine (0.8-1.5) mg/dL Est GFR ( Amer) Est GFR (Non-Af Amer) POC Glucose (mg/dL) (65-110) mg/dL Random Glucose (75-110) mg/dL Calcium (8.6-10.4) mg/dl Phosphorus (2.5-4.5) mg/dL Magnesium (1.6-2.3) mg/dL Total Bilirubin (0.2-1.3) mg/dL AST (17-59) U/L ALT (21-72) U/L Alkaline Phosphatase (38-126) U/L Ammonia (9-33) umol/L Total Protein (6.3-8.3) g/dL Albumin (3.5-5.0) g/dL Globulin (2.2-3.9) gm/dL Albumin/Globulin Ratio (1.0-2.1) Procalcitonin (0.19-0.49) NG/ML Arterial Blood Potassium (3.6-5.2) mmol/L Ur L.pneumophila Ag Negative (NEGATIVE) Blood Type O POSITIVE Antibody Screen Negative Laboratory Results - last 24 hr 12/18/17 12/19/17 12/20/17 08:30 08:09 16:22 WBC RBC Hgb Hct MCV MCH MCHC RDW Plt Count MPV Neut % (Auto) Lymph % (Auto) [place] % (Auto) Eos % (Auto) Baso % (Auto) Neut # (Auto) Lymph # (Auto) [place] # (Auto) Eos # (Auto) Baso # (Auto) PT INR APTT Puncture Site pCO2 pO2 HCO3 ABG pH ABG Total CO2 ABG O2 Saturation ABG Base Excess Olegario Test ABG Potassium A-a O2 Difference Respiratory Index Sodium Chloride Glucose Lactate Liter Flow FiO2 Potassium Carbon Dioxide Anion Gap BUN Creatinine Est GFR ( Amer) Est GFR (Non-Af Amer) POC Glucose (mg/dL) 118 H Random Glucose Calcium Phosphorus Magnesium Total Bilirubin AST ALT Alkaline Phosphatase Ammonia Total Protein Albumin Globulin Albumin/Globulin Ratio Procalcitonin Arterial Blood Potassium Ur L.pneumophila Ag Negative Blood Type O POSITIVE Antibody Screen Negative 12/20/17 12/20/17 12/20/17 16:26 16:26 16:26 WBC 16.3 H RBC 3.36 L Hgb 9.4 L D Hct 29.0 L MCV 86.3 MCH 28.0 MCHC 32.5 L RDW 24.4 H Plt Count 182 MPV 11.2 Neut % (Auto) 75.6 H Lymph % (Auto) 10.7 L [place] % (Auto) 11.9 H Eos % (Auto) 1.1 Baso % (Auto) 0.7 Neut # (Auto) 12.4 H Lymph # (Auto) 1.7 [place] # (Auto) 1.9 H Eos # (Auto) 0.2 Baso # (Auto) 0.1 PT INR APTT Puncture Site pCO2 pO2 HCO3 ABG pH ABG Total CO2 ABG O2 Saturation ABG Base Excess Olegario Test ABG Potassium A-a O2 Difference Respiratory Index Sodium Chloride Glucose Lactate Liter Flow FiO2 Potassium Carbon Dioxide Anion Gap BUN Creatinine Est GFR ( Amer) Est GFR (Non-Af Amer) POC Glucose (mg/dL) Random Glucose Calcium Phosphorus Magnesium Total Bilirubin AST ALT Alkaline Phosphatase Ammonia 26 Total Protein Albumin Globulin Albumin/Globulin Ratio Procalcitonin 0.31 Arterial Blood Potassium Ur L.pneumophila Ag Blood Type Antibody Screen 12/20/17 12/21/17 12/21/17 21:14 04:35 06:26 WBC RBC Hgb Hct MCV MCH MCHC RDW Plt Count MPV Neut % (Auto) Lymph % (Auto) [place] % (Auto) Eos % (Auto) Baso % (Auto) Neut # (Auto) Lymph # (Auto) [place] # (Auto) Eos # (Auto) Baso # (Auto) PT INR APTT Puncture Site Rr pCO2 35 pO2 94 HCO3 26.0 ABG pH 7.46 H ABG Total CO2 26.0 ABG O2 Saturation 99.5 H ABG Base Excess 1.4 Olegario Test Pos ABG Potassium 3.6 A-a O2 Difference 90.0 Respiratory Index 1.0 Sodium 139.0 Chloride 110.0 H Glucose 108 Lactate 1.1 Liter Flow 3.0 FiO2 32.0 Potassium Carbon Dioxide Anion Gap BUN Creatinine Est GFR ( Amer) Est GFR (Non-Af Amer) POC Glucose (mg/dL) 108 Random Glucose Calcium Phosphorus Magnesium Total Bilirubin AST ALT Alkaline Phosphatase Ammonia 76 H D Total Protein Albumin Globulin Albumin/Globulin Ratio Procalcitonin Arterial Blood Potassium 3.6 Ur L.pneumophila Ag Blood Type Antibody Screen 12/21/17 12/21/17 12/21/17 06:26 06:28 06:32 WBC 14.5 H RBC 3.10 L Hgb 9.0 L Hct 27.1 L MCV 87.2 MCH 28.9 MCHC 33.2 RDW 24.7 H Plt Count 150 MPV 12.0 H Neut % (Auto) 70.6 Lymph % (Auto) 12.4 L [place] % (Auto) 14.9 H Eos % (Auto) 1.3 Baso % (Auto) 0.8 Neut # (Auto) 10.2 H Lymph # (Auto) 1.8 [place] # (Auto) 2.2 H Eos # (Auto) 0.2 Baso # (Auto) 0.1 PT 22.9 H INR 2.0 APTT 38 H Puncture Site pCO2 pO2 HCO3 ABG pH ABG Total CO2 ABG O2 Saturation ABG Base Excess Olegario Test ABG Potassium A-a O2 Difference Respiratory Index Sodium 139 Chloride 108 H Glucose Lactate Liter Flow FiO2 Potassium 3.8 Carbon Dioxide 24 Anion Gap 11 BUN 13 Creatinine 0.8 Est GFR ( Amer) > 60 Est GFR (Non-Af Amer) > 60 POC Glucose (mg/dL) Random Glucose 96 Calcium 7.5 L Phosphorus 2.6 Magnesium 2.1 Total Bilirubin 3.5 H AST 116 H ALT 50 Alkaline Phosphatase 138 H Ammonia Total Protein 6.3 Albumin 2.2 L Globulin 4.1 H Albumin/Globulin Ratio 0.5 L Procalcitonin Arterial Blood Potassium Ur L.pneumophila Ag Blood Type Antibody Screen 12/21/17 12/21/17 07:26 11:37 WBC RBC Hgb Hct MCV MCH MCHC RDW Plt Count MPV Neut % (Auto) Lymph % (Auto) [place] % (Auto) Eos % (Auto) Baso % (Auto) Neut # (Auto) Lymph # (Auto) [place] # (Auto) Eos # (Auto) Baso # (Auto) PT INR APTT Puncture Site pCO2 pO2 HCO3 ABG pH ABG Total CO2 ABG O2 Saturation ABG Base Excess Olegario Test ABG Potassium A-a O2 Difference Respiratory Index Sodium Chloride Glucose Lactate Liter Flow FiO2 Potassium Carbon Dioxide Anion Gap BUN Creatinine Est GFR ( Amer) Est GFR (Non-Af Amer) POC Glucose (mg/dL) 111 H 161 H Random Glucose Calcium Phosphorus Magnesium Total Bilirubin AST ALT Alkaline Phosphatase Ammonia Total Protein Albumin Globulin Albumin/Globulin Ratio Procalcitonin Arterial Blood Potassium Ur L.pneumophila Ag Blood Type Antibody Screen Fingerstick Blood Sugar Results: 108 Critical Care Progress Note - Nutrition Nutrition: Nutrition Category Date Time Status Altered GI/Hepatic Diet [DIET] Diets 12/16/17 Breakfast Active Assessment/Plan - Assessment and Plan (Free Text) Assessment: 42M alcoholic, hemothorax Plan: Neuro: much more awake and aware today Cardio: No acute issues Pulm: L. Hemothorax 2/2 to rib fracture. Chest tube has drained over 2000 total serosang. ~120 over 12 hrs. Surgery (Eloise). Tube clamped today. Will remove tube when patient ready to transfer out per surgery. 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 GI (Zoë). Hepatic diet. S/p Paracentesis 250ml yellow Ascitic fluid. F/U studies. No evidence of SBP @ this time. HCV +. Psych (Jonathan) for EtOH use * Vitamin C * multivitamin * thiamine * zinc * Propanolol 20 PO BID * Rifaximin 550 PO BID * aldactone 50 PO QD Renal: no acute issues Endo: no acute issues Heme: History of microcytic anemia, INR up 2/2 to liver disease * Folic acid 1mg * vitamin K ID: WBC elevated. Low grade fever yesterday. Unknown source of sepsis. Will cover for SBP until completes fluid studies have resulted. ID (Mangia) * Maxipime 1g Q8 * Vanco 1g Q12 * Procal 0.31 MSK: complaining of back pain and arm pain. * Dilaudid 0.5 Q6 PRN PPX: SCD, CI for chemical ppx due to hemothorax and elevated INR. Pepcid Q12 <Clemente Raza M - Last Filed: 12/21/17 17:38> CCU Objective - Vital Signs / Intake & Output Vital Signs (Last 4 hours): Vital Signs Temp Pulse Resp BP Pulse Ox 12/21/17 17:00 66 12 95 12/21/17 16:45 67 9 L 93/58 L 98 12/21/17 16:00 98.7 F 59 L 17 95 12/21/17 15:44 59 L 12 100/59 L 96 12/21/17 15:00 62 17 98 12/21/17 14:58 62 11 L 108/72 97 12/21/17 14:00 63 13 96 12/21/17 13:45 64 16 94/61 L Intake and Output (Last 8hrs): Intake & Output 12/21/17 12/21/17 12/21/17 06:59 14:59 22:59 Intake Total 730 Output Total 130 Balance 600 Weight 198 lb Intake: Intake, IV Amount 250 Right upper arm 2 250 Oral 480 Output: Chest Tube Drainage 130 Left Mid-Axillary Chest 130 - Medications Active Medications: Active Medications Generic Name Dose Route Start Last Admin Trade Name Freq PRN Reason Stop Dose Admin Albuterol/Ipratropium 3 ml 12/15/17 14:00 12/21/17 13:52 Duoneb 3 Mg/0.5 Mg (3 Ml) Ud INH 3 ml RQ6 ELIJAH Administration Ascorbic Acid 250 mg 12/14/17 14:00 12/21/17 09:28 Vitamin C 250 Mg Tab PO 250 mg DAILY ELIJAH Administration Famotidine 20 mg 12/21/17 18:00 Pepcid PO BID ELIJAH Hydromorphone HCl 0.5 mg 12/21/17 12:03 12/21/17 12:35 Dilaudid IVP 0.5 mg Q6H PRN Administration Pain, severe (8-10) Folic Acid 1 mg/ Sodium 100.2 mls @ 60 mls/hr 12/09/17 10:00 12/21/17 10:43 Chloride IV 60 mls/hr DAILY ELIJAH Administration Cefepime HCl 1 gm in 50 mls @ 100 mls/hr 12/15/17 18:00 12/21/17 09:59 Maxipime Iv 1 Gm Premix IVPB 100 mls/hr Q8H ELIJAH Administration Vancomycin/Sodium Chloride 1 gm in 200 mls @ 166.6 mls/hr 12/17/17 16:00 06/02 16:39 Vancomycin 1 Gm/Ns 200 Ml IVPB 12/22/17 16:01 166.6 mls/hr Q12H ELIJAH Administration Multivitamins/Vitamin C 5 ml 12/14/17 14:00 12/21/17 09:28 Multi-Delyn Liquid PO 5 ml DAILY ELIJAH Administration Phytonadione 5 mg 12/22/17 10:00 Vitamin K Tab PO 12/22/17 10:01 DAILY ELIJAH Propranolol HCl 20 mg 12/09/17 19:30 12/21/17 09:28 Inderal PO 20 mg BID ELIJAH Administration Rifaximin 550 mg 12/17/17 18:00 12/21/17 09:30 Xifaxan PO 550 mg BID ELIJAH Administration Spironolactone 50 mg 12/20/17 11:15 12/21/17 09:59 Aldactone PO 50 mg DAILY ELIJAH Administration Thiamine HCl 100 mg 12/09/17 10:00 12/21/17 09:30 Vitamin B1 Inj IV 100 mg DAILY ELIJAH Administration Zinc Sulfate 220 mg 12/14/17 13:30 12/21/17 09:31 Zinc Sulfate 220 Mg Cap PO 220 mg DAILY ELIJAH Administration - Patient Studies Lab Studies: Microbiology Studies 12/17/17 Unknown Blood Culture - Preliminary Blood-Venous NO GROWTH AFTER 4 DAYS 12/17/17 Unknown Blood Culture - Preliminary Blood-Venous NO GROWTH AFTER 4 DAYS Lab Studies 12/21/17 12/21/17 12/21/17 Range/Units 16:10 11:37 07:26 WBC (4.8-10.8) K/uL RBC (4.40-5.90) Mil/uL Hgb (12.0-18.0) g/dL Hct (35.0-51.0) % MCV (80.0-94.0) fL MCH (27.0-31.0) pg MCHC (33.0-37.0) g/dL RDW (11.5-14.5) % Plt Count (130-400) K/uL MPV (7.2-11.7) fL Neut % (Auto) (50.0-75.0) % Lymph % (Auto) (20.0-40.0) % [place] % (Auto) (0.0-10.0) % Eos % (Auto) (0.0-4.0) % Baso % (Auto) (0.0-2.0) % Neut # (Auto) (1.8-7.0) K/uL Lymph # (Auto) (1.0-4.3) K/uL [place] # (Auto) (0.0-0.8) K/uL Eos # (Auto) (0.0-0.7) K/uL Baso # (Auto) (0.0-0.2) K/uL PT (9.7-12.2) SECONDS INR APTT (21-34) SECONDS Puncture Site pCO2 (35-45) mm/Hg pO2 (80-100) mm/Hg HCO3 (21-28) mmol/L ABG pH (7.35-7.45) ABG Total CO2 (22-28) mmol/L ABG O2 Saturation (95-98) % ABG Base Excess (-2.0-3.0) mmol/L Olegario Test ABG Potassium (3.6-5.2) mmol/L A-a O2 Difference mm/Hg Respiratory Index Sodium (132-148) mmol/l Chloride (98-107) mmol/L Glucose (75-110) mg/dl Lactate (0.7-2.1) mmol/L Liter Flow FiO2 % Potassium (3.6-5.2) mmol/L Carbon Dioxide (22-30) mmol/L Anion Gap (10-20) BUN (9-20) mg/dL Creatinine (0.8-1.5) mg/dL Est GFR ( Amer) Est GFR (Non-Af Amer) POC Glucose (mg/dL) 86 161 H 111 H (65-110) mg/dL Random Glucose (75-110) mg/dL Calcium (8.6-10.4) mg/dl Phosphorus (2.5-4.5) mg/dL Magnesium (1.6-2.3) mg/dL Total Bilirubin (0.2-1.3) mg/dL AST (17-59) U/L ALT (21-72) U/L Alkaline Phosphatase (38-126) U/L Ammonia (9-33) umol/L Total Protein (6.3-8.3) g/dL Albumin (3.5-5.0) g/dL Globulin (2.2-3.9) gm/dL Albumin/Globulin Ratio (1.0-2.1) Arterial Blood Potassium (3.6-5.2) mmol/L Ur L.pneumophila Ag (NEGATIVE) Mycoplasma pneumon IgM (NEGATIVE) 12/21/17 12/21/17 12/21/17 Range/Units 06:32 06:28 06:26 WBC 14.5 H (4.8-10.8) K/uL RBC 3.10 L (4.40-5.90) Mil/uL Hgb 9.0 L (12.0-18.0) g/dL Hct 27.1 L (35.0-51.0) % MCV 87.2 (80.0-94.0) fL MCH 28.9 (27.0-31.0) pg MCHC 33.2 (33.0-37.0) g/dL RDW 24.7 H (11.5-14.5) % Plt Count 150 (130-400) K/uL MPV 12.0 H (7.2-11.7) fL Neut % (Auto) 70.6 (50.0-75.0) % Lymph % (Auto) 12.4 L (20.0-40.0) % [place] % (Auto) 14.9 H (0.0-10.0) % Eos % (Auto) 1.3 (0.0-4.0) % Baso % (Auto) 0.8 (0.0-2.0) % Neut # (Auto) 10.2 H (1.8-7.0) K/uL Lymph # (Auto) 1.8 (1.0-4.3) K/uL [place] # (Auto) 2.2 H (0.0-0.8) K/uL Eos # (Auto) 0.2 (0.0-0.7) K/uL Baso # (Auto) 0.1 (0.0-0.2) K/uL PT 22.9 H (9.7-12.2) SECONDS INR 2.0 APTT 38 H (21-34) SECONDS Puncture Site pCO2 (35-45) mm/Hg pO2 (80-100) mm/Hg HCO3 (21-28) mmol/L ABG pH (7.35-7.45) ABG Total CO2 (22-28) mmol/L ABG O2 Saturation (95-98) % ABG Base Excess (-2.0-3.0) mmol/L Oelgario Test ABG Potassium (3.6-5.2) mmol/L A-a O2 Difference mm/Hg Respiratory Index Sodium 139 (132-148) mmol/l Chloride 108 H (98-107) mmol/L Glucose (75-110) mg/dl Lactate (0.7-2.1) mmol/L Liter Flow FiO2 % Potassium 3.8 (3.6-5.2) mmol/L Carbon Dioxide 24 (22-30) mmol/L Anion Gap 11 (10-20) BUN 13 (9-20) mg/dL Creatinine 0.8 (0.8-1.5) mg/dL Est GFR ( Amer) > 60 Est GFR (Non-Af Amer) > 60 POC Glucose (mg/dL) (65-110) mg/dL Random Glucose 96 (75-110) mg/dL Calcium 7.5 L (8.6-10.4) mg/dl Phosphorus 2.6 (2.5-4.5) mg/dL Magnesium 2.1 (1.6-2.3) mg/dL Total Bilirubin 3.5 H (0.2-1.3) mg/dL AST 116 H (17-59) U/L ALT 50 (21-72) U/L Alkaline Phosphatase 138 H (38-126) U/L Ammonia (9-33) umol/L Total Protein 6.3 (6.3-8.3) g/dL Albumin 2.2 L (3.5-5.0) g/dL Globulin 4.1 H (2.2-3.9) gm/dL Albumin/Globulin Ratio 0.5 L (1.0-2.1) Arterial Blood Potassium (3.6-5.2) mmol/L Ur L.pneumophila Ag (NEGATIVE) Mycoplasma pneumon IgM (NEGATIVE) 12/21/17 12/21/17 12/20/17 Range/Units 06:26 04:35 21:14 WBC (4.8-10.8) K/uL RBC (4.40-5.90) Mil/uL Hgb (12.0-18.0) g/dL Hct (35.0-51.0) % MCV (80.0-94.0) fL MCH (27.0-31.0) pg MCHC (33.0-37.0) g/dL RDW (11.5-14.5) % Plt Count (130-400) K/uL MPV (7.2-11.7) fL Neut % (Auto) (50.0-75.0) % Lymph % (Auto) (20.0-40.0) % [place] % (Auto) (0.0-10.0) % Eos % (Auto) (0.0-4.0) % Baso % (Auto) (0.0-2.0) % Neut # (Auto) (1.8-7.0) K/uL Lymph # (Auto) (1.0-4.3) K/uL [place] # (Auto) (0.0-0.8) K/uL Eos # (Auto) (0.0-0.7) K/uL Baso # (Auto) (0.0-0.2) K/uL PT (9.7-12.2) SECONDS INR APTT (21-34) SECONDS Puncture Site Rr pCO2 35 (35-45) mm/Hg pO2 94 (80-100) mm/Hg HCO3 26.0 (21-28) mmol/L ABG pH 7.46 H (7.35-7.45) ABG Total CO2 26.0 (22-28) mmol/L ABG O2 Saturation 99.5 H (95-98) % ABG Base Excess 1.4 (-2.0-3.0) mmol/L Olegario Test Pos ABG Potassium 3.6 (3.6-5.2) mmol/L A-a O2 Difference 90.0 mm/Hg Respiratory Index 1.0 Sodium 139.0 (132-148) mmol/l Chloride 110.0 H (98-107) mmol/L Glucose 108 (75-110) mg/dl Lactate 1.1 (0.7-2.1) mmol/L Liter Flow 3.0 FiO2 32.0 % Potassium (3.6-5.2) mmol/L Carbon Dioxide (22-30) mmol/L Anion Gap (10-20) BUN (9-20) mg/dL Creatinine (0.8-1.5) mg/dL Est GFR ( Amer) Est GFR (Non-Af Amer) POC Glucose (mg/dL) 108 (65-110) mg/dL Random Glucose (75-110) mg/dL Calcium (8.6-10.4) mg/dl Phosphorus (2.5-4.5) mg/dL Magnesium (1.6-2.3) mg/dL Total Bilirubin (0.2-1.3) mg/dL AST (17-59) U/L ALT (21-72) U/L Alkaline Phosphatase (38-126) U/L Ammonia 76 H D (9-33) umol/L Total Protein (6.3-8.3) g/dL Albumin (3.5-5.0) g/dL Globulin (2.2-3.9) gm/dL Albumin/Globulin Ratio (1.0-2.1) Arterial Blood Potassium 3.6 (3.6-5.2) mmol/L Ur L.pneumophila Ag (NEGATIVE) Mycoplasma pneumon IgM (NEGATIVE) 12/18/17 Range/Units 08:30 WBC (4.8-10.8) K/uL RBC (4.40-5.90) Mil/uL Hgb (12.0-18.0) g/dL Hct (35.0-51.0) % MCV (80.0-94.0) fL MCH (27.0-31.0) pg MCHC (33.0-37.0) g/dL RDW (11.5-14.5) % Plt Count (130-400) K/uL MPV (7.2-11.7) fL Neut % (Auto) (50.0-75.0) % Lymph % (Auto) (20.0-40.0) % [place] % (Auto) (0.0-10.0) % Eos % (Auto) (0.0-4.0) % Baso % (Auto) (0.0-2.0) % Neut # (Auto) (1.8-7.0) K/uL Lymph # (Auto) (1.0-4.3) K/uL [place] # (Auto) (0.0-0.8) K/uL Eos # (Auto) (0.0-0.7) K/uL Baso # (Auto) (0.0-0.2) K/uL PT (9.7-12.2) SECONDS INR APTT (21-34) SECONDS Puncture Site pCO2 (35-45) mm/Hg pO2 (80-100) mm/Hg HCO3 (21-28) mmol/L ABG pH (7.35-7.45) ABG Total CO2 (22-28) mmol/L ABG O2 Saturation (95-98) % ABG Base Excess (-2.0-3.0) mmol/L Olegario Test ABG Potassium (3.6-5.2) mmol/L A-a O2 Difference mm/Hg Respiratory Index Sodium (132-148) mmol/l Chloride (98-107) mmol/L Glucose (75-110) mg/dl Lactate (0.7-2.1) mmol/L Liter Flow FiO2 % Potassium (3.6-5.2) mmol/L Carbon Dioxide (22-30) mmol/L Anion Gap (10-20) BUN (9-20) mg/dL Creatinine (0.8-1.5) mg/dL Est GFR ( Amer) Est GFR (Non-Af Amer) POC Glucose (mg/dL) (65-110) mg/dL Random Glucose (75-110) mg/dL Calcium (8.6-10.4) mg/dl Phosphorus (2.5-4.5) mg/dL Magnesium (1.6-2.3) mg/dL Total Bilirubin (0.2-1.3) mg/dL AST (17-59) U/L ALT (21-72) U/L Alkaline Phosphatase (38-126) U/L Ammonia (9-33) umol/L Total Protein (6.3-8.3) g/dL Albumin (3.5-5.0) g/dL Globulin (2.2-3.9) gm/dL Albumin/Globulin Ratio (1.0-2.1) Arterial Blood Potassium (3.6-5.2) mmol/L Ur L.pneumophila Ag Negative (NEGATIVE) Mycoplasma pneumon IgM Negative (NEGATIVE) Laboratory Results - last 24 hr 12/18/17 12/20/17 12/21/17 08:30 21:14 04:35 WBC RBC Hgb Hct MCV MCH MCHC RDW Plt Count MPV Neut % (Auto) Lymph % (Auto) [place] % (Auto) Eos % (Auto) Baso % (Auto) Neut # (Auto) Lymph # (Auto) [place] # (Auto) Eos # (Auto) Baso # (Auto) PT INR APTT Puncture Site Rr pCO2 35 pO2 94 HCO3 26.0 ABG pH 7.46 H ABG Total CO2 26.0 ABG O2 Saturation 99.5 H ABG Base Excess 1.4 Olegario Test Pos ABG Potassium 3.6 A-a O2 Difference 90.0 Respiratory Index 1.0 Sodium 139.0 Chloride 110.0 H Glucose 108 Lactate 1.1 Liter Flow 3.0 FiO2 32.0 Potassium Carbon Dioxide Anion Gap BUN Creatinine Est GFR ( Amer) Est GFR (Non-Af Amer) POC Glucose (mg/dL) 108 Random Glucose Calcium Phosphorus Magnesium Total Bilirubin AST ALT Alkaline Phosphatase Ammonia Total Protein Albumin Globulin Albumin/Globulin Ratio Arterial Blood Potassium 3.6 Ur L.pneumophila Ag Negative Mycoplasma pneumon IgM Negative 12/21/17 12/21/17 12/21/17 06:26 06:26 06:28 WBC 14.5 H RBC 3.10 L Hgb 9.0 L Hct 27.1 L MCV 87.2 MCH 28.9 MCHC 33.2 RDW 24.7 H Plt Count 150 MPV 12.0 H Neut % (Auto) 70.6 Lymph % (Auto) 12.4 L [place] % (Auto) 14.9 H Eos % (Auto) 1.3 Baso % (Auto) 0.8 Neut # (Auto) 10.2 H Lymph # (Auto) 1.8 [place] # (Auto) 2.2 H Eos # (Auto) 0.2 Baso # (Auto) 0.1 PT INR APTT Puncture Site pCO2 pO2 HCO3 ABG pH ABG Total CO2 ABG O2 Saturation ABG Base Excess Olegario Test ABG Potassium A-a O2 Difference Respiratory Index Sodium 139 Chloride 108 H Glucose Lactate Liter Flow FiO2 Potassium 3.8 Carbon Dioxide 24 Anion Gap 11 BUN 13 Creatinine 0.8 Est GFR ( Amer) > 60 Est GFR (Non-Af Amer) > 60 POC Glucose (mg/dL) Random Glucose 96 Calcium 7.5 L Phosphorus 2.6 Magnesium 2.1 Total Bilirubin 3.5 H AST 116 H ALT 50 Alkaline Phosphatase 138 H Ammonia 76 H D Total Protein 6.3 Albumin 2.2 L Globulin 4.1 H Albumin/Globulin Ratio 0.5 L Arterial Blood Potassium Ur L.pneumophila Ag Mycoplasma pneumon IgM 12/21/17 12/21/17 12/21/17 06:32 07:26 11:37 WBC RBC Hgb Hct MCV MCH MCHC RDW Plt Count MPV Neut % (Auto) Lymph % (Auto) [place] % (Auto) Eos % (Auto) Baso % (Auto) Neut # (Auto) Lymph # (Auto) [place] # (Auto) Eos # (Auto) Baso # (Auto) PT 22.9 H INR 2.0 APTT 38 H Puncture Site pCO2 pO2 HCO3 ABG pH ABG Total CO2 ABG O2 Saturation ABG Base Excess Olegario Test ABG Potassium A-a O2 Difference Respiratory Index Sodium Chloride Glucose Lactate Liter Flow FiO2 Potassium Carbon Dioxide Anion Gap BUN Creatinine Est GFR ( Amer) Est GFR (Non-Af Amer) POC Glucose (mg/dL) 111 H 161 H Random Glucose Calcium Phosphorus Magnesium Total Bilirubin AST ALT Alkaline Phosphatase Ammonia Total Protein Albumin Globulin Albumin/Globulin Ratio Arterial Blood Potassium Ur L.pneumophila Ag Mycoplasma pneumon IgM 12/21/17 16:10 WBC RBC Hgb Hct MCV MCH MCHC RDW Plt Count MPV Neut % (Auto) Lymph % (Auto) [place] % (Auto) Eos % (Auto) Baso % (Auto) Neut # (Auto) Lymph # (Auto) [place] # (Auto) Eos # (Auto) Baso # (Auto) PT INR APTT Puncture Site pCO2 pO2 HCO3 ABG pH ABG Total CO2 ABG O2 Saturation ABG Base Excess Olegario Test ABG Potassium A-a O2 Difference Respiratory Index Sodium Chloride Glucose Lactate Liter Flow FiO2 Potassium Carbon Dioxide Anion Gap BUN Creatinine Est GFR ( Amer) Est GFR (Non-Af Amer) POC Glucose (mg/dL) 86 Random Glucose Calcium Phosphorus Magnesium Total Bilirubin AST ALT Alkaline Phosphatase Ammonia Total Protein Albumin Globulin Albumin/Globulin Ratio Arterial Blood Potassium Ur L.pneumophila Ag Mycoplasma pneumon IgM Critical Care Progress Note - Nutrition Nutrition: Nutrition Category Date Time Status Altered GI/Hepatic Diet [DIET] Diets 12/16/17 Breakfast Active Assessment/Plan - Assessment and Plan (Free Text) Plan: Patient seen and examiend at bedside with ICU team. Above resident documents my findings and management. -Patient tolerating oral diet -breathing much better -chest tube output >100 per 24 hours -continue current management -start lasix 20 mg today -PT/OT -f/u CXR. - Date & Time Date: 12/21/17 Time: 12:00
[2017-12-21] MEDS: HYDROmorphone 0.5 mg/0.5 ml ISec IVP PRN (12:35)
[2017-12-21 16:43] LABS: MYCOPLASMA PNEUMONIAE IGM NEGATIVE (NEGATIVE)
--- NOTE | 2017-12-21 16:51 | CP.PCM.PN ---
Subjective - Date & Time of Evaluation Date of Evaluation: 12/21/17 Time of Evaluation: 08:00 - Subjective Subjective: Patient seen and examined at bedside Chest tube clamped PT/OT today had patient OOB to chair much less lethargic Objective - Vital Signs/Intake and Output Vital Signs (last 24 hours): Temp Pulse Resp BP Pulse Ox 98.7 F 59 L 17 100/59 L 95 12/21/17 16:00 12/21/17 16:00 12/21/17 16:00 12/21/17 15:44 12/21/17 16:00 Intake and Output: 12/21/17 12/21/17 06:59 18:59 Intake Total 730 Output Total 130 Balance 600 - Medications Medications: Current Medications Albuterol/Ipratropium (Duoneb 3 Mg/0.5 Mg (3 Ml) Ud) 3 ml INH RQ6 [facility] Last Admin: 12/21/17 13:52 Dose: 3 ml Ascorbic Acid (Vitamin C 250 Mg Tab) 250 mg PO DAILY [facility] Last Admin: 12/21/17 09:28 Dose: 250 mg Famotidine (Pepcid) 20 mg PO BID [facility] Hydromorphone HCl (Dilaudid) 0.5 mg IVP Q6H PRN PRN Reason: Pain, severe (8-10) Last Admin: 12/21/17 12:35 Dose: 0.5 mg Folic Acid 1 mg/ Sodium (Chloride) 100.2 mls @ 60 mls/hr IV DAILY [facility] Last Admin: 12/21/17 10:43 Dose: 60 mls/hr Cefepime HCl (Maxipime Iv 1 Gm Premix) 1 gm in 50 mls @ 100 mls/hr IVPB Q8H [facility] Last Admin: 12/21/17 09:59 Dose: 100 mls/hr Vancomycin/Sodium Chloride (Vancomycin 1 Gm/Ns 200 Ml) 1 gm in 200 mls @ 166.6 mls/hr IVPB Q12H [facility] Stop: 12/22/17 16:01 Last Admin: 12/21/17 16:39 Dose: 166.6 mls/hr Multivitamins/Vitamin C (Multi-Delyn Liquid) 5 ml PO DAILY [facility] Last Admin: 12/21/17 09:28 Dose: 5 ml Phytonadione (Vitamin K Tab) 5 mg PO DAILY [facility] Stop: 12/22/17 10:01 Propranolol HCl (Inderal) 20 mg PO BID [facility] Last Admin: 12/21/17 09:28 Dose: 20 mg Rifaximin (Xifaxan) 550 mg PO BID [facility] Last Admin: 12/21/17 09:30 Dose: 550 mg Spironolactone (Aldactone) 50 mg PO DAILY [facility] Last Admin: 12/21/17 09:59 Dose: 50 mg Thiamine HCl (Vitamin B1 Inj) 100 mg IV DAILY [facility] Last Admin: 12/21/17 09:30 Dose: 100 mg Zinc Sulfate (Zinc Sulfate 220 Mg Cap) 220 mg PO DAILY [facility] Last Admin: 12/21/17 09:31 Dose: 220 mg - Labs Labs: 12/21/17 06:28 12/21/17 06:26 PT 22.9 SECONDS (9.7-12.2) H 12/21/17 06:32 INR 2.0 12/21/17 06:32 APTT 38 SECONDS (21-34) H 12/21/17 06:32 - Constitutional Appears: Non-toxic, Chronically Ill - Head Exam Head Exam: NORMOCEPHALIC - Eye Exam Eye Exam: PERRL, Scleral icterus - ENT Exam ENT Exam: Mucous Membranes Dry - Neck Exam Neck Exam: absent: Lymphadenopathy - Respiratory Exam Respiratory Exam: Decreased Breath Sounds, Rhonchi - Cardiovascular Exam Cardiovascular Exam: REGULAR RHYTHM, +S1, +S2 - GI/Abdominal Exam GI & Abdominal Exam: Distended, Soft. absent: Tenderness - Rectal Exam Rectal Exam: Deferred Assessment and Plan (1) Alcohol withdrawal Status: Acute (2) Alcoholic cirrhosis Status: Acute (3) Colitis Status: Acute (4) Iron deficiency anemia Status: Acute (5) Pneumonia Status: Acute (6) Pneumothorax Status: Acute (7) Rib fractures Status: Acute (8) Sepsis Status: Acute - Assessment and Plan (Free Text) Assessment: improving pneumonia / sepsis resp failure/ cirrhosis with ascites and pleurisy cont iv rx min 14 days
[2017-12-22] MEDS: Albuterol-Ipratrop 3 mg / 0.5 (3 ml) UD INH SCH ×4 (01:07→19:25)
[2017-12-22] MEDS: Cefepime IV 1 gm in Dextrose 1 GM/50 ML BAG IVPB SCH ×3 (02:28→18:28)
[2017-12-22] MEDS: Vancomycin 1 gm/NS 200 ml 1 GM/200 ML BAG IVPB SCH ×2 (04:09→16:15)
[2017-12-22 06:25] LABS: BASO # 0.1 K/uL (0.0-0.2); BASO % 0.7 % (0.0-2.0); EOS # 0.2 K/uL (0.0-0.7); EOS % 1.4 % (0.0-4.0); HEMOGLOBIN 9.6 g/dL (12.0-18.0); LYMPH # 1.8 K/uL (1.0-4.3); MEAN CELL VOLUME 88.7 fL (80.0-94.0); MEAN CORPUSCULAR HEMOGLOBIN 28.5 pg (27.0-31.0); MEAN CORPUSCULAR HGB CONC 32.2 g/dL (33.0-37.0); MEAN PLATELET VOLUME 11.7 fL (7.2-11.7); MONO # 2.5 K/uL (0.0-0.8); MONO % 16.2 % (0.0-10.0); NEUT # 10.6 K/uL (1.8-7.0); NEUT % 69.7 % (50.0-75.0); NRBC % 0.1 % (0.0-2.0); RBC 3.36 Mil/uL (4.40-5.90); RED CELL DISTRIBUTION WIDTH 25.7 % (11.5-14.5); WHITE BLOOD COUNT 15.3 K/uL (4.8-10.8)
[2017-12-22 06:41] LABS: ALB/GLOB RATIO 0.6 (1.0-2.1); ALBUMIN 2.3 g/dL (3.5-5.0); CALCIUM 7.3 mg/dl (8.6-10.4); GFR AFRICAN-AMERICAN > 60; GFR NON-AFRICAN AMERICAN > 60
[2017-12-22 06:42] LABS: ALT/SGPT 50 U/L (21-72); AST/SGOT 128 U/L (17-59); BLOOD UREA NITROGEN 12 mg/dL (9-20)
--- NOTE | 2017-12-22 08:06 | RAD ---
Chest x-ray single frontal view History: Chest tube. Comparison: 12/21/2017 Findings: Left chest tube in stable position. Small loculated left-sided pleural effusion/questionable hydro pneumothorax. Moderate airspace opacification in the left mid to lower lung zone. Venous congestion. Right infrahilar consolidation. Cardiomegaly. Multiple displaced left rib fractures. Impression: Left chest tube in stable position. Small loculated left-sided pleural effusion/questionable hydro pneumothorax. Moderate airspace opacification in the left mid to lower lung zone. Venous congestion. Right infrahilar consolidation. Cardiomegaly. Multiple displaced left rib fractures.
[2017-12-22] MEDS: Thiamine 100 mg/ml Inj IV SCH (09:21)
[2017-12-22] MEDS: Multiple Vitamins Oral Solution PO SCH (09:22)
[2017-12-22] MEDS: HYDROmorphone 0.5 mg/0.5 ml ISec IVP PRN (10:56)
--- NOTE | 2017-12-22 11:38 | CP.CCUPN ---
<Ray Trevino - Last Filed: 12/22/17 11:38> CCU Subjective - Physician Review Subjective (Free Text): 12/13/17 19:04 Patient seen and examined at bedside Patient was very lethargic, diaphoretic Had a large hematoma on his R. Flank Given history of liver disease and coagulopathy, decision was made to transfer the patient back to ICU 12/14/17 13:21 Patient seen and examined at bedside patient sedated will back off sedation to evaluate mental status 12/19/17 13:11 Patient had 400 output overnight from chest tube Gave 3 FFP and vitamin K. Patient more awake and tolerating diet 12/19/17 16:16 paracentesis 2.5L out 12/20/17 10:56 INR decreased to 1.9 yesterday with 3u FFP 90 out overnight of chest tube, serosang Transfuse 2 units PRBC today patient more lethargic today, will check abg and ammonia lvl 12/21/17 12:14 Patient seen and examined at bedside Chest tube clamped PT/OT today had patient OOB to chair much less lethargic 12/22/17 11:37 patient seen and examined at bedside doing well with no complaints at this time patient is OOB to chair and tolerating PT tolerating diet no need for further ICU care at this time CCU Objective - Vital Signs / Intake & Output Vital Signs (Last 4 hours): Vital Signs Temp Pulse Resp BP Pulse Ox 12/22/17 11:00 67 13 96 12/22/17 10:08 98.4 F 76 20 155/75 H 100 12/22/17 10:00 68 15 96 12/22/17 09:00 86 13 92 L 12/22/17 08:45 74 13 97/71 L 93 L 12/22/17 08:00 52 L 17 99 12/22/17 07:45 52 L 14 107/68 99 Intake and Output (Last 8hrs): Intake & Output 12/21/17 12/22/17 12/22/17 22:59 06:59 14:59 Intake Total 360 250 Output Total 150 240 Balance 210 10 Weight 202 lb 14.4 oz Intake: Intake, IV Amount 250 Right upper arm 2 250 Oral 360 0 Output: Chest Tube Drainage 150 240 Left Mid-Axillary Chest 150 240 Other: # Voids Urine, Voided 0 - Physical Exam Head: Positive for: Atraumatic, Normocephalic Pupils: Positive for: PERRL Extroacular Muscles: Positive for: EOMI Conjunctiva: Positive for: Icteric Mouth: Positive for: Moist Mucous Membranes Respiratory/Chest: Positive for: Clear to Auscultation, Good Air Exchange Abdomen: Positive for: Distention. Negative for: Tenderness, Normal Bowel Sounds Psychiatric: Positive for: Alert - Medications Active Medications: Active Medications Generic Name Dose Route Start Last Admin Trade Name Freq PRN Reason Stop Dose Admin Albuterol/Ipratropium 3 ml 12/15/17 14:00 12/22/17 07:41 Duoneb 3 Mg/0.5 Mg (3 Ml) Ud INH 3 ml RQ6 ELIJAH Administration Ascorbic Acid 250 mg 12/14/17 14:00 12/22/17 09:22 Vitamin C 250 Mg Tab PO 250 mg DAILY ELIJAH Administration Famotidine 20 mg 12/21/17 18:00 12/22/17 09:22 Pepcid PO 20 mg BID ELIJAH Administration Hydromorphone HCl 0.5 mg 12/21/17 12:03 12/22/17 10:56 Dilaudid IVP 0.5 mg Q6H PRN Administration Pain, severe (8-10) Folic Acid 1 mg/ Sodium 100.2 mls @ 60 mls/hr 12/09/17 10:00 12/22/17 10:52 Chloride IV 60 mls/hr DAILY ELIJAH Administration Cefepime HCl 1 gm in 50 mls @ 100 mls/hr 12/15/17 18:00 12/22/17 09:22 Maxipime Iv 1 Gm Premix IVPB 100 mls/hr Q8H ELIJAH Administration Vancomycin/Sodium Chloride 1 gm in 200 mls @ 166.6 mls/hr 12/17/17 16:00 07/03 04:09 Vancomycin 1 Gm/Ns 200 Ml IVPB 12/22/17 16:01 166.6 mls/hr Q12H ELIJAH Administration Multivitamins/Vitamin C 5 ml 12/14/17 14:00 12/22/17 09:22 Multi-Delyn Liquid PO 5 ml DAILY ELIJAH Administration Propranolol HCl 20 mg 12/09/17 19:30 12/22/17 09:38 Inderal PO 20 mg BID ELIJAH Administration Rifaximin 550 mg 12/17/17 18:00 12/22/17 09:22 Xifaxan PO 550 mg BID ELIJAH Administration Spironolactone 50 mg 12/20/17 11:15 12/22/17 09:24 Aldactone PO 50 mg DAILY ELIJAH Administration Thiamine HCl 100 mg 12/09/17 10:00 12/22/17 09:21 Vitamin B1 Inj IV 100 mg DAILY ELIJAH Administration Zinc Sulfate 220 mg 12/14/17 13:30 12/22/17 09:22 Zinc Sulfate 220 Mg Cap PO 220 mg DAILY ELIJAH Administration - Patient Studies Lab Studies: Microbiology Studies 12/17/17 Unknown Blood Culture - Preliminary Blood-Venous NO GROWTH AFTER 4 DAYS 12/17/17 Unknown Blood Culture - Preliminary Blood-Venous NO GROWTH AFTER 4 DAYS Lab Studies 12/22/17 12/22/17 12/22/17 Range/Units 07:41 06:20 06:19 WBC 15.3 H (4.8-10.8) K/uL RBC 3.36 L (4.40-5.90) Mil/uL Hgb 9.6 L (12.0-18.0) g/dL Hct 29.8 L (35.0-51.0) % MCV 88.7 (80.0-94.0) fL MCH 28.5 (27.0-31.0) pg MCHC 32.2 L (33.0-37.0) g/dL RDW 25.7 H (11.5-14.5) % Plt Count 210 (130-400) K/uL MPV 11.7 (7.2-11.7) fL Neut % (Auto) 69.7 (50.0-75.0) % Lymph % (Auto) 12.0 L (20.0-40.0) % Bath % (Auto) 16.2 H (0.0-10.0) % Eos % (Auto) 1.4 (0.0-4.0) % Baso % (Auto) 0.7 (0.0-2.0) % Neut # (Auto) 10.6 H (1.8-7.0) K/uL Lymph # (Auto) 1.8 (1.0-4.3) K/uL Bath # (Auto) 2.5 H (0.0-0.8) K/uL Eos # (Auto) 0.2 (0.0-0.7) K/uL Baso # (Auto) 0.1 (0.0-0.2) K/uL Sodium 135 (132-148) mmol/L Potassium 4.4 (3.6-5.2) mmol/L Chloride 106 (98-107) mmol/L Carbon Dioxide 24 (22-30) mmol/L Anion Gap 10 (10-20) BUN 12 (9-20) mg/dL Creatinine 0.8 (0.8-1.5) mg/dL Est GFR ( Amer) > 60 Est GFR (Non-Af Amer) > 60 POC Glucose (mg/dL) 82 (65-110) mg/dL Random Glucose 81 (75-110) mg/dL Calcium 7.3 L (8.6-10.4) mg/dl Phosphorus 2.6 (2.5-4.5) mg/dL Magnesium 1.9 (1.6-2.3) mg/dL Total Bilirubin 4.2 H (0.2-1.3) mg/dL AST 128 H (17-59) U/L ALT 50 (21-72) U/L Alkaline Phosphatase 156 H (38-126) U/L Total Protein 6.5 (6.3-8.3) g/dL Albumin 2.3 L (3.5-5.0) g/dL Globulin 4.1 H (2.2-3.9) gm/dL Albumin/Globulin Ratio 0.6 L (1.0-2.1) Mycoplasma pneumon IgM (NEGATIVE) 12/21/17 12/21/17 12/21/17 Range/Units 21:28 16:10 11:37 WBC (4.8-10.8) K/uL RBC (4.40-5.90) Mil/uL Hgb (12.0-18.0) g/dL Hct (35.0-51.0) % MCV (80.0-94.0) fL MCH (27.0-31.0) pg MCHC (33.0-37.0) g/dL RDW (11.5-14.5) % Plt Count (130-400) K/uL MPV (7.2-11.7) fL Neut % (Auto) (50.0-75.0) % Lymph % (Auto) (20.0-40.0) % Bath % (Auto) (0.0-10.0) % Eos % (Auto) (0.0-4.0) % Baso % (Auto) (0.0-2.0) % Neut # (Auto) (1.8-7.0) K/uL Lymph # (Auto) (1.0-4.3) K/uL Bath # (Auto) (0.0-0.8) K/uL Eos # (Auto) (0.0-0.7) K/uL Baso # (Auto) (0.0-0.2) K/uL Sodium (132-148) mmol/L Potassium (3.6-5.2) mmol/L Chloride (98-107) mmol/L Carbon Dioxide (22-30) mmol/L Anion Gap (10-20) BUN (9-20) mg/dL Creatinine (0.8-1.5) mg/dL Est GFR ( Amer) Est GFR (Non-Af Amer) POC Glucose (mg/dL) 101 86 161 H (65-110) mg/dL Random Glucose (75-110) mg/dL Calcium (8.6-10.4) mg/dl Phosphorus (2.5-4.5) mg/dL Magnesium (1.6-2.3) mg/dL Total Bilirubin (0.2-1.3) mg/dL AST (17-59) U/L ALT (21-72) U/L Alkaline Phosphatase (38-126) U/L Total Protein (6.3-8.3) g/dL Albumin (3.5-5.0) g/dL Globulin (2.2-3.9) gm/dL Albumin/Globulin Ratio (1.0-2.1) Mycoplasma pneumon IgM (NEGATIVE) 12/18/17 Range/Units 08:30 WBC (4.8-10.8) K/uL RBC (4.40-5.90) Mil/uL Hgb (12.0-18.0) g/dL Hct (35.0-51.0) % MCV (80.0-94.0) fL MCH (27.0-31.0) pg MCHC (33.0-37.0) g/dL RDW (11.5-14.5) % Plt Count (130-400) K/uL MPV (7.2-11.7) fL Neut % (Auto) (50.0-75.0) % Lymph % (Auto) (20.0-40.0) % Bath % (Auto) (0.0-10.0) % Eos % (Auto) (0.0-4.0) % Baso % (Auto) (0.0-2.0) % Neut # (Auto) (1.8-7.0) K/uL Lymph # (Auto) (1.0-4.3) K/uL Bath # (Auto) (0.0-0.8) K/uL Eos # (Auto) (0.0-0.7) K/uL Baso # (Auto) (0.0-0.2) K/uL Sodium (132-148) mmol/L Potassium (3.6-5.2) mmol/L Chloride (98-107) mmol/L Carbon Dioxide (22-30) mmol/L Anion Gap (10-20) BUN (9-20) mg/dL Creatinine (0.8-1.5) mg/dL Est GFR ( Amer) Est GFR (Non-Af Amer) POC Glucose (mg/dL) (65-110) mg/dL Random Glucose (75-110) mg/dL Calcium (8.6-10.4) mg/dl Phosphorus (2.5-4.5) mg/dL Magnesium (1.6-2.3) mg/dL Total Bilirubin (0.2-1.3) mg/dL AST (17-59) U/L ALT (21-72) U/L Alkaline Phosphatase (38-126) U/L Total Protein (6.3-8.3) g/dL Albumin (3.5-5.0) g/dL Globulin (2.2-3.9) gm/dL Albumin/Globulin Ratio (1.0-2.1) Mycoplasma pneumon IgM Negative (NEGATIVE) Laboratory Results - last 24 hr 12/18/17 12/21/17 12/21/17 08:30 11:37 16:10 WBC RBC Hgb Hct MCV MCH MCHC RDW Plt Count MPV Neut % (Auto) Lymph % (Auto) Bath % (Auto) Eos % (Auto) Baso % (Auto) Neut # (Auto) Lymph # (Auto) Bath # (Auto) Eos # (Auto) Baso # (Auto) Sodium Potassium Chloride Carbon Dioxide Anion Gap BUN Creatinine Est GFR ( Amer) Est GFR (Non-Af Amer) POC Glucose (mg/dL) 161 H 86 Random Glucose Calcium Phosphorus Magnesium Total Bilirubin AST ALT Alkaline Phosphatase Total Protein Albumin Globulin Albumin/Globulin Ratio Mycoplasma pneumon IgM Negative 12/21/17 12/22/17 12/22/17 21:28 06:19 06:20 WBC 15.3 H RBC 3.36 L Hgb 9.6 L Hct 29.8 L MCV 88.7 MCH 28.5 MCHC 32.2 L RDW 25.7 H Plt Count 210 MPV 11.7 Neut % (Auto) 69.7 Lymph % (Auto) 12.0 L Bath % (Auto) 16.2 H Eos % (Auto) 1.4 Baso % (Auto) 0.7 Neut # (Auto) 10.6 H Lymph # (Auto) 1.8 Bath # (Auto) 2.5 H Eos # (Auto) 0.2 Baso # (Auto) 0.1 Sodium 135 Potassium 4.4 Chloride 106 Carbon Dioxide 24 Anion Gap 10 BUN 12 Creatinine 0.8 Est GFR ( Amer) > 60 Est GFR (Non-Af Amer) > 60 POC Glucose (mg/dL) 101 Random Glucose 81 Calcium 7.3 L Phosphorus 2.6 Magnesium 1.9 Total Bilirubin 4.2 H AST 128 H ALT 50 Alkaline Phosphatase 156 H Total Protein 6.5 Albumin 2.3 L Globulin 4.1 H Albumin/Globulin Ratio 0.6 L Mycoplasma pneumon IgM 12/22/17 07:41 WBC RBC Hgb Hct MCV MCH MCHC RDW Plt Count MPV Neut % (Auto) Lymph % (Auto) Bath % (Auto) Eos % (Auto) Baso % (Auto) Neut # (Auto) Lymph # (Auto) Bath # (Auto) Eos # (Auto) Baso # (Auto) Sodium Potassium Chloride Carbon Dioxide Anion Gap BUN Creatinine Est GFR ( Amer) Est GFR (Non-Af Amer) POC Glucose (mg/dL) 82 Random Glucose Calcium Phosphorus Magnesium Total Bilirubin AST ALT Alkaline Phosphatase Total Protein Albumin Globulin Albumin/Globulin Ratio Mycoplasma pneumon IgM Fingerstick Blood Sugar Results: 101 Critical Care Progress Note - Nutrition Nutrition: Nutrition Category Date Time Status Altered GI/Hepatic Diet [DIET] Diets 12/16/17 Breakfast Active <Brent Cano - Last Filed: 12/22/17 14:08> CCU Objective - Vital Signs / Intake & Output Vital Signs (Last 4 hours): Vital Signs Temp Pulse Resp BP Pulse Ox 12/22/17 13:00 62 15 94 L 12/22/17 12:00 54 L 15 93 L 12/22/17 11:00 67 13 96 12/22/17 10:08 98.4 F 76 20 155/75 H 100 Intake and Output (Last 8hrs): Intake & Output 12/21/17 12/22/17 12/22/17 22:59 06:59 14:59 Intake Total 360 250 800 Output Total 150 240 Balance 210 10 800 Weight 202 lb 14.4 oz Intake: Intake, IV Amount 250 Right upper arm 2 250 Oral 360 0 800 Output: Chest Tube Drainage 150 240 Left Mid-Axillary Chest 150 240 Other: # Voids Urine, Voided 0 - Medications Active Medications: Active Medications Generic Name Dose Route Start Last Admin Trade Name Freq PRN Reason Stop Dose Admin Albuterol/Ipratropium 3 ml 12/15/17 14:00 12/22/17 13:36 Duoneb 3 Mg/0.5 Mg (3 Ml) Ud INH 3 ml RQ6 ELIJAH Administration Ascorbic Acid 250 mg 12/14/17 14:00 12/22/17 09:22 Vitamin C 250 Mg Tab PO 250 mg DAILY ELIJAH Administration Famotidine 20 mg 12/21/17 18:00 12/22/17 09:22 Pepcid PO 20 mg BID ELIJAH Administration Hydromorphone HCl 0.5 mg 12/21/17 12:03 12/22/17 10:56 Dilaudid IVP 0.5 mg Q6H PRN Administration Pain, severe (8-10) Folic Acid 1 mg/ Sodium 100.2 mls @ 60 mls/hr 12/09/17 10:00 12/22/17 10:52 Chloride IV 60 mls/hr DAILY ELIJAH Administration Cefepime HCl 1 gm in 50 mls @ 100 mls/hr 12/15/17 18:00 12/22/17 09:22 Maxipime Iv 1 Gm Premix IVPB 100 mls/hr Q8H ELIJAH Administration Vancomycin/Sodium Chloride 1 gm in 200 mls @ 166.6 mls/hr 12/17/17 16:00 07/03 04:09 Vancomycin 1 Gm/Ns 200 Ml IVPB 12/22/17 16:01 166.6 mls/hr Q12H ELIJAH Administration Multivitamins/Vitamin C 5 ml 12/14/17 14:00 12/22/17 09:22 Multi-Delyn Liquid PO 5 ml DAILY ELIJAH Administration Propranolol HCl 20 mg 12/09/17 19:30 12/22/17 09:38 Inderal PO 20 mg BID ELIJAH Administration Rifaximin 550 mg 12/17/17 18:00 12/22/17 09:22 Xifaxan PO 550 mg BID ELIJAH Administration Spironolactone 50 mg 12/20/17 11:15 12/22/17 09:24 Aldactone PO 50 mg DAILY ELIJAH Administration Thiamine HCl 100 mg 12/09/17 10:00 12/22/17 09:21 Vitamin B1 Inj IV 100 mg DAILY ELIJAH Administration Zinc Sulfate 220 mg 12/14/17 13:30 12/22/17 09:22 Zinc Sulfate 220 Mg Cap PO 220 mg DAILY ELIJAH Administration - Patient Studies Lab Studies: Microbiology Studies 12/17/17 Unknown Blood Culture - Preliminary Blood-Venous NO GROWTH AFTER 4 DAYS 12/17/17 Unknown Blood Culture - Preliminary Blood-Venous NO GROWTH AFTER 4 DAYS Lab Studies 12/22/17 12/22/17 12/22/17 Range/Units 11:53 07:41 06:20 WBC (4.8-10.8) K/uL RBC (4.40-5.90) Mil/uL Hgb (12.0-18.0) g/dL Hct (35.0-51.0) % MCV (80.0-94.0) fL MCH (27.0-31.0) pg MCHC (33.0-37.0) g/dL RDW (11.5-14.5) % Plt Count (130-400) K/uL MPV (7.2-11.7) fL Neut % (Auto) (50.0-75.0) % Lymph % (Auto) (20.0-40.0) % Bath % (Auto) (0.0-10.0) % Eos % (Auto) (0.0-4.0) % Baso % (Auto) (0.0-2.0) % Neut # (Auto) (1.8-7.0) K/uL Lymph # (Auto) (1.0-4.3) K/uL Bath # (Auto) (0.0-0.8) K/uL Eos # (Auto) (0.0-0.7) K/uL Baso # (Auto) (0.0-0.2) K/uL Sodium 135 (132-148) mmol/L Potassium 4.4 (3.6-5.2) mmol/L Chloride 106 (98-107) mmol/L Carbon Dioxide 24 (22-30) mmol/L Anion Gap 10 (10-20) BUN 12 (9-20) mg/dL Creatinine 0.8 (0.8-1.5) mg/dL Est GFR ( Amer) > 60 Est GFR (Non-Af Amer) > 60 POC Glucose (mg/dL) 119 H 82 (65-110) mg/dL Random Glucose 81 (75-110) mg/dL Calcium 7.3 L (8.6-10.4) mg/dl Phosphorus 2.6 (2.5-4.5) mg/dL Magnesium 1.9 (1.6-2.3) mg/dL Total Bilirubin 4.2 H (0.2-1.3) mg/dL AST 128 H (17-59) U/L ALT 50 (21-72) U/L Alkaline Phosphatase 156 H (38-126) U/L Total Protein 6.5 (6.3-8.3) g/dL Albumin 2.3 L (3.5-5.0) g/dL Globulin 4.1 H (2.2-3.9) gm/dL Albumin/Globulin Ratio 0.6 L (1.0-2.1) Mycoplasma pneumon IgM (NEGATIVE) 12/22/17 12/21/17 12/21/17 Range/Units 06:19 21:28 16:10 WBC 15.3 H (4.8-10.8) K/uL RBC 3.36 L (4.40-5.90) Mil/uL Hgb 9.6 L (12.0-18.0) g/dL Hct 29.8 L (35.0-51.0) % MCV 88.7 (80.0-94.0) fL MCH 28.5 (27.0-31.0) pg MCHC 32.2 L (33.0-37.0) g/dL RDW 25.7 H (11.5-14.5) % Plt Count 210 (130-400) K/uL MPV 11.7 (7.2-11.7) fL Neut % (Auto) 69.7 (50.0-75.0) % Lymph % (Auto) 12.0 L (20.0-40.0) % Bath % (Auto) 16.2 H (0.0-10.0) % Eos % (Auto) 1.4 (0.0-4.0) % Baso % (Auto) 0.7 (0.0-2.0) % Neut # (Auto) 10.6 H (1.8-7.0) K/uL Lymph # (Auto) 1.8 (1.0-4.3) K/uL Bath # (Auto) 2.5 H (0.0-0.8) K/uL Eos # (Auto) 0.2 (0.0-0.7) K/uL Baso # (Auto) 0.1 (0.0-0.2) K/uL Sodium (132-148) mmol/L Potassium (3.6-5.2) mmol/L Chloride (98-107) mmol/L Carbon Dioxide (22-30) mmol/L Anion Gap (10-20) BUN (9-20) mg/dL Creatinine (0.8-1.5) mg/dL Est GFR ( Amer) Est GFR (Non-Af Amer) POC Glucose (mg/dL) 101 86 (65-110) mg/dL Random Glucose (75-110) mg/dL Calcium (8.6-10.4) mg/dl Phosphorus (2.5-4.5) mg/dL Magnesium (1.6-2.3) mg/dL Total Bilirubin (0.2-1.3) mg/dL AST (17-59) U/L ALT (21-72) U/L Alkaline Phosphatase (38-126) U/L Total Protein (6.3-8.3) g/dL Albumin (3.5-5.0) g/dL Globulin (2.2-3.9) gm/dL Albumin/Globulin Ratio (1.0-2.1) Mycoplasma pneumon IgM (NEGATIVE) 12/18/17 Range/Units 08:30 WBC (4.8-10.8) K/uL RBC (4.40-5.90) Mil/uL Hgb (12.0-18.0) g/dL Hct (35.0-51.0) % MCV (80.0-94.0) fL MCH (27.0-31.0) pg MCHC (33.0-37.0) g/dL RDW (11.5-14.5) % Plt Count (130-400) K/uL MPV (7.2-11.7) fL Neut % (Auto) (50.0-75.0) % Lymph % (Auto) (20.0-40.0) % Bath % (Auto) (0.0-10.0) % Eos % (Auto) (0.0-4.0) % Baso % (Auto) (0.0-2.0) % Neut # (Auto) (1.8-7.0) K/uL Lymph # (Auto) (1.0-4.3) K/uL Bath # (Auto) (0.0-0.8) K/uL Eos # (Auto) (0.0-0.7) K/uL Baso # (Auto) (0.0-0.2) K/uL Sodium (132-148) mmol/L Potassium (3.6-5.2) mmol/L Chloride (98-107) mmol/L Carbon Dioxide (22-30) mmol/L Anion Gap (10-20) BUN (9-20) mg/dL Creatinine (0.8-1.5) mg/dL Est GFR ( Amer) Est GFR (Non-Af Amer) POC Glucose (mg/dL) (65-110) mg/dL Random Glucose (75-110) mg/dL Calcium (8.6-10.4) mg/dl Phosphorus (2.5-4.5) mg/dL Magnesium (1.6-2.3) mg/dL Total Bilirubin (0.2-1.3) mg/dL AST (17-59) U/L ALT (21-72) U/L Alkaline Phosphatase (38-126) U/L Total Protein (6.3-8.3) g/dL Albumin (3.5-5.0) g/dL Globulin (2.2-3.9) gm/dL Albumin/Globulin Ratio (1.0-2.1) Mycoplasma pneumon IgM Negative (NEGATIVE) Laboratory Results - last 24 hr 12/18/17 12/21/17 12/21/17 08:30 16:10 21:28 WBC RBC Hgb Hct MCV MCH MCHC RDW Plt Count MPV Neut % (Auto) Lymph % (Auto) Bath % (Auto) Eos % (Auto) Baso % (Auto) Neut # (Auto) Lymph # (Auto) Bath # (Auto) Eos # (Auto) Baso # (Auto) Sodium Potassium Chloride Carbon Dioxide Anion Gap BUN Creatinine Est GFR ( Amer) Est GFR (Non-Af Amer) POC Glucose (mg/dL) 86 101 Random Glucose Calcium Phosphorus Magnesium Total Bilirubin AST ALT Alkaline Phosphatase Total Protein Albumin Globulin Albumin/Globulin Ratio Mycoplasma pneumon IgM Negative 12/22/17 12/22/17 12/22/17 06:19 06:20 07:41 WBC 15.3 H RBC 3.36 L Hgb 9.6 L Hct 29.8 L MCV 88.7 MCH 28.5 MCHC 32.2 L RDW 25.7 H Plt Count 210 MPV 11.7 Neut % (Auto) 69.7 Lymph % (Auto) 12.0 L Bath % (Auto) 16.2 H Eos % (Auto) 1.4 Baso % (Auto) 0.7 Neut # (Auto) 10.6 H Lymph # (Auto) 1.8 Bath # (Auto) 2.5 H Eos # (Auto) 0.2 Baso # (Auto) 0.1 Sodium 135 Potassium 4.4 Chloride 106 Carbon Dioxide 24 Anion Gap 10 BUN 12 Creatinine 0.8 Est GFR ( Amer) > 60 Est GFR (Non-Af Amer) > 60 POC Glucose (mg/dL) 82 Random Glucose 81 Calcium 7.3 L Phosphorus 2.6 Magnesium 1.9 Total Bilirubin 4.2 H AST 128 H ALT 50 Alkaline Phosphatase 156 H Total Protein 6.5 Albumin 2.3 L Globulin 4.1 H Albumin/Globulin Ratio 0.6 L Mycoplasma pneumon IgM 12/22/17 11:53 WBC RBC Hgb Hct MCV MCH MCHC RDW Plt Count MPV Neut % (Auto) Lymph % (Auto) Bath % (Auto) Eos % (Auto) Baso % (Auto) Neut # (Auto) Lymph # (Auto) Bath # (Auto) Eos # (Auto) Baso # (Auto) Sodium Potassium Chloride Carbon Dioxide Anion Gap BUN Creatinine Est GFR ( Amer) Est GFR (Non-Af Amer) POC Glucose (mg/dL) 119 H Random Glucose Calcium Phosphorus Magnesium Total Bilirubin AST ALT Alkaline Phosphatase Total Protein Albumin Globulin Albumin/Globulin Ratio Mycoplasma pneumon IgM Critical Care Progress Note - Nutrition Nutrition: Nutrition Category Date Time Status Altered GI/Hepatic Diet [DIET] Diets 12/16/17 Breakfast Active Attending/Attestation - Attestation I have personally seen and examined this patient.: Yes I have fully participated in the care of the patient.: Yes I have reviewed all pertinent clinical information: Yes Notes (Text): 12/22/17 14:08 The Patient was seen and examined at the bedside, Medical records reviewed, and management issues were discussed and formulated with the house staff. I have reviewed all the relevant clinical, laboratory, hemodynamic, radiographic data and medications Events reviewed Pain issues, skin care, head of the bed elevation, glycemic control were addressed. Agree with above resident's assessment and treatment plans of care as transcribed in Dr. Rivera note.
--- NOTE | 2017-12-22 13:28 | CP.PCM.PN ---
Subjective - Date & Time of Evaluation Date of Evaluation: 12/22/17 Time of Evaluation: 07:25 - Subjective Subjective: Thoracic Surgery Progress note. Dr. Lyn Pt seen and examined at bedside. No acute events overnight. Chest tube to waterseal, no air leaks. 240cc/12hours of serosanguinous output. Denies any N/V/ D. No new complaints. Objective - Vital Signs/Intake and Output Vital Signs (last 24 hours): Temp Pulse Resp BP Pulse Ox 98.4 F 67 13 155/75 H 96 12/22/17 10:08 12/22/17 11:00 12/22/17 11:00 12/22/17 10:08 12/22/17 11:00 Intake and Output: 12/22/17 12/22/17 06:59 18:59 Intake Total 610 Output Total 240 Balance 370 - Medications Medications: Current Medications Albuterol/Ipratropium (Duoneb 3 Mg/0.5 Mg (3 Ml) Ud) 3 ml INH RQ6 [facility] Last Admin: 12/22/17 07:41 Dose: 3 ml Ascorbic Acid (Vitamin C 250 Mg Tab) 250 mg PO DAILY [facility] Last Admin: 12/22/17 09:22 Dose: 250 mg Famotidine (Pepcid) 20 mg PO BID [facility] Last Admin: 12/22/17 09:22 Dose: 20 mg Hydromorphone HCl (Dilaudid) 0.5 mg IVP Q6H PRN PRN Reason: Pain, severe (8-10) Last Admin: 12/22/17 10:56 Dose: 0.5 mg Folic Acid 1 mg/ Sodium (Chloride) 100.2 mls @ 60 mls/hr IV DAILY [facility] Last Admin: 12/22/17 10:52 Dose: 60 mls/hr Cefepime HCl (Maxipime Iv 1 Gm Premix) 1 gm in 50 mls @ 100 mls/hr IVPB Q8H [facility] Last Admin: 12/22/17 09:22 Dose: 100 mls/hr Vancomycin/Sodium Chloride (Vancomycin 1 Gm/Ns 200 Ml) 1 gm in 200 mls @ 166.6 mls/hr IVPB Q12H [facility] Stop: 12/22/17 16:01 Last Admin: 12/22/17 04:09 Dose: 166.6 mls/hr Multivitamins/Vitamin C (Multi-Delyn Liquid) 5 ml PO DAILY [facility] Last Admin: 12/22/17 09:22 Dose: 5 ml Propranolol HCl (Inderal) 20 mg PO BID [facility] Last Admin: 12/22/17 09:38 Dose: 20 mg Rifaximin (Xifaxan) 550 mg PO BID [facility] Last Admin: 12/22/17 09:22 Dose: 550 mg Spironolactone (Aldactone) 50 mg PO DAILY [facility] Last Admin: 12/22/17 09:24 Dose: 50 mg Thiamine HCl (Vitamin B1 Inj) 100 mg IV DAILY [facility] Last Admin: 12/22/17 09:21 Dose: 100 mg Zinc Sulfate (Zinc Sulfate 220 Mg Cap) 220 mg PO DAILY [facility] Last Admin: 12/22/17 09:22 Dose: 220 mg - Labs Labs: 12/22/17 06:19 12/22/17 06:20 PT 22.9 SECONDS (9.7-12.2) H 12/21/17 06:32 INR 2.0 12/21/17 06:32 APTT 38 SECONDS (21-34) H 12/21/17 06:32 - Constitutional Appears: Non-toxic, No Acute Distress - Head Exam Head Exam: ATRAUMATIC, NORMAL INSPECTION, NORMOCEPHALIC - Eye Exam Eye Exam: EOMI, Normal appearance - ENT Exam ENT Exam: Mucous Membranes Moist - Respiratory Exam Respiratory Exam: NORMAL BREATHING PATTERN. absent: Accessory Muscle Use, Respiratory Distress Additional comments: left sided chest tube to waterseal: 240cc/12hours serosang output. No air leaks noted Left sided chest ecchymosis noted. - Cardiovascular Exam Cardiovascular Exam: absent: JVD - GI/Abdominal Exam GI & Abdominal Exam: Distended, Firm. absent: Guarding, Tenderness, Rebound - Extremities Exam Extremities Exam: Normal Inspection. absent: Calf Tenderness - Neurological Exam Neurological Exam: Alert, Awake, Oriented x3 Assessment and Plan - Assessment and Plan (Free Text) Assessment: 42yo M s/p left sided chest tube due hydropneumo secondary to rib fractures Plan: - F/u CXR in AM - Continue Chest tube to waterseal - monitor output Further recs as per Dr. Eboni Rachel PGY1 surgery pager: [phone]
[2017-12-22 14:18] LABS: GLUCOSE PERITONEAL FLUID 146 mg/dL; LDH PERITONEAL FLUID 38 U/L (<63); TOTAL PROTEIN PERITONEAL FLUID <3.0 g/dL; TRIGLYCERIDES PERITONEAL FLUID 23 mg/dL (<65)
--- NOTE | 2017-12-22 17:32 | CP.PCM.PN ---
Subjective - Date & Time of Evaluation Date of Evaluation: 12/22/17 Time of Evaluation: 07:00 - Subjective Subjective: seen and examined at bedside PT/OT today had patient OOB to chair much less lethargic Objective - Vital Signs/Intake and Output Vital Signs (last 24 hours): Temp Pulse Resp BP Pulse Ox 98.4 F 62 15 155/75 H 94 L 12/22/17 10:08 12/22/17 13:00 12/22/17 13:00 12/22/17 10:08 12/22/17 13:00 Intake and Output: 12/22/17 12/22/17 06:59 18:59 Intake Total 610 800 Output Total 240 Balance 370 800 - Medications Medications: Current Medications Albuterol/Ipratropium (Duoneb 3 Mg/0.5 Mg (3 Ml) Ud) 3 ml INH RQ6 [facility] Last Admin: 12/22/17 13:36 Dose: 3 ml Ascorbic Acid (Vitamin C 250 Mg Tab) 250 mg PO DAILY [facility] Last Admin: 12/22/17 09:22 Dose: 250 mg Famotidine (Pepcid) 20 mg PO BID [facility] Last Admin: 12/22/17 17:14 Dose: 20 mg Hydromorphone HCl (Dilaudid) 0.5 mg IVP Q6H PRN PRN Reason: Pain, severe (8-10) Last Admin: 12/22/17 10:56 Dose: 0.5 mg Folic Acid 1 mg/ Sodium (Chloride) 100.2 mls @ 60 mls/hr IV DAILY [facility] Last Admin: 12/22/17 10:52 Dose: 60 mls/hr Cefepime HCl (Maxipime Iv 1 Gm Premix) 1 gm in 50 mls @ 100 mls/hr IVPB Q8H [facility] Last Admin: 12/22/17 09:22 Dose: 100 mls/hr Multivitamins/Vitamin C (Multi-Delyn Liquid) 5 ml PO DAILY [facility] Last Admin: 12/22/17 09:22 Dose: 5 ml Propranolol HCl (Inderal) 20 mg PO BID [facility] Last Admin: 12/22/17 17:15 Dose: 20 mg Rifaximin (Xifaxan) 550 mg PO BID [facility] Last Admin: 12/22/17 17:14 Dose: 550 mg Spironolactone (Aldactone) 50 mg PO DAILY [facility] Last Admin: 12/22/17 09:24 Dose: 50 mg Thiamine HCl (Vitamin B1 Inj) 100 mg IV DAILY [facility] Last Admin: 12/22/17 09:21 Dose: 100 mg Zinc Sulfate (Zinc Sulfate 220 Mg Cap) 220 mg PO DAILY [facility] Last Admin: 12/22/17 09:22 Dose: 220 mg - Labs Labs: 12/22/17 06:19 12/22/17 06:20 PT 22.9 SECONDS (9.7-12.2) H 12/21/17 06:32 INR 2.0 12/21/17 06:32 APTT 38 SECONDS (21-34) H 12/21/17 06:32 - Constitutional Appears: Non-toxic, Chronically Ill - Head Exam Head Exam: NORMOCEPHALIC - Eye Exam Eye Exam: PERRL, Scleral icterus - ENT Exam ENT Exam: Mucous Membranes Dry - Neck Exam Neck Exam: absent: Lymphadenopathy - Respiratory Exam Respiratory Exam: Decreased Breath Sounds, Clear to Ausculation Bilateral - Cardiovascular Exam Cardiovascular Exam: REGULAR RHYTHM - GI/Abdominal Exam GI & Abdominal Exam: Distended, Soft. absent: Tenderness - Rectal Exam Rectal Exam: Deferred - Exam Exam: NORMAL INSPECTION Assessment and Plan (1) Alcohol withdrawal Status: Acute (2) Alcoholic cirrhosis Status: Acute (3) Colitis Status: Acute (4) Iron deficiency anemia Status: Acute (5) Pneumonia Status: Acute (6) Pneumothorax Status: Acute (7) Rib fractures Status: Acute (8) Sepsis Status: Acute
[2017-12-23] MEDS: Cefepime IV 1 gm in Dextrose 1 GM/50 ML BAG IVPB SCH ×3 (01:35→19:32)
[2017-12-23] MEDS: Albuterol-Ipratrop 3 mg / 0.5 (3 ml) UD INH SCH ×3 (02:00→13:51)
[2017-12-23 03:13] LABS: AMYLASE PERITONEAL FLUID 63 U/L
[2017-12-23 06:16] LABS: INR 2.1; PROTHROMBIN TIME 24.4 SECONDS (9.7-12.2)
[2017-12-23 06:33] LABS: ALB/GLOB RATIO 0.6 (1.0-2.1); ALBUMIN 2.2 g/dL (3.5-5.0); ALT/SGPT 53 U/L (21-72); AST/SGOT 105 U/L (17-59); BLOOD UREA NITROGEN 13 mg/dL (9-20); CALCIUM 7.3 mg/dl (8.6-10.4); GFR AFRICAN-AMERICAN > 60; GFR NON-AFRICAN AMERICAN > 60
[2017-12-23 06:56] LABS: BASO # 0.1 K/uL (0.0-0.2); EOS # 0.2 K/uL (0.0-0.7); EOS % 1.4 % (0.0-4.0); HEMOGLOBIN 9.3 g/dL (12.0-18.0); LYMPH # 2.3 K/uL (1.0-4.3); LYMPH % 15.4 % (20.0-40.0); MEAN CELL VOLUME 87.4 fL (80.0-94.0); MEAN CORPUSCULAR HEMOGLOBIN 28.4 pg (27.0-31.0); MEAN CORPUSCULAR HGB CONC 32.5 g/dL (33.0-37.0); MEAN PLATELET VOLUME 11.9 fL (7.2-11.7); MONO # 2.8 K/uL (0.0-0.8); MONO % 18.6 % (0.0-10.0); NEUT # 9.6 K/uL (1.8-7.0); NEUT % 63.6 % (50.0-75.0); NRBC % 0.3 % (0.0-2.0); RBC 3.28 Mil/uL (4.40-5.90); RED CELL DISTRIBUTION WIDTH 25.3 % (11.5-14.5); WHITE BLOOD COUNT 15.1 K/uL (4.8-10.8)
--- NOTE | 2017-12-23 09:12 | RAD ---
HISTORY: F/U hemothorax COMPARISON: Chest x-ray performed 12/22/17 TECHNIQUE: Chest, one view. FINDINGS: Examination limited by habitus. Left-sided chest tube. LUNGS: Persistent left-sided pleural effusion/hydro pneumothorax. Probable consolidation within the left lower lobe. Mild pulmonary venous congestion. CARDIOVASCULAR: Cardiomegaly. OSSEOUS STRUCTURES: Displaced left rib fracture deformities re-identified. VISUALIZED UPPER ABDOMEN: Unremarkable. OTHER FINDINGS: None. IMPRESSION: Left-sided chest tube. Persistent left-sided pleural effusion/hydro pneumothorax. Probable consolidation within the left lower lobe. Mild pulmonary venous congestion. Displaced left rib fracture deformities re-identified.
[2017-12-23] MEDS: Thiamine 100 mg/ml Inj IV SCH (09:47)
[2017-12-23] MEDS: Multiple Vitamins Oral Solution PO SCH (09:47)
--- NOTE | 2017-12-23 14:17 | CP.PCM.PN ---
Subjective - Date & Time of Evaluation Date of Evaluation: 12/23/17 Time of Evaluation: 07:05 - Subjective Subjective: Thoracic Surgery Progress note. Dr. Lyn Pt seen and examined at bedside. No acute events overnight. Patient sitting up in chair. Does report some left upper back pain, worse with movement. Denies N/V /D. Also with intermittent SOB. No acute distress. No new complaints. Objective - Vital Signs/Intake and Output Vital Signs (last 24 hours): Temp Pulse Resp BP Pulse Ox 98.4 F 64 18 99/72 L 94 L 12/23/17 00:00 12/22/17 18:00 12/22/17 14:57 12/22/17 16:44 12/22/17 13:00 Intake and Output: 12/23/17 12/23/17 06:59 18:59 Intake Total 820 Output Total 130 Balance 690 - Medications Medications: Current Medications Albuterol/Ipratropium (Duoneb 3 Mg/0.5 Mg (3 Ml) Ud) 3 ml INH RQ6 [facility] Last Admin: 12/23/17 13:51 Dose: 3 ml Ascorbic Acid (Vitamin C 250 Mg Tab) 250 mg PO DAILY [facility] Last Admin: 12/23/17 09:46 Dose: 250 mg Famotidine (Pepcid) 20 mg PO BID [facility] Last Admin: 12/23/17 09:45 Dose: 20 mg Hydromorphone HCl (Dilaudid) 0.5 mg IVP Q6H PRN PRN Reason: Pain, severe (8-10) Last Admin: 12/22/17 10:56 Dose: 0.5 mg Folic Acid 1 mg/ Sodium (Chloride) 100.2 mls @ 60 mls/hr IV DAILY [facility] Last Admin: 12/23/17 09:49 Dose: 60 mls/hr Cefepime HCl (Maxipime Iv 1 Gm Premix) 1 gm in 50 mls @ 100 mls/hr IVPB Q8H [facility] Last Admin: 12/23/17 09:49 Dose: 100 mls/hr Multivitamins/Vitamin C (Multi-Delyn Liquid) 5 ml PO DAILY [facility] Last Admin: 12/23/17 09:47 Dose: 5 ml Propranolol HCl (Inderal) 20 mg PO BID [facility] Last Admin: 12/23/17 09:46 Dose: 20 mg Rifaximin (Xifaxan) 550 mg PO BID [facility] Last Admin: 12/23/17 09:46 Dose: 550 mg Spironolactone (Aldactone) 50 mg PO DAILY [facility] Last Admin: 12/23/17 09:46 Dose: 50 mg Thiamine HCl (Vitamin B1 Inj) 100 mg IV DAILY [facility] Last Admin: 12/23/17 09:47 Dose: 100 mg Zinc Sulfate (Zinc Sulfate 220 Mg Cap) 220 mg PO DAILY [facility] Last Admin: 12/23/17 09:47 Dose: 220 mg - Labs Labs: 12/23/17 06:03 12/23/17 06:03 PT 24.4 SECONDS (9.7-12.2) H 12/23/17 06:03 INR 2.1 12/23/17 06:03 APTT 34 SECONDS (21-34) 12/23/17 06:03 - Constitutional Appears: Well, Non-toxic, No Acute Distress - Head Exam Head Exam: ATRAUMATIC, NORMAL INSPECTION, NORMOCEPHALIC - Eye Exam Eye Exam: EOMI, Scleral icterus - ENT Exam ENT Exam: Mucous Membranes Moist - Respiratory Exam Respiratory Exam: Chest Wall Tenderness, NORMAL BREATHING PATTERN. absent: Accessory Muscle Use, Respiratory Distress Additional comments: Decreased breath sounds left base. Chest tube in place. To water seal. No Air leaks noted. 260cc serosang output over 24 hours. Dressing clean, dry and intact. - Cardiovascular Exam Cardiovascular Exam: absent: JVD - GI/Abdominal Exam GI & Abdominal Exam: Distended, Firm. absent: Guarding, Rigid, Tenderness, Rebound Additional comments: abdominal ascites - Extremities Exam Extremities Exam: Normal Inspection. absent: Calf Tenderness - Back Exam Back Exam: NORMAL INSPECTION - Neurological Exam Neurological Exam: Alert, Awake, Oriented x3 - Psychiatric Exam Psychiatric exam: Normal Affect, Normal Mood - Skin Skin Exam: Dry, Intact, Warm Assessment and Plan - Assessment and Plan (Free Text) Assessment: 42yo M s/p left sided chest tube due to hydropneumo secondary to rib fractures - AM CXR noted. Persistent left sided dependent pleural effusion. Plan: - Continue Chest tube to water seal - Monitor strict outputs - f/u AM CXR for interval changes - Cont Abx as per ID Further recs as per Dr. Eboni Rachel PGY1 surgery pager: [phone]
[2017-12-23] MEDS: HYDROmorphone 0.5 mg/0.5 ml ISec IVP PRN (19:32)
[2017-12-24] MEDS: Albuterol-Ipratrop 3 mg / 0.5 (3 ml) UD INH SCH ×4 (01:15→19:47)
[2017-12-24] MEDS: Cefepime IV 1 gm in Dextrose 1 GM/50 ML BAG IVPB SCH ×2 (03:36→11:40)
[2017-12-24 08:06] LABS: BASO # 0.2 K/uL (0.0-0.2); BASO % 1.3 % (0.0-2.0); EOS # 0.2 K/uL (0.0-0.7); EOS % 1.3 % (0.0-4.0); HEMOGLOBIN 9.6 g/dL (12.0-18.0); LYMPH # 2.2 K/uL (1.0-4.3); LYMPH % 15.3 % (20.0-40.0); MEAN CELL VOLUME 87.4 fL (80.0-94.0); MEAN CORPUSCULAR HEMOGLOBIN 28.4 pg (27.0-31.0); MEAN CORPUSCULAR HGB CONC 32.5 g/dL (33.0-37.0); MEAN PLATELET VOLUME 11.2 fL (7.2-11.7); MONO # 2.4 K/uL (0.0-0.8); MONO % 16.7 % (0.0-10.0); NEUT # 9.5 K/uL (1.8-7.0); NEUT % 65.4 % (50.0-75.0); RBC 3.38 Mil/uL (4.40-5.90); RED CELL DISTRIBUTION WIDTH 25.9 % (11.5-14.5); WHITE BLOOD COUNT 14.6 K/uL (4.8-10.8)
[2017-12-24] MEDS: HYDROmorphone 0.5 mg/0.5 ml ISec IVP PRN ×2 (08:14→17:05)
[2017-12-24 08:16] LABS: ALB/GLOB RATIO 0.5 (1.0-2.1); ALBUMIN 2.2 g/dL (3.5-5.0); ALT/SGPT 52 U/L (21-72); AST/SGOT 112 U/L (17-59); BLOOD UREA NITROGEN 14 mg/dL (9-20); CALCIUM 7.4 mg/dl (8.6-10.4); GFR AFRICAN-AMERICAN > 60; GFR NON-AFRICAN AMERICAN > 60
--- NOTE | 2017-12-24 08:18 | CP.PCM.PN ---
Subjective - Date & Time of Evaluation Date of Evaluation: 12/24/17 Time of Evaluation: 07:30 - Subjective Subjective: Thoracic Surgery Progress note. Dr. Lyn Pt seen and examined at bedside. No acute events overnight. Patient transferred out of ICU to med/surg. Resting in bed comfortably. Denies any new complaints. CT to [facility], no air leaks noted, approx 10cc/hour of serosang output. Objective - Vital Signs/Intake and Output Vital Signs (last 24 hours): Temp Pulse Resp BP Pulse Ox 98.9 F 57 L 20 110/67 95 12/24/17 05:38 12/24/17 08:13 12/24/17 05:38 12/24/17 08:13 12/24/17 05:38 Intake and Output: 12/24/17 12/24/17 06:59 18:59 Intake Total Output Total Balance - Medications Medications: Current Medications Albuterol/Ipratropium (Duoneb 3 Mg/0.5 Mg (3 Ml) Ud) 3 ml INH RQ6 [facility] Last Admin: 12/24/17 01:15 Dose: Not Given Ascorbic Acid (Vitamin C 250 Mg Tab) 250 mg PO DAILY [facility] Last Admin: 12/23/17 09:46 Dose: 250 mg Famotidine (Pepcid) 20 mg PO BID [facility] Last Admin: 12/23/17 18:38 Dose: 20 mg Hydromorphone HCl (Dilaudid) 0.5 mg IVP Q6H PRN PRN Reason: Pain, severe (8-10) Last Admin: 12/24/17 08:14 Dose: 0.5 mg Folic Acid 1 mg/ Sodium (Chloride) 100.2 mls @ 60 mls/hr IV DAILY [facility] Last Admin: 12/23/17 09:49 Dose: 60 mls/hr Cefepime HCl (Maxipime Iv 1 Gm Premix) 1 gm in 50 mls @ 100 mls/hr IVPB Q8H [facility] Last Admin: 12/24/17 03:36 Dose: 100 mls/hr Multivitamins/Vitamin C (Multi-Delyn Liquid) 5 ml PO DAILY [facility] Last Admin: 12/23/17 09:47 Dose: 5 ml Propranolol HCl (Inderal) 20 mg PO BID [facility] Last Admin: 12/23/17 18:38 Dose: 20 mg Spironolactone (Aldactone) 50 mg PO DAILY [facility] Last Admin: 12/23/17 09:46 Dose: 50 mg Thiamine HCl (Vitamin B1 Inj) 100 mg IV DAILY [facility] Last Admin: 12/23/17 09:47 Dose: 100 mg Zinc Sulfate (Zinc Sulfate 220 Mg Cap) 220 mg PO DAILY [facility] Last Admin: 12/23/17 09:47 Dose: 220 mg - Labs Labs: 12/24/17 07:25 12/23/17 06:03 PT 24.4 SECONDS (9.7-12.2) H 12/23/17 06:03 INR 2.1 12/23/17 06:03 APTT 34 SECONDS (21-34) 12/23/17 06:03 - Constitutional Appears: Non-toxic, No Acute Distress - Head Exam Head Exam: ATRAUMATIC, NORMAL INSPECTION, NORMOCEPHALIC - Eye Exam Eye Exam: EOMI, Scleral icterus - ENT Exam ENT Exam: Mucous Membranes Moist - Respiratory Exam Additional comments: Left sided chest tube to waterseal, approximately 10cc/hour serosang output. Left chest wall tenderness - Cardiovascular Exam Cardiovascular Exam: RRR. absent: JVD - GI/Abdominal Exam GI & Abdominal Exam: Distended. absent: Guarding, Tenderness, Rebound - Extremities Exam Extremities Exam: Normal Inspection. absent: Calf Tenderness - Neurological Exam Neurological Exam: Alert Additional comments: somnolent early this morning - Skin Skin Exam: Dry, Intact, Warm Assessment and Plan - Assessment and Plan (Free Text) Assessment: 42yo M s/p left sided chest tube on 12/15/17 due to hydropneumo secondary to rib fractures. Plan: - Will remove left sided chest tube later today - f/u CXR s/p Chest tube removal - Cont Abx as per ID Further recs as per Dr. Eboni Rachel PGY1 surgery pager: [phone]
--- NOTE | 2017-12-24 08:56 | RAD ---
HISTORY: interval changes COMPARISON: Chest x-ray performed 12/23/17 TECHNIQUE: Chest, one view. FINDINGS: Examination limited by habitus. Left-sided chest tube. LUNGS: Persistent small left pleural effusion/hydro pneumothorax. Mild to moderate pulmonary venous congestion. Retrocardiac and infrahilar consolidation. CARDIOVASCULAR: Cardiomegaly. OSSEOUS STRUCTURES: Displaced left rib fracture deformities re-identified. VISUALIZED UPPER ABDOMEN: Unremarkable. OTHER FINDINGS: None. IMPRESSION: Left-sided chest tube. Persistent small left pleural effusion/hydro pneumothorax. Mild to moderate pulmonary venous congestion. Retrocardiac and infrahilar consolidation.
[2017-12-24] MEDS: Thiamine 100 mg/ml Inj IV SCH (10:20)
[2017-12-24] MEDS: Multiple Vitamins Oral Solution PO SCH (10:27)
--- NOTE | 2017-12-24 15:47 | CP.PCM.PN ---
Subjective - Date & Time of Evaluation Date of Evaluation: 12/24/17 Time of Evaluation: 09:00 - Subjective Subjective: weak lethargic confuse Objective - Vital Signs/Intake and Output Vital Signs (last 24 hours): Temp Pulse Resp BP Pulse Ox 98.1 F 56 L 20 103/64 94 L 12/24/17 07:00 12/24/17 10:19 12/24/17 07:00 12/24/17 10:19 12/24/17 07:00 Intake and Output: 12/24/17 12/24/17 06:59 18:59 Intake Total 600 Output Total 40 Balance 560 - Medications Medications: Current Medications Albuterol/Ipratropium (Duoneb 3 Mg/0.5 Mg (3 Ml) Ud) 3 ml INH RQ6 [facility] Last Admin: 12/24/17 13:19 Dose: 3 ml Ascorbic Acid (Vitamin C 250 Mg Tab) 250 mg PO DAILY [facility] Last Admin: 12/24/17 10:20 Dose: 250 mg Famotidine (Pepcid) 20 mg PO BID [facility] Last Admin: 12/24/17 10:19 Dose: 20 mg Hydromorphone HCl (Dilaudid) 0.5 mg IVP Q6H PRN PRN Reason: Pain, severe (8-10) Last Admin: 12/24/17 08:14 Dose: 0.5 mg Folic Acid 1 mg/ Sodium (Chloride) 100.2 mls @ 60 mls/hr IV DAILY [facility] Last Admin: 12/24/17 10:20 Dose: 60 mls/hr Cefepime HCl (Maxipime Iv 1 Gm Premix) 1 gm in 50 mls @ 100 mls/hr IVPB Q8H [facility] Last Admin: 12/24/17 11:40 Dose: 100 mls/hr Multivitamins/Vitamin C (Multi-Delyn Liquid) 5 ml PO DAILY [facility] Last Admin: 12/24/17 10:27 Dose: 5 ml Propranolol HCl (Inderal) 20 mg PO BID [facility] Last Admin: 12/24/17 10:20 Dose: Not Given Spironolactone (Aldactone) 50 mg PO DAILY [facility] Last Admin: 12/24/17 10:20 Dose: 50 mg Thiamine HCl (Vitamin B1 Inj) 100 mg IV DAILY [facility] Last Admin: 12/24/17 10:20 Dose: 100 mg Zinc Sulfate (Zinc Sulfate 220 Mg Cap) 220 mg PO DAILY [facility] Last Admin: 12/24/17 10:19 Dose: 220 mg - Labs Labs: 12/24/17 07:25 12/24/17 07:25 PT 24.4 SECONDS (9.7-12.2) H 12/23/17 06:03 INR 2.1 12/23/17 06:03 APTT 34 SECONDS (21-34) 12/23/17 06:03 - Constitutional Appears: Non-toxic, Chronically Ill - Head Exam Head Exam: NORMOCEPHALIC - Eye Exam Eye Exam: Scleral icterus - ENT Exam ENT Exam: Mucous Membranes Dry - Neck Exam Neck Exam: absent: Lymphadenopathy - Respiratory Exam Respiratory Exam: Decreased Breath Sounds - Cardiovascular Exam Cardiovascular Exam: REGULAR RHYTHM - GI/Abdominal Exam GI & Abdominal Exam: Distended, Soft - Rectal Exam Rectal Exam: Deferred - Exam Exam: NORMAL INSPECTION Assessment and Plan (1) Alcohol withdrawal Status: Acute (2) Alcoholic cirrhosis Status: Acute (3) Colitis Status: Acute (4) Iron deficiency anemia Status: Acute (5) Pneumonia Status: Acute (6) Pneumothorax Status: Acute (7) Rib fractures Status: Acute (8) Sepsis Status: Acute
--- NOTE | 2017-12-24 23:36 | CP.PCM.PCO ---
Physician Communication Note - Physician Communication Note Physician Communication Note: CXR post CT removal without pneumothorax as per V- rad radiologist read
[2017-12-25] MEDS: Albuterol-Ipratrop 3 mg / 0.5 (3 ml) UD INH SCH ×4 (01:18→19:23)
[2017-12-25] MEDS: HYDROmorphone 0.5 mg/0.5 ml ISec IVP PRN ×3 (05:50→20:42)
--- NOTE | 2017-12-25 08:38 | RAD ---
Chest x-ray single frontal view History: Chest tube removal. Comparison: 12/24/2017 Findings: Interval removal of a left-sided chest tube. Moderate loculated left pleural effusion with pleural thickening extending to the left upper to mid lung zone. Moderate venous congestion. Enlarged ectatic aorta. Mild cardiomegaly. Deformities of several left lateral ribs. Impression: Interval removal of a left-sided chest tube. Moderate loculated left pleural effusion with pleural thickening extending to the left upper to mid lung zone. Moderate venous congestion. Enlarged ectatic aorta. Mild cardiomegaly. Deformities of several left lateral ribs.
[2017-12-25] MEDS: Multiple Vitamins Oral Solution PO SCH (09:11)
[2017-12-25] MEDS: Thiamine 100 mg/ml Inj IV SCH (09:11)
--- NOTE | 2017-12-25 11:01 | CP.PCM.PN ---
Subjective - Date & Time of Evaluation Date of Evaluation: 12/25/17 Time of Evaluation: 08:00 - Subjective Subjective: CT Surgery: Dr. Lyn Pt seen and examined. No acute overnight events. States he feels ok this morning and is not having any difficulty breathing. Denies pain, tolerating diet. No fevers recorded overnight. Objective - Vital Signs/Intake and Output Vital Signs (last 24 hours): Temp Pulse Resp BP Pulse Ox 98.7 F 78 18 100/58 L 98 12/25/17 08:11 12/25/17 08:11 12/25/17 08:11 12/25/17 08:11 12/25/17 08:11 Intake and Output: 12/25/17 12/25/17 06:59 18:59 Intake Total 620 Output Total 100 Balance 520 - Medications Medications: Current Medications Albuterol/Ipratropium (Duoneb 3 Mg/0.5 Mg (3 Ml) Ud) 3 ml INH RQ6 [facility] Last Admin: 12/25/17 07:18 Dose: 3 ml Ascorbic Acid (Vitamin C 250 Mg Tab) 250 mg PO DAILY [facility] Last Admin: 12/25/17 09:10 Dose: 250 mg Famotidine (Pepcid) 20 mg PO BID [facility] Last Admin: 12/25/17 09:10 Dose: 20 mg Hydromorphone HCl (Dilaudid) 0.5 mg IVP Q6H PRN PRN Reason: Pain, severe (8-10) Last Admin: 12/25/17 05:50 Dose: 0.5 mg Folic Acid 1 mg/ Sodium (Chloride) 100.2 mls @ 60 mls/hr IV DAILY [facility] Last Admin: 12/24/17 10:20 Dose: 60 mls/hr Moxifloxacin HCl (Avelox) 400 mg PO DAILY [facility] PRN Reason: Protocol Last Admin: 12/25/17 09:10 Dose: 400 mg Multivitamins/Vitamin C (Multi-Delyn Liquid) 5 ml PO DAILY [facility] Last Admin: 12/25/17 09:11 Dose: 5 ml Spironolactone (Aldactone) 50 mg PO DAILY [facility] Last Admin: 12/25/17 09:10 Dose: 50 mg Thiamine HCl (Vitamin B1 Inj) 100 mg IV DAILY [facility] Last Admin: 12/25/17 09:11 Dose: 100 mg Zinc Sulfate (Zinc Sulfate 220 Mg Cap) 220 mg PO DAILY [facility] Last Admin: 12/25/17 09:10 Dose: 220 mg - Labs Labs: 12/24/17 07:25 12/24/17 07:25 PT 24.4 SECONDS (9.7-12.2) H 12/23/17 06:03 INR 2.1 12/23/17 06:03 APTT 34 SECONDS (21-34) 12/23/17 06:03 - Constitutional Appears: Well, No Acute Distress - Eye Exam Eye Exam: Normal appearance - ENT Exam ENT Exam: Mucous Membranes Moist - Respiratory Exam Respiratory Exam: Clear to Ausculation Bilateral, NORMAL BREATHING PATTERN - Cardiovascular Exam Cardiovascular Exam: RRR - GI/Abdominal Exam GI & Abdominal Exam: Distended, Soft. absent: Tenderness - Neurological Exam Neurological Exam: Alert, Awake, Oriented x3 - Skin Skin Exam: Intact, Warm Assessment and Plan - Assessment and Plan (Free Text) Assessment: 42M with multiple left sided rib fxs & hemothorax s/p CT insertion; removed yesterday Plan: - CXR this AM with no significant change - continue to encourage IS and pulmonary toilet - encourage ambulation - no further surgical intervention at this time - please recall as needed - d/w Dr. Lyn who agrees with above Jerry, PGY-3
[2017-12-25 11:31] LABS: BASO # 0.1 K/uL (0.0-0.2); EOS # 0.2 K/uL (0.0-0.7); MEAN CELL VOLUME 88.9 fL (80.0-94.0); MONO # 1.9 K/uL (0.0-0.8); NRBC % 0.1 % (0.0-2.0)
[2017-12-25 11:38] LABS: EOS % 1.6 % (0.0-4.0); LYMPH # 2.9 K/uL (1.0-4.3); LYMPH % 21.4 % (20.0-40.0); MEAN CORPUSCULAR HEMOGLOBIN 28.9 pg (27.0-31.0); MEAN CORPUSCULAR HGB CONC 32.5 g/dL (33.0-37.0); MEAN PLATELET VOLUME 11.1 fL (7.2-11.7); NEUT # 8.3 K/uL (1.8-7.0); RBC 3.45 Mil/uL (4.40-5.90); RED CELL DISTRIBUTION WIDTH 26.4 % (11.5-14.5); WHITE BLOOD COUNT 13.4 K/uL (4.8-10.8)
--- NOTE | 2017-12-25 12:08 | CP.PCM.PN ---
Subjective - Date & Time of Evaluation Date of Evaluation: 12/25/17 Time of Evaluation: 10:20 - Subjective Subjective: PGY-[address] Bernabe Patient seen and examined at bedside. Patient's chest tube was removed overnight by surgery team. Patient complains of abdominal pain. Patient had one episode of non-bloody vomiting during lunch today. Patient denies fever, chills , chest pain, or diarrhea. Objective - Vital Signs/Intake and Output Vital Signs (last 24 hours): Temp Pulse Resp BP Pulse Ox 98.7 F 78 18 100/58 L 98 12/25/17 08:11 12/25/17 08:11 12/25/17 08:11 12/25/17 08:11 12/25/17 08:11 Intake and Output: 12/25/17 12/25/17 06:59 18:59 Intake Total 620 Output Total 100 Balance 520 - Medications Medications: Current Medications Albuterol/Ipratropium (Duoneb 3 Mg/0.5 Mg (3 Ml) Ud) 3 ml INH RQ6 [facility] Last Admin: 12/25/17 07:18 Dose: 3 ml Ascorbic Acid (Vitamin C 250 Mg Tab) 250 mg PO DAILY [facility] Last Admin: 12/25/17 09:10 Dose: 250 mg Famotidine (Pepcid) 20 mg PO BID [facility] Last Admin: 12/25/17 09:10 Dose: 20 mg Folic Acid 1 mg/ Sodium (Chloride) 100.2 mls @ 60 mls/hr IV DAILY [facility] Last Admin: 12/25/17 11:42 Dose: 60 mls/hr Moxifloxacin HCl (Avelox) 400 mg PO DAILY [facility] PRN Reason: Protocol Last Admin: 12/25/17 09:10 Dose: 400 mg Multivitamins/Vitamin C (Multi-Delyn Liquid) 5 ml PO DAILY [facility] Last Admin: 12/25/17 09:11 Dose: 5 ml Spironolactone (Aldactone) 50 mg PO DAILY [facility] Last Admin: 12/25/17 09:10 Dose: 50 mg Thiamine HCl (Vitamin B1 Inj) 100 mg IV DAILY [facility] Last Admin: 12/25/17 09:11 Dose: 100 mg Zinc Sulfate (Zinc Sulfate 220 Mg Cap) 220 mg PO DAILY [facility] Last Admin: 12/25/17 09:10 Dose: 220 mg - Labs Labs: 12/25/17 11:15 12/24/17 07:25 PT 24.4 SECONDS (9.7-12.2) H 12/23/17 06:03 INR 2.1 12/23/17 06:03 APTT 34 SECONDS (21-34) 12/23/17 06:03 - Constitutional Appears: Toxic - Head Exam Head Exam: ATRAUMATIC - Eye Exam Eye Exam: EOMI, Scleral icterus - ENT Exam ENT Exam: Mucous Membranes Moist - Neck Exam Neck Exam: Normal Inspection - Respiratory Exam Respiratory Exam: Clear to Ausculation Bilateral, NORMAL BREATHING PATTERN. absent: Respiratory Distress - Cardiovascular Exam Cardiovascular Exam: REGULAR RHYTHM, +S1, +S2 - GI/Abdominal Exam GI & Abdominal Exam: Distended. absent: Tenderness - Neurological Exam Neurological Exam: Alert, Awake, Oriented x3 - Psychiatric Exam Psychiatric exam: Normal Affect, Normal Mood - Skin Skin Exam: Warm Assessment and Plan - Assessment and Plan (Free Text) Assessment: Alcoholic Cirrhosis -Abdominal ultrasound pending recommended by GI -Altered GI/Hepatic diet -CT Abd (12/09)reviewed - Duodenitis and mildly edematous pancreatic head. Cirrhotic liver, small ascites, rib fractures, no evidence of colitis. probable hematoma in lungs status post rib fractures. Not definitive evidence of pancreatitis. see full report. Possible SBP; patient was code sepsis -GI Consulted, Dr. Camp, f/u recs. -On the day of admission IR stated there is not enough fluid at this time to drain Hepatic Failure -12/24: Amonia 22 -Meld Score 13; 6% 3 month mortality on admission -GI on board; appreciate recs; thank you for your help -patient with long standing history of Hepatitis C -f/u ammonia; if elevated give lactulose Rib Fractures -Chest tube removed by surgery team 12/24 -CXR 12/25 showed Persistent moderate loculated left-sided pleural effusion with adjacent consolidative changes at the left lung base. Multiple left-sided rib deformities. -continue incentive spirometry -Follow surgery recommendations Possible aspiration PNA 11/17 to fall/intoxication -WBC down trending, 13.4 today -ID consult Dr. Smith on case, help appreciated, f/u recs -Avelox 400mg po daily, started 12/24 -Continue incentive spriometry Iron Deficiency Anemia -12/25: Hgb 10, stable -Observe for GI bleed. Per GI, may need EGD to assess duodenal thickening when clinically stable -if patient drops below 7.0 will transfuse -Iron studies on 12/09 showed patient is iron deficient Pancreatitis; acute on chronic -patient without necrotic pancreas on CT -BUN/Creatinine WNL -Lipase 373 on 12/08, 664 on 12/10 EtOH Abuse/Dependence/Withdrawl -Pt no longer tremulous -GI recommended EGD once pt is stable -CIWA, Thiamine/Folate daily -Psychiatry on board; thank you for your help Electrolyte Imbalance -12/24 stable, supplement as needed Prophylactic measures -chemical anticoagulation not recommended with elevated INR -SCD -Protonix -Zofran Case discussed with attending. All medical management as per Dr. Kevan Bernabe.
--- NOTE | 2017-12-25 12:19 | RAD ---
Chest x-ray single frontal view History: Chest tube removal. Comparison: 12/24/2017 Findings: Persistent moderate loculated left-sided pleural effusion with adjacent consolidative changes at the left lung base. Multiple left-sided rib deformities. Heart size within normal limits. Impression: Persistent moderate loculated left-sided pleural effusion with adjacent consolidative changes at the left lung base. Multiple left-sided rib deformities.
[2017-12-26] MEDS: Albuterol-Ipratrop 3 mg / 0.5 (3 ml) UD INH SCH ×4 (01:56→19:32)
[2017-12-26] MEDS: HYDROmorphone 0.5 mg/0.5 ml ISec IVP PRN ×3 (02:53→15:26)
[2017-12-26 07:20] LABS: BASO # 0.1 K/uL (0.0-0.2); EOS # 0.2 K/uL (0.0-0.7); EOS % 1.6 % (0.0-4.0); HEMOGLOBIN 9.3 g/dL (12.0-18.0); LYMPH # 2.7 K/uL (1.0-4.3); LYMPH % 17.7 % (20.0-40.0); MEAN CELL VOLUME 87.9 fL (80.0-94.0); MEAN PLATELET VOLUME 10.6 fL (7.2-11.7); MONO % 13.6 % (0.0-10.0); NEUT # 9.9 K/uL (1.8-7.0); NEUT % 66.1 % (50.0-75.0); RBC 3.22 Mil/uL (4.40-5.90); RED CELL DISTRIBUTION WIDTH 25.6 % (11.5-14.5)
[2017-12-26 08:14] LABS: ALB/GLOB RATIO 0.5 (1.0-2.1); ALBUMIN 2.2 g/dL (3.5-5.0); ALT/SGPT 51 U/L (21-72); AST/SGOT 120 U/L (17-59); BLOOD UREA NITROGEN 12 mg/dL (9-20); CALCIUM 7.5 mg/dl (8.6-10.4); GFR AFRICAN-AMERICAN > 60; GFR NON-AFRICAN AMERICAN > 60; LIPASE 1155 U/L (23-300)
[2017-12-26] MEDS: Thiamine 100 mg/ml Inj IV SCH (09:11)
[2017-12-26] MEDS: Multiple Vitamins Oral Solution PO SCH (09:11)
--- NOTE | 2017-12-26 10:57 | US ---
HISTORY: abdominal distention, abdominal pain COMPARISON: CT chest, abdomen, and pelvis without contrast performed 12/09/17, abdominal ultrasound performed 04/26/16 TECHNIQUE: Sonographic evaluation of the abdomen. FINDINGS: LIVER: Measures 17.6 cm in sagittal dimension. Echogenic liver may be seen in setting of hepatic parenchymal disease or fatty infiltration. Nodular hepatic contour. No focal hepatic mass identified. The main portal vein appears patent with normal directional flow. No intrahepatic bile duct dilatation. GALLBLADDER: No gallstones. Gallbladder wall thickening measuring approximately 6 mm in diameter. Negative sonographic Ramírez's sign as assessed by the tube coverer. COMMON BILE DUCT: Measures 5 mm. PANCREAS: Not well visualized. RIGHT KIDNEY: Measures 12.5 x 6.0 x 6.3 cm. No obstructing calculus or hydronephrosis identified. LEFT KIDNEY: Measures 12.3 x 7.2 x 6.6 cm. No obstructing calculus or hydronephrosis identified. SPLEEN: Measures approximately 12.3 cm. AORTA: Limited views appear unremarkable. IVC: Limited views appear unremarkable. OTHER FINDINGS: Small abdominal ascites. IMPRESSION: Echogenic liver may be seen in setting of hepatic parenchymal disease or fatty infiltration. Nodular hepatic contour. Appearance consistent with cirrhosis. Small abdominal ascites. Gallbladder wall thickening in the absence of gallstones. Negative sonographic Ramírez's sign as assessed by the tube coverer.
--- NOTE | 2017-12-26 12:25 | CP.PCM.PN ---
Subjective - Date & Time of Evaluation Date of Evaluation: 12/26/17 Time of Evaluation: 10:00 - Subjective Subjective: c/o abd pain increased lipase gi on board Objective - Vital Signs/Intake and Output Vital Signs (last 24 hours): Temp Pulse Resp BP Pulse Ox 98.9 F 65 20 111/55 L 95 12/26/17 07:00 12/26/17 07:00 12/26/17 07:00 12/26/17 07:00 12/26/17 07:00 Intake and Output: 12/26/17 12/26/17 06:59 18:59 Intake Total 300 Output Total 400 Balance -100 - Medications Medications: Current Medications Albuterol/Ipratropium (Duoneb 3 Mg/0.5 Mg (3 Ml) Ud) 3 ml INH RQ6 [facility] Last Admin: 12/26/17 07:20 Dose: Not Given Ascorbic Acid (Vitamin C 250 Mg Tab) 250 mg PO DAILY [facility] Last Admin: 12/26/17 09:11 Dose: 250 mg Famotidine (Pepcid) 20 mg PO BID [facility] Last Admin: 12/26/17 09:11 Dose: 20 mg Hydromorphone HCl (Dilaudid) 0.5 mg IVP Q6H PRN PRN Reason: Pain, severe (8-10) Last Admin: 12/26/17 09:11 Dose: 0.5 mg Folic Acid 1 mg/ Sodium (Chloride) 100.2 mls @ 60 mls/hr IV DAILY [facility] Last Admin: 12/26/17 09:16 Dose: 60 mls/hr Metronidazole (Flagyl) 250 mg in 50 mls @ 50 mls/hr IVPB Q8 [facility] PRN Reason: Protocol Lactulose (Enulose) 20 gm PO BID [facility] Moxifloxacin HCl (Avelox) 400 mg PO DAILY [facility] PRN Reason: Protocol Last Admin: 12/26/17 09:11 Dose: 400 mg Multivitamins/Vitamin C (Multi-Delyn Liquid) 5 ml PO DAILY [facility] Last Admin: 12/26/17 09:11 Dose: 5 ml Ondansetron HCl (Zofran Inj) 4 mg IVP Q12 PRN PRN Reason: Nausea/Vomiting Last Admin: 12/25/17 13:17 Dose: 4 mg Rifaximin (Xifaxan) 550 mg PO BID [facility] PRN Reason: Protocol Spironolactone (Aldactone) 50 mg PO DAILY [facility] Last Admin: 12/26/17 09:11 Dose: 50 mg Thiamine HCl (Vitamin B1 Inj) 100 mg IV DAILY [facility] Last Admin: 12/26/17 09:11 Dose: 100 mg Zinc Sulfate (Zinc Sulfate 220 Mg Cap) 220 mg PO DAILY [facility] Last Admin: 12/26/17 09:11 Dose: 220 mg - Labs Labs: 12/26/17 07:12 12/26/17 07:12 PT 24.4 SECONDS (9.7-12.2) H 12/23/17 06:03 INR 2.1 12/23/17 06:03 APTT 34 SECONDS (21-34) 12/23/17 06:03 - Constitutional Appears: Non-toxic, No Acute Distress, Chronically Ill - Head Exam Head Exam: NORMAL INSPECTION - Eye Exam Eye Exam: Scleral icterus - ENT Exam ENT Exam: Mucous Membranes Dry - Neck Exam Neck Exam: absent: Lymphadenopathy - Respiratory Exam Respiratory Exam: Decreased Breath Sounds, Prolonged Expiratory Phase, Rhonchi - Cardiovascular Exam Cardiovascular Exam: REGULAR RHYTHM - GI/Abdominal Exam GI & Abdominal Exam: Distended, Soft, Tenderness - Rectal Exam Rectal Exam: Deferred - Exam Exam: NORMAL INSPECTION Assessment and Plan (1) Alcohol withdrawal Status: Acute (2) Alcoholic cirrhosis Status: Acute (3) Colitis Status: Acute (4) Iron deficiency anemia Status: Acute (5) Pneumonia Status: Acute (6) Pneumothorax Status: Acute (7) Rib fractures Status: Acute (8) Sepsis Status: Acute (9) Pancreatitis Status: Acute - Assessment and Plan (Free Text) Assessment: cont iv rx gi eval
--- NOTE | 2017-12-26 13:18 | CP.PCM.PN ---
Subjective - Date & Time of Evaluation Date of Evaluation: 12/26/17 Time of Evaluation: 09:30 - Subjective Subjective: Medicine progress note for Dr. Bernabe's service Patient seen and examined. Patient with complaint of LUQ abdominal pain. He also reports vomiting yesterday earlier in the day but states he was able to tolerate dinner. Patient to have abdominal ultrasound today. Objective - Vital Signs/Intake and Output Vital Signs (last 24 hours): Temp Pulse Resp BP Pulse Ox 98.9 F 65 20 111/55 L 95 12/26/17 07:00 12/26/17 07:00 12/26/17 07:00 12/26/17 07:00 12/26/17 07:00 Intake and Output: 12/26/17 12/26/17 06:59 18:59 Intake Total 300 Output Total 400 Balance -100 - Medications Medications: Current Medications Albuterol/Ipratropium (Duoneb 3 Mg/0.5 Mg (3 Ml) Ud) 3 ml INH RQ6 [facility] Last Admin: 12/26/17 07:20 Dose: Not Given Ascorbic Acid (Vitamin C 250 Mg Tab) 250 mg PO DAILY [facility] Last Admin: 12/26/17 09:11 Dose: 250 mg Famotidine (Pepcid) 20 mg PO BID [facility] Last Admin: 12/26/17 09:11 Dose: 20 mg Hydromorphone HCl (Dilaudid) 0.5 mg IVP Q6H PRN PRN Reason: Pain, severe (8-10) Last Admin: 12/26/17 09:11 Dose: 0.5 mg Folic Acid 1 mg/ Sodium (Chloride) 100.2 mls @ 60 mls/hr IV DAILY [facility] Last Admin: 12/26/17 09:16 Dose: 60 mls/hr Metronidazole (Flagyl) 250 mg in 50 mls @ 50 mls/hr IVPB Q8 [facility] PRN Reason: Protocol Lactulose (Enulose) 20 gm PO BID [facility] Moxifloxacin HCl (Avelox) 400 mg PO DAILY [facility] PRN Reason: Protocol Last Admin: 12/26/17 09:11 Dose: 400 mg Multivitamins/Vitamin C (Multi-Delyn Liquid) 5 ml PO DAILY [facility] Last Admin: 12/26/17 09:11 Dose: 5 ml Ondansetron HCl (Zofran Inj) 4 mg IVP Q12 PRN PRN Reason: Nausea/Vomiting Last Admin: 12/25/17 13:17 Dose: 4 mg Rifaximin (Xifaxan) 550 mg PO BID [facility] PRN Reason: Protocol Spironolactone (Aldactone) 50 mg PO DAILY [facility] Last Admin: 12/26/17 09:11 Dose: 50 mg Thiamine HCl (Vitamin B1 Inj) 100 mg IV DAILY [facility] Last Admin: 12/26/17 09:11 Dose: 100 mg Zinc Sulfate (Zinc Sulfate 220 Mg Cap) 220 mg PO DAILY [facility] Last Admin: 12/26/17 09:11 Dose: 220 mg - Labs Labs: 12/26/17 07:12 12/26/17 07:12 PT 24.4 SECONDS (9.7-12.2) H 12/23/17 06:03 INR 2.1 12/23/17 06:03 APTT 34 SECONDS (21-34) 12/23/17 06:03 - Constitutional Appears: No Acute Distress, Chronically Ill - Head Exam Head Exam: ATRAUMATIC, NORMOCEPHALIC - Eye Exam Eye Exam: EOMI - ENT Exam ENT Exam: Mucous Membranes Moist - Respiratory Exam Respiratory Exam: Decreased Breath Sounds (decreased inspiratory effort) Additional comments: chest tube dressing reinforced - Cardiovascular Exam Cardiovascular Exam: +S1, +S2 - GI/Abdominal Exam GI & Abdominal Exam: Distended, Tenderness (LUQ). absent: Guarding, Rigid - Extremities Exam Extremities Exam: absent: Calf Tenderness Additional comments: bilateral 1+ pitting edema - Neurological Exam Neurological Exam: Alert, Awake - Skin Skin Exam: Warm Assessment and Plan - Assessment and Plan (Free Text) Assessment: Alcoholic Cirrhosis -12/26: Abdominal ultrasound completed today: echogenic liver may be seen in setting of hepatic parenchymal disease or fatty infiltration. nodular hepatic contour. appearance consistent with cirrhosis. small abdominal ascites. gallbladder wall thickening in absence of gallstones. negative sonographic yoo's sign as assessed by energy director. -12/26: re-starting rifaximin 500mg PO BID, continue aldactone 50mg PO BID -Altered GI/Hepatic diet -CT Abd (12/09)reviewed - Duodenitis and mildly edematous pancreatic head. Cirrhotic liver, small ascites, rib fractures, no evidence of colitis. probable hematoma in lungs status post rib fractures. Not definitive evidence of pancreatitis. see full report. Possible SBP; patient was code sepsis -GI Consulted, Dr. Camp, f/u recs. -On the day of admission IR stated there is not enough fluid at this time to drain Hepatic Failure -12/26: Ammonia increased from 22 to 36, will start lactulose BID -Meld Score 13; 6% 3 month mortality on admission -GI on board; appreciate recs; thank you for your help -patient with long standing history of Hepatitis C Rib Fractures -Chest tube removed by surgery team 12/24, dressing to be changed today 12/26 -CXR 12/25 showed Persistent moderate loculated left-sided pleural effusion with adjacent consolidative changes at the left lung base. Multiple left-sided rib deformities. -continue incentive spirometry -Follow surgery recommendations Possible aspiration PNA 11/17 to fall/intoxication -12/26/17: WBC up trending, increased from 13.4 to 15, adding flagyl today in addition to Avelox 400mg po daily, started 12/24 -ID consult Dr. Smith on case, help appreciated, f/u recs -patient previously on clindamycin 600mg IV q8h from 12/13/17- 12/17/17, Cefepime from 12/13/17- 12/24/17, rocephin 12/08/17- 12/10/17, vancomycin 12/17/17-12/21/17, zosyn 12/08/17-12/13/17 Iron Deficiency Anemia -12/26: Hgb 9.3, continue to monitor -Observe for GI bleed. Per GI, may need EGD to assess duodenal thickening when clinically stable -if patient drops below 7.0 will transfuse -Iron studies on 12/09 showed patient is iron deficient Pancreatitis; acute on chronic -12/26: lipase increase to 1155 -patient without necrotic pancreas on CT -BUN/Creatinine WNL -Lipase 373 on 12/08, 664 on 12/10 EtOH Abuse/Dependence/Withdrawl -Pt no longer tremulous -GI recommended EGD once pt is stable -CIWA, Thiamine/Folate daily -Psychiatry on board; thank you for your help Electrolyte Imbalance -12/24 stable, supplement as needed Prophylactic measures -chemical anticoagulation not recommended with elevated INR -SCD -pepcid 20mg BID -Zofran Case discussed with attending. All medical management as per Dr. Kevan Bernabe.
[2017-12-26] MEDS: metroNIDAZOLE IV 250mg/50 ml 250 MG/50 ML BAG IVPB SCH ×2 (14:21→21:08)
[2017-12-26 18:32] LABS: CEA PERITONEAL FLUID <2 ng/mL (<2.0)
[2017-12-27] MEDS: HYDROmorphone 0.5 mg/0.5 ml ISec IVP PRN ×4 (00:10→18:30)
[2017-12-27] MEDS: Albuterol-Ipratrop 3 mg / 0.5 (3 ml) UD INH SCH ×3 (01:20→14:06)
[2017-12-27] MEDS: metroNIDAZOLE IV 250mg/50 ml 250 MG/50 ML BAG IVPB SCH ×3 (06:04→21:05)
--- NOTE | 2017-12-27 07:30 | CP.PCM.PN ---
Subjective - Date & Time of Evaluation Date of Evaluation: 12/27/17 Time of Evaluation: 07:29 - Subjective Subjective: PGY-[address] Bernabe's service Patient seen and examined at bedside. Nursing reports no acute events overnight. Patient found resting comfortably in bed. He is AAOx3 and is aware of context of his admission. He admits LUQ abdominal pain has improved today, and denies nausea or vomiting this AM. Nursing reports he is tolerating diet and moving bowels without complaints. Patient states most of his pain is at site of rib fractures on left side from prior fall. He denies pressure like chest pain or shortness of breath. Objective - Vital Signs/Intake and Output Vital Signs (last 24 hours): Temp Pulse Resp BP Pulse Ox 98.2 F 73 20 112/71 96 12/26/17 23:20 12/26/17 23:20 12/26/17 23:20 12/26/17 23:20 12/26/17 23:20 Intake and Output: 12/27/17 12/27/17 06:59 18:59 Intake Total 410 Balance 410 - Medications Medications: Current Medications Albuterol/Ipratropium (Duoneb 3 Mg/0.5 Mg (3 Ml) Ud) 3 ml INH RQ6 [facility] Last Admin: 12/27/17 01:20 Dose: Not Given Ascorbic Acid (Vitamin C 250 Mg Tab) 250 mg PO DAILY [facility] Last Admin: 12/26/17 09:11 Dose: 250 mg Famotidine (Pepcid) 20 mg PO BID [facility] Last Admin: 12/26/17 17:32 Dose: 20 mg Hydromorphone HCl (Dilaudid) 0.5 mg IVP Q6H PRN PRN Reason: Pain, severe (8-10) Last Admin: 12/27/17 06:10 Dose: 0.5 mg Folic Acid 1 mg/ Sodium (Chloride) 100.2 mls @ 60 mls/hr IV DAILY [facility] Last Admin: 12/26/17 09:16 Dose: 60 mls/hr Metronidazole (Flagyl) 250 mg in 50 mls @ 50 mls/hr IVPB Q8 [facility] PRN Reason: Protocol Last Admin: 12/27/17 06:04 Dose: 50 mls/hr Lactulose (Enulose) 20 gm PO BID [facility] Last Admin: 12/26/17 17:32 Dose: 20 gm Moxifloxacin HCl (Avelox) 400 mg PO DAILY [facility] PRN Reason: Protocol Last Admin: 12/26/17 09:11 Dose: 400 mg Multivitamins/Vitamin C (Multi-Delyn Liquid) 5 ml PO DAILY [facility] Last Admin: 12/26/17 09:11 Dose: 5 ml Ondansetron HCl (Zofran Inj) 4 mg IVP Q12 PRN PRN Reason: Nausea/Vomiting Last Admin: 12/25/17 13:17 Dose: 4 mg Rifaximin (Xifaxan) 550 mg PO BID [facility] PRN Reason: Protocol Last Admin: 12/26/17 17:32 Dose: 550 mg Spironolactone (Aldactone) 50 mg PO DAILY [facility] Last Admin: 12/26/17 09:11 Dose: 50 mg Thiamine HCl (Vitamin B1 Inj) 100 mg IV DAILY [facility] Last Admin: 12/26/17 09:11 Dose: 100 mg Zinc Sulfate (Zinc Sulfate 220 Mg Cap) 220 mg PO DAILY [facility] Last Admin: 12/26/17 09:11 Dose: 220 mg - Labs Labs: 12/26/17 07:12 12/26/17 07:12 PT 24.4 SECONDS (9.7-12.2) H 12/23/17 06:03 INR 2.1 12/23/17 06:03 APTT 34 SECONDS (21-34) 12/23/17 06:03 - Additional Findings Additional findings: - Constitutional Appears: No Acute Distress, Chronically Ill - Head Exam Head Exam: ATRAUMATIC, NORMOCEPHALIC - Eye Exam Eye Exam: EOMI, Scleral icterus - ENT Exam ENT Exam: Mucous Membranes Moist - Respiratory Exam Respiratory Exam: Decreased Breath Sounds (decreased inspiratory effort) Additional comments: chest tube dressing clean/dry/intact - Cardiovascular Exam Cardiovascular Exam: +S1, +S2 - tender to palpation at site of rib fractures - left side - GI/Abdominal Exam GI & Abdominal Exam: Distended, Tenderness (mild LUQ), no fluid wave appreciated. absent: Guarding, Rigid - Extremities Exam Extremities Exam: absent: Calf Tenderness Additional comments: bilateral 1+ pitting edema - Neurological Exam Neurological Exam: Alert, Awake, Oriented x 3 - Skin Skin Exam: Warm Assessment and Plan - Assessment and Plan (Free Text) Plan: Alcoholic Cirrhosis 12/26: Abdominal ultrasound completed today: echogenic liver may be seen in setting of hepatic parenchymal disease or fatty infiltration. nodular hepatic contour. appearance consistent with cirrhosis. small abdominal ascites. gallbladder wall thickening in absence of gallstones. negative sonographic yoo's sign as assessed by dormitory keeper. Rifaximin 500mg PO BID Aldactone 50mg PO BID -Altered GI/Hepatic diet CT Abd (12/09) reviewed - Duodenitis and mildly edematous pancreatic head. Cirrhotic liver, small ascites, rib fractures, no evidence of colitis. probable hematoma in lungs status post rib fractures. Not definitive evidence of pancreatitis. see full report. Possible SBP; patient was code sepsis GI Consulted, Dr. Camp, f/u recs. -On the day of admission IR stated there is not enough fluid at this time to drain Hepatic Failure -12/27: Ammonia decreased from 36 to 27; will continue lactulose BID -Meld Score 13; 6% 3 month mortality on admission -GI on board; appreciate recs; thank you for your help -patient with long standing history of Hepatitis C Rib Fractures Chest tube removed by surgery team 12/24, dressing changed 12/26 CXR 12/25 showed Persistent moderate loculated left-sided pleural effusion with adjacent consolidative changes at the left lung base. Multiple left-sided rib deformities. Surgery recommendations - no further surgical interventions -continue incentive spirometry, pulm toilet Possible aspiration PNA 11/17 to fall/intoxication -12/27/17: WBC downtrending, still mildly elevated - Afebrile, non-tachy Continue Flagyl 500mg PO Daily, started 12/26 Continue Avelox 400mg po daily, started 12/24 -ID consult Dr. Smith on case, help appreciated, f/u recs -patient previously on clindamycin 600mg IV q8h from 12/13/17- 12/17/17, Cefepime from 12/13/17- 12/24/17, rocephin 12/08/17- 12/10/17, vancomycin 12/17/17-12/21/17, zosyn 12/08/17-12/13/17 Iron Deficiency Anemia -12/27: Hgb 9.7, continue to monitor -Observe for GI bleed. Per GI, may need EGD to assess duodenal thickening when clinically stable -if patient drops below 7.0 will transfuse -Iron studies on 12/09 showed patient is iron deficient Pancreatitis; acute on chronic -12/26: lipase increase to 1155 -patient without necrotic pancreas on CT -BUN/Creatinine WNL -Lipase 373 on 12/08, 664 on 12/10 EtOH Abuse/Dependence/Withdrawl -Pt no longer tremulous -GI recommended EGD once pt is stable -CIWA, Thiamine/Folate daily -Psychiatry on board; thank you for your help Electrolyte Imbalance -12/24 stable, supplement as needed Prophylactic measures -chemical anticoagulation not recommended with elevated INR -SCD -pepcid 20mg BID -Zofran Disposition: Per Dr. Bernabe, pt with no further imaging at this time. Possible discharge in AM provided no abdominal pain, pending authorization. Case discussed with attending. All medical management as per Dr. Kevan Bernabe.
[2017-12-27 08:29] LABS: BASO # 0.1 K/uL (0.0-0.2); BASO % 0.8 % (0.0-2.0); EOS # 0.2 K/uL (0.0-0.7); EOS % 1.8 % (0.0-4.0); HEMOGLOBIN 9.7 g/dL (12.0-18.0); MEAN CELL VOLUME 89.3 fL (80.0-94.0); MEAN CORPUSCULAR HEMOGLOBIN 28.8 pg (27.0-31.0); MEAN CORPUSCULAR HGB CONC 32.3 g/dL (33.0-37.0); MEAN PLATELET VOLUME 10.9 fL (7.2-11.7); MONO # 2.2 K/uL (0.0-0.8); MONO % 16.5 % (0.0-10.0); NEUT # 8.6 K/uL (1.8-7.0); NEUT % 65.9 % (50.0-75.0); RBC 3.35 Mil/uL (4.40-5.90); RED CELL DISTRIBUTION WIDTH 25.4 % (11.5-14.5); WHITE BLOOD COUNT 13.1 K/uL (4.8-10.8)
[2017-12-27 08:52] LABS: ALB/GLOB RATIO 0.6 (1.0-2.1); ALBUMIN 2.2 g/dL (3.5-5.0); ALT/SGPT 52 U/L (21-72); AST/SGOT 106 U/L (17-59); BLOOD UREA NITROGEN 8 mg/dL (9-20); CALCIUM 7.3 mg/dl (8.6-10.4); GFR AFRICAN-AMERICAN > 60; GFR NON-AFRICAN AMERICAN > 60
[2017-12-27] MEDS: Multiple Vitamins Oral Solution PO SCH (11:00)
[2017-12-27] MEDS: Thiamine 100 mg/ml Inj IV SCH (11:01)
--- NOTE | 2017-12-27 16:10 | CP.PCM.PN ---
Subjective - Date & Time of Evaluation Date of Evaluation: 12/27/17 Time of Evaluation: 08:00 - Subjective Subjective: AWAKE ALERT NAD C/O ABD DISCOMFORT ABD LARGE DISTENDED PROTUBERANT NON TENDER Objective - Vital Signs/Intake and Output Vital Signs (last 24 hours): Temp Pulse Resp BP Pulse Ox 98.4 F 76 18 123/66 96 12/27/17 07:45 12/27/17 12:37 12/27/17 07:45 12/27/17 12:37 12/27/17 07:45 Intake and Output: 12/27/17 12/27/17 06:59 18:59 Intake Total 410 600 Balance 410 600 - Medications Medications: Current Medications Albuterol/Ipratropium (Duoneb 3 Mg/0.5 Mg (3 Ml) Ud) 3 ml INH RQ6 [facility] Last Admin: 12/27/17 14:06 Dose: Not Given Ascorbic Acid (Vitamin C 250 Mg Tab) 250 mg PO DAILY [facility] Last Admin: 12/27/17 11:01 Dose: 250 mg Famotidine (Pepcid) 20 mg PO BID [facility] Last Admin: 12/27/17 11:00 Dose: 20 mg Hydromorphone HCl (Dilaudid) 0.5 mg IVP Q6H PRN PRN Reason: Pain, severe (8-10) Last Admin: 12/27/17 12:37 Dose: 0.5 mg Folic Acid 1 mg/ Sodium (Chloride) 100.2 mls @ 60 mls/hr IV DAILY [facility] Last Admin: 12/27/17 11:00 Dose: 60 mls/hr Metronidazole (Flagyl) 250 mg in 50 mls @ 50 mls/hr IVPB Q8 [facility] PRN Reason: Protocol Last Admin: 12/27/17 13:21 Dose: 50 mls/hr Lactulose (Enulose) 20 gm PO BID [facility] Last Admin: 12/27/17 11:00 Dose: 20 gm Moxifloxacin HCl (Avelox) 400 mg PO DAILY [facility] PRN Reason: Protocol Last Admin: 12/27/17 11:00 Dose: 400 mg Multivitamins/Vitamin C (Multi-Delyn Liquid) 5 ml PO DAILY [facility] Last Admin: 12/27/17 11:00 Dose: 5 ml Ondansetron HCl (Zofran Inj) 4 mg IVP Q12 PRN PRN Reason: Nausea/Vomiting Last Admin: 12/25/17 13:17 Dose: 4 mg Rifaximin (Xifaxan) 550 mg PO BID [facility] PRN Reason: Protocol Last Admin: 12/27/17 11:00 Dose: 550 mg Spironolactone (Aldactone) 50 mg PO DAILY [facility] Last Admin: 12/27/17 11:01 Dose: 50 mg Thiamine HCl (Vitamin B1 Inj) 100 mg IV DAILY [facility] Last Admin: 12/27/17 11:01 Dose: 100 mg Zinc Sulfate (Zinc Sulfate 220 Mg Cap) 220 mg PO DAILY [facility] Last Admin: 12/27/17 11:00 Dose: 220 mg - Labs Labs: 12/27/17 08:21 12/27/17 08:21 PT 24.4 SECONDS (9.7-12.2) H 12/23/17 06:03 INR 2.1 12/23/17 06:03 APTT 34 SECONDS (21-34) 12/23/17 06:03 - Constitutional Appears: Non-toxic, Chronically Ill - Head Exam Head Exam: NORMOCEPHALIC - Eye Exam Eye Exam: Scleral icterus - ENT Exam ENT Exam: Normal External Ear Exam - Neck Exam Neck Exam: absent: Lymphadenopathy - Respiratory Exam Respiratory Exam: Decreased Breath Sounds - Cardiovascular Exam Cardiovascular Exam: REGULAR RHYTHM - GI/Abdominal Exam GI & Abdominal Exam: Distended, Soft Assessment and Plan (1) Alcohol withdrawal Status: Acute (2) Alcoholic cirrhosis Status: Acute (3) Colitis Status: Acute (4) Iron deficiency anemia Status: Acute (5) Pneumonia Status: Acute (6) Pneumothorax Status: Acute (7) Rib fractures Status: Acute (8) Sepsis Status: Acute (9) Pancreatitis Status: Acute
[2017-12-28 00:45] VITALS: O2SAT 96
[2017-12-28] MEDS: HYDROmorphone 0.5 mg/0.5 ml ISec IVP PRN ×2 (00:45→08:32)
[2017-12-28] MEDS: Albuterol-Ipratrop 3 mg / 0.5 (3 ml) UD INH SCH ×3 (01:05→13:11)
[2017-12-28] MEDS: metroNIDAZOLE IV 250mg/50 ml 250 MG/50 ML BAG IVPB SCH ×2 (05:11→14:22)
[2017-12-28 07:42] LABS: BASO # 0.1 K/uL (0.0-0.2); BASO % 0.7 % (0.0-2.0); EOS # 0.2 K/uL (0.0-0.7); EOS % 1.5 % (0.0-4.0); HEMOGLOBIN 9.7 g/dL (12.0-18.0); LYMPH # 2.6 K/uL (1.0-4.3); LYMPH % 18.3 % (20.0-40.0); MEAN CELL VOLUME 88.4 fL (80.0-94.0); MEAN CORPUSCULAR HEMOGLOBIN 28.7 pg (27.0-31.0); MEAN CORPUSCULAR HGB CONC 32.5 g/dL (33.0-37.0); MEAN PLATELET VOLUME 10.2 fL (7.2-11.7); MONO # 2.1 K/uL (0.0-0.8); MONO % 14.9 % (0.0-10.0); NEUT # 9.3 K/uL (1.8-7.0); NEUT % 64.6 % (50.0-75.0); NRBC % 0.1 % (0.0-2.0); RBC 3.38 Mil/uL (4.40-5.90); RED CELL DISTRIBUTION WIDTH 24.9 % (11.5-14.5); WHITE BLOOD COUNT 14.4 K/uL (4.8-10.8)
[2017-12-28 08:03] LABS: ALB/GLOB RATIO 0.5 (1.0-2.1); ALBUMIN 2.2 g/dL (3.5-5.0); ALT/SGPT 54 U/L (21-72); AST/SGOT 102 U/L (17-59); BLOOD UREA NITROGEN 7 mg/dL (9-20); CALCIUM 7.3 mg/dl (8.6-10.4); GFR AFRICAN-AMERICAN > 60; GFR NON-AFRICAN AMERICAN > 60
[2017-12-28] MEDS: Multiple Vitamins Oral Solution PO SCH (10:57)
[2017-12-28] MEDS: Thiamine 100 mg/ml Inj IV SCH (10:58)
[2017-12-28] MEDS ORDERED: oxyCODONE 5 mg Immediate Release Tab PO PRN (11:04)
--- NOTE | 2017-12-28 14:45 | CP.PCM.PN ---
Subjective - Date & Time of Evaluation Date of Evaluation: 12/28/17 Time of Evaluation: 09:30 - Subjective Subjective: Medicine progress note for Dr. Bernabe's service Patient seen and examined. Patient has complaint of left sided chest wall pain at rib fracture site. Patient states he is eating well but has difficulty sleeping due to pain. Objective - Vital Signs/Intake and Output Vital Signs (last 24 hours): Temp Pulse Resp BP Pulse Ox 98.9 F 82 18 116/78 96 12/28/17 08:25 12/28/17 10:56 12/28/17 08:25 12/28/17 10:56 12/28/17 08:25 Intake and Output: 12/28/17 12/28/17 06:59 18:59 Intake Total 220 600 Output Total 250 Balance -30 600 - Medications Medications: Current Medications Albuterol/Ipratropium (Duoneb 3 Mg/0.5 Mg (3 Ml) Ud) 3 ml INH RQ6 [facility] Last Admin: 12/28/17 13:11 Dose: Not Given Ascorbic Acid (Vitamin C 250 Mg Tab) 250 mg PO DAILY [facility] Last Admin: 12/28/17 10:58 Dose: 250 mg Famotidine (Pepcid) 20 mg PO BID [facility] Last Admin: 12/28/17 10:57 Dose: 20 mg Folic Acid 1 mg/ Sodium (Chloride) 100.2 mls @ 60 mls/hr IV DAILY [facility] Last Admin: 12/28/17 10:56 Dose: 60 mls/hr Metronidazole (Flagyl) 250 mg in 50 mls @ 50 mls/hr IVPB Q8 [facility]IJAH PRN Reason: Protocol Last Admin: 12/28/17 14:22 Dose: 50 mls/hr Lactulose (Enulose) 20 gm PO BID ELIJAH Last Admin: 12/28/17 10:57 Dose: 20 gm Moxifloxacin HCl (Avelox) 400 mg PO DAILY [facility] PRN Reason: Protocol Last Admin: 12/28/17 10:57 Dose: 400 mg Multivitamins/Vitamin C (Multi-Delyn Liquid) 5 ml PO DAILY [facility] Last Admin: 12/28/17 10:57 Dose: 5 ml Ondansetron HCl (Zofran Inj) 4 mg IVP Q12 PRN PRN Reason: Nausea/Vomiting Last Admin: 12/25/17 13:17 Dose: 4 mg Oxycodone HCl (Oxycodone Immediate Release Tab) 5 mg PO Q6 PRN PRN Reason: Pain, moderate (4-7) Rifaximin (Xifaxan) 550 mg PO BID [facility] PRN Reason: Protocol Last Admin: 12/28/17 10:57 Dose: 550 mg Spironolactone (Aldactone) 50 mg PO DAILY [facility] Last Admin: 12/28/17 10:58 Dose: 50 mg Thiamine HCl (Vitamin B1 Inj) 100 mg IV DAILY [facility] Last Admin: 12/28/17 10:58 Dose: 100 mg Zinc Sulfate (Zinc Sulfate 220 Mg Cap) 220 mg PO DAILY [facility] Last Admin: 12/28/17 10:57 Dose: 220 mg - Labs Labs: 12/28/17 07:14 12/28/17 07:14 PT 24.4 SECONDS (9.7-12.2) H 12/23/17 06:03 INR 2.1 12/23/17 06:03 APTT 34 SECONDS (21-34) 12/23/17 06:03 - Constitutional Appears: No Acute Distress, Chronically Ill - Head Exam Head Exam: ATRAUMATIC, NORMOCEPHALIC - Eye Exam Eye Exam: EOMI - ENT Exam ENT Exam: Mucous Membranes Moist - Respiratory Exam Respiratory Exam: Decreased Breath Sounds (decreased inspiratory effort), NORMAL BREATHING PATTERN Additional comments: former chest tube site with clean and dry dressing - Cardiovascular Exam Cardiovascular Exam: +S1, +S2. absent: Tachycardia - GI/Abdominal Exam GI & Abdominal Exam: Distended, Soft, Tenderness (LUQ below rib cage). absent: Firm, Rigid - Extremities Exam Extremities Exam: Pedal Edema (1+ pitting edema bilateral lower extremities) - Neurological Exam Neurological Exam: Alert, Awake - Skin Skin Exam: Warm Assessment and Plan - Assessment and Plan (Free Text) Assessment: Alcoholic Cirrhosis 12/28: Patient to continue current medication regimen 12/26: Abdominal ultrasound: echogenic liver may be seen in setting of hepatic parenchymal disease or fatty infiltration. nodular hepatic contour. appearance consistent with cirrhosis. small abdominal ascites. gallbladder wall thickening in absence of gallstones. negative sonographic yoo's sign as assessed by manager of organizational development. Rifaximin 500mg PO BID Aldactone 50mg PO daily -Altered GI/Hepatic diet CT Abd (12/09) reviewed - Duodenitis and mildly edematous pancreatic head. Cirrhotic liver, small ascites, rib fractures, no evidence of colitis. probable hematoma in lungs status post rib fractures. Not definitive evidence of pancreatitis. see full report. Possible SBP; patient was code sepsis GI Consulted, Dr. Camp, f/u recs. -On the day of admission IR stated there is not enough fluid at this time to drain Hepatic Failure -12/28: Patient to continue lactulose twice a day -12/27: Ammonia decreased from 36 to 27; will continue lactulose BID -Meld Score 13; 6% 3 month mortality on admission -GI on board; appreciate recs; thank you for your help -patient with long standing history of Hepatitis C Rib Fractures Chest tube removed by surgery team 12/24, dressing changed 12/26 CXR 12/25 showed Persistent moderate loculated left-sided pleural effusion with adjacent consolidative changes at the left lung base. Multiple left-sided rib deformities. Surgery recommendations - no further surgical interventions -continue incentive spirometry, pulm toilet -continue pain management oxycodone 5mg q6h prn pain Possible aspiration PNA 11/17 to fall/intoxication - still mildly elevated - Afebrile, non-tachy Flagyl 250mg IV q8h Daily, 12/26- 12/28 Avelox 400mg po daily, 12/24 - 12/28 Antibiotics to be changed to PO and continued for 5 more days in rehab -ID consult Dr. Smith on case, help appreciated, f/u recs -patient previously on clindamycin 600mg IV q8h from 12/13/17- 12/17/17, Cefepime from 12/13/17- 12/24/17, rocephin 12/08/17- 12/10/17, vancomycin 12/17/17-12/21/17, zosyn 12/08/17-12/13/17 Iron Deficiency Anemia -12/28: Hgb 9.7, continue to monitor -Observe for GI bleed. Per GI, may need EGD to assess duodenal thickening when clinically stable -if patient drops below 7.0 will transfuse -Iron studies on 12/09 showed patient is iron deficient Pancreatitis; acute on chronic -12/26: lipase increase to 1155 -patient without necrotic pancreas on CT -BUN/Creatinine WNL -Lipase 373 on 12/08, 664 on 12/10 -patient tolerating diet well, continue to monitor clinically EtOH Abuse/Dependence/Withdrawl -Pt no longer tremulous -GI recommended EGD once pt is stable -CIWA, Thiamine/Folate daily -Psychiatry on board; thank you for your help Electrolyte Imbalance -12/24 stable, supplement as needed Prophylactic measures -chemical anticoagulation not recommended with elevated INR -SCD -pepcid 20mg BID -Zofran Disposition: Patient is stable for discharge to rehab when bed is available per Dr. Bernabe. Patient will need follow up with PMD within one week of discharge. Patient will need GI follow up for EGD to assess duodenal thickening when clinically stable. Patient is to return to the ED if symptoms reoccur or worsen. Case discussed with attending. All medical management as per Dr. Kevan Bernabe.
[2017-12-28 16:00] VITALS: BP 107/60; PULSE 75; RESP 20; TEMP 97.3
--- NOTE | 2018-01-02 07:46 | DS ---
The patient has been admitted to the hospital today with complaints of pain, weakness, from a fall. The patient had rib fracture. diffuser. The patient has chest tube drainage, liver failure, anemia. The patient shows with improvement. The patient discharged with rehab instructions. Anemia, liver failure, pneumonia. Brendon Bernabe MD
--- NOTE | 2018-01-02 21:46 | PQF SEPSIS ---
This form is a permanent part of the medical record Clarification of your documentation is requested to better reflect the severity of illness and intensity of treatment of your patient . PLEASE, CLARIFY IS SEPSIS WAS RULED IN OR RULED OUT Indicators present [X] Temp < 96.8 or > 100.4 [] WBC count > 12,000/mm3 or <000/mm3 or 10% immature neutrophils [] Heart Rate > 90 [] Respiratory Rate > 20 [] Fever or hypothermia [] Chills [] Positive blood cultures [] Hypotension [] Metabolic acidosis (Elevated lactate level, anion gap or reduced blood pH) [X] Acute confusion /Altered Mental Status [] Shock [X] Other: [DOCUMENTATION OF SEPSIS, APICAL PNEUMOTHORAX, RIBS FRACTURES S/P FALL,PNEUMONIA, POSSIBLE SBP R/O ASPIRATION, ACUTE ON CHRONIC PANCREATITIS , ALCOHOL WITHDRAWAL LIVER CIRRHOSIS, ATELECTASIS, CODE SEPSIS WAS CALLED Location in the medical record that reflects the above clinical findings: [ED- CORE MEASURE INDICATORS,P.NOTES CONSULTS ] Treatment Provided: [ IV ANTIBIOTICS] PHYSICIAN'S RESPONSE Based on your medical judgment of the clinical indicators outlined above, are you treating this patient for a known or suspected: [] Sepsis / Septicemia Please specify organism if known [] [] SIRS (Systemic Inflammatory Response Syndrome) [] Severe Sepsis (Sepsis with Associated Organ Dysfunction) [] Fever of Unknown Origin [] Other, please indicate: [] [] If Unable to Determine, please check the box, sign and date. Present On Admission (POA) Indicator: [] Present at the time of admission [] Not present at the time of admission [] Clinically Undetermined In responding to this query, please exercise your independent professional judgment. The fact that a question is asked does not imply that any particular answer is desired or expected. Thank you for your clarification on this documentation. If you have any questions please call:[[phone] ] * Thank you, [ Zenaida Gooden , CCS, [employer]] [employer] consultant [employer]
== END 2017-12-28 16:13 | DRG 541 ==
LOC: C.ER 06:43 → C.9E 12:20 → C.6T 18:42 → C.9E 18:58 → C.9I 12-10 04:10 → C.6T 12-23 14:43
PROVIDERS: ADMIT Internal Medicine Pulmonary Disease; ATTEND Internal Medicine Pulmonary Disease
PROC: 30233K1 Transfusion of Nonautologous Frozen Plasma into Peripheral Vein, Percutaneous Approach (ICD-10-PCS; 2017-12-15)
PROC: 0W9G3ZZ Drainage of Peritoneal Cavity, Percutaneous Approach (ICD-10-PCS; principal; 2017-12-19)
DX: S27.1XXA Traumatic hemothorax, initial encounter (principal); A41.9 Sepsis, unspecified organism; J96.90 Respiratory failure, unspecified, unspecified whether with hypoxia or hypercapnia; J69.0 Pneumonitis due to inhalation of food and vomit; K85.90 Acute pancreatitis without necrosis or infection, unspecified; F10.231 Alcohol dependence with withdrawal delirium; S22.42XA Multiple fractures of ribs, left side, initial encounter for closed fracture; J90 Pleural effusion, not elsewhere classified; E87.0 Hyperosmolality and hypernatremia; E87.70 Fluid overload, unspecified; E87.6 Hypokalemia; F10.259 Alcohol dependence with alcohol-induced psychotic disorder, unspecified; J98.11 Atelectasis; K70.31 Alcoholic cirrhosis of liver with ascites; B18.2 Chronic viral hepatitis C; S30.1XXA Contusion of abdominal wall, initial encounter; E83.39 Other disorders of phosphorus metabolism; D50.9 Iron deficiency anemia, unspecified; I85.00 Esophageal varices without bleeding; J45.909 Unspecified asthma, uncomplicated; K29.80 Duodenitis without bleeding; K52.9 Noninfective gastroenteritis and colitis, unspecified; K70.40 Alcoholic hepatic failure without coma; K76.6 Portal hypertension; F17.210 Nicotine dependence, cigarettes, uncomplicated; W19.XXXA Unspecified fall, initial encounter; Z59.0 Homelessness; Z87.891 Personal history of nicotine dependence; Z87.81 Personal history of (healed) traumatic fracture

== ENCOUNTER 2018-02-19 07:32 | Day surgery (SDC) | payer MEDICAID ==
[2018-02-19 07:55] VITALS: BMI 26.2
[2018-02-19] MEDS ORDERED: Propofol 10 mg/ml Inj (20 ML) ONE ×3 (12:52→13:27)
--- NOTE | 2018-02-19 12:59 | CP.SDSHP ---
Same Day Surgery H & P - History Proposed Procedure: JAMA. cirrhosis - Allergies Allergies: Allergies acetaminophen [From Tylenol] Allergy (Intermediate, Verified 02/15/18 08:43) SHORTNESS OF BREATH shellfish derived Allergy (Verified 02/19/18 10:59) RASH ibuprofen [From Motrin] Adverse Reaction (Intermediate, Verified 02/15/18 08:43) SHORTNESS OF BREATH chest tightness - Physical Exam General Appearance: nl Vital Signs: Vital Signs 02/19/18 02/19/18 07:50 11:45 Temperature 97.6 F 97.0 F L Pulse Rate 94 H 77 Respiratory 20 21 Rate Blood Pressure 141/89 138/80 O2 Sat by Pulse 99 100 Oximetry Mental Status: Alert & Oriented x3 Neuro: WNL Heart: WNL Lungs: WNL GI: WNL - {Optional Preform as Required} Abdomen: WNL - Impression Impression: jama. cirrhosis. egd/colon Pt. Evaluated Today:Candidate for Anesthesia & Procedure: Yes - Date & Time Date: 02/19/18 Time: 12:59 Short Stay Discharge - Short Stay Discharge Admitting Diagnosis/Reason for Visit: CIRRHOSIS LIVER Disposition: HOME/ ROUTINE
[2018-02-19] MEDS ORDERED: Esmolol 100 mg/10ml Inj IV ONE (13:27)
[2018-02-19 14:04] VITALS: TEMP 98.3
[2018-02-19 14:28] VITALS: O2SAT 97
[2018-02-19 14:31] VITALS: BP 118/70; PULSE 89; RESP 14
== END 2018-02-19 15:10 | disposition home or self-care (01) ==
LOC: C.ENDO 07:32
PROVIDERS: ATTEND Internal Medicine
DX: D12.2 Benign neoplasm of ascending colon (principal); D50.9 Iron deficiency anemia, unspecified; D12.5 Benign neoplasm of sigmoid colon; I85.00 Esophageal varices without bleeding; K29.70 Gastritis, unspecified, without bleeding; K31.89 Other diseases of stomach and duodenum; K76.6 Portal hypertension; K74.60 Unspecified cirrhosis of liver; R18.8 Other ascites; K64.8 Other hemorrhoids; D12.3 Benign neoplasm of transverse colon
CPT/HCPCS: 36415; 36430; 43239; 45388; 86850; 86900; 88305; 88313; 88342; J2704; P9017